=== PATIENT | female | born 1935 | race Caucasian/White ===

== ENCOUNTER 2016-11-29 11:06 | Emergency (ER) | payer OTHER ==
[2016-11-29 11:19] VITALS: BP 110/56; PULSE 91; TEMP 98.1; BMI 34.2
--- NOTE | 2016-11-29 11:42 | PDOC ---
History of Present Illness <Vlad Tse - Last Filed: 11/29/16 13:51> - History of Present Illness Initial Comments: 11/29/16 12:17 The patient is an 81 year old female with a past medical hx of HTN, hyperlipidemia, CHF, COPD, not on antiplatelets or anticoagulation, who presents to the ED s/p fall complaining of right knee, right elbow, and right facial pain. The patient states she was upstairs in the hospital when she tripped and fell onto the right side of her body. She denies any loss of consciousness. She notes her right elbow pain radiates up her right forearm and describes the pain as a mild dull ache. She states she was able to get herself up and walk without complications. She reports she was scheduled for a CT of her lungs at 11:30 today but did not make it to the appointment due to her fall. She notes her last tetanus shot was over five years ago. The patient denies dizziness, nausea, headache, vision changes, focal weakness, paresthesias. Past surgical history: Thyroid surgery Social history: Non-smoker PCP: Dr. Jaimes <Nancy Sheffield - Last Filed: 11/29/16 13:58> - General Chief Complaint: Injury Stated Complaint: FELL Time Seen by Provider: 11/29/16 11:42 Past History - Past Medical History Anemia: No Asthma: Yes Cancer: Yes (SKIN CANCERS) Cardiac Disorders: Yes (MVP,LEFT VENTRICULAR DIASTOLIC DYSFUNCTION) CVA: No COPD: Yes Dementia: No Diabetes: No GI Disorders: Yes (DIVERTICULOSIS,HIATAL HERNIA,COLON POLYPS) Disorders: No HTN: Yes Hypercholesterolemia: Yes Liver Disease: No Seizures: No Thyroid Disease: Yes (HYPOTHYROID DISEASE) - Surgical History Abdominal Surgery: No Appendectomy: No Cardiac Surgery: No Cholecystectomy: No Lung Surgery: No Neurologic Surgery: No Orthopedic Surgery: Yes (Bilateral Knee replaced, R. Hip, R. Rotator Cuff, R. Leg) - Immunization History Immunization Up to Date: No - Psycho/Social/Smoking Cessation Hx Anxiety: No Suicidal Ideation: No Smoking Status: No Smoking History: Never smoked Have you smoked in the past 12 months: No Number of Cigarettes Smoked Daily: 0 If you are a former smoker, when did you quit?: 30 years ago Information on smoking cessation initiated: No 'Breaking Loose' booklet given: 04/15/12 Hx Alcohol Use: No Drug/Substance Use Hx: No Substance Use Type: None Hx Substance Use Treatment: No <Vlad Tse - Last Filed: 11/29/16 13:51> <Nancy Sheffield - Last Filed: 11/29/16 13:58> - Past Medical History Allergies/Adverse Reactions: Allergies Allergy/AdvReac Type Severity Reaction Status Date / Time codeine [Codeine] Allergy Verified 11/29/16 11:16 Shellfish Allergy Verified 11/29/16 11:16 levofloxacin [From Levaquin] AdvReac Unknown Verified 11/29/16 11:16 ceftriaxone sodium AdvReac ERYTHEMA,IT Verified 11/29/16 11:16 [From Rocephin] BRISSA RAYO SHRIMP Allergy Uncoded 11/29/16 11:16 Home Medications: Ambulatory Orders Losartan Potassium [Cozaar] 25 mg PO DAILY 10/09/15 Montelukast Sodium [Singulair] 10 mg PO HS 10/09/15 Pravastatin Sodium [Pravachol -] 40 mg PO HS 10/09/15 Ranitidine HCl [Zantac] 150 mg PO BID PRN 10/09/15 Levothyroxine [Synthroid -] 125 mcg PO DAILY #90 tablet 11/18/15 Calcium Carbonate/Vitamin D3 [Calcium 500-Vit D3 200 Caplet] 1 each PO DAILY Magnesium Oxide [Mag-Ox -] 400 mg PO DAILY 03/22/16 Potassium Chloride [K-Dur -] 10 meq PO QID 03/22/16 Nebivolol [Bystolic -] 2.5 mg PO DAILY tab 03/25/16 Diphenhydramine HCl [Benadryl Capsule -] 25 mg PO DAILY PRN #0 capsule 03/28/16 Furosemide [Lasix -] 40 mg PO BID@0600,1400 tablet 03/28/16 Review of Systems - Review of Systems Able to Perform ROS?: Yes Comments:: 11/29/16 12:18 CONSTITUTIONAL: Absent: fever, chills, diaphoresis, generalized weakness, malaise, loss of appetite HEENT: Absent: rhinorrhea, nasal congestion, throat pain, throat swelling, difficulty swallowing, mouth swelling, ear pain, eye pain, visual Changes CARDIOVASCULAR: Absent: chest pain, syncope, palpitations, irregular heart rate, lightheadedness , peripheral edema RESPIRATORY: Absent: cough, shortness of breath, dyspnea with exertion, orthopnea, wheezing, stridor, hemoptysis GASTROINTESTINAL: Absent: abdominal pain, abdominal distension, nausea, vomiting, diarrhea, constipation, melena, hematochezia GENITOURINARY: Absent: dysuria, frequency, urgency, hesitancy, hematuria, flank pain, genital pain MUSCULOSKELETAL: +Right facial pain, right knee pain, right elbow pain. Absent: joint swelling SKIN: Absent: rash, itching, pallor HEMATOLOGIC/IMMUNOLOGIC: Absent: easy bleeding, easy bruising, lymphadenopathy, frequent infections ENDOCRINE: Absent: unexplained weight gain, unexplained weight loss, heat intolerance, cold intolerance NEUROLOGIC: Absent: headache, focal weakness or paresthesias, dizziness, unsteady gait, seizure, mental status changes, bladder or bowel incontinence PSYCHIATRIC: Absent: anxiety, depression, suicidal or homicidal ideation, hallucinations <Nancy Sheffield - Last Filed: 11/29/16 13:58> *Physical Exam - Vital Signs Last Vital Signs Temp Pulse Resp BP Pulse Ox 98.1 F 91 H 20 110/56 98 11/29/16 11:17 11/29/16 11:17 11/29/16 11:17 11/29/16 11:17 11/29/16 11:17 <Vlad Tse - Last Filed: 11/29/16 13:51> - Vital Signs Last Vital Signs Temp Pulse Resp BP Pulse Ox 98.1 F 91 H 20 110/56 98 11/29/16 11:17 11/29/16 11:17 11/29/16 11:17 11/29/16 11:17 11/29/16 11:17 - Physical Exam Comments: 11/29/16 12:18 GENERAL: Patient is awake, alert and in no acute distress. Speech is clear and appropriate. HEAD: Atraumatic and nontender. HEENT: Pupils are equal round and reactive to light, extraocular movements are intact. The tympanic membranes are clear, no hemotympanum. No facial deformity. No facial bone tenderness or step-off. No nasal septal hematoma. The oropharynx is clear. NECK: The trachea is midline, there is no stridor. There is no midline cervical spine tenderness, full range of motion of neck. CHEST: Non-tender, no ecchymosis or abrasions. Equal chest wall expansion bilaterally. No flail segments. Lungs are clear to auscultation bilaterally. CARDIOVASCULAR: S1-S2, regular rate and rhythm. No murmurs or rubs. ABDOMEN: Soft, nontender, nondistended. Bowel sounds are normoactive. There is no abdominal or flank ecchymosis. BACK/PELVIS: There is no midline thoracic or lumbosacral spine tenderness or step-off. Pelvis is stable and nontender. EXTREMITIES: +There is bony tenderness over the medial and lateral condyle of the right elbow. There is no bony tenderness in the right hand, wrist, or forearm. There is no bony tenderness over the right humerus, shoulder, scapula, or clavicle. There is no extremity deformity or joint swelling. 2+ distal pulses throughout. NEURO: Alert and oriented x3. Cranial nerves II through XII are intact. 5 out of 5 motor strength x4 extremities. No gross sensory deficits. [id number] is intact. No pronator drift. Gait is stable. SKIN: No abrasions, hematomas, lacerations. PSYCH: Affect is appropriate <Nancy Sheffield - Last Filed: 11/29/16 13:58> ED Treatment Course - RADIOLOGY Radiograph Interpretation: 11/29/16 13:38 CT FACIAL BONES. History. Rule out fracture, trauma. Direct axial images of the facial bones were obtained. The study was supplemented with computer generated, sagittal and coronal reconstruction images. Findings. No evidence of acute fracture. Intact orbital javier, zygomatic arches, pterygoid plates, orbital roofs, cribriform plate. No evidence of mandible fracture. Normal temporomandibular joints. Nonspecific mucosal changes are noted in the inferior aspect of the right frontal sinus. Few right anterior ethmoid air cells are opacified. Nonspecific mucosal changes are noted in the right maxillary sinus. Remaining paranasal sinuses are well aerated. The right jennifer bullosa is noted. The temporal bone temporal bones demonstrates normal degree of pneumatization. No evidence of opacification the mastoid air cells, middle ear. Symmetrical optic globes. Status post bilateral cataract surgeries. Intact odontoid. The predental space is not widened. Facet joint arthropathy noted at C2-C3 C3-C4. Impression: No acute facial fracture is seen. Reported By: Travis Chan MD 11/29/[address] WITHOUT CONTRAST TECHNIQUE: Multiaxial CT scan of the head without IV contrast was obtained from the base of the skull to the vertex. Comparison made to prior exam dated December 12, 2010 FINDINGS: There is no evidence of intra or extra-axial hemorrhage, mass effect or midline shift. The mcgraw- white mater differentiation is grossly preserved. There is mild patchy periventricular and subcortical white matter lucency without mass effect consistent with chronic microvascular ischemic changes. There is age-appropriate cerebral atrophy with secondary sulcal and ventricular dilatation. Evaluation of the inferior aspect of the frontal, middle and posterior fossa is limited due to streak artifacts. There are loss of septations in the right mastoid air cells likely postsurgical. The Visualized portions of the bony skull, left mastoid air cells and paranasal sinuses are unremarkable. IMPRESSION: No CT evidence of acute intracranial pathology. Reported By: Geronimo Simon MD 11/29/16 1321 11/29/16 13:56 Right knee X-Ray s/p total knee replacement Metallic hardware is seen in the distal femur Intact hardware. No evidence of dislocation. Vascular calcifications are noted. Intact visualized osseous structures Reported by: Travis Chan MD 11/29/16 1353 11/29/16 13:58 RAD/ELBOW-RIGHT Status post trauma. Right elbow 3 views. Findings. The osseous structures demonstrates normal mineralization and trabeculation. There is no evidence of fracture-dislocation, subluxation or foreign body. The articular surfaces do not demonstrate evidence of degenerative changes. The soft tissues are normal. Intact radial head Impression. No acute bony abnormalities are seen. If symptoms persist follow-up imaging may be considered in order to exclude occult fracture which may not be seen at the present time. Reported By: Travis Chan MD 11/29/16 1347 - Medications Given in the ED: ED Medications Discontinued Medications Generic Name Dose Route Start Last Admin Trade Name Freq PRN Reason Stop Dose Admin Acetaminophen 975 mg 11/29/16 11:53 11/29/16 12:00 Tylenol - PO 11/29/16 11:54 975 mg ONCE ONE Administration <Nancy Sheffield - Last Filed: 11/29/16 13:58> Medical Decision Making - Medical Decision Making 11/29/16 11:59 The patient is well-appearing and in no acute distress C-spine is nontender Will obtain plain films of the right elbow and right knee Will CT brain and facial bones 11/29/16 13:00 X-rays and CTs have been performed Results pending 11/29/16 13:51 Official readings of CTs and elbow x-ray noted Will apply sling and advised ortho follow-up Clinical impression: Right knee contusion Right elbow contusion Closed head injury, without evidence of concussion Right facial contusion I discussed the physical exam findings, ancillary test results and final diagnoses with the patient. I answered all of the patient's questions. The patient was satisfied with the care received and felt comfortable with the discharge plan and treatment plan. The patient will call their primary care physician within 24 hours to arrange follow-up and will return to the Emergency Department with any new, persistent or worsening symptoms. A portion of this note was documented by scribe services under my direction. I have reviewed the details of the note, within reason, and agree with the documentation with the following case summary and management plan written by me. <Vlad Tse - Last Filed: 11/29/16 13:51> *DC/Admit/Observation/Transfer <Vlad Tse - Last Filed: 11/29/16 13:51> - Attestations Scribe Attestion: 11/29/16 12:18 Documentation prepared by Nancy Sheffield, acting as resident medical officer for Vlad Tse MD/DO. <Nancy Sheffield - Last Filed: 11/29/16 13:58> Diagnosis at time of Disposition: Knee contusion, Contusion, elbow, Contusion of face, Closed head injury - Discharge Dispostion Disposition: HOME Condition at time of disposition: Improved - Referrals - Patient Instructions
[2016-11-29] MEDS ORDERED: ACETAMINOPHEN 325 MG TABLET (FP) PO ONE (11:53)
[2016-11-29] MEDS ORDERED: ACETAMINOPHEN 325 MG TABLET (FP) ONE (11:56)
--- NOTE | 2016-11-29 14:00 | RAPID ---
Physical Examination Vital Signs: Vital Signs Temperature 98.1 F 11/29/16 11:17 Pulse Rate 91 H 11/29/16 11:17 Respiratory Rate 20 11/29/16 11:17 Blood Pressure 110/56 11/29/16 11:17 O2 Sat by Pulse Oximetry (%) 98 11/29/16 11:17 Findings/Remarks: ECOLOGIST TECHNICIAN called after someone saw the patient fall. As per pt she was ambulating and stubbed her toe and fell onto her Right side. states she had no symptoms prior to event and was in her normal state of health. arrived to the ER for routing CT chest to follow pulmonary nodule pt states she did strike her head and c/o R knee pain Pt assessed, bleeding from R temporal and R side of bridge of nose (fell with sunglasses on her face) HR 88 saturating 98% on RA EOMI intact, able to move all 4 extremities with assistance pt was placed onto stretcher to go to ER for further evaluation and imaging studies
== END 2016-11-29 14:13 | disposition home or self-care (01) ==
LOC: JER 11:06 → UNDOADMIN 13:04 → JERBED 13:04
DX: S09.8XXA Other specified injuries of head, initial encounter (principal); S00.83XA Contusion of other part of head, initial encounter; S50.01XA Contusion of right elbow, initial encounter; S80.01XA Contusion of right knee, initial encounter; W01.0XXA Fall on same level from slipping, tripping and stumbling without subsequent striking against object, initial encounter; Y93.89 Activity, other specified; Y92.238 Other place in hospital as the place of occurrence of the external cause; I10 Essential (primary) hypertension; E78.00 Pure hypercholesterolemia, unspecified; J45.909 Unspecified asthma, uncomplicated; J44.9 Chronic obstructive pulmonary disease, unspecified; I51.9 Heart disease, unspecified; E03.9 Hypothyroidism, unspecified; Z85.828 Personal history of other malignant neoplasm of skin
CPT/HCPCS: 70450-TC; 70486-TC; 73070-TC-RT; 73562-TC-RT; 99281-25

== ENCOUNTER 2017-07-12 10:17 | Inpatient (IN) | payer OTHER ==
[2017-07-12 10:31] VITALS: BMI 31.6
--- NOTE | 2017-07-12 10:36 | PDOC ---
Attending Attestation - HPI HPI: 07/12/17 11:29 The patient is a 82 year old female with a significant PMH of HTN, CHF, COPD, and hyperlipidemia who presents to the emergency department with generalized malaise beginning approximately 2 days ago. Reports malaise began at dinner with a sudden isolated episode of nausea, vomiting, and diarrhea, after which patient reports feeling off. Patients daughters also report 2 weeks of intermittent confused language. - Physicial Exam PE: 07/12/17 11:29 Vitals: Triage Vital signs reviewed General Appearance: no acute distress, well nourished well developed, Head: Atraumatic, normocephalic Cardiac: Regular rate and rhythm, no murmurs, no rubs, no gallops, Lungs: Clear to auscultation bilateral, good air movement bilaterally, Abdomen: Soft, nondistended, normal bowel sounds, nontender to palpation Extremities: Full range of motion to all extremities, no cyanosis, clubbing, or edema Neuro: AOX3; Cranial Nerves 2-12 grossly intact, Strength intact to all extremities, Sensation intact to all extremities Psych: normal mood, normal affect - Medical Decision Making 07/12/17 11:29 Plan: Finger stick to evaluate glucose levels, Rectal temp. Labs: Urinalysis (straight catheter if necessary), CBC, CMP, TSH Radiology: Head CT <Venkata Doss - Last Filed: 07/12/17 13:03> - Resident Resident Name: Mauri Barth - ED Attending Attestation I have performed the following: I have examined & evaluated the patient, The case was reviewed & discussed with the resident, I agree w/resident's findings & plan, Exceptions are as noted - Medical Decision Making 07/12/17 15:48 CT head findings as dictated. 4 mg Decadron ordered. Findings discussed with patient's primary care provider. Neurosurgery Dr. Leonard consulted. Plan admit to medicine for further management. <Chadwick Fontenot - Last Filed: 07/12/17 15:48>
--- NOTE | 2017-07-12 10:51 | PDOC ---
History of Present Illness <Venkata Doss - Last Filed: 07/12/17 13:05> <Chadwick Fontenot - Last Filed: 07/12/17 13:10> - History of Present Illness Initial Comments: 07/12/17 10:51 Ms. Waldrop is an 82 yo female with a significant past medical history of HTN, CHF, COPD, and hyperlipidemia who presents to the emergency department complaining of generally "not feeling good" over the past 2 days. Per family this started 2 days ago at dinner time when she suddenly was "off" and had a sudden epidode of nausea/vomiting/diarrhea. Per family this was an isolated incident but she has had intermittent minor word finding difficulty over the last 2 days since. The patient denies chest pain, shortness of breath, headache and dizziness. Denies fever, chills, nausea, vomit, diarrhea and constipation. Denies dysuria, frequency, urgency and hematuria. Allergies: Rocephin, Levofloxacin, ceftriaxone, codeine <Mauri Barth - Last Filed: 07/12/17 13:40> - General Chief Complaint: Lethargy Stated Complaint: CONFUSION, SOB Time Seen by Provider: 07/12/17 10:33 Past History <Venkata Doss - Last Filed: 07/12/17 13:05> <Chadwick Fontenot - Last Filed: 07/12/17 13:10> - Past Medical History Anemia: No Asthma: Yes Cancer: Yes (SKIN CANCERS) Cardiac Disorders: Yes (MVP,LEFT VENTRICULAR DIASTOLIC DYSFUNCTION) CVA: No COPD: Yes Dementia: No Diabetes: No GI Disorders: Yes (DIVERTICULOSIS,HIATAL HERNIA,COLON POLYPS) Disorders: No HTN: Yes Hypercholesterolemia: Yes Liver Disease: No Seizures: No Thyroid Disease: Yes (HYPOTHYROID DISEASE) - Surgical History Abdominal Surgery: No Appendectomy: No Cardiac Surgery: No Cholecystectomy: No Lung Surgery: No Neurologic Surgery: No Orthopedic Surgery: Yes (Bilateral Knee replaced, R. Hip, R. Rotator Cuff, R. Leg) - Immunization History Immunization Up to Date: No - Suicide/Smoking/Psychosocial Hx Smoking Status: No Smoking History: Never smoked Have you smoked in the past 12 months: No Number of Cigarettes Smoked Daily: 0 If you are a former smoker, when did you quit?: 30 years ago 'Breaking Loose' booklet given: 04/15/12 Hx Alcohol Use: No Drug/Substance Use Hx: No Substance Use Type: None Hx Substance Use Treatment: No <Mauri Barth - Last Filed: 07/12/17 13:40> - Past Medical History Allergies/Adverse Reactions: Allergies Allergy/AdvReac Type Severity Reaction Status Date / Time Shellfish Allergy Verified 07/12/17 10:27 levofloxacin [From Levaquin] AdvReac Unknown Verified 07/12/17 10:27 ceftriaxone sodium AdvReac ERYTHEMA,IT Verified 07/12/17 10:27 [From Rocephin] GIRMA,URTIC ARIA codeine [Codeine] AdvReac Nausea Verified 07/12/17 10:27 SHRIMP Allergy Uncoded 07/12/17 10:27 Home Medications: Ambulatory Orders Losartan Potassium [Cozaar] 25 mg PO DAILY 10/09/15 Montelukast Sodium [Singulair] 10 mg PO HS 10/09/15 Pravastatin Sodium [Pravachol -] 40 mg PO HS 10/09/15 Ranitidine HCl [Zantac] 150 mg PO BID PRN 10/09/15 Levothyroxine [Synthroid -] 125 mcg PO DAILY #90 tablet 11/18/15 Calcium Carbonate/Vitamin D3 [Calcium 500-Vit D3 200 Caplet] 1 each PO DAILY Magnesium Oxide [Mag-Ox -] 400 mg PO DAILY 03/22/16 Potassium Chloride [K-Dur -] 10 meq PO QID 03/22/16 Nebivolol [Bystolic -] 2.5 mg PO DAILY tab 03/25/16 Diphenhydramine HCl [Benadryl Capsule -] 25 mg PO DAILY PRN #0 capsule 03/28/16 Furosemide [Lasix -] 40 mg PO BID@0600,1400 tablet 03/28/16 Review of Systems - Review of Systems Comments:: 07/12/17 10:52 GENERAL/CONSTITUTIONAL: No fever or chills. No weakness. HEAD, EYES, EARS, NOSE AND THROAT: +Minimal rhinorrhea reported. No change in vision. No ear pain or discharge. No sore throat. CARDIOVASCULAR: No chest pain or shortness of breath RESPIRATORY: No cough, wheezing, or hemoptysis. GASTROINTESTINAL: +N/V/D as reported in HPI. No constipation. GENITOURINARY: No dysuria, frequency, or change in urination. MUSCULOSKELETAL: No joint or muscle swelling or pain. No neck or back pain. SKIN: No rash NEUROLOGIC: No headache, vertigo, loss of consciousness, or change in strength/ sensation. ENDOCRINE: No increased thirst. No abnormal weight change HEMATOLOGIC/LYMPHATIC: No anemia, easy bleeding, or history of blood clots. ALLERGIC/IMMUNOLOGIC: No hives or skin allergy. <Mauri Barth - Last Filed: 07/12/17 13:40> *Physical Exam - Vital Signs Last Vital Signs Temp Pulse Resp BP Pulse Ox 98.3 F 75 18 105/67 96 07/12/17 10:26 07/12/17 10:26 07/12/17 10:26 07/12/17 10:26 07/12/17 10:26 <Venkata Doss - Last Filed: 07/12/17 13:05> - Vital Signs Last Vital Signs Temp Pulse Resp BP Pulse Ox 98.3 F 75 18 105/67 96 07/12/17 10:26 07/12/17 10:26 07/12/17 10:26 07/12/17 10:26 07/12/17 10:26 <Chadwick Fontenot - Last Filed: 07/12/17 13:10> - Vital Signs Last Vital Signs Temp Pulse Resp BP Pulse Ox 98.3 F 75 18 105/67 96 07/12/17 10:26 07/12/17 10:26 07/12/17 10:26 07/12/17 10:26 07/12/17 10:26 - Physical Exam Comments: 07/12/17 10:52 GENERAL: Awake, alert, and fully oriented, in no acute distress HEAD: No signs of trauma, normocephalic, atraumatic EYES: PERRLA, EOMI, sclera anicteric, conjunctiva clear ENT: Auricles normal inspection, hearing grossly normal, nares patent, oropharynx clear without exudates. Moist mucosa NECK: Normal ROM, supple, no lymphadenopathy, JVD, or masses LUNGS: No distress, speaks full sentences, clear to auscultation bilaterally HEART: Regular rate and rhythm, normal S1 and S2, no murmurs, rubs or gallops, peripheral pulses normal and equal bilaterally. ABDOMEN: Soft, nontender, normoactive bowel sounds. No guarding, no rebound. No masses EXTREMITIES: Normal inspection, Normal range of motion, no edema. No clubbing or cyanosis. NEUROLOGICAL: Cranial nerves II through XII grossly intact. Normal speech, normal gait, no focal sensorimotor deficits SKIN: Warm, Dry, normal turgor, no rashes or lesions noted. <Mauri Barth - Last Filed: 07/12/17 13:40> ED Treatment Course - LABORATORY CBC & Chemistry Diagram: 07/12/17 11:34 07/12/17 11:34 - ADDITIONAL ORDERS Additional order review: Laboratory Results 07/12/17 07/12/17 07/12/17 11:34 11:34 11:30 Sodium 137 Potassium 3.9 Chloride 100 Carbon Dioxide 28 Anion Gap 9 BUN 54 H D Creatinine 2.0 H D Creat Clearance w eGFR 23.74 Random Glucose 93 Calcium 8.7 Total Bilirubin 0.7 D AST 21 D ALT 19 D Alkaline Phosphatase 97 Total Protein 7.1 Albumin 3.1 L TSH 0.10 L D Urine Color Ltyellow Urine Appearance Clear Urine pH 6.0 Urine Protein Negative Urine Glucose (UA) Negative Urine Ketones Trace H Urine Blood Negative Urine Nitrite Negative Urine Bilirubin Negative Urine Urobilinogen Negative 07/12/17 11:34 RBC 4.29 MCV 90.8 MCHC 33.3 RDW 16.0 H MPV 9.1 D Neutrophils % 81.4 Lymphocytes % 11.5 Monocytes % 5.4 Eosinophils % 1.2 Basophils % 0.5 - Medications Given in the ED: ED Medications Discontinued Medications Generic Name Dose Route Start Last Admin Trade Name Freq PRN Reason Stop Dose Admin Dexamethasone Sodium Phosphate 4 mg 07/12/17 12:54 07/12/17 13:02 Decadron Injection - IVPUSH 07/12/17 12:55 4 mg ONCE ONE Administration Sodium Chloride 500 mls @ 1,000 mls/hr 07/12/17 11:26 07/12/17 11:35 Normal Saline - IV 07/12/17 11:55 1,000 mls/hr ASDIR STA Administration - Consult/PCP Time Called: 13:05 Case discussed with personal care physician: Nahed Jaimes - Additional Consults Time Called: 13:05 (Dr. Keith Leonard (Neurosurgery)) <Venkata Doss - Last Filed: 07/12/17 13:05> - LABORATORY CBC & Chemistry Diagram: 07/12/17 11:34 07/12/17 11:34 - ADDITIONAL ORDERS Additional order review: Laboratory Results 07/12/17 07/12/17 07/12/17 11:34 11:34 11:30 Sodium 137 Potassium 3.9 Chloride 100 Carbon Dioxide 28 Anion Gap 9 BUN 54 H D Creatinine 2.0 H D Creat Clearance w eGFR 23.74 Random Glucose 93 Calcium 8.7 Total Bilirubin 0.7 D AST 21 D ALT 19 D Alkaline Phosphatase 97 Total Protein 7.1 Albumin 3.1 L TSH 0.10 L D Urine Color Ltyellow Urine Appearance Clear Urine pH 6.0 Urine Protein Negative Urine Glucose (UA) Negative Urine Ketones Trace H Urine Blood Negative Urine Nitrite Negative Urine Bilirubin Negative Urine Urobilinogen Negative 07/12/17 11:34 RBC 4.29 MCV 90.8 MCHC 33.3 RDW 16.0 H MPV 9.1 D Neutrophils % 81.4 Lymphocytes % 11.5 Monocytes % 5.4 Eosinophils % 1.2 Basophils % 0.5 - Medications Given in the ED: ED Medications Discontinued Medications Generic Name Dose Route Start Last Admin Trade Name Freq PRN Reason Stop Dose Admin Dexamethasone Sodium Phosphate 4 mg 07/12/17 12:54 07/12/17 13:02 Decadron Injection - IVPUSH 07/12/17 12:55 4 mg ONCE ONE Administration Sodium Chloride 500 mls @ 1,000 mls/hr 07/12/17 11:26 07/12/17 11:35 Normal Saline - IV 07/12/17 11:55 1,000 mls/hr ASDIR STA Administration <Chadwick Fontenot - Last Filed: 07/12/17 13:10> - LABORATORY CBC & Chemistry Diagram: 07/12/17 11:34 07/12/17 11:34 <Mauri Barth - Last Filed: 07/12/17 13:40> Medical Decision Making - Medical Decision Making 07/12/17 11:33 Ms. Waldrop presents with 2 days of confusion with n/v/d. EKG/Head CT/UA ordered as well as adult labs to rule out acute pathology. EKG normal rate, normal rhythm, normal access, normal interval, no ST segment depressions or elevations. Normal EKG. 07/12/17 13:15 CT Head as below: In comparison to a prior noncontrast CT study of 11/29/2016 interval development of an approximately 3 cm left frontal subcortical mass lesion is noted with probable involvement of the corpus callosum. Moderate to marked perilesional edema is seen. There is mild to moderate contralateral midline displacement. This finding is probably more likely on the basis of primary neoplastic disease rather than metastatic neoplastic disease. Additional evaluation utilizing contrast enhanced MRI or CT is suggested. Discussed findings with patient and family - verbalized understanding. 07/12/17 13:19 Patient admitted to PCP (Dr. Jaimes) for futher workup, Neurosurgery consulted. 07/12/17 13:[address] Clifford Leonard (Neurosurgery) and he agreed to consult. <Mauri Barth - Last Filed: 07/12/17 13:40> *DC/Admit/Observation/Transfer <Venkata Doss - Last Filed: 07/12/17 13:05> - Discharge Dispostion Admit: Yes Decision to Admit order Date/Time: 07/12/17 13:11 <Chadwick Fontenot - Last Filed: 07/12/17 13:10> - Discharge Dispostion Admit: Yes <Mauri Barth - Last Filed: 07/12/17 13:40> Diagnosis at time of Disposition: Brain mass, Acute kidney injury - Referrals
[2017-07-12] MEDS ORDERED: SODIUM CHLORIDE 500 ML IV STA (11:26)
[2017-07-12 11:41] LABS: BASOPHIL 0.5 % (0-2.0); EOSINOPHIL 1.2 % (0-4.5); MCH 30.2 pg (25.7-33.7); MCHC 33.3 g/dl (32.0-36.0); MEAN CELL VOLUME 90.8 fl (80-96); MEAN PLT VOLUME 9.1 fl (7.5-11.1); NEUTROPHILS 81.4 % (42.8-82.8); PLATELET COUNT 272 K/MM3 (134-434); WHITE BLOOD COUNT 9.5 K/mm3 (4.0-10.0)
[2017-07-12 12:05] LABS: ALBUMIN 3.1 g/dl (3.4-5.0); ALK PHOS 97 U/L (45-117); ANION GAP 9 (8-16); BILIRUBIN,TOTAL 0.7 mg/dL (0.2-1.0); CALCIUM 8.7 mg/dL (8.5-10.1); CO2 28 mmol/L (21-32); GLUCOSE,RANDOM 93 mg/dL (74-106); SGOT/AST 21 U/L (15-37); SGPT/ALT 19 U/L (12-78); TOT PROT 7.1 g/dl (6.4-8.2)
[2017-07-12] MEDS ORDERED: DEXAMETHASONE SOD PHOSPHATE 4 MG/1 ML VIAL IVPUSH ONE (12:54)
[2017-07-12 12:55] LABS: URINE APPEARANCE CLEAR; URINE BILIRUBIN NEGATIVE (NEGATIVE); URINE BLOOD NEGATIVE (NEGATIVE); URINE COLOR LTYELLOW; URINE GLUCOSE (UA) NEGATIVE (NEGATIVE); URINE KETONE TRACE (NEGATIVE); URINE NITRITE NEGATIVE (NEGATIVE); URINE PROTEIN NEGATIVE (NEGATIVE); URINE UROBILINOGEN NEGATIVE mg/dL (0.2-1.0)
[2017-07-12] MEDS ORDERED: DEXAMETHASONE SOD PHOSPHATE 4 MG/1 ML VIAL ONE (13:04)
[2017-07-12] MEDS ORDERED: diphenhydrAMINE HCL 25 MG CAPSULE (FP) PO PRN (13:27)
[2017-07-12] MEDS ORDERED: PATIENT'S OWN MEDICATION (NON-FORMULARY) (Ranitidine Hcl [Zantac] 150 MG) PO PRN (13:27)
[2017-07-12] MEDS ORDERED: ACETAMINOPHEN 325 MG TABLET (FP) PO PRN (13:30)
--- NOTE | 2017-07-12 13:38 | HP ---
Admitting History and Physical - Primary Care Physician PCP: Nahed Jaimes - Admission Chief Complaint: confusion History of Present Illness: Ms. Waldrop is an 82 yo female with a significant past medical history of HTN, CHF, COPD, and hyperlipidemia who presents to the emergency department complaining of generally "not feeling good" over the past 2 days. Per family this started 2 days ago at dinner time when she suddenly was "off" and had a sudden epidode of nausea/vomiting/diarrheax1 but resolved after that. Per family this was an isolated incident but she has had intermittent minor word finding difficulty over the last 2 days since. Per daughter, pt was alos mildly and intermitently confused over the last 2 weeks and uses sometimes words that do not make sense. The patient denies chest pain, shortness of breath, headache and dizziness. Denies fever, chills, nausea, vomit, diarrhea and constipation. Denies dysuria, frequency, urgency and hematuria. History Source: Patient, Family Member, Medical Record Limitations to Obtaining History: No Limitations - Past Medical History Cardiovascular: Yes: HTN, Hyperlipdemia, Pulmonary Hypertension Pulmonary: Yes: COPD Gastrointestinal: Yes: Other (colon polyps) Musculoskeletal: Yes: Chronic low back pain, Osteoarthritis Endocrine: Yes: Hypothyroidism - Past Surgical History Past Surgical History: Yes: Joint Replacement - Smoking History Smoking history: Never smoked Have you smoked in the past 12 months: No Aproximately how many cigarettes per day: 0 If you are a former smoker, when did you quit?: 30 years ago - Alcohol/Substance Use Hx Alcohol Use: No History of Substance Use: reports: None - Social History Usual Living Arrangement: Yes: With Child ADL: Family Assistance ([employer] [facility] lives close by) Occupation: retired History of Recent Travel: No Home Medications - Allergies Allergies/Adverse Reactions: Allergies Allergy/AdvReac Type Severity Reaction Status Date / Time Shellfish Allergy Verified 07/12/17 10:27 levofloxacin [From Levaquin] AdvReac Unknown Verified 07/12/17 10:27 ceftriaxone sodium AdvReac ERYTHEMA,IT Verified 07/12/17 10:27 [From Rocephin] GIRMA,URTIC ARIA codeine [Codeine] AdvReac Nausea Verified 07/12/17 10:27 SHRIMP Allergy Uncoded 07/12/17 10:27 - Home Medications Home Medications: Ambulatory Orders Losartan Potassium [Cozaar] 25 mg PO DAILY 10/09/15 Montelukast Sodium [Singulair] 10 mg PO HS 10/09/15 Pravastatin Sodium [Pravachol -] 40 mg PO HS 10/09/15 Ranitidine HCl [Zantac] 150 mg PO BID PRN 10/09/15 Levothyroxine [Synthroid -] 125 mcg PO DAILY #90 tablet 11/18/15 Calcium Carbonate/Vitamin D3 [Calcium 500-Vit D3 200 Caplet] 1 each PO DAILY Magnesium Oxide [Mag-Ox -] 400 mg PO DAILY 03/22/16 Potassium Chloride [K-Dur -] 10 meq PO QID 03/22/16 Nebivolol [Bystolic -] 2.5 mg PO DAILY tab 03/25/16 Diphenhydramine HCl [Benadryl Capsule -] 25 mg PO DAILY PRN #0 capsule 03/28/16 Furosemide [Lasix -] 40 mg PO BID@0600,1400 tablet 03/28/16 Family Disease History - Family Disease History Family Disease History: CA: Father (colon cancer), Brother (colon cancer) Review of Systems - Review of Systems Constitutional: denies: Chills, Fever, Lethargy Eyes: denies: Blind Spots, Double Vision HENT: denies: Ear Pain Neck: denies: Stiffness, Tenderness Cardiovascular: denies: Chest Pain, Edema, Shortness of Breath Respiratory: denies: Cough, SOB Gastrointestinal: denies: Abdominal Pain, Diarrhea, Nausea, Vomiting Genitourinary: denies: Dysuria, Flank Pain Musculoskeletal: reports: Back Pain (chronic) Integumentary: denies: Eczema, Wound Neurological: reports: Change in Speech, Confusion, Headache (occasional). denies: Change in LOC, Dizziness, Numbness, Seizure, Syncope, Tremors, Weakness Hematology/Lymphatic: denies: Easily Bruised, Excessive Bleeding Psychiatric: denies: Anxiety, Depression Physical Examination Vital Signs: Vital Signs Temperature 98.3 F 07/12/17 10:26 Pulse Rate 75 07/12/17 10:26 Respiratory Rate 18 07/12/17 10:26 Blood Pressure 105/67 07/12/17 10:26 O2 Sat by Pulse Oximetry (%) 96 07/12/17 10:26 Constitutional: Yes: No Distress, Calm Eyes: Yes: Conjunctiva Clear HENT: Yes: Atraumatic Neck: Yes: Supple Cardiovascular: Yes: Regular Rate and Rhythm Respiratory: Yes: CTA Bilaterally Gastrointestinal: Yes: Soft. No: Distention, Tenderness Renal/: No: CVA Tenderness - Left, CVA Tenderness - Right Musculoskeletal: No: Joint Stiffness, Joint Swelling Extremities: No: Cold, Cool, Cyanosis Edema: No Integumentary: No: Rash, Venous Stasis Changes Neurological: Yes: WNL, Alert, Confusion (mild). No: Oriented (x2 only), Dysarthria, Facial Droop, Seizure, Tingling, Unsteady Gait, Weakness ...Motor Strength: WNL Psychiatric: Yes: WNL, Alert. No: Oriented (x2 only), Agitated, Suicidal Ideation Imaging - Results Chest X-ray: Report Reviewed X-ray: Report Reviewed Cat Scan: Report Reviewed Other: Report Reviewed Assessment/Plan Ms. Waldrop is an 82 yo female with a significant past medical history of HTN, dyastolic CHF, COPD, and hyperlipidemia who presents to the emergency department complaining of generally "not feeling good" over the past 2 days. Mild confusion and intermittent minor word finding difficulty over the last few days. Head CT in ER c/w L frontal mass 3 cm with surrounding edema and some midline shift; of note, head CT november 2016 was negative ARF/CRF dehydration; admit IVF for gentle hydration; will need MRI brain with and without IV heidi; creat 2.0 - risk for Nephrogenic Systemic SClerosis to be d.w renal and pt, pt's family Neurology and NS eval watch for CHF given multiple previous admissions for CHF/COPD exac, will ask cardio and pulm eval for preop optimization IV steroids. Po keppra for seizure PFX OK to use sq heparin per neuology f/u labs falls PFX d/w pt and staff do not get OOB alone d/w pt and family d/w NS dr Leonard, Neuro dr Cuevas progn guarded T time 75 min
[2017-07-12] MEDS ORDERED: POTASSIUM CHLORIDE TABS 10 MEQ TABLET.ER (FP) ONE (14:20)
[2017-07-12] MEDS: POTASSIUM CHLORIDE TABS 20 MEQ TABLET.ER (FP) PO SCH ×3 (14:20→21:12)
[2017-07-12] MEDS: FUROSEMIDE 40 MG TABLET (FP) PO SCH (14:23)
[2017-07-12] MEDS: DEXAMETHASONE SOD PHOSPHATE 4 MG/1 ML VIAL IVPUSH SCH ×2 (15:14→21:22)
[2017-07-12] MEDS ORDERED: PNEUMOC 13-VAL CONJ-DIP CRM/PF 0.5 ML DISP.SYRIN IM ONE (16:58)
[2017-07-12 17:10] LABS: URINE LEUK ESTERASE Negative (NEGATIVE)
[2017-07-12] MEDS: INSULIN SLIDING SCALE (NOVOLOG) 1 VIAL SQ SCH ×2 (18:03→21:14)
--- NOTE | 2017-07-12 18:14 | CON.NEURO ---
Consult - History of Present Illness History of Present Illness: 82 year old female with a significant PMH of HTN, CHF, COPD, and hyperlipidemia who presents to the emergency department with generalized malaise beginning approximately 2 days ago. Reports malaise began at dinner with a sudden isolated episode of nausea, vomiting, and diarrhea, after which patient reports feeling off. as per chart, Patients daughters also report 2 weeks of intermittent confused language. Pt denies TAVERAS or focal weakness. she smiles and is attentive and becomes slightly confused with conversation. denies breathing c/o. no known cancer CT HD IMPRESSION: In comparison to a prior noncontrast CT study of 11/29/2016 interval development of an approximately 3 cm left frontal subcortical mass lesion is noted with probable involvement of the corpus callosum. Moderate to marked perilesional edema is seen. There is mild to moderate contralateral midline displacement. This finding is probably more likely on the basis of primary neoplastic disease rather than metastatic neoplastic disease. Additional evaluation utilizing contrast enhanced MRI or CT is suggested. - History Source History Provided By: Patient, Medical Record - Past Medical History Cardio/Vascular: Yes: HTN, Hyperlipdemia, Pulmonary Hypertension Pulmonary: Yes: COPD Gastrointestinal: Yes: Other (colon polyps) Musculoskeletal: Yes: Chronic low back pain, Osteoarthritis Endocrine: Yes: Hypothyroidism - Past Surgical History Past Surgical History: Yes: Joint Replacement - Alcohol/Substance Use Hx Alcohol Use: No History of Substance Use: reports: None - Smoking History Smoking history: Never smoked Have you smoked in the past 12 months: No Aproximately how many cigarettes per day: 0 If you are a former smoker, when did you quit?: 30 years ago - Social History ADL: Family Assistance ([facility] lives close by) Occupation: retired History of Recent Travel: No Home Medications - Allergies Allergies/Adverse Reactions: Allergies Allergy/AdvReac Type Severity Reaction Status Date / Time Shellfish Allergy Verified 07/12/17 10:27 levofloxacin [From Levaquin] AdvReac Unknown Verified 07/12/17 10:27 ceftriaxone sodium AdvReac ERYTHEMA,IT Verified 07/12/17 10:27 [From Rocephin] GIRMA,URTIC ARIA codeine [Codeine] AdvReac Nausea Verified 07/12/17 10:27 SHRIMP Allergy Uncoded 07/12/17 10:27 - Home Medications Home Medications: Ambulatory Orders Losartan Potassium [Cozaar] 25 mg PO DAILY 10/09/15 Montelukast Sodium [Singulair] 10 mg PO HS 10/09/15 Pravastatin Sodium [Pravachol -] 40 mg PO HS 10/09/15 Ranitidine HCl [Zantac] 150 mg PO BID PRN 10/09/15 Levothyroxine [Synthroid -] 125 mcg PO DAILY #90 tablet 11/18/15 Calcium Carbonate/Vitamin D3 [Calcium 500-Vit D3 200 Caplet] 1 each PO DAILY Magnesium Oxide [Mag-Ox -] 400 mg PO DAILY 03/22/16 Potassium Chloride [K-Dur -] 10 meq PO QID 03/22/16 Nebivolol [Bystolic -] 2.5 mg PO DAILY tab 03/25/16 Diphenhydramine HCl [Benadryl Capsule -] 25 mg PO DAILY PRN #0 capsule 03/28/16 Furosemide [Lasix -] 40 mg PO BID@0600,1400 tablet 03/28/16 Family Disease History - Family Disease History Family Disease History: CA: Father (colon cancer), Brother (colon cancer) Physical Exam-Neuro Vital Signs: Vital Signs Temperature 98.6 F 07/12/17 16:23 Pulse Rate 74 07/12/17 16:23 Respiratory Rate 20 07/12/17 16:23 Blood Pressure 132/77 07/12/17 16:23 O2 Sat by Pulse Oximetry (%) 96 07/12/17 16:23 Constitutional: Yes: Well Nourished - Neuro Exam Level Of Consciousness: Yes: Alert (awake and alert though becomes confused , yr 1955, does not know age, follows basic commands, can name and repeat, no clear aphasia, VFF, lsight RUE drift, no focal weakness, plantars equivocal ) Imaging - Results Cat Scan: Report Reviewed, Image Reviewed Problem List - Problems (1) Acute kidney injury Code(s): N17.9 - ACUTE KIDNEY FAILURE, UNSPECIFIED (2) Brain mass Code(s): G93.9 - DISORDER OF BRAIN, UNSPECIFIED (3) COPD (chronic obstructive pulmonary disease) with chronic bronchitis Code(s): J44.9 - CHRONIC OBSTRUCTIVE PULMONARY DISEASE, UNSPECIFIED Assessment/Plan 82 year old female with a significant PMH of HTN, CHF, COPD, and hyperlipidemia who presents to the emergency department with generalized malaise beginning approximately 2 days ago. Reports malaise began at dinner with a sudden isolated episode of nausea, vomiting, and diarrhea, after which patient reports feeling off. as per chart, Patients daughters also report 2 weeks of intermittent confused language. Pt denies TAVERAS or focal weakness. she smiles and is attentive and becomes slightly confused with conversation. denies breathing c /o. no known cancer CT HD IMPRESSION: In comparison to a prior noncontrast CT study of 11/29/2016 interval development of an approximately 3 cm left frontal subcortical mass lesion is noted with probable involvement of the corpus callosum. Moderate to marked perilesional edema is seen. There is mild to moderate contralateral midline displacement. This finding is probably more likely on the basis of primary neoplastic disease rather than metastatic neoplastic disease. Additional evaluation utilizing contrast enhanced MRI or CT is suggested suspicious for new primary brain CA, surprisingly no major extremity deficits though she is confused. can maintaian decadron 4 Q6, review prior MCDONOUGH to ensure no primary CA site. MRI BRAIN with contrast after creatinine corrects -- hx of shellfsih allergy, though HOPE does not contain iodine. Neurosurgery to be called -Dr Leonard , biopsy/ ?debulking, Oncology after biopsy no AED for now, will Dc keppra, though if any seizure like activity will reasess. HEP Sq ok. will discuss with family when they are available Dr Torres [phone] .
[2017-07-12] MEDS: RANITIDINE HCL 150 MG TABLET (FP) PO SCH (21:13)
[2017-07-12] MEDS: MONTELUKAST NA 10 MG TABLET PO SCH (21:13)
[2017-07-12] MEDS: ATORVASTATIN CA 10 MG TABLET (FP) PO SCH (21:24)
[2017-07-12] MEDS: levETIRAcetam 500 MG TABLET (FP) PO SCH (21:24)
[2017-07-12] MEDS ORDERED: PATIENT'S OWN MEDICATION (NON-FORMULARY) (Montelukast Sodium [Singulair] 10 MG) PO SCH (22:00)
[2017-07-12] MEDS ORDERED: PATIENT'S OWN MEDICATION (NON-FORMULARY) (Pravastatin Sodium 40 MG) PO SCH (22:00)
[2017-07-13] MEDS: DEXAMETHASONE SOD PHOSPHATE 4 MG/1 ML VIAL IVPUSH SCH ×4 (04:51→22:36)
[2017-07-13] MEDS: FUROSEMIDE 40 MG TABLET (FP) PO SCH (06:08)
[2017-07-13] MEDS: INSULIN SLIDING SCALE (NOVOLOG) 1 VIAL SQ SCH ×4 (06:15→22:37)
[2017-07-13] MEDS ORDERED: LEVOTHYROXINE NA 125 MCG TABLET (FP) PO SCH (07:00)
--- NOTE | 2017-07-13 09:42 | PN ---
Progress Note (short form) - Note Progress Note: NEUROSURGERY CONSULT DICTATED H/o HTN, CHF, COPD, and hyperlipidemia. Presents with generalized malaise beginning 3-4 days ago. Reports nausea, vomiting, and diarrhea, Patients daughters reported 2 weeks of intermittent confused speech. Pt had intermittent TAVERAS in the past but no sz or focal weakness except R foot mild chronic weakness. No h/o primary systemic malignancy. 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
--- NOTE | 2017-07-13 09:48 | PN ---
Progress Note, Physician Chief Complaint: in bed NAD MS seems better today; no headcahes no focal c/o tests and consults reviewed and d/w pt and daughter Gayle - Current Medication List Current Medications: Active Medications Acetaminophen (Tylenol -) 650 mg PO Q6H PRN PRN Reason: PAIN LEVEL 6-10 Atorvastatin Calcium (Lipitor -) 10 mg PO HS [facility] Last Admin: 07/12/17 21:24 Dose: 10 mg Calcium Carbonate/Cholecalciferol (Os-Franklyn 500+D -) 1 tab PO DAILY [facility] Dexamethasone Sodium Phosphate (Decadron Injection -) 4 mg IVPUSH Q6H-IV [facility] Last Admin: 07/13/17 04:51 Dose: 4 mg Diphenhydramine HCl (Benadryl -) 25 mg PO DAILY PRN PRN Reason: FOR ITCHING Furosemide (Lasix -) 40 mg PO BID@0600,1400 [facility] Last Admin: 07/13/17 06:08 Dose: 40 mg Heparin Sodium (Porcine) (Heparin -) 5,000 unit SQ BID [facility] Insulin Aspart (Novolog Vial Sliding Scale -) 1 vial SQ ACHS [facility] PRN Reason: Protocol Last Admin: 07/13/17 06:15 Dose: Not Given Levetiracetam (Keppra -) 500 mg PO BID [facility] Last Admin: 07/12/17 21:24 Dose: 500 mg Levothyroxine Sodium (Synthroid -) 125 mcg PO ACBK [facility] Last Admin: 07/13/17 06:08 Dose: 125 mcg Losartan Potassium (Cozaar -) 25 mg PO DAILY [facility] Magnesium Oxide (Mag-Ox -) 400 mg PO DAILY [facility] Montelukast Sodium (Singulair -) 10 mg PO HS [facility] Last Admin: 07/12/17 21:13 Dose: 10 mg Nebivolol (Bystolic -) 2.5 mg PO DAILY [facility] Pantoprazole Sodium (Protonix -) 40 mg PO DAILY [facility] Potassium Chloride (K-Dur -) 10 meq PO QID [facility] Last Admin: 07/12/17 21:12 Dose: 10 meq Ranitidine HCl (Zantac -) 150 mg PO BID [facility] Last Admin: 07/12/17 21:13 Dose: 150 mg - Objective Vital Signs: Vital Signs Temperature 98.5 F 07/13/17 06:00 Pulse Rate 63 07/13/17 06:00 Respiratory Rate 16 07/13/17 06:00 Blood Pressure 113/50 07/13/17 06:00 O2 Sat by Pulse Oximetry (%) 95 07/12/17 20:33 Constitutional: Yes: No Distress, Calm Eyes: Yes: Conjunctiva Clear HENT: Yes: Atraumatic Neck: Yes: Supple Cardiovascular: Yes: Regular Rate and Rhythm Respiratory: Yes: CTA Bilaterally Gastrointestinal: Yes: Soft. No: Distention, Tenderness Genitourinary: No: CVA Tenderness - Left, CVA Tenderness - Right Musculoskeletal: No: Joint Stiffness, Joint Swelling Extremities: No: Cold, Cool, Cyanosis Edema: No Integumentary: No: Rash, Venous Stasis Changes Neurological: Yes: WNL, Alert, Oriented ...Motor Strength: WNL Psychiatric: Yes: WNL, Alert, Oriented. No: Agitated, Suicidal Ideation - ....Imaging Cat Scan: Report Reviewed Other: Report Reviewed Assessment/Plan Ms. Waldrop is an 82 yo female with a significant past medical history of HTN, dyastolic CHF, COPD, and hyperlipidemia who presents to the emergency department complaining of generally "not feeling good" over the past 2 days. Mild confusion and intermittent minor word finding difficulty over the last few days. Head CT in ER c/w L frontal mass 3 cm with surrounding edema and some midline shift; of note, head CT november 2016 was negative ARF/CRF dehydration; IVF for gentle hydration; will need MRI brain with and without IV heidi; creat 2.0 - risk for Nephrogenic Systemic SClerosis to be d.w renal and pt, pt's family Neurology and NS eval watch for CHF given multiple previous admissions for CHF/COPD exac, will ask cardio and pulm eval for preop optimization IV steroids. Po keppra for seizure PFX sq heparin DVT PFX f/u labs falls PFX d/w pt and staff do not get OOB alone d/w pt and daughter Gayle d/w NS dr Leonard, d/w renal dr Mccartney progn guarded T time 40 min
--- NOTE | 2017-07-13 10:11 | PN ---
Progress Note (short form) - Note Progress Note: Chief Complaint: Events noted, notes reviewed, denies any chest pain or dyspnea , denies any history of near syncope or syncope History of Present Illness: Events noted, notes reviewed. full consult dictated Medications: Current Medications Acetaminophen (Tylenol -) 650 mg PO Q6H PRN PRN Reason: PAIN LEVEL 6-10 Atorvastatin Calcium (Lipitor -) 10 mg PO HS [facility] Last Admin: 07/12/17 21:24 Dose: 10 mg Calcium Carbonate/Cholecalciferol (Os-Franklyn 500+D -) 1 tab PO DAILY [facility] Dexamethasone Sodium Phosphate (Decadron Injection -) 4 mg IVPUSH Q6H-IV [facility] Last Admin: 07/13/17 04:51 Dose: 4 mg Diphenhydramine HCl (Benadryl -) 25 mg PO DAILY PRN PRN Reason: FOR ITCHING Furosemide (Lasix -) 40 mg PO BID@0600,1400 [facility] Last Admin: 07/13/17 06:08 Dose: 40 mg Heparin Sodium (Porcine) (Heparin -) 5,000 unit SQ BID [facility] Insulin Aspart (Novolog Vial Sliding Scale -) 1 vial SQ ACHS [facility] PRN Reason: Protocol Last Admin: 07/13/17 06:15 Dose: Not Given Levetiracetam (Keppra -) 500 mg PO BID [facility] Last Admin: 07/12/17 21:24 Dose: 500 mg Levothyroxine Sodium (Synthroid -) 100 mcg PO ACBK [facility] Losartan Potassium (Cozaar -) 25 mg PO DAILY [facility] Magnesium Oxide (Mag-Ox -) 400 mg PO DAILY [facility] Montelukast Sodium (Singulair -) 10 mg PO HS [facility] Last Admin: 07/12/17 21:13 Dose: 10 mg Nebivolol (Bystolic -) 2.5 mg PO DAILY [facility] Pantoprazole Sodium (Protonix -) 40 mg PO DAILY [facility] Potassium Chloride (K-Dur -) 10 meq PO QID [facility] Last Admin: 07/12/17 21:12 Dose: 10 meq Ranitidine HCl (Zantac -) 150 mg PO BID [facility] Last Admin: 07/12/17 21:13 Dose: 150 mg Review of Systems Constitutional: denies: Chills, Fever Cardiovascular: As Noted Above Respiratory: denies: Cough or Sputum Production Gastrointestinal: denies: Abdominal Pain, Constipation, Diarrhea, Nausea, Vomiting Genitourinary: denies: Dysuria Musculoskeletal: No Symptoms Reported Neurological: denies: Dizziness, Headache Vital Signs: Last Vital Signs Temp Pulse Resp BP Pulse Ox 98.5 F 63 16 113/50 95 07/13/17 06:00 07/13/17 06:00 07/13/17 06:00 07/13/17 06:00 07/12/17 20:33 Intake & Output 07/10/17 07/11/17 07/12/17 07/13/17 23:59 23:59 23:59 23:59 Intake Total 600 Balance 600 Weight 173 lb Constitutional: No Distress, Calm Neck: Supple Negative JVD No Bruit Respiratory: Clear to A&P Bilaterally Cardiovascular: S1 S2 Regular Rate and Rhythm Grade 2/6 MELLY Gastrointestinal: Soft Benign Normal Bowel Sounds Ext: No Edema Labs: CBC, BMP 07/12/17 11:34 07/12/17 11:34 Hepatic Panel Total Bilirubin 0.7 mg/dL (0.2-1.0) D 07/12/17 11:34 AST 21 U/L (15-37) D 07/12/17 11:34 ALT 19 U/L (12-78) D 07/12/17 11:34 Alkaline Phosphatase 97 U/L (45-117) 07/12/17 11:34 Albumin 3.1 g/dl (3.4-5.0) L 07/12/17 11:34 Assessment/Plan ASSESSMENT: 1. Confusion, brain mass etiology to be determined 2. CAD angina pectoris, stable 3. Diastolic LV dysfunction with chronic class I NYHA classification LV failure , compensated/euvolemic 4. HTN 5. Hypercholesterolemia 6. Hypothyroidism 7. COPD 8. Acute on chronic kidney insufficiency PLAN: 1. Continue Bystolic 2. Continue Cozaar with caution and close monitoring of renal function 3. Continue Lasix with caution and close monitoring of renal function 4. Continue Lipitor 5. Further evaluation as planned by neurology and neurosurgery Thank you Yojana Sheldon M.D.
[2017-07-13] MEDS ORDERED: PT OWN MED DRAWER 7, Y5N ONE ×2 (10:17→14:06)
[2017-07-13] MEDS: POTASSIUM CHLORIDE TABS 20 MEQ TABLET.ER (FP) PO SCH ×4 (10:19→22:20)
[2017-07-13] MEDS: MAGNESIUM OXIDE 400 MG TABLET (FP) PO SCH (10:19)
[2017-07-13] MEDS: LOSARTAN POTASSIUM 25 MG TABLET PO SCH (10:19)
[2017-07-13] MEDS: PANTOPRAZOLE 40 MG TABLET (FP) PO SCH (10:19)
[2017-07-13] MEDS: RANITIDINE HCL 150 MG TABLET (FP) PO SCH ×2 (10:19→22:20)
[2017-07-13] MEDS: CALCIUM 500MG/VIT-D 200 UNITS COMBO TABLET (FP) PO SCH (10:19)
[2017-07-13] MEDS: levETIRAcetam 500 MG TABLET (FP) PO SCH ×2 (10:19→22:20)
[2017-07-13] MEDS: NEBIVOLOL 2.5 MG TABLET (FP) PO SCH (10:20)
--- NOTE | 2017-07-13 10:32 | CONS ---
DATE OF CONSULTATION: DATE OF DICTATION: 07/13/2017 REQUESTING PHYSICIAN: Nahed Jaimes MD CHIEF COMPLAINT: Left frontal lesion. HISTORY OF PRESENT ILLNESS: The patient is an 82-year-old right-handed female with a history of hypertension, COPD, congestive heart failure, cholesterolemia, who presented with generalized malaise and a couple week history of confused speech. The patient had a sub intermittent headache in the past and had undergone a CT scan this past November with no significant focal findings. Her generalized mental deterioration was most noticeable in the last couple days and her family brought her in for evaluation. Presently, the patient denies any headache, nausea, or vomiting, and has no noted seizure activity. She has no loss of consciousness. She denies any weakness other than chronic right foot weakness. The patient has no history of systemic malignancy by report. There is no fever or chills or any signs of recent infection. PAST MEDICAL HISTORY: Significant for hypertension, hyperlipidemia, COPD, congestive heart failure. CURRENT MEDICATIONS: Include dexamethasone, Tylenol, Cozaar, subcutaneous heparin, Keppra, Bystolic, Benadryl, Zantac, Lipitor, sliding scale insulin, Zantac, Lasix, Singulair, potassium chloride, Os-Franklyn. ALLERGIES: SHELLFISH, LEVOFLOXACIN, CEFTRIAXONE, CODEINE. SOCIAL HISTORY: She is an ex-smoker but quit many years ago. She only drinks alcohol socially. She lives at home. She is retired. REVIEW OF SYSTEMS: Otherwise negative for other major constitutional, head and neck, cardiovascular, pulmonary, gastrointestinal, genitourinary, endocrinological, neurological, and psychological problems except for the above. FAMILY HISTORY: Positive for breast cancer in some of her female cousins. PHYSICAL EXAMINATION: Vital Signs: Temperature is 98.5, blood pressure 113/50, with pulse rate of 63 , O2 saturation is 95% on room air. HEENT: Shows her to be normocephalic, atraumatic. Anicteric. Neck: Supple with no carotid bruit. Coronary: Demonstrated a regular rhythm. Lungs: Clear bilaterally. Abdomen: Benign. Extremities: Showed no signs of DVT. Neurologic: She is awake, alert, and oriented x3. She had some difficulty with the date but does know it is June. Her speech is generally fluent and she has no significant aphasia at this time. Cranial nerve examination is intact II-XII except for mild decrease in sensorineural hearing bilaterally. Motor examination shows 5/5 strength without drift. Sensory examination is intact to light touch and vibratory sensation. Deep tendon reflexes are hyporeflexive throughout. Her left toe is upgoing. Gait is not tested for safety reasons. Cerebellar examination demonstrated intact [id number]-[id number] examination. LABORATORY EXAMINATION: Shows the white blood cell count to be 9.5, hemoglobin is 13, and platelet count is 272,000. Serum sodium is 137, potassium is 3.9, BUN is 54, creatinine is 2.0. LFTs are normal. Urinalysis shows trace ketone. CT scan of the head demonstrated minimal cerebral atrophy. There is a left frontal subcortical 3-cm hyperdense lesion with associated edema which appears to extend through the corpus callosum. There is mild [id number] shift of [address] scan from November of this year did not demonstrate the same lesion. IMPRESSION: 1. 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 2. Hypertension. 3. Hypercholesterolemia. 4. Chronic obstructive pulmonary disease. 5. Congestive heart failure. RECOMMENDATIONS: The patient presents with some cognitive changes over the last few weeks. She did have some intermittent headaches in the past, but prior head CT imaging was unremarkable for mass, lesion, or bleed. Presently, she remains neurologically nonfocal. She is on Decadron for edema. Ideally, an MRI of the brain with and without gadolinium will be needed to better delineate a pathology. Unfortunately, the patient has elevated renal function tests and contrast may be problematic. On the other hand, one should at least start with the noncontrast study, including diffusion imaging, to rule out underlying ischemia or suggestion of neoplasm. Based on the location of the lesion as well as the potential involvement of corpus callosum, this is most likely a primary neoplasm of the brain, which in her age group will mean a glioblastoma. The above was discussed with the patient at bedside. The evaluation process was discussed with the patient at bedside. All questions were answered. The patient is already on Keppra for seizure prophylaxis. Decadron should be continued until further notice. The above was communicated with Dr Jaimes. PAVEL PRITCHETT M.D. EMILIANO/[id number] [facility]
--- NOTE | 2017-07-13 11:25 | CONS ---
DATE OF CONSULTATION: 07/13/[address] Jaimes. CHIEF COMPLAINT: Confusion, disorientation, evaluation of cardiovascular status. An 82-year-old female with known history of coronary artery disease, angina pectoris, diastolic left ventricular dysfunction, with chronic class I [place] Heart [employer] classification left ventricular function, hypertensive cardiovascular disease, hypercholesterolemia, hypothyroidism, advanced chronic obstructive pulmonary disease, degenerative joint disease, who presented to [facility] with 2 weeks of disorientation, confusion, and upon evaluation, the patient was noted to have evidence of a brain mass on a CT scan of the chest. Upon questioning the patient, she reports dyspnea with mild to moderate physical exertion. The patient denies any orthopnea or paroxysmal nocturnal dyspnea. The patient continues to report intermittent bilateral lower extremity edema that worsens in the latter part of the day. The patient denies any chest discomfort. The patient denies any palpitations, dizziness, lightheadedness, or syncope. PAST MEDICAL HISTORY: Coronary artery disease; angina pectoris; diastolic left ventricular dysfunction, with chronic class I [place] Heart Association classification left ventricular failure; hypertensive cardiovascular disease; hypercholesterolemia; hypothyroidism; advanced chronic obstructive pulmonary disease; degenerative joint disease. SOCIAL HISTORY: Prior history of tobacco abuse. FAMILY HISTORY: Positive coronary artery disease. ALLERGIES: Multiple, including SHELLFISH, SHRIMP, LEVOFLOXACIN, CEFTRIAXONE, and intolerance to CODEINE. MEDICAL THERAPY: Currently includes acetaminophen 650 mg every 6 hours as needed, Lipitor 10 mg once a day, Os-Franklyn one tablet once a day, Decadron injection 4 mg every 6 hours, Benadryl of 25 mg as needed, Lasix 40 mg twice a day, subcutaneous heparin 5000 units twice a day, insulin coverage, Keppra 500 mg twice a day, Synthroid 100 mcg once a day, Cozaar 25 mg once a day, magnesium oxide 400 mg once a day, Singulair 10 mg once a day, Bystolic 2.5 mg once a day, Protonix 40 mg once a day, potassium chloride 10 mEq 4 times a day, Zantac 150 mg twice a day. REVIEW OF SYSTEMS: Head and neck: Denies headache, photophobia, blurring of vision. Respiratory: No cough or sputum production. Cardiovascular: As noted above. Gastrointestinal: Denies nausea, vomiting, diarrhea, abdominal discomfort. Genitourinary: No symptoms reported. Musculoskeletal: History of degenerative joint disease. PHYSICAL EXAMINATION: Vital signs: Blood pressure is 113/50 mmHg, pulse rate is 63 beats per minute and regular. Head and neck: Pupils equally reactive to light and accommodation. Extraocular muscles are intact. Anicteric sclerae. Negative JVD. No bruit appreciated. Chest: Clear to auscultation and percussion. Cardiovascular: S1, S2, regular. A grade 2 over 6 systolic ejection murmur. No clicks or gallops. Abdomen: Soft. Benign. Normoactive bowel sounds. Extremities: Negative edema. Distal pulses 1+. No calf tenderness. Electrocardiogram reveals sinus rhythm, with nonspecific T-wave abnormality. CBC with a white cell count of 9.5, hemoglobin of 13.0, platelet count 272. Basic metabolic profile revealed a sodium of 137, potassium 3.9, BUN 54, creatinine 2.0, glucose 93, ALT 19, AST 21. ASSESSMENT: 1. Confusion, with newly diagnosed brain mass the etiology of which is to be determined. 2. Coronary artery disease, angina pectoris; stable. 3. Diastolic left ventricular dysfunction, with chronic class I [place] Heart Association classification left ventricular failure, compensated/euvolemic. 4. Hypertensive cardiovascular disease. 5. Hypercholesterolemia. 6. Hypothyroidism. 7. Chronic obstructive pulmonary disease. 8. Acute on chronic kidney insufficiency. RECOMMENDATIONS: 1. Continuation of Bystolic therapy. 2. Continuation of Cozaar therapy with caution and close monitoring of renal function. 3. Continuation of Lasix therapy with close monitoring of renal function. 4. Continuation of Lipitor therapy. 5. Further evaluation as planned by Neurology and Neurosurgery. Thank you for the kind referral. YON RAMOS M.D. [id number]
[2017-07-13 11:33] LABS: ANION GAP 10 (8-16); CALCIUM 8.3 mg/dL (8.5-10.1); CO2 26 mmol/L (21-32); CREATININE 1.8 mg/dL (0.55-1.02); GLUCOSE,RANDOM 196 mg/dL (74-106)
--- NOTE | 2017-07-13 11:42 | CONSULT ---
Consult Consult Specialty:: Nephrology ( Drs. Diaz/ Jason) Referred by:: Dr. Jaimes Reason for Consultation:: Elevated Serum Creatinine and the need for MRI with Girish - History of Present Illness Chief Complaint: Recent onset of confusion and abnormal speech. History of Present Illness: 82 year old female with a significant PMH of HTN, CHF, COPD, and hyperlipidemia who presents with generalized malaise with a sudden isolated episode of nausea, vomiting, and diarrhea, after which patient reports feeling off. The family also reports 2 weeks of intermittent confused language. Pt denies headache or focal weakness. The patient has some Chronic Kidney disease, and now is found to have a Serum Creatinine 2 mg/dL. CT scan of the Brain reveals a left frontal mass lesion. - History Source History Provided By: Patient, Medical Record, Caregiver - Past Medical History Cardio/Vascular: Yes: HTN, Hyperlipdemia, Pulmonary Hypertension Pulmonary: Yes: COPD Gastrointestinal: Yes: Other (colon polyps) Renal/: Yes: Renal Failure Musculoskeletal: Yes: Chronic low back pain, Osteoarthritis Endocrine: Yes: Hypothyroidism - Past Surgical History Past Surgical History: Yes: Joint Replacement - Alcohol/Substance Use Hx Alcohol Use: No History of Substance Use: reports: None - Smoking History Smoking history: Never smoked Have you smoked in the past 12 months: No Aproximately how many cigarettes per day: 0 If you are a former smoker, when did you quit?: 30 years ago - Social History ADL: Family Assistance (edwarter lives close by) Occupation: retired History of Recent Travel: No Home Medications - Allergies Allergies/Adverse Reactions: Allergies Allergy/AdvReac Type Severity Reaction Status Date / Time Shellfish Allergy Verified 07/12/17 10:27 levofloxacin [From Levaquin] AdvReac Unknown Verified 07/12/17 10:27 ceftriaxone sodium AdvReac ERYTHEMA,IT Verified 07/12/17 10:27 [From Rocephin] GIRMA,URTIC ARIA codeine [Codeine] AdvReac Nausea Verified 07/12/17 10:27 SHRIMP Allergy Uncoded 07/12/17 10:27 - Home Medications Home Medications: Ambulatory Orders Losartan Potassium [Cozaar] 25 mg PO DAILY 10/09/15 Montelukast Sodium [Singulair] 10 mg PO HS 10/09/15 Pravastatin Sodium [Pravachol -] 40 mg PO HS 10/09/15 Ranitidine HCl [Zantac] 150 mg PO BID PRN 10/09/15 Levothyroxine [Synthroid -] 125 mcg PO DAILY #90 tablet 11/18/15 Calcium Carbonate/Vitamin D3 [Calcium 500-Vit D3 200 Caplet] 1 each PO DAILY Magnesium Oxide [Mag-Ox -] 400 mg PO DAILY 03/22/16 Potassium Chloride [K-Dur -] 10 meq PO QID 03/22/16 Nebivolol [Bystolic -] 2.5 mg PO DAILY tab 03/25/16 Diphenhydramine HCl [Benadryl Capsule -] 25 mg PO DAILY PRN #0 capsule 03/28/16 Furosemide [Lasix -] 40 mg PO BID@0600,1400 tablet 03/28/16 Family Disease History - Family Disease History Family Disease History: CA: Father (colon cancer), Brother (colon cancer) Review of Systems - Review of Systems Constitutional: reports: Weakness Neck: reports: No Symptoms Genitourinary: reports: No Symptoms Musculoskeletal: reports: Back Pain, Muscle Pain Neurological: reports: Change in Speech, Confusion Psychiatric: reports: No Symptoms Physical Exam Vital Signs: Vital Signs Temperature 98.5 F 07/13/17 06:00 Pulse Rate 63 07/13/17 06:00 Respiratory Rate 16 07/13/17 06:00 Blood Pressure 113/50 07/13/17 06:00 O2 Sat by Pulse Oximetry (%) 95 07/12/17 20:33 Constitutional: Yes: Well Nourished, No Distress, Calm Eyes: Yes: Conjunctiva Clear HENT: Yes: Atraumatic Neck: Yes: Supple Cardiovascular: Yes: Regular Rate and Rhythm, S1, S2 Respiratory: Yes: CTA Bilaterally Gastrointestinal: Yes: Normal Bowel Sounds, Soft Renal/: No: CVA Tenderness - Left, CVA Tenderness - Right Edema: No Neurological: Yes: Alert, Oriented Imaging - Results Cat Scan: Report Reviewed (3 Cm Frontal brain mass), Image Reviewed, Other Problem List - Problems (1) Acute kidney injury Code(s): N17.9 - ACUTE KIDNEY FAILURE, UNSPECIFIED (2) Brain mass Code(s): G93.9 - DISORDER OF BRAIN, UNSPECIFIED (3) Dehydration Code(s): E86.0 - DEHYDRATION Assessment/Plan 82 y/o female admitted with minimal confusion and speech abnormality as observed by family. The patient has h/o Hypertension, CHF, Hyperlipidemia, Chronic Kidney disease and h/o multiple Orthopedic surgeries. No urinary complaints. The Serum Creatinine is above her usual baseline and is possibly hemodynamic in etiology, whic is possibly Acute Kidney Injury (MAO). The use of Gadolinium in patients with Kidney failure has been debated, in the light of developent of Nephrogenic Systemic Fibrosis ( NSF) in these patients. This is a systemic disease resulting in thickening of the skin of the extremities and trunk, with contractures and fibrosis of the dermis. This is a painful condition, and has been seen in patients with Kideny failure who received Gadolinium. The magnitude of the risk after exposure to gadolinium varies by level of GFR. Most of the cases have been reported in chronic dialysis patients. The reported risk has ranged between 2.5 and 5 percent in studies of approximately 400 to 500 dialysis patients . Cases have been reported in patients with MAO. The risk in individuals with eGFR of 15 to 59 mL/min/1.73 m2 remains undefined, but cases have been reported . The risk is felt to be low among patients with eGFR 15 to 29 mL/min/1.73 m2 ( ie, stage 4) and very low in individuals with eGFR 30 to 59 mL/min/1.73 m2 (ie, stage 3) In multicenter, prospective studies with two years of monitoring postexposure, no cases of NSF were seen among 318 and 159 patients with eGFR 30 to 59 mL/min/ 1.73 m2 who received gadobenate or gadoteridol, respectively, or among 45 and 12 patients with eGFR <30 mL/min/1.73 m2 who received these respective agents There is some evidence that a dose-response relationship exists. This was illustrated in a report of 301 MRI studies with gadodiamide. Assessmant/ PLAN: Given this patient's diagnosis of a brain lesion, whose immediate management requires an MRI with Gadolinium, the risk of NSF can not totally be ignored, but the risk is small and the benefit of delineating the tumor extent will make a significant impact on the management of the patient. Will keep Hydration. Hold diuretics and ACEI/ ARBs. Monitor the Renal functions closely. Thank you. Will follow with you. Yesica Diaz MD
[2017-07-13] MEDS: HEPARIN NA (PORCINE) 5,000 UNITS/ML 1ML VIAL SQ SCH ×2 (12:40→22:20)
[2017-07-13] MEDS: SODIUM CHLORIDE 1,000 ML IV SCH (13:40)
--- NOTE | 2017-07-13 14:31 | CON.PULM ---
Consult Consult Specialty:: PULMONARY Referred by:: SALOME Reason for Consultation:: COPD - History of Present Illness Chief Complaint: CONFUSION History of Present Illness: Ms. Waldrop is an 82 yo female with a significant past medical history of HTN, CHF, COPD, and hyperlipidemia who presents to the emergency department complaining of generally "not feeling good" over the past 2 days. Per family this started 2 days ago at dinner time when she suddenly was "off" and had a sudden epidode of nausea/vomiting/diarrhea. Per family this was an isolated incident but she has had intermittent minor word finding difficulty over the last 2 days since. The patient denies chest pain, shortness of breath, headache and dizziness. Denies fever, chills, nausea, vomit, diarrhea and constipation. Denies dysuria, frequency, urgency and hematuria. Work up in hospital reveals a 3cm left frontal sub-cortical mass which may need to biopsied. i have been asked to comment on her underlying copd. 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 Cardio/Vascular: Yes: HTN, Hyperlipdemia, Pulmonary Hypertension Pulmonary: Yes: COPD Gastrointestinal: Yes: Other (colon polyps) Renal/: Yes: Renal Failure Musculoskeletal: Yes: Chronic low back pain, Osteoarthritis Endocrine: Yes: Hypothyroidism - Past Surgical History Past Surgical History: Yes: Joint Replacement - Alcohol/Substance Use Hx Alcohol Use: No History of Substance Use: reports: None - Smoking History Smoking history: Never smoked Have you smoked in the past 12 months: No Aproximately how many cigarettes per day: 0 If you are a former smoker, when did you quit?: 30 years ago - Social History ADL: Family Assistance ([facility]) Occupation: retired History of Recent Travel: No Home Medications - Allergies Allergies/Adverse Reactions: Allergies Allergy/AdvReac Type Severity Reaction Status Date / Time Shellfish Allergy Verified 07/12/17 10:27 levofloxacin [From Levaquin] AdvReac Unknown Verified 07/12/17 10:27 ceftriaxone sodium AdvReac ERYTHEMA,IT Verified 07/12/17 10:27 [From Rocephin] GIRMA,URTIC ARIA codeine [Codeine] AdvReac Nausea Verified 07/12/17 10:27 SHRIMP Allergy Uncoded 07/12/17 10:27 - Home Medications Home Medications: Ambulatory Orders Losartan Potassium [Cozaar] 25 mg PO DAILY 10/09/15 Montelukast Sodium [Singulair] 10 mg PO HS 10/09/15 Pravastatin Sodium [Pravachol -] 40 mg PO HS 10/09/15 Ranitidine HCl [Zantac] 150 mg PO BID PRN 10/09/15 Levothyroxine [Synthroid -] 125 mcg PO DAILY #90 tablet 11/18/15 Calcium Carbonate/Vitamin D3 [Calcium 500-Vit D3 200 Caplet] 1 each PO DAILY Magnesium Oxide [Mag-Ox -] 400 mg PO DAILY 03/22/16 Potassium Chloride [K-Dur -] 10 meq PO QID 03/22/16 Nebivolol [Bystolic -] 2.5 mg PO DAILY tab 03/25/16 Diphenhydramine HCl [Benadryl Capsule -] 25 mg PO DAILY PRN #0 capsule 03/28/16 Furosemide [Lasix -] 40 mg PO BID@0600,1400 tablet 03/28/16 Family Disease History - Family Disease History Family Disease History: CA: Father (colon cancer), Brother (colon cancer) Review of Systems - Review of Systems Constitutional: denies: Fever Eyes: denies: Blurred Vision HENT: denies: Difficult Swallowing Neck: denies: Decreased ROM Cardiovascular: denies: Chest Pain Respiratory: reports: SOB on Exertion. denies: Cough Gastrointestinal: denies: Abdominal Pain Physical Exam Vital Sings: Vital Signs Temperature 98.7 F 07/13/17 09:00 Pulse Rate 63 07/13/17 09:00 Respiratory Rate 16 07/13/17 09:00 Blood Pressure 111/51 07/13/17 09:00 O2 Sat by Pulse Oximetry (%) 95 07/13/17 09:00 Constitutional: Yes: Calm Eyes: Yes: EOM Intact HENT: Yes: Normocephalic Neck: Yes: Trachea Midline Cardiovascular: Yes: Regular Rate and Rhythm Respiratory: Yes: Diminished Gastrointestinal: Yes: Normal Bowel Sounds, Abdomen, Obese Edema: No Neurological: Yes: Alert Labs: CBC, BMP 07/13/17 10:35 Imaging - Results Chest X-ray: Report Reviewed, Image Reviewed Cat Scan: Report Reviewed Problem List - Problems (1) Acute kidney injury Code(s): N17.9 - ACUTE KIDNEY FAILURE, UNSPECIFIED (2) Brain mass Code(s): G93.9 - DISORDER OF BRAIN, UNSPECIFIED (3) Bilateral lower extremity edema Code(s): R60.0 - LOCALIZED EDEMA (4) COPD (chronic obstructive pulmonary disease) with chronic bronchitis Code(s): J44.9 - CHRONIC OBSTRUCTIVE PULMONARY DISEASE, UNSPECIFIED Assessment/Plan COPD IS STABLE NO PULMONARY CONTRAINDICATION TO BRAIN LESION BIOPSY IF NEEDED WILL CONTINUE O2/BRONCHODILATORS/SINGULAIR/STEROIDS (FOR NIRALI-LESIONAL EDEMA) WILL FOLLOW THANK YOU Rosa PRINCE MD
[2017-07-13] MEDS ORDERED: INSULIN (NOVOLOG) ASPART 100 UNITS/ML 10ML VIAL ONE (17:48)
[2017-07-13] MEDS: ATORVASTATIN CA 10 MG TABLET (FP) PO SCH (22:20)
[2017-07-13] MEDS: MONTELUKAST NA 10 MG TABLET PO SCH (22:21)
[2017-07-14] MEDS: DEXAMETHASONE SOD PHOSPHATE 4 MG/1 ML VIAL IVPUSH SCH ×4 (03:46→21:44)
[2017-07-14 06:47] LABS: INR 1.06 (0.82-1.09)
[2017-07-14] MEDS: INSULIN SLIDING SCALE (NOVOLOG) 1 VIAL SQ SCH ×4 (06:48→21:44)
[2017-07-14] MEDS: LEVOTHYROXINE NA 100 MCG TABLET (FP) PO SCH (06:48)
[2017-07-14 06:50] LABS: ACTIVATED PTT 26.7 SECONDS (26.9-34.4); BASOPHIL 0.1 % (0-2.0); MCH 30.4 pg (25.7-33.7); MCHC 33.9 g/dl (32.0-36.0); MEAN CELL VOLUME 89.7 fl (80-96); MEAN PLT VOLUME 9.4 fl (7.5-11.1); NEUTROPHILS 87.8 % (42.8-82.8); PLATELET COUNT 209 K/MM3 (134-434); RDW 15.7 % (11.6-15.6); WHITE BLOOD COUNT 8.5 K/mm3 (4.0-10.0)
[2017-07-14 08:07] LABS: ALBUMIN 2.6 g/dl (3.4-5.0); ALK PHOS 81 U/L (45-117); ANION GAP 8 (8-16); BILIRUBIN,TOTAL 0.4 mg/dL (0.2-1.0); CALCIUM 8.1 mg/dL (8.5-10.1); CO2 23 mmol/L (21-32); CREATININE 1.3 mg/dL (0.55-1.02); GLUCOSE,RANDOM 155 mg/dL (74-106); SGOT/AST 13 U/L (15-37); SGPT/ALT 19 U/L (12-78); TOT PROT 5.9 g/dl (6.4-8.2)
--- NOTE | 2017-07-14 09:16 | PN ---
Progress Note, Physician Chief Complaint: in bed axoxe nad VSS feels better, MS better d/w pt and staff again do not get OOB alone, call for help if needs OOB - Current Medication List Current Medications: Active Medications Acetaminophen (Tylenol -) 650 mg PO Q6H PRN PRN Reason: PAIN LEVEL 6-10 Atorvastatin Calcium (Lipitor -) 10 mg PO HS [facility] Last Admin: 07/13/17 22:20 Dose: 10 mg Calcium Carbonate/Cholecalciferol (Os-Franklyn 500+D -) 1 tab PO DAILY [facility] Last Admin: 07/13/17 10:19 Dose: 1 tab Dexamethasone Sodium Phosphate (Decadron Injection -) 4 mg IVPUSH Q6H-IV [facility] Last Admin: 07/14/17 03:46 Dose: 4 mg Diphenhydramine HCl (Benadryl -) 25 mg PO DAILY PRN PRN Reason: FOR ITCHING Heparin Sodium (Porcine) (Heparin -) 5,000 unit SQ BID [facility] Last Admin: 07/13/17 22:20 Dose: 5,000 unit Sodium Chloride (Normal Saline -) 1,000 mls @ 42 mls/hr IV ASDIR [facility] Last Admin: 07/13/17 13:40 Dose: 42 mls/hr Insulin Aspart (Novolog Vial Sliding Scale -) 1 vial SQ ACHS [facility] PRN Reason: Protocol Last Admin: 07/14/17 06:48 Dose: 2 units Levetiracetam (Keppra -) 500 mg PO BID [facility] Last Admin: 07/13/17 22:20 Dose: 500 mg Levothyroxine Sodium (Synthroid -) 100 mcg PO ACBK [facility] Last Admin: 07/14/17 06:48 Dose: 100 mcg Losartan Potassium (Cozaar -) 25 mg PO DAILY [facility] Last Admin: 07/13/17 10:19 Dose: 25 mg Magnesium Oxide (Mag-Ox -) 400 mg PO DAILY [facility] Last Admin: 07/13/17 10:19 Dose: 400 mg Montelukast Sodium (Singulair -) 10 mg PO HS [facility] Last Admin: 07/13/17 22:21 Dose: 10 mg Nebivolol (Bystolic -) 2.5 mg PO DAILY [facility] Last Admin: 07/13/17 10:20 Dose: 2.5 mg Pantoprazole Sodium (Protonix -) 40 mg PO DAILY [facility] Last Admin: 07/13/17 10:19 Dose: 40 mg Potassium Chloride (K-Dur -) 10 meq PO QID [facility] Last Admin: 07/13/17 22:20 Dose: 10 meq Ranitidine HCl (Zantac -) 150 mg PO BID [facility] Last Admin: 07/13/17 22:20 Dose: 150 mg - Objective Vital Signs: Vital Signs Temperature 98 F 07/14/17 06:06 Pulse Rate 64 07/14/17 06:06 Respiratory Rate 20 07/14/17 06:06 Blood Pressure 108/50 07/14/17 06:06 O2 Sat by Pulse Oximetry (%) 95 07/13/17 21:00 Constitutional: Yes: No Distress, Calm Eyes: Yes: Conjunctiva Clear HENT: Yes: Atraumatic Neck: Yes: Supple Cardiovascular: Yes: Regular Rate and Rhythm Respiratory: Yes: CTA Bilaterally Gastrointestinal: Yes: Soft. No: Distention, Tenderness Genitourinary: No: CVA Tenderness - Left, CVA Tenderness - Right Musculoskeletal: No: Joint Stiffness, Joint Swelling Extremities: No: Cold, Cool, Cyanosis Edema: No Integumentary: No: Rash, Venous Stasis Changes Neurological: Yes: WNL, Alert, Oriented ...Motor Strength: WNL Psychiatric: Yes: WNL, Alert, Oriented. No: Agitated, Suicidal Ideation Labs: CBC, BMP 07/14/17 05:35 07/14/17 05:35 INR, PTT INR 1.06 (0.82-1.09) 07/14/17 05:35 - ....Imaging Other: Report Reviewed Assessment/Plan Ms. Waldrop is an 82 yo female with a significant past medical history of HTN, dyastolic CHF, COPD, and hyperlipidemia who presents to the emergency department complaining of generally "not feeling good" over the past 2 days. Mild confusion and intermittent minor word finding difficulty over the last few days. Head CT in ER c/w L frontal mass 3 cm with surrounding edema and some midline shift; of note, head CT november 2016 was negative ARF/CRF dehydration; IVF for gentle hydration; will need MRI brain with and without IV heidi; creat 1.3 better - risk for Nephrogenic Systemic SClerosis to be d.w renal and pt, pt' s family watch for CHF Neurology, renal and NS f/u will need brain biopsy and further intervention per NS cardio and pulm eval for preop optimization IV steroids. Check BGM/ sq insulin as needed; gastric PFX PPIs as ordered Po keppra for seizure PFX sq heparin DVT PFX f/u labs falls PFX d/w pt and staff do not get OOB alone d/w pt and daughter Gayle garcia guarded T time 40 min
--- NOTE | 2017-07-14 09:57 | PN ---
Progress Note (short form) - Note Progress Note: Chief Complaint: Events noted, notes reviewed, denies any chest pain or dyspnea , sinus rhythm is noted History of Present Illness: Events noted, notes reviewed. Events noted, notes reviewed, denies any chest pain or dyspnea, sinus rhythm is noted To proceed with brain MRI, for further evaluation of the the brain mass Medications: Current Medications Acetaminophen (Tylenol -) 650 mg PO Q6H PRN PRN Reason: PAIN LEVEL 6-10 Atorvastatin Calcium (Lipitor -) 10 mg PO HS [facility] Last Admin: 07/13/17 22:20 Dose: 10 mg Calcium Carbonate/Cholecalciferol (Os-Franklyn 500+D -) 1 tab PO DAILY [facility] Last Admin: 07/13/17 10:19 Dose: 1 tab Dexamethasone Sodium Phosphate (Decadron Injection -) 4 mg IVPUSH Q6H-IV [facility] Last Admin: 07/14/17 03:46 Dose: 4 mg Diphenhydramine HCl (Benadryl -) 25 mg PO DAILY PRN PRN Reason: FOR ITCHING Heparin Sodium (Porcine) (Heparin -) 5,000 unit SQ BID [facility] Last Admin: 07/13/17 22:20 Dose: 5,000 unit Sodium Chloride (Normal Saline -) 1,000 mls @ 42 mls/hr IV ASDIR [facility] Last Admin: 07/13/17 13:40 Dose: 42 mls/hr Insulin Aspart (Novolog Vial Sliding Scale -) 1 vial SQ ACHS [facility] PRN Reason: Protocol Last Admin: 07/14/17 06:48 Dose: 2 units Levetiracetam (Keppra -) 500 mg PO BID [facility] Last Admin: 07/13/17 22:20 Dose: 500 mg Levothyroxine Sodium (Synthroid -) 100 mcg PO ACBK [facility] Last Admin: 07/14/17 06:48 Dose: 100 mcg Losartan Potassium (Cozaar -) 25 mg PO DAILY [facility] Last Admin: 07/13/17 10:19 Dose: 25 mg Magnesium Oxide (Mag-Ox -) 400 mg PO DAILY [facility] Last Admin: 07/13/17 10:19 Dose: 400 mg Montelukast Sodium (Singulair -) 10 mg PO HS [facility] Last Admin: 07/13/17 22:21 Dose: 10 mg Nebivolol (Bystolic -) 2.5 mg PO DAILY [facility] Last Admin: 07/13/17 10:20 Dose: 2.5 mg Pantoprazole Sodium (Protonix -) 40 mg PO DAILY [facility] Last Admin: 07/13/17 10:19 Dose: 40 mg Potassium Chloride (K-Dur -) 10 meq PO QID [facility] Last Admin: 07/13/17 22:20 Dose: 10 meq Ranitidine HCl (Zantac -) 150 mg PO BID [facility] Last Admin: 07/13/17 22:20 Dose: 150 mg Review of Systems Constitutional: denies: Chills, Fever Cardiovascular: As Noted Above Respiratory: denies: Cough or Sputum Production Gastrointestinal: denies: Abdominal Pain, Constipation, Diarrhea, Nausea, Vomiting Genitourinary: denies: Dysuria Musculoskeletal: No Symptoms Reported Neurological: denies: Dizziness, Headache Vital Signs: Last Vital Signs Temp Pulse Resp BP Pulse Ox 98 F 64 20 108/50 95 07/14/17 06:06 07/14/17 06:06 07/14/17 06:06 07/14/17 06:06 07/13/17 21:00 Intake & Output 07/11/17 07/12/17 07/13/17 07/14/17 23:59 23:59 23:59 23:59 Intake Total 600 504 Balance 600 504 Weight 173 lb Constitutional: No Distress, Calm Neck: Supple Negative JVD No Bruit Respiratory: Clear to A&P Bilaterally Cardiovascular: S1 S2 Regular Rate and Rhythm Grade 2/6 MELLY Gastrointestinal: Soft Benign Normal Bowel Sounds Ext: No Edema Labs: CBC, BMP 07/14/17 05:35 07/14/17 05:35 Hepatic Panel Total Bilirubin 0.4 mg/dL (0.2-1.0) D 07/14/17 05:35 AST 13 U/L (15-37) L D 07/14/17 05:35 ALT 19 U/L (12-78) 07/14/17 05:35 Alkaline Phosphatase 81 U/L (45-117) 07/14/17 05:35 Albumin 2.6 g/dl (3.4-5.0) L 07/14/17 05:35 INR, PTT INR 1.06 (0.82-1.09) 07/14/17 05:35 Assessment/Plan ASSESSMENT: 1. Confusion, brain mass etiology to be determined, for MRI today 2. CAD angina pectoris, stable 3. Diastolic LV dysfunction with chronic class I NYHA classification LV failure , compensated/euvolemic 4. HTN 5. Hypercholesterolemia 6. Hypothyroidism 7. COPD 8. Acute on chronic kidney insufficiency PLAN: 1. Continue Bystolic 2. Continue Cozaar with caution and close monitoring of renal function 3. Resume Lasix once renal function stabilized 4. Continue Lipitor 5. Further evaluation as planned by neurology and neurosurgery, including brain MRI and eventual surgery Yojana Sheldon M.D.
[2017-07-14] MEDS ORDERED: PT OWN MED DRAWER 7, Y5N ONE (10:46)
[2017-07-14] MEDS: POTASSIUM CHLORIDE TABS 20 MEQ TABLET.ER (FP) PO SCH ×4 (10:49→21:46)
[2017-07-14] MEDS: levETIRAcetam 500 MG TABLET (FP) PO SCH ×2 (10:49→21:43)
[2017-07-14] MEDS: CALCIUM 500MG/VIT-D 200 UNITS COMBO TABLET (FP) PO SCH (10:49)
[2017-07-14] MEDS: MAGNESIUM OXIDE 400 MG TABLET (FP) PO SCH (10:49)
[2017-07-14] MEDS: RANITIDINE HCL 150 MG TABLET (FP) PO SCH ×2 (10:49→21:47)
[2017-07-14] MEDS: PANTOPRAZOLE 40 MG TABLET (FP) PO SCH (10:49)
[2017-07-14] MEDS: HEPARIN NA (PORCINE) 5,000 UNITS/ML 1ML VIAL SQ SCH ×2 (10:50→21:44)
[2017-07-14] MEDS: NEBIVOLOL 2.5 MG TABLET (FP) PO SCH (10:56)
[2017-07-14] MEDS: LOSARTAN POTASSIUM 25 MG TABLET PO SCH (10:56)
[2017-07-14] MEDS: SODIUM CHLORIDE 1,000 ML IV SCH (11:36)
--- NOTE | 2017-07-14 13:33 | PN ---
Progress Note (short form) - Note Progress Note: PULMONARY NO CHANGE IN EXAM AWAKE/ALERT/AFEBRILE ANICTERIC CLEAR S1S2 BS+ NO EDEMA MRI BRAIN RESULTS PENDING (1) Acute kidney injury Code(s): N17.9 - ACUTE KIDNEY FAILURE, UNSPECIFIED (2) Brain mass Code(s): G93.9 - DISORDER OF BRAIN, UNSPECIFIED (3) Bilateral lower extremity edema Code(s): R60.0 - LOCALIZED EDEMA (4) COPD (chronic obstructive pulmonary disease) with chronic bronchitis Code(s): J44.9 - CHRONIC OBSTRUCTIVE PULMONARY DISEASE, UNSPECIFIED Assessment/Plan COPD IS STABLE NO PULMONARY CONTRAINDICATION TO BRAIN LESION BIOPSY IF NEEDED WILL CONTINUE TO FOLLOW R SURESH CHURCHILL Problem List - Problems (1) Acute kidney injury Code(s): N17.9 - ACUTE KIDNEY FAILURE, UNSPECIFIED (2) Brain mass Code(s): G93.9 - DISORDER OF BRAIN, UNSPECIFIED (3) Bilateral lower extremity edema Code(s): R60.0 - LOCALIZED EDEMA (4) COPD (chronic obstructive pulmonary disease) with chronic bronchitis Code(s): J44.9 - CHRONIC OBSTRUCTIVE PULMONARY DISEASE, UNSPECIFIED
--- NOTE | 2017-07-14 13:43 | PN ---
Progress Note, Physician Chief Complaint: The patient seen in her bed. Comfortable. Had MRI earlier today. report pending. Maintains good urine output. No new complaints offered. History of Present Illness: 82 year old female with a significant PMH of HTN, CHF, COPD, and hyperlipidemia who presents with generalized malaise with a sudden isolated episode of nausea, vomiting, and diarrhea. H/o 2 weeks of intermittent confused language. Pt denies headache or focal weakness. The patient has some Chronic Kidney disease CT scan of the Brain reveals a left frontal mass lesion. MRI with Gadolinium done today. - Current Medication List Current Medications: Active Medications Acetaminophen (Tylenol -) 650 mg PO Q6H PRN PRN Reason: PAIN LEVEL 6-10 Atorvastatin Calcium (Lipitor -) 10 mg PO HS [facility] Last Admin: 07/13/17 22:20 Dose: 10 mg Calcium Carbonate/Cholecalciferol (Os-Franklyn 500+D -) 1 tab PO DAILY [facility] Last Admin: 07/14/17 10:49 Dose: 1 tab Dexamethasone Sodium Phosphate (Decadron Injection -) 4 mg IVPUSH Q6H-IV [facility] Last Admin: 07/14/17 10:53 Dose: 4 mg Diphenhydramine HCl (Benadryl -) 25 mg PO DAILY PRN PRN Reason: FOR ITCHING Heparin Sodium (Porcine) (Heparin -) 5,000 unit SQ BID [facility] Last Admin: 07/14/17 10:50 Dose: 5,000 unit Sodium Chloride (Normal Saline -) 1,000 mls @ 42 mls/hr IV ASDIR [facility] Last Admin: 07/14/17 11:36 Dose: 42 mls/hr Insulin Aspart (Novolog Vial Sliding Scale -) 1 vial SQ ACHS [facility] PRN Reason: Protocol Last Admin: 07/14/17 06:48 Dose: 2 units Levetiracetam (Keppra -) 500 mg PO BID [facility] Last Admin: 07/14/17 10:49 Dose: 500 mg Levothyroxine Sodium (Synthroid -) 100 mcg PO ACBK [facility] Last Admin: 07/14/17 06:48 Dose: 100 mcg Losartan Potassium (Cozaar -) 25 mg PO DAILY [facility] Last Admin: 07/14/17 10:56 Dose: Not Given Magnesium Oxide (Mag-Ox -) 400 mg PO DAILY [facility] Last Admin: 07/14/17 10:49 Dose: 400 mg Montelukast Sodium (Singulair -) 10 mg PO HS [facility] Last Admin: 07/13/17 22:21 Dose: 10 mg Nebivolol (Bystolic -) 2.5 mg PO DAILY [facility] Last Admin: 07/14/17 10:56 Dose: Not Given Pantoprazole Sodium (Protonix -) 40 mg PO DAILY [facility] Last Admin: 07/14/17 10:49 Dose: 40 mg Potassium Chloride (K-Dur -) 10 meq PO QID [facility] Last Admin: 07/14/17 10:49 Dose: 10 meq Ranitidine HCl (Zantac -) 150 mg PO BID [facility] Last Admin: 07/14/17 10:49 Dose: 150 mg - Objective Vital Signs: Vital Signs Temperature 98.6 F 07/14/17 09:00 Pulse Rate 54 L 07/14/17 09:00 Respiratory Rate 20 07/14/17 09:00 Blood Pressure 103/66 07/14/17 09:00 O2 Sat by Pulse Oximetry (%) 96 07/14/17 09:00 Constitutional: Yes: Well Nourished, Calm Eyes: Yes: Conjunctiva Clear HENT: Yes: Atraumatic Neck: Yes: Trachea Midline Cardiovascular: Yes: Regular Rate and Rhythm, S1, S2 Respiratory: Yes: CTA Bilaterally Gastrointestinal: Yes: Normal Bowel Sounds, Soft Genitourinary: No: CVA Tenderness - Left, CVA Tenderness - Right Edema: LLE: Trace, RLE: Trace Neurological: Yes: Alert, Oriented Psychiatric: Yes: Alert, Oriented Labs: CBC, BMP 07/14/17 05:35 07/14/17 05:35 INR, PTT INR 1.06 (0.82-1.09) 07/14/17 05:35 Problem List - Problems (1) Acute kidney injury Code(s): N17.9 - ACUTE KIDNEY FAILURE, UNSPECIFIED (2) Brain mass Code(s): G93.9 - DISORDER OF BRAIN, UNSPECIFIED (3) Dehydration Code(s): E86.0 - DEHYDRATION Assessment/Plan 82 y/o female admitted with minimal confusion and speech abnormality as observed by family. The patient has h/o Hypertension, CHF, Hyperlipidemia, Chronic Kidney disease and h/o multiple Orthopedic surgeries. No urinary complaints. The patient's neurology w/u mandated an MRI with Girish, that was done earlier today. Results pending. The Serum Creatinine has improved significantly since admission. Cautious Hydration was done. She maintains good urine output. Has Trace pedal edema. Will D/C IV fluids after the present bag. Will continue to monitor the Renal functions with you. Thank you. Yesica Diaz MD
[2017-07-14] MEDS ORDERED: SODIUM CHLORIDE 1,000 ML IV SCH (13:48)
--- NOTE | 2017-07-14 17:48 | PN ---
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 MRI- L frontal 3 x 5 cm irregularly enhancing lesion extending across the corpus callosum with associated edema and mass effect; some satellite lesion Probable GBM Keep reasonably hydrated; repeat BUN/Cr Options: 1) surgical debulking/biopsy through stereotactic craniotomy (would need stereotactic MRI with heidi which need to be delayed for at least 24 hours given renal function) followed by RT/chemo; Gliadel could be considered with this approach; 2) no surgery; palliative RT and chemo only if rad onc and med onc are willing to treat without debulking or tissue; Cont steroid and GI prophylaxis Cont Keppra for sz prophylaxis Pros and cons d/w pt's 2 daughters Risks of surgery- bleeding , infection, stroke, sz, aphasia, and other risks of GA All questions answered Pt and family to make decision
[2017-07-14] MEDS ORDERED: INSULIN (NOVOLOG) ASPART 100 UNITS/ML 10ML VIAL ONE (21:34)
[2017-07-14] MEDS: MONTELUKAST NA 10 MG TABLET PO SCH (21:43)
[2017-07-14] MEDS: ATORVASTATIN CA 10 MG TABLET (FP) PO SCH (21:44)
[2017-07-15] MEDS: DEXAMETHASONE SOD PHOSPHATE 4 MG/1 ML VIAL IVPUSH SCH ×4 (03:53→22:10)
[2017-07-15] MEDS: INSULIN SLIDING SCALE (NOVOLOG) 1 VIAL SQ SCH ×4 (06:10→22:31)
[2017-07-15] MEDS: LEVOTHYROXINE NA 100 MCG TABLET (FP) PO SCH (06:11)
[2017-07-15 07:24] LABS: ANION GAP 11 (8-16); CO2 20 mmol/L (21-32); CREATININE 1.3 mg/dL (0.55-1.02); GLUCOSE,RANDOM 140 mg/dL (74-106)
--- NOTE | 2017-07-15 08:12 | PN ---
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 Pros and cons d/w pt today and pt's 2 daughters yesterday Risks of surgery- bleeding , infection, stroke, sz, aphasia, and other risks of GA All questions answered Pt and family to make decision If patient wishes to proceed will place stereotactic scalp markers later today
[2017-07-15] MEDS ORDERED: PT OWN MED DRAWER 7, Y5N ONE (08:46)
[2017-07-15] MEDS: MAGNESIUM OXIDE 400 MG TABLET (FP) PO SCH (09:17)
[2017-07-15] MEDS: POTASSIUM CHLORIDE TABS 20 MEQ TABLET.ER (FP) PO SCH ×3 (09:17→17:17)
[2017-07-15] MEDS: levETIRAcetam 500 MG TABLET (FP) PO SCH ×2 (09:17→22:10)
[2017-07-15] MEDS: LOSARTAN POTASSIUM 25 MG TABLET PO SCH (09:17)
[2017-07-15] MEDS: RANITIDINE HCL 150 MG TABLET (FP) PO SCH ×2 (09:17→22:10)
[2017-07-15] MEDS: CALCIUM 500MG/VIT-D 200 UNITS COMBO TABLET (FP) PO SCH (09:17)
[2017-07-15] MEDS: PANTOPRAZOLE 40 MG TABLET (FP) PO SCH (09:17)
[2017-07-15] MEDS: HEPARIN NA (PORCINE) 5,000 UNITS/ML 1ML VIAL SQ SCH (09:24)
--- NOTE | 2017-07-15 09:26 | PN ---
Progress Note, Physician History of Present Illness: Denies numbness or weakness. - Current Medication List Current Medications: Active Medications Acetaminophen (Tylenol -) 650 mg PO Q6H PRN PRN Reason: PAIN LEVEL 6-10 Atorvastatin Calcium (Lipitor -) 10 mg PO HS COUNTS INCLUDE 234 BEDS AT THE [facility] Last Admin: 07/14/17 21:44 Dose: 10 mg Calcium Carbonate/Cholecalciferol (Os-Franklyn 500+D -) 1 tab PO DAILY COUNTS INCLUDE 234 BEDS AT THE [facility] Last Admin: 07/15/17 09:17 Dose: 1 tab Dexamethasone Sodium Phosphate (Decadron Injection -) 4 mg IVPUSH Q6H-IV COUNTS INCLUDE 234 BEDS AT THE [facility] Last Admin: 07/15/17 09:19 Dose: 4 mg Diphenhydramine HCl (Benadryl -) 25 mg PO DAILY PRN PRN Reason: FOR ITCHING Heparin Sodium (Porcine) (Heparin -) 5,000 unit SQ BID COUNTS INCLUDE 234 BEDS AT THE [facility] Last Admin: 07/15/17 09:24 Dose: 5,000 unit Insulin Aspart (Novolog Vial Sliding Scale -) 1 vial SQ ACHS COUNTS INCLUDE 234 BEDS AT THE [facility] PRN Reason: Protocol Last Admin: 07/15/17 06:10 Dose: Not Given Levetiracetam (Keppra -) 500 mg PO BID COUNTS INCLUDE 234 BEDS AT THE [facility] Last Admin: 07/15/17 09:17 Dose: 500 mg Levothyroxine Sodium (Synthroid -) 100 mcg PO ACBK COUNTS INCLUDE 234 BEDS AT THE [facility] Last Admin: 07/15/17 06:11 Dose: 100 mcg Losartan Potassium (Cozaar -) 25 mg PO DAILY COUNTS INCLUDE 234 BEDS AT THE [facility] Last Admin: 07/15/17 09:17 Dose: 25 mg Magnesium Oxide (Mag-Ox -) 400 mg PO DAILY COUNTS INCLUDE 234 BEDS AT THE [facility] Last Admin: 07/15/17 09:17 Dose: 400 mg Montelukast Sodium (Singulair -) 10 mg PO HS COUNTS INCLUDE 234 BEDS AT THE [facility] Last Admin: 07/14/17 21:43 Dose: 10 mg Nebivolol (Bystolic -) 2.5 mg PO DAILY COUNTS INCLUDE 234 BEDS AT THE [facility] Last Admin: 07/14/17 10:56 Dose: Not Given Pantoprazole Sodium (Protonix -) 40 mg PO DAILY COUNTS INCLUDE 234 BEDS AT THE [facility] Last Admin: 07/15/17 09:17 Dose: 40 mg Potassium Chloride (K-Dur -) 10 meq PO QID COUNTS INCLUDE 234 BEDS AT THE [facility] Last Admin: 07/15/17 09:17 Dose: 10 meq Ranitidine HCl (Zantac -) 150 mg PO BID COUNTS INCLUDE 234 BEDS AT THE [facility] Last Admin: 07/15/17 09:17 Dose: 150 mg - Objective Vital Signs: Vital Signs Temperature 98.1 F 07/15/17 05:23 Pulse Rate 54 L 07/15/17 05:23 Respiratory Rate 20 07/15/17 05:23 Blood Pressure 121/48 07/15/17 05:23 O2 Sat by Pulse Oximetry (%) 95 07/14/17 21:00 Constitutional: Yes: No Distress, Calm Neck: Yes: Supple Cardiovascular: Yes: Regular Rate and Rhythm Respiratory: Yes: Regular, CTA Bilaterally Gastrointestinal: Yes: Normal Bowel Sounds, Soft Edema: No Labs: CBC, BMP 07/14/17 05:35 07/15/17 06:25 INR, PTT INR 1.06 (0.82-1.09) 07/14/17 05:35 Problem List - Problems (1) Acute kidney injury Code(s): N17.9 - ACUTE KIDNEY FAILURE, UNSPECIFIED (2) Brain mass Code(s): G93.9 - DISORDER OF BRAIN, UNSPECIFIED (3) COPD (chronic obstructive pulmonary disease) with chronic bronchitis Code(s): J44.9 - CHRONIC OBSTRUCTIVE PULMONARY DISEASE, UNSPECIFIED (4) Diastolic dysfunction Code(s): I51.9 - HEART DISEASE, UNSPECIFIED (5) Hyperlipidemia Code(s): E78.5 - HYPERLIPIDEMIA, UNSPECIFIED Qualifiers: Hyperlipidemia type: pure hypercholesterolemia Qualified Code(s): E78.00 - Pure hypercholesterolemia, unspecified; E78.00 - Pure hypercholesterolemia, unspecified; E78.00 - Pure hypercholesterolemia, unspecified; E78.0 - Pure hypercholesterolemia (6) Hypertension Code(s): I10 - ESSENTIAL (PRIMARY) HYPERTENSION Qualifiers: Hypertension type: essential hypertension Qualified Code(s): I10 - Essential (primary) hypertension; I10 - Essential (primary) hypertension; I10 - Essential (primary) hypertension (7) Hypothyroidism Code(s): E03.9 - HYPOTHYROIDISM, UNSPECIFIED Qualifiers: 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 CAD angina pectoris, stable 3. Diastolic LV dysfunction with chronic class I NYHA classification LV failure , compensated/euvolemic 4. HTN 5. Hypercholesterolemia 6. Hypothyroidism 7. COPD 8. Acute on chronic kidney insufficiency resolving PLAN: 1. Continue Bystolic 2.5 qd 2. Continue Cozaar 25 qd with caution and close monitoring of renal function 3. Resume Lasix once renal function stabilized 4. Continue Lipitor 10 qhs 5. Surgical debulking vs palliative RT and chemo to be decided, continue IV steroids with GI protection and seizure prophylaxis 6. DVT prophylaxis
--- NOTE | 2017-07-15 10:29 | PN ---
Progress Note, Physician Chief Complaint: in bed awake alert NAD in good spirits no c/o tests and consults reviewed and d/w pt and daughters - Current Medication List Current Medications: Active Medications Acetaminophen (Tylenol -) 650 mg PO Q6H PRN PRN Reason: PAIN LEVEL 6-10 Atorvastatin Calcium (Lipitor -) 10 mg PO HS [facility] Last Admin: 07/14/17 21:44 Dose: 10 mg Calcium Carbonate/Cholecalciferol (Os-Franklyn 500+D -) 1 tab PO DAILY [facility] Last Admin: 07/15/17 09:17 Dose: 1 tab Dexamethasone Sodium Phosphate (Decadron Injection -) 4 mg IVPUSH Q6H-IV [facility] Last Admin: 07/15/17 09:19 Dose: 4 mg Diphenhydramine HCl (Benadryl -) 25 mg PO DAILY PRN PRN Reason: FOR ITCHING Heparin Sodium (Porcine) (Heparin -) 5,000 unit SQ BID [facility] Last Admin: 07/15/17 09:24 Dose: 5,000 unit Insulin Aspart (Novolog Vial Sliding Scale -) 1 vial SQ ACHS [facility] PRN Reason: Protocol Last Admin: 07/15/17 06:10 Dose: Not Given Levetiracetam (Keppra -) 500 mg PO BID [facility] Last Admin: 07/15/17 09:17 Dose: 500 mg Levothyroxine Sodium (Synthroid -) 100 mcg PO ACBK [facility] Last Admin: 07/15/17 06:11 Dose: 100 mcg Losartan Potassium (Cozaar -) 25 mg PO DAILY [facility] Last Admin: 07/15/17 09:17 Dose: 25 mg Magnesium Oxide (Mag-Ox -) 400 mg PO DAILY [facility] Last Admin: 07/15/17 09:17 Dose: 400 mg Montelukast Sodium (Singulair -) 10 mg PO HS [facility] Last Admin: 07/14/17 21:43 Dose: 10 mg Nebivolol (Bystolic -) 2.5 mg PO DAILY [facility] Last Admin: 07/14/17 10:56 Dose: Not Given Pantoprazole Sodium (Protonix -) 40 mg PO DAILY [facility] Last Admin: 07/15/17 09:17 Dose: 40 mg Potassium Chloride (K-Dur -) 10 meq PO QID [facility] Last Admin: 07/15/17 09:17 Dose: 10 meq Ranitidine HCl (Zantac -) 150 mg PO BID [facility] Last Admin: 07/15/17 09:17 Dose: 150 mg - Objective Vital Signs: Vital Signs Temperature 98.1 F 07/15/17 05:23 Pulse Rate 54 L 07/15/17 05:23 Respiratory Rate 20 07/15/17 05:23 Blood Pressure 121/48 07/15/17 05:23 O2 Sat by Pulse Oximetry (%) 95 07/14/17 21:00 Constitutional: Yes: No Distress, Calm Eyes: Yes: Conjunctiva Clear HENT: Yes: Atraumatic Neck: Yes: Supple Cardiovascular: Yes: Regular Rate and Rhythm Respiratory: Yes: CTA Bilaterally Gastrointestinal: Yes: Soft. No: Distention, Tenderness Genitourinary: No: CVA Tenderness - Left, CVA Tenderness - Right Musculoskeletal: No: Joint Stiffness, Joint Swelling Extremities: No: Calf Tenderness, Cold, Cool, Cyanosis Edema: No Neurological: Yes: WNL, Alert, Oriented (x2) ...Motor Strength: WNL Psychiatric: Yes: WNL, Alert, Oriented (x2). No: Agitated, Suicidal Ideation Labs: CBC, BMP 07/14/17 05:35 07/15/17 06:25 INR, PTT INR 1.06 (0.82-1.09) 07/14/17 05:35 - ....Imaging Other: Report Reviewed Assessment/Plan Ms. Waldrop is an 82 yo female with a significant past medical history of HTN, dyastolic CHF, COPD, and hyperlipidemia who was admitted with L frontal mass 7 cm on MRI with surrounding edema and some midline shift; ARF/CRF dehydration; IVF for gentle hydration; watch for CHF Neurology, renal and NS f/u cardio and pulm eval for preop optimization IV steroids. Check BGM/ sq insulin as needed; gastric PFX PPIs as ordered Po keppra for seizure PFX sq heparin DVT PFX f/u labs falls PFX d/w pt and staff do not get OOB alone d/w NS dr Leonard and ONC dr Robledo about treatment alternatives including: surgery ( tumor debulking) followed by Chemotx and RxTX, versus chemotx and Rxtx without surgery; the first has higher survival rates (1 year versus 6 months) - d/w pt and daughters Gayle & Diamante and they chose surgery followed by Rxtx and chemotx d/w pt and daughters about risks of surgery and anesthesia d/w them also about rxtx (usually done as outpt Mon-Fri for few weeks) and chemotx (usually done via port) they understood and agreed with brain surgery progn guarded T time 40 min
--- NOTE | 2017-07-15 11:00 | PN ---
Progress Note, Physician History of Present Illness: PULMONARY ALERT,NAD,-CP,-SOB - Current Medication List Current Medications: Active Medications Acetaminophen (Tylenol -) 650 mg PO Q6H PRN PRN Reason: PAIN LEVEL 6-10 Atorvastatin Calcium (Lipitor -) 10 mg PO HS [facility] Last Admin: 07/14/17 21:44 Dose: 10 mg Calcium Carbonate/Cholecalciferol (Os-Franklyn 500+D -) 1 tab PO DAILY [facility] Last Admin: 07/15/17 09:17 Dose: 1 tab Dexamethasone Sodium Phosphate (Decadron Injection -) 4 mg IVPUSH Q6H-IV [facility] Last Admin: 07/15/17 09:19 Dose: 4 mg Diphenhydramine HCl (Benadryl -) 25 mg PO DAILY PRN PRN Reason: FOR ITCHING Heparin Sodium (Porcine) (Heparin -) 5,000 unit SQ BID [facility] Last Admin: 07/15/17 09:24 Dose: 5,000 unit Insulin Aspart (Novolog Vial Sliding Scale -) 1 vial SQ ACHS [facility] PRN Reason: Protocol Last Admin: 07/15/17 06:10 Dose: Not Given Levetiracetam (Keppra -) 500 mg PO BID [facility] Last Admin: 07/15/17 09:17 Dose: 500 mg Levothyroxine Sodium (Synthroid -) 100 mcg PO ACBK [facility] Last Admin: 07/15/17 06:11 Dose: 100 mcg Losartan Potassium (Cozaar -) 25 mg PO DAILY [facility] Last Admin: 07/15/17 09:17 Dose: 25 mg Magnesium Oxide (Mag-Ox -) 400 mg PO DAILY [facility] Last Admin: 07/15/17 09:17 Dose: 400 mg Montelukast Sodium (Singulair -) 10 mg PO HS [facility] Last Admin: 07/14/17 21:43 Dose: 10 mg Nebivolol (Bystolic -) 2.5 mg PO DAILY [facility] Last Admin: 07/14/17 10:56 Dose: Not Given Pantoprazole Sodium (Protonix -) 40 mg PO DAILY [facility] Last Admin: 07/15/17 09:17 Dose: 40 mg Potassium Chloride (K-Dur -) 10 meq PO QID [facility] Last Admin: 07/15/17 09:17 Dose: 10 meq Ranitidine HCl (Zantac -) 150 mg PO BID [facility] Last Admin: 07/15/17 09:17 Dose: 150 mg - Objective Vital Signs: Vital Signs Temperature 98.1 F 07/15/17 05:23 Pulse Rate 54 L 07/15/17 05:23 Respiratory Rate 20 07/15/17 05:23 Blood Pressure 121/48 07/15/17 05:23 O2 Sat by Pulse Oximetry (%) 95 07/14/17 21:00 Constitutional: Yes: Well Nourished, Calm Eyes: Yes: WNL HENT: Yes: WNL Neck: Yes: WNL Cardiovascular: Yes: Regular Rate and Rhythm, S1, S2 Respiratory: Yes: Diminished Gastrointestinal: Yes: Normal Bowel Sounds, Soft Extremities: Yes: WNL Edema: Yes Labs: CBC, BMP 07/14/17 05:35 07/15/17 06:25 INR, PTT INR 1.06 (0.82-1.09) 07/14/17 05:35 Assessment/Plan Problem List - Problems (1) Acute kidney injury Code(s): N17.9 - ACUTE KIDNEY FAILURE, UNSPECIFIED (2) Brain mass Code(s): G93.9 - DISORDER OF BRAIN, UNSPECIFIED (3) Bilateral lower extremity edema Code(s): R60.0 - LOCALIZED EDEMA (4) COPD (chronic obstructive pulmonary disease) with chronic bronchitis Code(s): J44.9 - CHRONIC OBSTRUCTIVE PULMONARY DISEASE, UNSPECIFIED Assessment/Plan COPD IS STABLE NO PULMONARY CONTRAINDICATION TO BRAIN LESION BIOPSY IF NEEDED WILL CONTINUE O2 BRONCHODILATORS SINGULAIR STEROIDS (FOR NIRALI-LESIONAL EDEMA) DR CHAND
--- NOTE | 2017-07-15 11:17 | PN ---
Progress Note, Physician Chief Complaint: The patient seen sitting by her bed. Feels well. No discomfort. Denies any chest pain. Says she didn't sleep well last night. Slightly anxious about what might happen. Maintains good urine output. History of Present Illness: 82 year old female with a significant PMH of HTN, CHF, COPD, and hyperlipidemia who presents with generalized malaise with a sudden isolated episode of nausea, vomiting, and diarrhea. H/o 2 weeks of intermittent confused language. Pt denies headache or focal weakness. The patient has some Chronic Kidney disease CT scan of the Brain reveals a left frontal mass lesion. MRI of the brain with Girish confirms the same. The patient had meeting with Dr. Leonard about possible surgery. - Current Medication List Current Medications: Active Medications Acetaminophen (Tylenol -) 650 mg PO Q6H PRN PRN Reason: PAIN LEVEL 6-10 Atorvastatin Calcium (Lipitor -) 10 mg PO HS [facility] Last Admin: 07/14/17 21:44 Dose: 10 mg Calcium Carbonate/Cholecalciferol (Os-Franklyn 500+D -) 1 tab PO DAILY [facility] Last Admin: 07/15/17 09:17 Dose: 1 tab Dexamethasone Sodium Phosphate (Decadron Injection -) 4 mg IVPUSH Q6H-IV [facility] Last Admin: 07/15/17 09:19 Dose: 4 mg Diphenhydramine HCl (Benadryl -) 25 mg PO DAILY PRN PRN Reason: FOR ITCHING Heparin Sodium (Porcine) (Heparin -) 5,000 unit SQ BID [facility] Last Admin: 07/15/17 09:24 Dose: 5,000 unit Insulin Aspart (Novolog Vial Sliding Scale -) 1 vial SQ ACHS [facility] PRN Reason: Protocol Last Admin: 07/15/17 06:10 Dose: Not Given Levetiracetam (Keppra -) 500 mg PO BID [facility] Last Admin: 07/15/17 09:17 Dose: 500 mg Levothyroxine Sodium (Synthroid -) 100 mcg PO ACBK [facility] Last Admin: 07/15/17 06:11 Dose: 100 mcg Losartan Potassium (Cozaar -) 25 mg PO DAILY [facility] Last Admin: 07/15/17 09:17 Dose: 25 mg Magnesium Oxide (Mag-Ox -) 400 mg PO DAILY [facility] Last Admin: 07/15/17 09:17 Dose: 400 mg Montelukast Sodium (Singulair -) 10 mg PO HS [facility] Last Admin: 07/14/17 21:43 Dose: 10 mg Nebivolol (Bystolic -) 2.5 mg PO DAILY [facility] Last Admin: 07/14/17 10:56 Dose: Not Given Pantoprazole Sodium (Protonix -) 40 mg PO DAILY [facility] Last Admin: 07/15/17 09:17 Dose: 40 mg Potassium Chloride (K-Dur -) 10 meq PO QID [facility] Last Admin: 07/15/17 09:17 Dose: 10 meq Ranitidine HCl (Zantac -) 150 mg PO BID [facility] Last Admin: 07/15/17 09:17 Dose: 150 mg - Objective Vital Signs: Vital Signs Temperature 98.1 F 07/15/17 05:23 Pulse Rate 54 L 07/15/17 05:23 Respiratory Rate 20 07/15/17 05:23 Blood Pressure 121/48 07/15/17 05:23 O2 Sat by Pulse Oximetry (%) 95 07/14/17 21:00 Constitutional: Yes: No Distress Eyes: Yes: Conjunctiva Clear HENT: Yes: Atraumatic Cardiovascular: Yes: Regular Rate and Rhythm, S1, S2 Respiratory: Yes: Regular, CTA Bilaterally Gastrointestinal: Yes: Normal Bowel Sounds, Soft Genitourinary: No: CVA Tenderness - Left, CVA Tenderness - Right, Hematuria, Incontinence Musculoskeletal: No: Back Pain, Joint Stiffness Extremities: No: Calf Tenderness Edema: No Neurological: Yes: Alert Labs: CBC, BMP 07/14/17 05:35 07/15/17 06:25 INR, PTT INR 1.06 (0.82-1.09) 07/14/17 05:35 Problem List - Problems (1) Acute kidney injury Code(s): N17.9 - ACUTE KIDNEY FAILURE, UNSPECIFIED (2) Brain mass Code(s): G93.9 - DISORDER OF BRAIN, UNSPECIFIED (3) Dehydration Code(s): E86.0 - DEHYDRATION (4) Brain tumor Code(s): D49.6 - NEOPLASM OF UNSPECIFIED BEHAVIOR OF BRAIN Assessment/Plan 82 y/o female admitted with minimal confusion and speech abnormality as observed by family. The patient has h/o Hypertension, CHF, Hyperlipidemia, Chronic Kidney disease and h/o multiple Orthopedic surgeries. The finding of a frontal brain tumor confirmed by MRI with Girish. Surgical plans are in discussion with the patient and family. Family decision pending. The renal functions are at her baseline (Cr 1.3) Will continue to monitor the renal functions. Should maintain euvolemia before, during and after the surgery. Thank you. Yesica Diaz MD
[2017-07-15] MEDS: NEBIVOLOL 2.5 MG TABLET (FP) PO SCH (12:36)
--- NOTE | 2017-07-15 18:59 | PN ---
Progress Note (short form) - Note Progress Note: HPI: 82 year old female with a significant PMH of HTN, CHF, COPD, and hyperlipidemia who presents to the emergency department with generalized malaise beginning approximately 2 days ago. Reports malaise began at dinner with a sudden isolated episode of nausea, vomiting, and diarrhea, after which patient reports feeling off. as per chart, Patients daughters also report 2 weeks of intermittent confused language. Pt denies TAVERAS or focal weakness. she smiles and is attentive and becomes slightly confused with conversation. denies breathing c/o. no known cancer CT HD IMPRESSION: In comparison to a prior noncontrast CT study of 11/29/2016 interval development of an approximately 3 cm left frontal subcortical mass lesion is noted with probable involvement of the corpus callosum. Moderate to marked perilesional edema is seen. There is mild to moderate contralateral midline displacement. This finding is probably more likely on the basis of primary neoplastic disease rather than metastatic neoplastic disease. Additional evaluation utilizing contrast enhanced MRI or CT is suggested. MRI BRAIN : Impression: Large enhancing solid intra-axial lesion in the left frontal lobe 7 cm in its largest diameter extending through the anterior aspect of the corpus callosum into the right frontal lobe with extensive perifocal edema with mass effect on the left lateral ventricle. Also noted multiple enhancing nodules surrounding the lesion most probably related to the same lesion in the left frontal lobe as evident on post contrast image #19 and image #20. Findings are suspicious of a large glioblastoma multiform or large metastatic lesion. Correlation with clinical history and comparison with prior MRI recommended. When prior MRI became available an addendum will be dictated. Diffusion pulse is unremarkable no evidence acute infarction. No evidence otherwise of intracerebral hemorrhage, subdural fluid collection or hydrocephalus. No evidence of acute infarction. FU: seen by NS-- suspicious for GBM , daughters not at bedside though spoek to NS earlier today no new c/o , no TAVERAS or seizures - History Source History Provided By: Patient, Medical Record - Past Medical History Cardio/Vascular: Yes: HTN, Hyperlipdemia, Pulmonary Hypertension Pulmonary: Yes: COPD Gastrointestinal: Yes: Other (colon polyps) Musculoskeletal: Yes: Chronic low back pain, Osteoarthritis Endocrine: Yes: Hypothyroidism - Past Surgical History Past Surgical History: Yes: Joint Replacement - Alcohol/Substance Use Hx Alcohol Use: No History of Substance Use: reports: None - Smoking History Smoking history: Never smoked Have you smoked in the past 12 months: No Aproximately how many cigarettes per day: 0 If you are a former smoker, when did you quit?: 30 years ago - Social History ADL: Family Assistance (madeline lives close by) Occupation: retired History of Recent Travel: No Home Medications - Allergies Allergies/Adverse Reactions: Allergies Allergy/AdvReac Type Severity Reaction Status Date / Time Shellfish Allergy Verified 07/12/17 10:27 levofloxacin [From Levaquin] AdvReac Unknown Verified 07/12/17 10:27 ceftriaxone sodium AdvReac ERYTHEMA,IT Verified 07/12/17 10:27 [From Rocephin] GIRMA,URTIC ARIA codeine [Codeine] AdvReac Nausea Verified 07/12/17 10:27 SHRIMP Allergy Uncoded 07/12/17 10:27 - Home Medications Home Medications: Ambulatory Orders Losartan Potassium [Cozaar] 25 mg PO DAILY 10/09/15 Montelukast Sodium [Singulair] 10 mg PO HS 10/09/15 Pravastatin Sodium [Pravachol -] 40 mg PO HS 10/09/15 Ranitidine HCl [Zantac] 150 mg PO BID PRN 10/09/15 Levothyroxine [Synthroid -] 125 mcg PO DAILY #90 tablet 11/18/15 Calcium Carbonate/Vitamin D3 [Calcium 500-Vit D3 200 Caplet] 1 each PO DAILY Magnesium Oxide [Mag-Ox -] 400 mg PO DAILY 03/22/16 Potassium Chloride [K-Dur -] 10 meq PO QID 03/22/16 Nebivolol [Bystolic -] 2.5 mg PO DAILY tab 03/25/16 Diphenhydramine HCl [Benadryl Capsule -] 25 mg PO DAILY PRN #0 capsule 03/28/16 Furosemide [Lasix -] 40 mg PO BID@0600,1400 tablet 03/28/16 Family Disease History - Family Disease History Family Disease History: CA: Father (colon cancer), Brother (colon cancer) Physical Exam-Neuro Vital Signs: Vital Signs Temperature 98.6 F 07/12/17 16:23 Pulse Rate 74 07/12/17 16:23 Respiratory Rate 20 07/12/17 16:23 Blood Pressure 132/77 07/12/17 16:23 O2 Sat by Pulse Oximetry (%) 96 07/12/17 16:23 Constitutional: Yes: Well Nourished - Neuro Exam Level Of Consciousness: Yes: Alert (awake and alert though becomes confused , slight word finding difficulty yr 1955, does not know age, follows basic commands, can name and repeat, no clear aphasia, VFF, lsight RUE drift, no focal weakness, plantars equivocal ) Imaging - Results Cat Scan: Report Reviewed, Image Reviewed Problem List - Problems (1) Acute kidney injury Code(s): N17.9 - ACUTE KIDNEY FAILURE, UNSPECIFIED (2) Brain mass Code(s): G93.9 - DISORDER OF BRAIN, UNSPECIFIED (3) COPD (chronic obstructive pulmonary disease) with chronic bronchitis Code(s): J44.9 - CHRONIC OBSTRUCTIVE PULMONARY DISEASE, UNSPECIFIED Assessment/Plan 82 year old female with a significant PMH of HTN, CHF, COPD, and hyperlipidemia who presents to the emergency department with generalized malaise beginning approximately 2 days ago. Reports malaise began at dinner with a sudden isolated episode of nausea, vomiting, and diarrhea, after which patient reports feeling off. as per chart, Patients daughters also report 2 weeks of intermittent confused language. Pt denies TAVERAS or focal weakness. she smiles and is attentive and becomes slightly confused with conversation. denies breathing c /o. no known cancer suspicious for new primary brain CA, r/o GBM surprisingly no major deficits though she is confused and has word finding difficulty can [place] decadron 4 Q6, Neurosurgery seen -Dr Leonard , biopsy/ ?debulking vs RAD ONC no AED for now, HEP Sq ok. Dr Torres [phone] . Problem List - Problems (1) Acute kidney injury Code(s): N17.9 - ACUTE KIDNEY FAILURE, UNSPECIFIED (2) Brain mass Code(s): G93.9 - DISORDER OF BRAIN, UNSPECIFIED (3) COPD (chronic obstructive pulmonary disease) with chronic bronchitis Code(s): J44.9 - CHRONIC OBSTRUCTIVE PULMONARY DISEASE, UNSPECIFIED
--- NOTE | 2017-07-15 21:42 | CONSULT ---
Consult - text type - Consultation Consultation Note: Patient seen and examined 82 year old female with a significant PMH of HTN, CHF, COPD, and hyperlipidemia who presents with generalized malaise with a sudden isolated episode of nausea, vomiting, and diarrhea, after which patient reports feeling off. Also has word finding problems CT scan of the Brain reveals a left frontal mass lesion. - History Source History Provided By: Patient, Medical Record, Caregiver - Past Medical History Cardio/Vascular: Yes: HTN, Hyperlipdemia, Pulmonary Hypertension Pulmonary: Yes: COPD Gastrointestinal: Yes: Other (colon polyps) Renal/: Yes: Renal Failure Musculoskeletal: Yes: Chronic low back pain, Osteoarthritis Endocrine: Yes: Hypothyroidism - Past Surgical History Past Surgical History: Yes: Joint Replacement - Smoking History Smoking history: Never smoked - Social History ADL: Family Assistance (daugter lives close by) Occupation: retired Home Medications - Allergies Allergies/Adverse Reactions: Allergies Allergy/AdvReac Type Severity Reaction Status Date / Time Shellfish Allergy Verified 07/12/17 10:27 levofloxacin [From Levaquin] AdvReac Unknown Verified 07/12/17 10:27 ceftriaxone sodium AdvReac ERYTHEMA,IT Verified 07/12/17 10:27 [From Rocephin] GIRMA,URTIC ARIA codeine [Codeine] AdvReac Nausea Verified 07/12/17 10:27 SHRIMP Allergy Uncoded 07/12/17 10:27 - Home Medications Home Medications: Ambulatory Orders Losartan Potassium [Cozaar] 25 mg PO DAILY 10/09/15 Montelukast Sodium [Singulair] 10 mg PO HS 10/09/15 Pravastatin Sodium [Pravachol -] 40 mg PO HS 10/09/15 Ranitidine HCl [Zantac] 150 mg PO BID PRN 10/09/15 Levothyroxine [Synthroid -] 125 mcg PO DAILY #90 tablet 11/18/15 Calcium Carbonate/Vitamin D3 [Calcium 500-Vit D3 200 Caplet] 1 each PO DAILY Magnesium Oxide [Mag-Ox -] 400 mg PO DAILY 03/22/16 Potassium Chloride [K-Dur -] 10 meq PO QID 03/22/16 Nebivolol [Bystolic -] 2.5 mg PO DAILY tab 03/25/16 Diphenhydramine HCl [Benadryl Capsule -] 25 mg PO DAILY PRN #0 capsule 03/28/16 Furosemide [Lasix -] 40 mg PO BID@0600,1400 tablet 03/28/16 Family Disease History - Family Disease History Family Disease History: CA: Father (colon cancer), Brother (colon cancer) Physical Exam Vital Signs: AFVSS Constitutional: Yes: Well Nourished, No Distress, Calm Eyes: Yes: Conjunctiva Clear HENT: Yes: Atraumatic Neck: Yes: Supple Cardiovascular: Yes: Regular Rate and Rhythm, S1, S2 Respiratory: Yes: CTA Bilaterally Gastrointestinal: Yes: Normal Bowel Sounds, Soft Renal/: No: CVA Tenderness - Left, CVA Tenderness - Right Edema: No Neurological: Yes: Alert, Oriented Assessment/Plan 82 y/o female with HTN,hyperlipidemia, CHF, COPD, comes in with intermittent confusion, weakess, word finding fdifficulty. Noted to have LT. frntal mass with surrounding vasogenic edema/satellite nodules CT chest 02/06 showed emphysemia, scattered lung nodules? post inflammatory, Lt. renal cyst discussed with neurosurgery--concern for GBM based on imagin Patient to get stereotactic MR tomorrow and possible debulking/biopsy--07/17 will discuss with PMD
[2017-07-15] MEDS: ATORVASTATIN CA 10 MG TABLET (FP) PO SCH (22:10)
[2017-07-15] MEDS: POTASSIUM CHLORIDE TABS 10 MEQ TABLET.ER (FP) PO SCH (22:10)
[2017-07-15] MEDS: MONTELUKAST NA 10 MG TABLET PO SCH (22:10)
[2017-07-16] MEDS: DEXAMETHASONE SOD PHOSPHATE 4 MG/1 ML VIAL IVPUSH SCH ×4 (03:22→21:16)
[2017-07-16] MEDS: INSULIN SLIDING SCALE (NOVOLOG) 1 VIAL SQ SCH ×4 (06:20→21:31)
[2017-07-16] MEDS: LEVOTHYROXINE NA 100 MCG TABLET (FP) PO SCH (06:23)
--- NOTE | 2017-07-16 07:38 | PN ---
Progress Note (short form) - Note Progress Note: NEUROSURGERY Care discussed with Dr Jaimes, Dr. Davis, patient, and daughters PE: AF, VSS HEENT- NC/AT; Neck- supple; Cor- RR; Lungs- CTA; Abd- benign; Ext- no sign of DVT A/A/Ox1-2; speech mildly dysphasic with poor memory CN- intact (mildly decreased hearing B); Motor- 5/5 without drift; Sensation- intact LT; DTR- hyporeflexic; L toe upgoing; Head CT 11/2016- mild atrophy; no bleed; no fx; no clear mass lesion Head CT 06/2017- 3 cm hyperdense subcortical lesion with mass effect and mild shift; + associated edema Probable L frontal GBM MRI- L frontal 3 x 5 cm irregularly enhancing lesion extending across the corpus callosum with associated edema and mass effect; some satellite lesions Probable GBM Options: 1) surgical debulking/biopsy through stereotactic craniotomy followed by RT/chemo; Gliadel could be considered with this approach; 2) no surgery; palliative RT and chemo only if rad onc and med onc are willing to treat without debulking or tissue. Pros and cons d/w pt, pt's 2 daughters, and medical team Risks of surgery- bleeding , infection, stroke, sz, aphasia, and other risks of GA All questions answered Pt and family opt to undergo surgical intervention Place 8 stereotactic scalp markers for stereotactic MRI today OR arranged for Wed; informed tentative start time about 1300 Spent 35 minutes at bedside
[2017-07-16 08:59] LABS: ALBUMIN 2.5 g/dl (3.4-5.0); ANION GAP 8 (8-16); CALCIUM 8.1 mg/dL (8.5-10.1); CO2 20 mmol/L (21-32); GLUCOSE,RANDOM 125 mg/dL (74-106); MAGNESIUM 2.7 mg/dL (1.8-2.4)
[2017-07-16] MEDS ORDERED: PT OWN MED DRAWER 7, Y5N ONE (09:01)
[2017-07-16 09:07] LABS: ALK PHOS 79 U/L (45-117); BILIRUBIN,TOTAL 0.3 mg/dL (0.2-1.0); CREATININE 1.1 mg/dL (0.55-1.02); PHOSPHOROUS 2.5 mg/dL (2.5-4.9); SGOT/AST 24 U/L (15-37); SGPT/ALT 40 U/L (12-78); TOT PROT 5.7 g/dl (6.4-8.2)
--- NOTE | 2017-07-16 09:28 | PN ---
Progress Note, Physician Chief Complaint: Events noted Not in distress this am History of Present Illness: Patient was seen and examined. Awake and alert. Chart was reviewed Denies chest pain, SOB or palpitations Neurosurgery input noted - Current Medication List Current Medications: Active Medications Acetaminophen (Tylenol -) 650 mg PO Q6H PRN PRN Reason: PAIN LEVEL 6-10 Atorvastatin Calcium (Lipitor -) 10 mg PO HS [facility] Last Admin: 07/15/17 22:10 Dose: 10 mg Calcium Carbonate/Cholecalciferol (Os-Franklyn 500+D -) 1 tab PO DAILY [facility] Last Admin: 07/15/17 09:17 Dose: 1 tab Dexamethasone Sodium Phosphate (Decadron Injection -) 4 mg IVPUSH Q6H-IV [facility] Last Admin: 07/16/17 03:22 Dose: 4 mg Diphenhydramine HCl (Benadryl -) 25 mg PO DAILY PRN PRN Reason: FOR ITCHING Potassium Chloride/Dextrose/Sod Cl (D5-1/2ns+20 Meq Kcl -) 1,000 mls @ 75 mls/ hr IV ASDIR GENI Insulin Aspart (Novolog Vial Sliding Scale -) 1 vial SQ ACHS GENI PRN Reason: Protocol Last Admin: 07/16/17 06:20 Dose: Not Given Levetiracetam (Keppra -) 500 mg PO BID [facility] Last Admin: 07/15/17 22:10 Dose: 500 mg Levothyroxine Sodium (Synthroid -) 100 mcg PO ACBK [facility] Last Admin: 07/16/17 06:23 Dose: 100 mcg Losartan Potassium (Cozaar -) 25 mg PO DAILY [facility] Last Admin: 07/15/17 09:17 Dose: 25 mg Magnesium Oxide (Mag-Ox -) 400 mg PO DAILY [facility] Last Admin: 07/15/17 09:17 Dose: 400 mg Montelukast Sodium (Singulair -) 10 mg PO HS [facility] Last Admin: 07/15/17 22:10 Dose: 10 mg Nebivolol (Bystolic -) 2.5 mg PO DAILY [facility] Last Admin: 07/15/17 12:36 Dose: 2.5 mg Pantoprazole Sodium (Protonix -) 40 mg PO DAILY [facility] Last Admin: 07/15/17 09:17 Dose: 40 mg Potassium Chloride (K-Dur -) 10 meq PO BID [facility] Last Admin: 07/15/17 22:10 Dose: 10 meq Ranitidine HCl (Zantac -) 150 mg PO BID [facility] Last Admin: 07/15/17 22:10 Dose: 150 mg - Objective Vital Signs: Vital Signs Temperature 97.1 F L 07/16/17 06:00 Pulse Rate 54 L 07/16/17 06:00 Respiratory Rate 20 07/16/17 06:00 Blood Pressure 133/60 07/16/17 06:00 O2 Sat by Pulse Oximetry (%) 98 07/15/17 21:00 Neck: Yes: Supple Cardiovascular: Yes: Regular Rate and Rhythm, S1, S2 Respiratory: Yes: Diminished Gastrointestinal: Yes: Normal Bowel Sounds, Soft. No: Tenderness Edema: No Labs: CBC, BMP 07/14/17 05:35 INR, PTT INR 1.06 (0.82-1.09) 07/14/17 05:35 Assessment/Plan 1. 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 CAD angina pectoris, stable 3. Diastolic LV dysfunction with chronic class I NYHA classification LV failure , compensated/euvolemic 4. HTN 5. Hypercholesterolemia 6. Hypothyroidism 7. COPD 8. Acute on chronic kidney insufficiency resolving PLAN: 1. Continue Bystolic 2.5 qd 2. Continue Cozaar 25 qd with caution and close monitoring of renal function 3. Resume Lasix once renal function stabilized 4. Continue Lipitor 10 qhs 5. Await surgical debulking - neurosurgery input noted 6. DVT prophylaxis Further plans are to follow Damaso Escobedo MD
[2017-07-16] MEDS: MAGNESIUM OXIDE 400 MG TABLET (FP) PO SCH (09:35)
[2017-07-16] MEDS: RANITIDINE HCL 150 MG TABLET (FP) PO SCH ×2 (09:35→21:17)
[2017-07-16] MEDS: CALCIUM 500MG/VIT-D 200 UNITS COMBO TABLET (FP) PO SCH (09:35)
[2017-07-16] MEDS: levETIRAcetam 500 MG TABLET (FP) PO SCH ×2 (09:35→21:16)
[2017-07-16] MEDS: POTASSIUM CHLORIDE TABS 10 MEQ TABLET.ER (FP) PO SCH ×2 (09:35→21:16)
[2017-07-16] MEDS: PANTOPRAZOLE 40 MG TABLET (FP) PO SCH (09:35)
[2017-07-16] MEDS: LOSARTAN POTASSIUM 25 MG TABLET PO SCH (09:35)
[2017-07-16] MEDS: NEBIVOLOL 2.5 MG TABLET (FP) PO SCH (09:35)
[2017-07-16 09:49] LABS: BASOPHIL 0.5 % (0-2.0); MCH 29.9 pg (25.7-33.7); MCHC 32.8 g/dl (32.0-36.0); MEAN CELL VOLUME 91.3 fl (80-96); MEAN PLT VOLUME 9.9 fl (7.5-11.1); NEUTROPHILS 82.6 % (42.8-82.8); PLATELET COUNT 199 K/MM3 (134-434); WHITE BLOOD COUNT 8.2 K/mm3 (4.0-10.0)
--- NOTE | 2017-07-16 10:53 | PN ---
Progress Note (short form) - Note Progress Note: HPI: 82 year old female with a significant PMH of HTN, CHF, COPD, and hyperlipidemia who presents to the emergency department with generalized malaise beginning approximately 2 days ago. Reports malaise began at dinner with a sudden isolated episode of nausea, vomiting, and diarrhea, after which patient reports feeling off. as per chart, Patients daughters also report 2 weeks of intermittent confused language. Pt denies TAVERAS or focal weakness. she smiles and is attentive and becomes slightly confused with conversation. denies breathing c/o. no known cancer CT HD IMPRESSION: In comparison to a prior noncontrast CT study of 11/29/2016 interval development of an approximately 3 cm left frontal subcortical mass lesion is noted with probable involvement of the corpus callosum. Moderate to marked perilesional edema is seen. There is mild to moderate contralateral midline displacement. This finding is probably more likely on the basis of primary neoplastic disease rather than metastatic neoplastic disease. Additional evaluation utilizing contrast enhanced MRI or CT is suggested. MRI BRAIN : Impression: Large enhancing solid intra-axial lesion in the left frontal lobe 7 cm in its largest diameter extending through the anterior aspect of the corpus callosum into the right frontal lobe with extensive perifocal edema with mass effect on the left lateral ventricle. Also noted multiple enhancing nodules surrounding the lesion most probably related to the same lesion in the left frontal lobe as evident on post contrast image #19 and image #20. Findings are suspicious of a large glioblastoma multiform or large metastatic lesion. Correlation with clinical history and comparison with prior MRI recommended. When prior MRI became available an addendum will be dictated. Diffusion pulse is unremarkable no evidence acute infarction. No evidence otherwise of intracerebral hemorrhage, subdural fluid collection or hydrocephalus. No evidence of acute infarction. FU: seen by NS-- suspicious for GBM , daughters at bedside this AM, aware of the plan stereotactic marker sin place, MRI later today awake and smiling no new c/o , no TAVERAS or seizures - History Source History Provided By: Patient, Medical Record - Past Medical History Cardio/Vascular: Yes: HTN, Hyperlipdemia, Pulmonary Hypertension Pulmonary: Yes: COPD Gastrointestinal: Yes: Other (colon polyps) Musculoskeletal: Yes: Chronic low back pain, Osteoarthritis Endocrine: Yes: Hypothyroidism - Past Surgical History Past Surgical History: Yes: Joint Replacement - Alcohol/Substance Use Hx Alcohol Use: No History of Substance Use: reports: None - Smoking History Smoking history: Never smoked Have you smoked in the past 12 months: No Aproximately how many cigarettes per day: 0 If you are a former smoker, when did you quit?: 30 years ago - Social History ADL: Family Assistance (madeline lives close by) Occupation: retired History of Recent Travel: No Home Medications - Allergies Allergies/Adverse Reactions: Allergies Allergy/AdvReac Type Severity Reaction Status Date / Time Shellfish Allergy Verified 07/12/17 10:27 levofloxacin [From Levaquin] AdvReac Unknown Verified 07/12/17 10:27 ceftriaxone sodium AdvReac ERYTHEMA,IT Verified 07/12/17 10:27 [From Rocephin] GIRMA,URTIC ARIA codeine [Codeine] AdvReac Nausea Verified 07/12/17 10:27 SHRIMP Allergy Uncoded 07/12/17 10:27 - Home Medications Home Medications: Ambulatory Orders Losartan Potassium [Cozaar] 25 mg PO DAILY 10/09/15 Montelukast Sodium [Singulair] 10 mg PO HS 10/09/15 Pravastatin Sodium [Pravachol -] 40 mg PO HS 10/09/15 Ranitidine HCl [Zantac] 150 mg PO BID PRN 10/09/15 Levothyroxine [Synthroid -] 125 mcg PO DAILY #90 tablet 11/18/15 Calcium Carbonate/Vitamin D3 [Calcium 500-Vit D3 200 Caplet] 1 each PO DAILY Magnesium Oxide [Mag-Ox -] 400 mg PO DAILY 03/22/16 Potassium Chloride [K-Dur -] 10 meq PO QID 03/22/16 Nebivolol [Bystolic -] 2.5 mg PO DAILY tab 03/25/16 Diphenhydramine HCl [Benadryl Capsule -] 25 mg PO DAILY PRN #0 capsule 03/28/16 Furosemide [Lasix -] 40 mg PO BID@0600,1400 tablet 03/28/16 Family Disease History - Family Disease History Family Disease History: CA: Father (colon cancer), Brother (colon cancer) Physical Exam-Neuro Vital Signs: Vital Signs Period Temp Pulse Resp BP Sys/Chaves Pulse Ox Last 24 Hr 97.1 F-98.2 F 50-60 16-20 114-156/51-84 98 Constitutional: Yes: Well Nourished - Neuro Exam Level Of Consciousness: Yes: Alert (awake and alert though becomes confused , slight word finding difficulty yr 1955, does not know age, follows basic commands, can name and repeat, no clear aphasia, VFF, lsight RUE drift, no focal weakness, plantars equivocal ) Imaging - Results Cat Scan: Report Reviewed, Image Reviewed Problem List - Problems (1) Acute kidney injury Code(s): N17.9 - ACUTE KIDNEY FAILURE, UNSPECIFIED (2) Brain mass Code(s): G93.9 - DISORDER OF BRAIN, UNSPECIFIED (3) COPD (chronic obstructive pulmonary disease) with chronic bronchitis Code(s): J44.9 - CHRONIC OBSTRUCTIVE PULMONARY DISEASE, UNSPECIFIED Assessment/Plan 82 year old female with a significant PMH of HTN, CHF, COPD, and hyperlipidemia who presents to the emergency department with generalized malaise beginning approximately 2 days ago. Reports malaise began at dinner with a sudden isolated episode of nausea, vomiting, and diarrhea, after which patient reports feeling off. as per chart, Patients daughters also report 2 weeks of intermittent confused language. Pt denies TAVERAS or focal weakness. she smiles and is attentive and becomes slightly confused with conversation. denies breathing c /o. no known cancer suspicious for new primary brain CA, r/o GBM surprisingly no major deficits though she is confused and has word finding difficulty stereotactic MRI today can garett spear 4 Q6, Neurosurgery seen -Dr Leonard , biopsy/ ?debulking then RAD ONC agree with add on keppra jessica-operatively HEP Sq ok. Dr Torres [phone] Problem List - Problems (1) Acute kidney injury Code(s): N17.9 - ACUTE KIDNEY FAILURE, UNSPECIFIED (2) Brain mass Code(s): G93.9 - DISORDER OF BRAIN, UNSPECIFIED (3) COPD (chronic obstructive pulmonary disease) with chronic bronchitis Code(s): J44.9 - CHRONIC OBSTRUCTIVE PULMONARY DISEASE, UNSPECIFIED
--- NOTE | 2017-07-16 10:56 | PN ---
Progress Note, Physician Chief Complaint: in bed NAD feels well; no new c/o for brain surgery tomorrow - Current Medication List Current Medications: Active Medications Acetaminophen (Tylenol -) 650 mg PO Q6H PRN PRN Reason: PAIN LEVEL 6-10 Atorvastatin Calcium (Lipitor -) 10 mg PO HS [facility] Last Admin: 07/15/17 22:10 Dose: 10 mg Calcium Carbonate/Cholecalciferol (Os-Franklyn 500+D -) 1 tab PO DAILY [facility] Last Admin: 07/16/17 09:35 Dose: 1 tab Dexamethasone Sodium Phosphate (Decadron Injection -) 4 mg IVPUSH Q6H-IV [facility] Last Admin: 07/16/17 09:35 Dose: 4 mg Diphenhydramine HCl (Benadryl -) 25 mg PO DAILY PRN PRN Reason: FOR ITCHING Potassium Chloride/Dextrose/Sod Cl (D5-1/2ns+20 Meq Kcl -) 1,000 mls @ 75 mls/ hr IV ASDIR GENI Insulin Aspart (Novolog Vial Sliding Scale -) 1 vial SQ ACHS GENI PRN Reason: Protocol Last Admin: 07/16/17 06:20 Dose: Not Given Levetiracetam (Keppra -) 500 mg PO BID [facility] Last Admin: 07/16/17 09:35 Dose: 500 mg Levothyroxine Sodium (Synthroid -) 100 mcg PO ACBK [facility] Last Admin: 07/16/17 06:23 Dose: 100 mcg Losartan Potassium (Cozaar -) 25 mg PO DAILY [facility] Last Admin: 07/16/17 09:35 Dose: 25 mg Magnesium Oxide (Mag-Ox -) 400 mg PO DAILY [facility] Last Admin: 07/16/17 09:35 Dose: 400 mg Montelukast Sodium (Singulair -) 10 mg PO HS [facility] Last Admin: 07/15/17 22:10 Dose: 10 mg Nebivolol (Bystolic -) 2.5 mg PO DAILY [facility] Last Admin: 07/16/17 09:35 Dose: 2.5 mg Pantoprazole Sodium (Protonix -) 40 mg PO DAILY [facility] Last Admin: 07/16/17 09:35 Dose: 40 mg Potassium Chloride (K-Dur -) 10 meq PO BID [facility] Last Admin: 07/16/17 09:35 Dose: 10 meq Ranitidine HCl (Zantac -) 150 mg PO BID [facility] Last Admin: 07/16/17 09:35 Dose: 150 mg - Objective Vital Signs: Vital Signs Temperature 98.2 F 07/16/17 08:10 Pulse Rate 60 07/16/17 08:10 Respiratory Rate 16 07/16/17 08:10 Blood Pressure 156/84 07/16/17 08:10 O2 Sat by Pulse Oximetry (%) 98 07/15/17 21:00 Constitutional: Yes: No Distress, Calm Eyes: Yes: Conjunctiva Clear HENT: Yes: Atraumatic Neck: Yes: Supple Cardiovascular: Yes: Regular Rate and Rhythm Respiratory: Yes: CTA Bilaterally Gastrointestinal: Yes: Soft. No: Distention, Tenderness Musculoskeletal: No: Joint Stiffness, Joint Swelling Extremities: No: Cold, Cool, Cyanosis Edema: No Peripheral Pulses WNL: Yes Integumentary: No: Rash, Venous Stasis Changes Neurological: Yes: WNL, Alert, Oriented (x2) ...Motor Strength: WNL Psychiatric: Yes: WNL, Alert, Oriented (x2). No: Agitated, Suicidal Ideation Labs: CBC, BMP 07/16/17 05:35 07/16/17 05:35 INR, PTT INR 1.06 (0.82-1.09) 07/14/17 05:35 - ....Imaging Other: Report Reviewed Assessment/Plan Ms. Waldrop is an 82 yo female with a significant past medical history of HTN, dyastolic CHF, COPD, and hyperlipidemia who was admitted with L frontal mass 7 cm on MRI with surrounding edema and some midline shift; ARF/CRF dehydration; IVF for gentle hydration; watch for CHF Neurology, renal and NS f/u cardio and pulm eval for preop optimization IV steroids. Check BGM/ sq insulin as needed; gastric PFX PPIs as ordered Po keppra for seizure PFX sq heparin DVT PFX f/u labs falls PFX d/w pt and staff do not get OOB alone for brain tumor debulking tomorrow d/w cardiology and pulmonary: no absolute contraindications for the proposed procedure NPO in am start IVF after midnight heparin sq held ICU postop T time 40 min
--- NOTE | 2017-07-16 11:43 | PN ---
Progress Note, Physician History of Present Illness: PULMONARY ALERT,NAD,-SOB,PT SCHEDULED FOR SURGERY AM - Current Medication List Current Medications: Active Medications Acetaminophen (Tylenol -) 650 mg PO Q6H PRN PRN Reason: PAIN LEVEL 6-10 Atorvastatin Calcium (Lipitor -) 10 mg PO HS [facility] Last Admin: 07/15/17 22:10 Dose: 10 mg Calcium Carbonate/Cholecalciferol (Os-Franklyn 500+D -) 1 tab PO DAILY [facility] Last Admin: 07/16/17 09:35 Dose: 1 tab Dexamethasone Sodium Phosphate (Decadron Injection -) 4 mg IVPUSH Q6H-IV [facility] Last Admin: 07/16/17 09:35 Dose: 4 mg Diphenhydramine HCl (Benadryl -) 25 mg PO DAILY PRN PRN Reason: FOR ITCHING Potassium Chloride/Dextrose/Sod Cl (D5-1/2ns+20 Meq Kcl -) 1,000 mls @ 75 mls/ hr IV ASDIR GENI Insulin Aspart (Novolog Vial Sliding Scale -) 1 vial SQ ACHS GENI PRN Reason: Protocol Last Admin: 07/16/17 06:20 Dose: Not Given Levetiracetam (Keppra -) 500 mg PO BID [facility] Last Admin: 07/16/17 09:35 Dose: 500 mg Levothyroxine Sodium (Synthroid -) 100 mcg PO ACBK [facility] Last Admin: 07/16/17 06:23 Dose: 100 mcg Losartan Potassium (Cozaar -) 25 mg PO DAILY [facility] Last Admin: 07/16/17 09:35 Dose: 25 mg Magnesium Oxide (Mag-Ox -) 400 mg PO DAILY [facility] Last Admin: 07/16/17 09:35 Dose: 400 mg Montelukast Sodium (Singulair -) 10 mg PO HS [facility] Last Admin: 07/15/17 22:10 Dose: 10 mg Nebivolol (Bystolic -) 2.5 mg PO DAILY [facility] Last Admin: 07/16/17 09:35 Dose: 2.5 mg Pantoprazole Sodium (Protonix -) 40 mg PO DAILY [facility] Last Admin: 07/16/17 09:35 Dose: 40 mg Potassium Chloride (K-Dur -) 10 meq PO BID [facility] Last Admin: 07/16/17 09:35 Dose: 10 meq Ranitidine HCl (Zantac -) 150 mg PO BID [facility] Last Admin: 07/16/17 09:35 Dose: 150 mg - Objective Vital Signs: Vital Signs Temperature 98.2 F 07/16/17 08:10 Pulse Rate 60 07/16/17 08:10 Respiratory Rate 16 07/16/17 08:10 Blood Pressure 156/84 07/16/17 08:10 O2 Sat by Pulse Oximetry (%) 98 07/15/17 21:00 Constitutional: Yes: Well Nourished, Calm Eyes: Yes: WNL HENT: Yes: WNL Neck: Yes: WNL Cardiovascular: Yes: Regular Rate and Rhythm, S1, S2 Respiratory: Yes: Diminished Gastrointestinal: Yes: Normal Bowel Sounds, Soft Extremities: Yes: WNL Edema: No Labs: CBC, BMP 07/16/17 05:35 07/16/17 05:35 INR, PTT INR 1.06 (0.82-1.09) 07/14/17 05:35 Assessment/Plan Problem List - Problems (1) Acute kidney injury Code(s): N17.9 - ACUTE KIDNEY FAILURE, UNSPECIFIED (2) Brain mass Code(s): G93.9 - DISORDER OF BRAIN, UNSPECIFIED (3) Bilateral lower extremity edema Code(s): R60.0 - LOCALIZED EDEMA (4) COPD (chronic obstructive pulmonary disease) with chronic bronchitis Code(s): J44.9 - CHRONIC OBSTRUCTIVE PULMONARY DISEASE, UNSPECIFIED Assessment/Plan COPD IS STABLE NO PULMONARY CONTRAINDICATION TO CRANIOTOMY WITH DEBULKING ,AND BX WILL CONTINUE O2 BRONCHODILATORS SINGULAIR STEROIDS (FOR NIRALI-LESIONAL EDEMA) DR CHAND
--- NOTE | 2017-07-16 13:19 | PN ---
Progress Note, Physician Chief Complaint: The patient seen sitting by her bed. Reviewed the developments so far. Feels well. No discomfort. Denies any chest pain. Good urine output is maintained. Scheduled for surgery tomorrow. History of Present Illness: 82 year old female with a significant PMH of HTN, CHF, COPD, and hyperlipidemia who presented with generalized malaise with a sudden isolated episode of nausea , vomiting, and diarrhea. H/o 2 weeks of intermittent confused language. The patient has some mild Chronic Kidney disease. ( Serum Creatinine 1.1 mg/dL. ) The patient is scheduled for Neurosurgery in AM. Renal functions close to her baseline. No overt contraindication to the proposed surgery. will follow with you. Thank you. Yesica Diaz MD - Current Medication List Current Medications: Active Medications Acetaminophen (Tylenol -) 650 mg PO Q6H PRN PRN Reason: PAIN LEVEL 6-10 Atorvastatin Calcium (Lipitor -) 10 mg PO HS [facility] Last Admin: 07/15/17 22:10 Dose: 10 mg Calcium Carbonate/Cholecalciferol (Os-Frank[place] 500+D -) 1 tab PO DAILY [facility] Last Admin: 07/16/17 09:35 Dose: 1 tab Dexamethasone Sodium Phosphate (Decadron Injection -) 4 mg IVPUSH Q6H-IV [facility] Last Admin: 07/16/17 09:35 Dose: 4 mg Diphenhydramine HCl (Benadryl -) 25 mg PO DAILY PRN PRN Reason: FOR ITCHING Potassium Chloride/Dextrose/Sod Cl (D5-1/2ns+20 Meq Kcl -) 1,000 mls @ 75 mls/ hr IV ASDIR GENI Insulin Aspart (Novolog Vial Sliding Scale -) 1 vial SQ ACHS GENI PRN Reason: Protocol Last Admin: 07/16/17 06:20 Dose: Not Given Levetiracetam (Keppra -) 500 mg PO BID [facility] Last Admin: 07/16/17 09:35 Dose: 500 mg Levothyroxine Sodium (Synthroid -) 100 mcg PO ACBK [facility] Last Admin: 07/16/17 06:23 Dose: 100 mcg Losartan Potassium (Cozaar -) 25 mg PO DAILY [facility] Last Admin: 07/16/17 09:35 Dose: 25 mg Magnesium Oxide (Mag-Ox -) 400 mg PO DAILY [facility] Last Admin: 07/16/17 09:35 Dose: 400 mg Montelukast Sodium (Singulair -) 10 mg PO HS [facility] Last Admin: 07/15/17 22:10 Dose: 10 mg Nebivolol (Bystolic -) 2.5 mg PO DAILY [facility] Last Admin: 07/16/17 09:35 Dose: 2.5 mg Pantoprazole Sodium (Protonix -) 40 mg PO DAILY [facility] Last Admin: 07/16/17 09:35 Dose: 40 mg Potassium Chloride (K-Dur -) 10 meq PO BID [facility] Last Admin: 07/16/17 09:35 Dose: 10 meq Ranitidine HCl (Zantac -) 150 mg PO BID [facility] Last Admin: 07/16/17 09:35 Dose: 150 mg - Objective Vital Signs: Vital Signs Temperature 98.2 F 07/16/17 08:10 Pulse Rate 60 07/16/17 08:10 Respiratory Rate 16 07/16/17 08:10 Blood Pressure 156/84 07/16/17 08:10 O2 Sat by Pulse Oximetry (%) 98 07/15/17 21:00 Labs: CBC, BMP 07/16/17 05:35 07/16/17 05:35 INR, PTT INR 1.06 (0.82-1.09) 07/14/17 05:35 Problem List - Problems (1) Acute kidney injury Code(s): N17.9 - ACUTE KIDNEY FAILURE, UNSPECIFIED (2) Brain mass Code(s): G93.9 - DISORDER OF BRAIN, UNSPECIFIED (3) Dehydration Code(s): E86.0 - DEHYDRATION (4) Brain tumor Code(s): D49.6 - NEOPLASM OF UNSPECIFIED BEHAVIOR OF BRAIN
[2017-07-16] MEDS: D5-1/2NS+20 MEQ KCL - 1,000 ML IV SCH (13:53)
--- NOTE | 2017-07-16 18:44 | EKG ---
Test Reason : Blood Pressure : / mmHG Vent. Rate : 073 BPM Atrial Rate : 073 BPM P-R Int : 172 ms QRS Dur : 088 ms QT Int : 402 ms P-R-T Axes : 018 025 020 degrees QTc Int : 442 ms NORMAL SINUS RHYTHM BASELINE ARTIFACT WARLT TRANSITION IN V2 WHEN COMPARED WITH ECG OF 06-AUG-2016 18:52, NO SIGNIFICANT CHANGE WAS FOUND CLINICAL CORRELATION IS RECOMMENDED Confirmed by AIXA LYNN MD ([id number]) on 07/16/2017 6:44:18 PM Referred By: Confirmed By:AIXA LYNN MD
--- NOTE | 2017-07-16 21:08 | PN ---
Progress Note (short form) - Note Progress Note: Radiation Oncology (full note to follow) Pt seen this AM. Admitted with AMS, mild aphasia found to have enhancing 7cm left anterior frontal mass with edema crossing midline. Pt seen by neurosurgery and agreed to biopsy and debulking scheduled for tomorrow. Will follow up path and postop course. If GBM, will need RT+Temodar.
[2017-07-16] MEDS: ATORVASTATIN CA 10 MG TABLET (FP) PO SCH (21:16)
[2017-07-16] MEDS: MONTELUKAST NA 10 MG TABLET PO SCH (21:17)
[2017-07-16] MEDS: PANTOPRAZOLE SODIUM 40 MG VIAL IVPB SCH (22:15)
[2017-07-17] MEDS: DEXAMETHASONE SOD PHOSPHATE 4 MG/1 ML VIAL IVPUSH SCH ×4 (02:35→21:32)
[2017-07-17] MEDS: INSULIN SLIDING SCALE (NOVOLOG) 1 VIAL SQ SCH ×3 (06:20→21:37)
[2017-07-17] MEDS: LEVOTHYROXINE NA 100 MCG TABLET (FP) PO SCH ×2 (06:20→09:50)
[2017-07-17] MEDS: D5-1/2NS+20 MEQ KCL - 1,000 ML IV SCH ×2 (06:20→17:00)
--- NOTE | 2017-07-17 08:59 | PN ---
Progress Note, Physician Chief Complaint: seen before OR awake alert NAD in good spirits no new c/o; aware she is going in for brain surgery - Current Medication List Current Medications: Active Medications Acetaminophen (Tylenol -) 650 mg PO Q6H PRN PRN Reason: PAIN LEVEL 6-10 Atorvastatin Calcium (Lipitor -) 10 mg PO HS [facility] Last Admin: 07/16/17 21:16 Dose: 10 mg Dexamethasone Sodium Phosphate (Decadron Injection -) 4 mg IVPUSH Q6H-IV [facility] Last Admin: 07/17/17 02:35 Dose: 4 mg Diphenhydramine HCl (Benadryl -) 25 mg PO DAILY PRN PRN Reason: FOR ITCHING Potassium Chloride/Dextrose/Sod Cl (D5-1/2ns+20 Meq Kcl -) 1,000 mls @ 75 mls/ hr IV ASDIR [facility] Last Admin: 07/17/17 06:20 Dose: 75 mls/hr Insulin Aspart (Novolog Vial Sliding Scale -) 1 vial SQ ACHS [facility] PRN Reason: Protocol Last Admin: 07/17/17 06:20 Dose: 2 units Levetiracetam (Keppra -) 500 mg PO BID [facility] Last Admin: 07/16/17 21:16 Dose: 500 mg Levothyroxine Sodium (Synthroid -) 100 mcg PO ACBK [facility] Last Admin: 07/17/17 06:20 Dose: Not Given Losartan Potassium (Cozaar -) 25 mg PO DAILY [facility] Last Admin: 07/16/17 09:35 Dose: 25 mg Nebivolol (Bystolic -) 2.5 mg PO DAILY [facility] Last Admin: 07/16/17 09:35 Dose: 2.5 mg Pantoprazole Sodium (Protonix Iv) 40 mg IVPB BID [facility] Last Admin: 07/16/17 22:15 Dose: 40 mg - Objective Vital Signs: Vital Signs Temperature 98 F 07/17/17 05:45 Pulse Rate 55 L 07/17/17 05:45 Respiratory Rate 18 07/17/17 05:45 Blood Pressure 156/67 07/17/17 05:45 O2 Sat by Pulse Oximetry (%) 98 07/16/17 20:29 Constitutional: Yes: No Distress, Calm Eyes: Yes: Conjunctiva Clear HENT: Yes: Atraumatic Neck: Yes: Supple Cardiovascular: Yes: Regular Rate and Rhythm Respiratory: Yes: CTA Bilaterally Gastrointestinal: Yes: Soft. No: Distention, Tenderness Musculoskeletal: No: Joint Stiffness, Joint Swelling Extremities: No: Cold, Cool, Cyanosis Edema: No Integumentary: No: Rash, Venous Stasis Changes Neurological: Yes: WNL, Alert, Oriented ...Motor Strength: WNL Psychiatric: Yes: WNL, Alert, Oriented. No: Agitated, Suicidal Ideation Labs: CBC, BMP 07/16/17 05:35 07/16/17 05:35 INR, PTT INR 1.06 (0.82-1.09) 07/14/17 05:35 - ....Imaging Other: Report Reviewed Assessment/Plan Ms. Waldrop is an 82 yo female with a significant past medical history of HTN, dyastolic CHF, COPD, and hyperlipidemia who was admitted with L frontal mass 7 cm on MRI with surrounding edema and some midline shift; ARF/CRF dehydration; for brain tumor debulking today cleared by cardiology and pulmonary: no absolute contraindications for the proposed procedure pt is NPO was started IVF; watch for CHF Neurology, renal and NS f/u IV steroids. Check BGM/ sq insulin as needed; gastric PFX PPIs as ordered Po kera for seizure PFX f/u labs heparin sq held ICU postop I spoke with daughter Gayle all the above/ phone; also d/w her pt might remained intubated postop until able to be extubated. T time 40 min
[2017-07-17] MEDS ORDERED: PT OWN MED DRAWER 7, Y5N ONE ×3 (09:25→21:53)
[2017-07-17] MEDS: PANTOPRAZOLE SODIUM 40 MG VIAL IVPB SCH ×2 (09:50→21:33)
[2017-07-17] MEDS: NEBIVOLOL 2.5 MG TABLET (FP) PO SCH (09:51)
[2017-07-17] MEDS: levETIRAcetam 500 MG TABLET (FP) PO SCH ×2 (09:51→21:33)
[2017-07-17] MEDS: LOSARTAN POTASSIUM 25 MG TABLET PO SCH (09:51)
[2017-07-17] MEDS ORDERED: LIDOCAINE 1%/EPI 1:100000 (20 ML MULTI DOSE VIAL) ONE (10:04)
[2017-07-17] MEDS ORDERED: THROMBIN (BOVINE) 5,000 UNIT VIAL TP ONE (10:04)
[2017-07-17] MEDS ORDERED: BUPIVACAINE HCL/PF 0.5% (5MG/ML) 10 ML VIAL ONE (10:04)
[2017-07-17] MEDS ORDERED: ROCURONIUM BROMIDE 50 MG/5 ML VIAL ONE ×2 (11:16→13:12)
[2017-07-17] MEDS ORDERED: PROPOFOL 20 ML ONE ×2 (11:16→14:22)
[2017-07-17] MEDS ORDERED: BACITRACIN 15 GM TUBE TOPICAL OINTMENT ONE (11:33)
[2017-07-17] MEDS ORDERED: VANCOMYCIN 1,000 MG VIAL (RESTRICTED TO ID ONLY) IVPB ONE ×2 (11:38)
[2017-07-17] MEDS ORDERED: VANCOMYCIN 1,000 MG VIAL (RESTRICTED TO ID ONLY) ONE (11:58)
[2017-07-17] MEDS ORDERED: BENZOIN/ALOE VERA/STORAX/TOLU 58 ML BOTTLE ONE (12:06)
--- NOTE | 2017-07-17 12:06 | CONS ---
DATE OF CONSULTATION: 07/16/2017 REFERRING PHYSICIAN: Nahed Jaimes MD REASON FOR CONSULTATION: Left frontal mass suspicious for malignancy. HISTORY OF PRESENT ILLNESS: The patient is an 82-year-old woman with multiple medical problems who presented with malaise, intermittent nausea, word-finding difficulty, and headaches. On workup, she was noted to have an enhancing left frontal mass measuring 7 cm crossing the midline and associated with edema suspicious for primary GBM. She is scheduled for biopsy and surgical debulking. She denies history of radiation therapy, collagen vascular disease, or prior malignancy. PAST MEDICAL HISTORY: COPD, hypertension, hyperlipidemia, hypothyroidism, CHF, pulmonary hypertension, atherosclerotic heart disease, osteoarthritis, joint replacement. ALLERGIES: CODEINE, LEVAQUIN, CEFTRIAXONE, SHELLFISH. CURRENT MEDICATIONS: Decadron, Cozaar, Keppra, Bystolic, Lipitor, insulin sliding scale, Protonix, Synthroid. SOCIAL HISTORY: A former smoker, she quit 30 years ago. Social alcohol consumption. She is retired. She lives at home. FAMILY HISTORY: A cousin has had breast cancer, father and brother had colon cancer. REVIEW OF SYSTEMS: She denies headache, nausea, or dizziness. PHYSICAL EXAMINATION General: A well-appearing, elderly female in no acute distress. Vital signs: Temperature 98.2, blood pressure 156/84, pulse 60, respiratory rate 16. HEENT: Normocephalic atraumatic. Nontender. No palpable mass on the calvarium. Mucous membranes are moist. Sclerae are anicteric. Oral cavity is clear. Neck: No mass. Lungs: Clear. Cardiovascular: Regular. Abdomen: Soft, nontender, nondistended. Extremities: No significant edema. Musculoskeletal: No spine tenderness. Neurologic: Alert and oriented x3. Cranial nerves 2-12 are intact. Sensation to light touch is intact. Coordination is intact. Motor exam shows no pronator drift, 5 out 5 in 4 extremities. Gait was not tested. RADIOLOGIC DATA: MRI of the brain with contrast as noted above. LABORATORY DATA: WBC 8.2, hemoglobin 11.2, platelet count 199,000. Electrolytes within normal limits, BUN 32, creatinine 1.1, albumin 2.5. IMPRESSION: An 82-year-old woman with large left frontal mass with edema suspicious for glioblastoma. She has discussed surgical management and agrees to biopsy and surgical debulking, which is scheduled. We will follow the results of the pathology and her postoperative course. Pending those evaluations, if this is a glioblastoma, standard adjuvant therapy includes postoperative radiation therapy and Temodar. We will continue to follow the patient with you. Thank you for asking me to see this dona patient. ABELINO OBANDO M.D. KATARZYNA/[id number]
[2017-07-17] MEDS ORDERED: LIDOCAINE 1%/EPI 1:100000 (50 ML MULTI DOSE VIAL) INF ONE (12:25)
[2017-07-17] MEDS ORDERED: NEOSTIGMINE METHYLSULFATE 0.5 MG/ML - 10 ML MDV ONE (13:57)
[2017-07-17] MEDS ORDERED: GLYCOPYRROLATE 0.2 MG/1 ML VIAL ONE (13:57)
--- NOTE | 2017-07-17 14:17 | OP ---
Operative Note - Note: Operative Date: 07/17/17 Pre-Operative Diagnosis: L frontal GBM Operation: L fronto-temporal stereotactic craniotomy for tumor excision, stereotactic navigation; microdissection Findings: large tumor with centrally necrotic portion Implants: [employer] cranial plating system Post-Operative Diagnosis: Same as Pre-op Surgeon: Keith Leonard Salt Maker: Eligio Obregon Specimens Removed: L frontal tumor- frozen c/w high grade glioma Estimated Blood Loss (mls): 150
[2017-07-17] MEDS ORDERED: ONDANSETRON 4 MG/2 ML VIAL IVPUSH PRN (14:20)
[2017-07-17] MEDS ORDERED: morphine CARPU-JECT 2 MG/1 ML DISP.SYRIN IVPUSH PRN (14:21)
[2017-07-17] MEDS ORDERED: D5-NS + 20 MEQ KCL - 1,000 ML IV SCH (14:30)
[2017-07-17] MEDS ORDERED: ACETAMINOPHEN 325 MG TABLET (FP) PO PRN (14:57)
[2017-07-17] MEDS ORDERED: diphenhydrAMINE HCL 25 MG CAPSULE (FP) PO PRN (14:57)
[2017-07-17] MEDS ORDERED: LACTATED RINGERS SOLUTION 1,000 ML IV SCH (15:00)
--- NOTE | 2017-07-17 15:35 | PN ---
Progress Note (short form) - Note Progress Note: NEUROSURGERY IN PACU PE: AF, VSS; O2 sat 99% HEENT- NC/AT; Neck- supple; Cor- RR; Lungs- CTA; Abd- benign; Ext- no sign of DVT Sleepy still; motor dysphasia as expected CN- intact (mildly decreased hearing B); Motor- 5/5 without drift; Sensation- intact LT; DTR- hyporeflexic; L toe upgoing Frozen- high grade glioma c/w GBM Cont iv steroid Head CT in AM Findings and pt condition d/w daughter by phone
--- NOTE | 2017-07-17 17:02 | OP ---
DATE OF OPERATION: 07/17/2017 PREOPERATIVE DIAGNOSIS: Left frontal high-grade glioma. POSTOPERATIVE DIAGNOSIS: Left frontal high-grade glioma. PROCEDURE PERFORMED: 1. Left frontotemporal craniotomy, stereotactic craniotomy for debulking of brain tumor (95336). 2. Intraoperative stereotactic navigation with Prediculous system (36517). 3. Microsurgical dissection with the operating microscope and microsurgical technique (85431). SURGEON: Keith Leonard MD ELECTRIC ORGAN CHECKER: CHINA Medel ESTIMATED BLOOD LOSS: 150 mL. ANESTHESIA: General endotracheal. ANESTHESIOLOGIST: Radha Chavez MD FINDINGS: 1. A firm tumor with a central necrotic portion, consistent with glioblastoma. 2. Frozen section showing high-grade glioma. INDICATIONS: The patient is an 82-year-old female with history of COPD, hypertension and CHF, who complained of increasing speech difficulty, headache as well as nausea and vomiting. CT scan of the head demonstrated a left frontal lesion. This was followed by a brain MRI. The tumor size was about 3.5 x 5 to 6 cm or so, but also crosses the midline across the corpus callosum. For the reason of pathological analysis, specimen analysis, cytoreduction and decreasing mass effect, the patient is consented for left frontal stereotactic craniotomy for tumor resection. CONSENT: The risks of the procedure include but are not limited to bleeding, infection, stroke, seizure, coma, , and other risks of general anesthesia. The patient and the patient's family all understand the indications for the procedure, the procedure in detail, the risks and benefits, and alternative treatments for her condition, and wish to proceed. No guarantees were given for a favorable outcome. DESCRIPTION OF PROCEDURE: After the patient was taken to the operating room, she was placed in the supine position. After general anesthesia was induced and appropriate monitoring lines were placed, she was turned over in the right lateral decubitus position with a beanbag as well as an axillary roll. All pressure points were checked and padded. The left frontotemporal region was appropriately clipped, with a stereotactic marker in place. The images were imported by a DVD disc into the navigation system. The head was secured in a Cook 3-point skull clamp. At this point, registration was obtained with the previously placed skin fiducial markers. The area was 1.2 mm after registration. The markers were then removed. The left frontotemporal region was then cleaned with alcohol and prepped with Betadine. The scalp position was marked. The area of the incision was planned behind the left-sided hairline. The patient had previously undergone uneventful anesthesia induction, and an arterial line was placed by Anesthesia as well. At this point, after the patient was sterilely prepped and draped, the skin was infiltrated with 1% Xylocaine with epinephrine approximately 3 mL. The skin incision was done with a number 10 blade. Jabier clips were applied. An osteoplastic flap was placed. The temporalis muscle was cut, to be attached later. Three small bur holes were made, two along the superior temporal line and one near the frontal convexity. An approximately 7 to 8-cm diameter craniotomy bone flap was turned with the high-speed pneumatic drill as bur holes were made. The underlying dura was extremely thin. The dura was opened with Metzenbaum scissors. Epidural hemostasis was obtained with thrombin-soaked powdered Gelfoam. At this point, the navigation system was brought back into place, to further gauge the trajectory of the tumor mass. It was decided to go through the middle frontal gyrus instead of the inferior frontal gyrus, to decrease the potential morbidity of speech problems. A 2-cm corticectomy was made in a linear fashion with bipolar electrocautery and the bree/arachnoid was opened with a number 11 blade. The dissection proceeded with stereotactic navigation guidance, and a tumor debulking was carried out in all directions. Several pieces of tumor were sent for pathology analysis, and the frozen section was consistent with high-grade glioma. The navigation helped greatly with tumor debulking in all 4 quadrants. The debulking stopped about 8 to 10 mm short of the lateral ventricle, so as not to communicate the CSF space. Hemostasis was obtained with a combination of thrombin-soaked Gelfoam as well as bipolar electrocautery. The wound was irrigated with saline throughout. Further specimen was sent for permanent section as well. Microsurgical dissection was carried out with operating microscope and microsurgical techniques. At this point, after decompression was completed, the brain was pulsating nicely with CSF pulsation. A layer of Surgicel layered in the resection cavity. A layer of DuraGen was layered on top of the dura, as the patient has a very thin dura and it was not possible to obtain closure. The cranial plate system was used to secure the skull flap. At this point, the temporalis fascia was approximated with 3-0 Vicryl suture. The galea was similarly closed, and the skin was closed with 3-0 nylon interrupted suture. A sterile head wrap was applied. The patient tolerated the procedure well and was extubated in the operating room. She was moving bilateral upper and lower extremities in the recovery room. She was also starting to speak and does follow commands. The patient received 1 dose of 1 gram of vancomycin prior to the incision. She also received 1 dose of 10 mg of dexamethasone. All needle, lap and sponge counts were correct. The OR timeout procedure was followed. The family was updated as to her intraoperative findings as well as the patient' s initial postoperative condition in the recovery room. KEITH LEONARD M.D. EMILIANO/[id number] MTDD
[2017-07-17] MEDS ORDERED: INSULIN (NOVOLOG) ASPART 100 UNITS/ML 10ML VIAL ONE (18:10)
--- NOTE | 2017-07-17 19:22 | SURG ---
Surgery Admissions Clerk Note Admissions Clerk: Eligio Obregon PA-C Date of Service: 07/17/17 Diagnosis: Left frontal GBM Procedure: L fronto-temporal stereotactic craniotomy for tumor excision, stereotactic navigation; microdissection Findings: large tumor with centrally necrotic portion Implants: [place] cranial plating system I was present for the entirety of the operative procedure. For further detail, please refer to operative report. Visit type - Case Type Case Type: ED Admission - Emergency Emergency Visit: Yes ED Registration Date: 07/12/17 Care time: The patient presented to the Emergency Department on the above date and was hospitalized for further evaluation of their emergent condition. - New patient This patient is new to me today: Yes Date on this admission: 07/17/17
--- NOTE | 2017-07-17 21:31 | CONSULT ---
Consult Consult Specialty:: Pulm/CCM Reason for Consultation:: POD#0 Lt temporal craniotomy - History of Present Illness History of Present Illness: 82yow with PMHx of HTN, CHF, COPD, and HLD who presented to the hospital with generalized malaise and sudden onset of n/v/d and AMS. On CT head significant for large left frontal lobe lesion with mass effect with multiple surrounding enhancing lesions She is now s/p Lt fronto-temporal stereotactic craniotomy for excision of a large tumor with centrally necrotic portion that is c/w high grade glioma. She was admitted to ICU for post-op care. In ICU HD stable. A+O x3. Lt frontal incision dressing c/d/i. No c/o pain. COOMBS equally. No c/o numbness and tingling. 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: No: Alzheimer's Cardio/Vascular: Yes: HTN, Hyperlipdemia, Pulmonary Hypertension Pulmonary: Yes: COPD Gastrointestinal: Yes: Other (colon polyps) Renal/: Yes: Renal Failure Musculoskeletal: Yes: Chronic low back pain, Osteoarthritis Endocrine: Yes: Hypothyroidism - Past Surgical History Past Surgical History: Yes: Joint Replacement - Alcohol/Substance Use Hx Alcohol Use: No History of Substance Use: reports: None - Smoking History Smoking history: Never smoked Have you smoked in the past 12 months: No Aproximately how many cigarettes per day: 0 If you are a former smoker, when did you quit?: 30 years ago - Social History ADL: [facility] Assistance [facility] Occupation: retired History of Recent Travel: No Home Medications - Allergies Allergies/Adverse Reactions: Allergies Allergy/AdvReac Type Severity Reaction Status Date / Time Shellfish Allergy Verified 07/12/17 10:27 levofloxacin [From Levaquin] AdvReac Unknown Verified 07/12/17 10:27 ceftriaxone sodium AdvReac ERYTHEMA,IT Verified 07/12/17 10:27 [From Rocephin] GIRMA,URTIC ARIA codeine [Codeine] AdvReac Nausea Verified 07/12/17 10:27 SHRIMP Allergy Uncoded 07/12/17 10:27 - Home Medications Home Medications: Ambulatory Orders Losartan Potassium [Cozaar] 25 mg PO DAILY 10/09/15 Montelukast Sodium [Singulair] 10 mg PO HS 10/09/15 Pravastatin Sodium [Pravachol -] 40 mg PO HS 10/09/15 Ranitidine HCl [Zantac] 150 mg PO BID PRN 10/09/15 Levothyroxine [Synthroid -] 125 mcg PO DAILY #90 tablet 11/18/15 Calcium Carbonate/Vitamin D3 [Calcium 500-Vit D3 200 Caplet] 1 each PO DAILY Magnesium Oxide [Mag-Ox -] 400 mg PO DAILY 03/22/16 Potassium Chloride [K-Dur -] 10 meq PO QID 03/22/16 Nebivolol [Bystolic -] 2.5 mg PO DAILY tab 03/25/16 Diphenhydramine HCl [Benadryl Capsule -] 25 mg PO DAILY PRN #0 capsule 03/28/16 Furosemide [Lasix -] 40 mg PO BID@0600,1400 tablet 03/28/16 Family Disease History - Family Disease History Family Disease History: CA: Father (colon cancer), Brother (colon cancer) Review of Systems - Review of Systems Constitutional: reports: No Symptoms Eyes: reports: No Symptoms HENT: reports: No Symptoms Neck: reports: No Symptoms Cardiovascular: reports: No Symptoms Respiratory: reports: No Symptoms Gastrointestinal: reports: No Symptoms Breasts: reports: No Symptoms Reported Musculoskeletal: reports: No Symptoms Integumentary: reports: No Symptoms Neurological: reports: Headache Endocrine: reports: No Symptoms Hematology/Lymphatic: reports: No Symptoms Psychiatric: reports: No Symptoms Physical Exam Vital Signs: Vital Signs Temperature 97.3 F L 07/17/17 21:00 Pulse Rate 42 L 07/17/17 21:00 Respiratory Rate 13 07/17/17 21:00 Blood Pressure 139/55 07/17/17 21:00 O2 Sat by Pulse Oximetry (%) 100 07/17/17 21:00 Constitutional: Yes: No Distress, Calm, Obese Eyes: Yes: Conjunctiva Clear, PERRL HENT: Yes: Other (Lt frontal dressing c/d/i) Neck: Yes: Supple Cardiovascular: Yes: Bradycardia Respiratory: Yes: Regular, On Nasal O2 Gastrointestinal: Yes: Soft, Abdomen, Obese Renal/: Yes: Daly Present Musculoskeletal: Yes: WNL Extremities: Yes: WNL Edema: No Integumentary: Yes: WNL Wound/Incision: Yes: Dressing Dry and Intact Neurological: Yes: Alert, Oriented ...Motor Strength: WNL, LUE, LLE, RUE, RLE Psychiatric: Yes: Alert, Oriented Labs: CBC, BMP 07/16/17 05:35 07/16/17 05:35 CBC,CMP WBC 8.2 K/mm3 (4.0-10.0) 07/16/17 05:35 RBC 3.75 M/mm3 (3.60-5.2) 07/16/17 05:35 Hgb 11.2 GM/dL (10.7-15.3) 07/16/17 05:35 Hct 34.3 % (32.4-45.2) 07/16/17 05:35 MCV 91.3 fl (80-96) 07/16/17 05:35 MCH 29.9 pg (25.7-33.7) 07/16/17 05:35 MCHC 32.8 g/dl (32.0-36.0) 07/16/17 05:35 RDW 16.0 % (11.6-15.6) H 07/16/17 05:35 Plt Count 199 K/MM3 (134-434) 07/16/17 05:35 MPV 9.9 fl (7.5-11.1) 07/16/17 05:35 Neutrophils % 82.6 % (42.8-82.8) 07/16/17 05:35 Lymphocytes % 12.6 % (8-40) 07/16/17 05:35 Monocytes % 4.3 % (3.8-10.2) D 07/16/17 05:35 Eosinophils % 0.0 % (0-4.5) 07/16/17 05:35 Basophils % 0.5 % (0-2.0) D 07/16/17 05:35 Sodium 141 mmol/L (136-145) 07/16/17 05:35 Potassium 4.7 mmol/L (3.5-5.1) 07/16/17 05:35 Chloride 113 mmol/L (98-107) H 07/16/17 05:35 Carbon Dioxide 20 mmol/L (21-32) L 07/16/17 05:35 Anion Gap 8 (8-16) 07/16/17 05:35 BUN 32 mg/dL (7-18) H D 07/16/17 05:35 Creatinine 1.1 mg/dL (0.55-1.02) H 07/16/17 05:35 Creat Clearance w eGFR 47.32 (>60) 07/16/17 05:35 POC Glucometer 169.01719 UNITS (()) 07/17/17 17:34 Random Glucose 125 mg/dL (74-106) H 07/16/17 05:35 Calcium 8.1 mg/dL (8.5-10.1) L 07/16/17 05:35 Phosphorus 2.5 mg/dL (2.5-4.9) 07/16/17 05:35 Magnesium 2.7 mg/dL (1.8-2.4) H D 07/16/17 05:35 Total Bilirubin 0.3 mg/dL (0.2-1.0) D 07/16/17 05:35 AST 24 U/L (15-37) D 07/16/17 05:35 ALT 40 U/L (12-78) D 07/16/17 05:35 Alkaline Phosphatase 79 U/L (45-117) 07/16/17 05:35 Total Protein 5.7 g/dl (6.4-8.2) L 07/16/17 05:35 Albumin 2.5 g/dl (3.4-5.0) L 07/16/17 05:35 Creatine Cancelled 07/13/17 10:49 TSH 0.10 uIU/ml (0.358-3.74) L D 07/12/17 11:30 Current Medications Acetaminophen (Tylenol -) 650 mg PO Q6H PRN PRN Reason: PAIN LEVEL 6-10 Atorvastatin Calcium (Lipitor -) 10 mg PO HS [facility] Last Admin: 07/17/17 21:33 Dose: 10 mg Chlorhexidine Gluconate (Hibiclens For Decolonization -) 1 applic TP HS [facility] Last Admin: 07/17/17 21:33 Dose: 1 applic Dexamethasone Sodium Phosphate (Decadron Injection -) 4 mg IVPUSH Q6H-IV [facility] Last Admin: 07/17/17 21:32 Dose: 4 mg Diphenhydramine HCl (Benadryl -) 25 mg PO DAILY PRN PRN Reason: FOR ITCHING Docusate Sodium (Colace -) 100 mg PO TID [facility] Last Admin: 07/17/17 21:33 Dose: 100 mg Fentanyl (Sublimaze Injection -) 25 mcg IVPUSH [id number] PRN PRN Reason: PAIN Stop: 07/20/17 14:54 Last Admin: 07/17/17 15:15 Dose: 25 mcg Potassium Chloride/Dextrose/Sod Cl (D5-1/2ns+20 Meq Kcl -) 1,000 mls @ 75 mls/ hr IV ASDIR [facility] Last Admin: 07/17/17 17:00 Dose: 75 mls/hr Vancomycin HCl 500 mg/ (Dextrose) 100 mls @ 100 mls/hr IVPB BID [facility] PRN Reason: Protocol Stop: 07/18/17 21:59 Insulin Aspart (Novolog Vial Sliding Scale -) 1 vial SQ ACHS [facility] PRN Reason: Protocol Last Admin: 07/17/17 21:37 Dose: 2 units Levetiracetam (Keppra -) 500 mg PO BID [facility] Last Admin: 07/17/17 21:33 Dose: 500 mg Levothyroxine Sodium (Synthroid -) 100 mcg PO ACBK [facility] Losartan Potassium (Cozaar -) 25 mg PO DAILY [facility] Morphine Sulfate (Morphine Injection -) 1 mg IVPUSH Q4H PRN PRN Reason: PAIN Mupirocin (Bactroban Ointment (For Decolonization) -) 1 applic NS BID [facility] Stop: 07/22/17 21:59 Last Admin: 07/17/17 21:33 Dose: 1 applic Nebivolol (Bystolic -) 2.5 mg PO DAILY [facility] Ondansetron HCl (Zofran Injection) 4 mg IVPUSH Q6H PRN PRN Reason: NAUSEA Pantoprazole Sodium (Protonix Iv) 40 mg IVPB BID [facility] Last Admin: 07/17/17 21:33 Dose: 40 mg Vital Signs Period Temp Pulse Resp BP Sys/Chaves Pulse Ox Last 24 Hr 97.3 F-98.2 F 42-62 12-20 124-156/54-80 98-100 Imaging - Results Cat Scan: Report Reviewed (Large left frontal lobe lesion with mass effect) Problem List - Problems (1) Brain mass Code(s): G93.9 - DISORDER OF BRAIN, UNSPECIFIED (2) Brain tumor Code(s): D49.6 - NEOPLASM OF UNSPECIFIED BEHAVIOR OF BRAIN Assessment/Plan 82 darin with PMHx of HTN, CHF, COPD and HLD admitted with large Lt frontal lobe tumor now pod#0 a Lt frontal -temporal stereotactic craniotomy and transferred to ICU for post-op care. Plan: -Post-op care as per neuro surgery -Frequent neuro checks -NC O2 support -Aspiration precautions -Pain management -NPO for now -Continue antihypertensives -DVT proph
[2017-07-17] MEDS: MUPIROCIN 2% TOPICAL OINTMENT FOR DECOLONIZATION NS SCH (21:33)
[2017-07-17] MEDS: DOCUSATE SODIUM 100 MG CAPSULE (FP) PO SCH (21:33)
[2017-07-17] MEDS ORDERED: ATORVASTATIN CA 10 MG TABLET (FP) PO SCH (22:00)
[2017-07-17] MEDS ORDERED: CHLORHEXIDINE GLUCONATE 4% CLEANSER FOR DECOLONIZATION TP SCH (22:00)
[2017-07-17] MEDS ORDERED: VANCOMYCIN 500 MG in DEXTROSE 5%-WATER - 250 ML IVPB SCH (22:00)
[2017-07-17] MEDS: VANCOMYCIN 500 MG in DEXTROSE 5%-WATER - 100 ML IVPB SCH (22:17)
[2017-07-18] MEDS: DEXAMETHASONE SOD PHOSPHATE 4 MG/1 ML VIAL IVPUSH SCH ×4 (02:14→20:33)
[2017-07-18 06:10] LABS: BASOPHIL 0.2 % (0-2.0); MCH 30.2 pg (25.7-33.7); MCHC 33.1 g/dl (32.0-36.0); MEAN PLT VOLUME 9.8 fl (7.5-11.1); NEUTROPHILS 88.3 % (42.8-82.8); PLATELET COUNT 192 K/MM3 (134-434); RDW 15.9 % (11.6-15.6)
[2017-07-18] MEDS: DOCUSATE SODIUM 100 MG CAPSULE (FP) PO SCH ×3 (06:13→21:31)
[2017-07-18] MEDS: INSULIN SLIDING SCALE (NOVOLOG) 1 VIAL SQ SCH ×4 (06:13→21:42)
[2017-07-18] MEDS: D5-1/2NS+20 MEQ KCL - 1,000 ML IV SCH (06:14)
[2017-07-18] MEDS ORDERED: HEMOQUE TEST 1 EACH EACH ONE (06:22)
[2017-07-18 06:42] LABS: ALBUMIN 2.3 g/dl (3.4-5.0); ALK PHOS 73 U/L (45-117); ANION GAP 7 (8-16); BILIRUBIN,TOTAL 0.5 mg/dL (0.2-1.0); CALCIUM 7.3 mg/dL (8.5-10.1); CO2 24 mmol/L (21-32); GLUCOSE,RANDOM 182 mg/dL (74-106); MAGNESIUM 2.5 mg/dL (1.8-2.4); PHOSPHOROUS 3.2 mg/dL (2.5-4.9); SGOT/AST 15 U/L (15-37); SGPT/ALT 33 U/L (12-78); TOT PROT 5.3 g/dl (6.4-8.2)
[2017-07-18] MEDS ORDERED: LEVOTHYROXINE NA 100 MCG TABLET (FP) PO SCH (07:00)
--- NOTE | 2017-07-18 07:28 | PN ---
Progress Note (short form) - Note Progress Note: NEUROSURGERY POD #1 PE: Tmax 97.8, AF, [place] 40-50; O2 sat 100% on 2L HEENT- NC/AT; Neck- supple; Cor- RR; Lungs- CTA; Abd- benign; Ext- no sign of DVT Awake/alert/Oriented x3 Speech more fluent; no anomia CN- intact (mildly decreased hearing B); Motor- 5/5 without drift; Sensation- intact LT; DTR- hyporeflexic Frozen- high grade glioma c/w GBM WBC 12; Hgb 11.5 Cont iv steroid Head CT today routine postop If only expected postop changes only can d/c Daly, OOB, and adv diet Findings and path and potential adjuvant tx d/w pt D/w medical team
[2017-07-18] MEDS ORDERED: SODIUM CHLORIDE 1,000 ML IV SCH (08:15)
[2017-07-18] MEDS ORDERED: DEXTROSE 5%-0.45% SALINE 1,000 ML IV SCH ×2 (08:45→19:56)
--- NOTE | 2017-07-18 08:56 | PN ---
Progress Note, Physician Chief Complaint: pod1 awake alert NAD in ICU; moves U/LE bilat afebrile; mild headache at the incision site - Current Medication List Current Medications: Active Medications Acetaminophen (Tylenol -) 650 mg PO Q6H PRN PRN Reason: PAIN LEVEL 6-10 Atorvastatin Calcium (Lipitor -) 10 mg PO HS [facility] Last Admin: 07/17/17 21:33 Dose: 10 mg Chlorhexidine Gluconate (Hibiclens For Decolonization -) 1 applic TP HS [facility] Last Admin: 07/17/17 21:33 Dose: 1 applic Dexamethasone Sodium Phosphate (Decadron Injection -) 4 mg IVPUSH Q6H-IV [facility] Last Admin: 07/18/17 02:14 Dose: 4 mg Diphenhydramine HCl (Benadryl -) 25 mg PO DAILY PRN PRN Reason: FOR ITCHING Docusate Sodium (Colace -) 100 mg PO TID [facility] Last Admin: 07/18/17 06:13 Dose: 100 mg Fentanyl (Sublimaze Injection -) 25 mcg IVPUSH [id number] PRN PRN Reason: PAIN Stop: 07/20/17 14:54 Last Admin: 07/17/17 15:15 Dose: 25 mcg Vancomycin HCl 500 mg/ (Dextrose) 100 mls @ 100 mls/hr IVPB BID [facility] PRN Reason: Protocol Stop: 07/18/17 21:59 Last Admin: 07/17/17 22:17 Dose: 100 mls/hr Dextrose/Sodium Chloride (D5-1/2ns -) 1,000 mls @ 100 mls/hr IV ASDIR [facility] Insulin Aspart (Novolog Vial Sliding Scale -) 1 vial SQ ACHS [facility] PRN Reason: Protocol Last Admin: 07/18/17 06:13 Dose: 2 units Levetiracetam (Keppra -) 500 mg PO BID [facility] Last Admin: 07/17/17 21:33 Dose: 500 mg Levothyroxine Sodium (Synthroid -) 100 mcg PO ACBK [facility] Last Admin: 07/18/17 06:12 Dose: 100 mcg Losartan Potassium (Cozaar -) 25 mg PO DAILY [facility] Morphine Sulfate (Morphine Injection -) 1 mg IVPUSH Q4H PRN PRN Reason: PAIN Mupirocin (Bactroban Ointment (For Decolonization) -) 1 applic NS BID [facility] Stop: 07/22/17 21:59 Last Admin: 07/17/17 21:33 Dose: 1 applic Nebivolol (Bystolic -) 2.5 mg PO DAILY [facility] Ondansetron HCl (Zofran Injection) 4 mg IVPUSH Q6H PRN PRN Reason: NAUSEA Pantoprazole Sodium (Protonix Iv) 40 mg IVPB BID [facility] Last Admin: 07/17/17 21:33 Dose: 40 mg - Objective Vital Signs: Vital Signs Temperature 97.7 F 07/18/17 07:59 Pulse Rate 52 L 07/18/17 07:59 Respiratory Rate 12 07/18/17 07:59 Blood Pressure 144/56 07/18/17 07:59 O2 Sat by Pulse Oximetry (%) 100 07/17/17 21:00 Constitutional: Yes: No Distress, Calm Eyes: Yes: Conjunctiva Clear HENT: Yes: Atraumatic Neck: Yes: Supple Cardiovascular: Yes: Regular Rate and Rhythm Respiratory: Yes: CTA Bilaterally Gastrointestinal: Yes: Soft. No: Distention, Tenderness Genitourinary: No: CVA Tenderness - Left, CVA Tenderness - Right Musculoskeletal: No: Joint Stiffness, Joint Swelling Extremities: No: Cold, Cool Edema: No Integumentary: No: Skin Tear, Venous Stasis Changes Neurological: Yes: WNL, Alert, Oriented ...Motor Strength: WNL Psychiatric: Yes: WNL, Alert, Oriented. No: Agitated, Suicidal Ideation Labs: CBC, BMP 07/18/17 05:00 07/18/17 05:00 INR, PTT INR 1.06 (0.82-1.09) 07/14/17 05:35 - ....Imaging Other: Report Reviewed Assessment/Plan Ms. 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 Check BGM/ sq insulin as needed; gastric PFX PPIs as ordered Po kera for seizure PFX f/u labs heparin sq held ICU postop I spoke with daughter Gayle all the above/ phone prognosis guarded T time 40 min
[2017-07-18] MEDS: PANTOPRAZOLE SODIUM 40 MG VIAL IVPB SCH (09:10)
[2017-07-18] MEDS: MUPIROCIN 2% TOPICAL OINTMENT FOR DECOLONIZATION NS SCH ×2 (09:10→21:30)
[2017-07-18] MEDS: levETIRAcetam 500 MG TABLET (FP) PO SCH ×2 (09:11→21:31)
[2017-07-18] MEDS ORDERED: PT OWN MED DRAWER 7, Y5N ONE (09:14)
[2017-07-18] MEDS: VANCOMYCIN 500 MG in DEXTROSE 5%-WATER - 100 ML IVPB SCH (09:30)
[2017-07-18] MEDS ORDERED: NEBIVOLOL 2.5 MG TABLET (FP) PO SCH (10:00)
[2017-07-18] MEDS ORDERED: LOSARTAN POTASSIUM 25 MG TABLET PO SCH (10:00)
--- NOTE | 2017-07-18 11:37 | PN ---
Progress Note, Physician Chief Complaint: The patient seen in ICU. Head bandage in place. Awake, alert. Minimal pain in the head. Good output is maintained. Neuro-Surgery well tolerated. History of Present Illness: 82 year old female with a significant PMH of HTN, CHF, COPD, and hyperlipidemia. Diagnosis of frontal brain neoplasm S/p neurosurgery. The patient is scheduled for Neurosurgery in AM. Renal functions close to her baseline. No overt contraindication to the proposed surgery. - Current Medication List Current Medications: Active Medications Acetaminophen (Tylenol -) 650 mg PO Q6H PRN PRN Reason: PAIN LEVEL 6-10 Atorvastatin Calcium (Lipitor -) 10 mg PO HS [facility]S [facility] 234 BEDS AT [facility] Last Admin: 07/17/17 21:33 Dose: 10 mg Chlorhexidine Gluconate (Hibiclens For Decolonization -) 1 applic TP HS [facility]S [facility]CLUDE 234 BEDS AT [facility] Last Admin: 07/17/17 21:33 Dose: 1 applic Dexamethasone Sodium Phosphate (Decadron Injection -) 4 mg IVPUSH Q6H-IV COUNTS INCLUDE 234 BEDS AT THE [facility] Last Admin: 07/18/17 09:11 Dose: 4 mg Diphenhydramine HCl (Benadryl -) 25 mg PO DAILY PRN PRN Reason: FOR ITCHING Docusate Sodium (Colace -) 100 mg PO TID [facility]CLUDE 234 BEDS AT THE [facility] Last Admin: 07/18/17 06:13 Dose: 100 mg Fentanyl (Sublimaze Injection -) 25 mcg IVPUSH [id number] PRN PRN Reason: PAIN Stop: 07/20/17 14:54 Last Admin: 07/17/17 15:15 Dose: 25 mcg Vancomycin HCl 500 mg/ (Dextrose) 100 mls @ 100 mls/hr IVPB BID [facility] 234 BEDS AT [facility] PRN Reason: Protocol Stop: 07/18/17 21:59 Last Admin: 07/17/17 22:17 Dose: 100 mls/hr Dextrose/Sodium Chloride (D5-1/2ns -) 1,000 mls @ 100 mls/hr IV ASDIR [facility]S [facility]CLUDE 234 BEDS AT [facility] Last Admin: 07/18/17 09:27 Dose: 100 mls/hr Insulin Aspart (Novolog Vial Sliding Scale -) 1 vial SQ ACHS [facility] 234 BEDS AT [facility] PRN Reason: Protocol Last Admin: 07/18/17 06:13 Dose: 2 units Levetiracetam (Keppra -) 500 mg PO BID [facility] 234 BEDS AT [facility] Last Admin: 07/18/17 09:11 Dose: 500 mg Levothyroxine Sodium (Synthroid -) 100 mcg PO ACBK [facility]S [facility]CLUDE 234 BEDS AT [facility] Last Admin: 07/18/17 06:12 Dose: 100 mcg Losartan Potassium (Cozaar -) 25 mg PO DAILY [facility]CLUDE 234 BEDS AT [facility] Last Admin: 07/18/17 09:15 Dose: 25 mg Morphine Sulfate (Morphine Injection -) 1 mg IVPUSH Q4H PRN PRN Reason: PAIN Mupirocin (Bactroban Ointment (For Decolonization) -) 1 applic NS BID [facility] 234 BEDS AT [facility] Stop: 07/22/17 21:59 Last Admin: 07/18/17 09:10 Dose: 1 applic Nebivolol (Bystolic -) 2.5 mg PO DAILY [facility]CLUDE 234 BEDS AT [facility] Last Admin: 07/18/17 09:16 Dose: 2.5 mg Ondansetron HCl (Zofran Injection) 4 mg IVPUSH Q6H PRN PRN Reason: NAUSEA Pantoprazole Sodium (Protonix Iv) 40 mg IVPB BID [facility]S [facility]CLUDE 234 BEDS AT THE [facility] Last Admin: 07/18/17 09:10 Dose: 40 mg - Objective Vital Signs: Vital Signs Temperature 97.7 F 07/18/17 07:59 Pulse Rate 50 L 07/18/17 10:15 Respiratory Rate 12 07/18/17 09:00 Blood Pressure 141/54 07/18/17 09:00 O2 Sat by Pulse Oximetry (%) 99 07/18/17 10:15 Constitutional: Yes: No Distress, Calm Eyes: Yes: Conjunctiva Clear Neck: Yes: Trachea Midline Cardiovascular: Yes: Regular Rate and Rhythm, S1, S2 Respiratory: Yes: CTA Bilaterally, Diminished Gastrointestinal: Yes: Normal Bowel Sounds, Soft Genitourinary: No: CVA Tenderness - Left, CVA Tenderness - Right Edema: No Wound/Incision: Yes: Dressing Dry and Intact (head) Neurological: Yes: Alert, Oriented. No: Aphasia, Confusion, Cran Nerves II-XII Intact, Dysarthria, Facial Droop, Seizure, Tremors Labs: CBC, BMP 07/18/17 05:00 07/18/17 05:00 INR, PTT INR 1.06 (0.82-1.09) 07/14/17 05:35 Problem List - Problems (1) Acute kidney injury Code(s): N17.9 - ACUTE KIDNEY FAILURE, UNSPECIFIED (2) Brain mass Code(s): G93.9 - DISORDER OF BRAIN, UNSPECIFIED (3) Dehydration Code(s): E86.0 - DEHYDRATION (4) Brain tumor Code(s): D49.6 - NEOPLASM OF UNSPECIFIED BEHAVIOR OF BRAIN Assessment/Plan 82 y/o female admitted with minimal confusion and speech abnormality as observed by family. The patient has h/o Hypertension, CHF, Hyperlipidemia, Chronic Kidney disease and h/o multiple Orthopedic surgeries. S/p L fronto-temporal stereotactic craniotomy for tumor excision, stereotactic navigation; microdissection The renal functions are at her baseline (Cr 1.0) No specific therapies at this juncture. Will continue to monitor the renal functions. Will maintain euvolemia. Thank you. Yesica Diaz MD
[2017-07-18] MEDS ORDERED: INSULIN (NOVOLOG) ASPART 100 UNITS/ML 10ML VIAL ONE ×2 (12:08→16:42)
--- NOTE | 2017-07-18 12:17 | PN ---
Physical Exam: SUBJECTIVE: Patient seen and examined at bedside. 24 hr events -No acute events overnight -Afebrile Today -she is s/p L frontotemporal stereotactic craniotomy c/w high grade glioma, PO Day 1 -Pt states she has a mild headache, but is without any focal neurologic deficits -Discussed with Dr. Leonard, today's AM CT (07/18) edema is consistent with her pre- op status -Ok for transfer to med-surg (8 ). Order is in -Advancing diet, OOB, barrera has been d/c OBJECTIVE: Vital Signs Period Temp Pulse Resp BP Sys/Chaves Pulse Ox Last 24 Hr 97.2 F-98.2 F 42-62 11-18 122-155/49-80 99-100 GENERAL: The patient is awake, alert, and fully oriented, in no acute distress. HEAD: wrapped, post-surgery EYES: PERRL, extraocular movements intact, sclera anicteric, conjunctiva clear. NECK: Trachea midline, supple. LUNGS: Breath sounds equal, clear to auscultation bilaterally, no wheezes, no crackles, no accessory muscle use. HEART: Regular rate and rhythm, S1, S2 without murmur, rub or gallop. ABDOMEN: Soft, nontender, nondistended, normoactive bowel sounds, no guarding, no rebound EXTREMITIES: 2+ posterior tibial pulses, warm, well-perfused, no edema. NEUROLOGICAL: Cranial nerves II through XII grossly intact. Sensation intact, no focal neurologic deficits Laboratory Results - last 24 hr 07/17/17 07/17/17 07/17/17 15:15 17:34 20:49 WBC RBC Hgb Hct MCV MCH MCHC RDW Plt Count MPV Neutrophils % Lymphocytes % Monocytes % Eosinophils % Basophils % Sodium Potassium Chloride Carbon Dioxide Anion Gap BUN Creatinine Creat Clearance w eGFR POC Glucometer 128 169.59191 162.75142 Random Glucose Calcium Phosphorus Magnesium Total Bilirubin AST ALT Alkaline Phosphatase Total Protein Albumin Phenytoin 07/18/17 07/18/17 07/18/17 05:00 05:00 05:00 WBC 12.0 H D RBC 3.82 Hgb 11.5 Hct 34.8 MCV 91.0 MCH 30.2 MCHC 33.1 RDW 15.9 H Plt Count 192 MPV 9.8 Neutrophils % 88.3 H Lymphocytes % 5.7 L D Monocytes % 5.8 Eosinophils % 0.0 Basophils % 0.2 Sodium 141 Potassium 5.4 H Chloride 110 H Carbon Dioxide 24 Anion Gap 7 L BUN 24 H D Creatinine 1.0 Creat Clearance w eGFR 52.82 POC Glucometer Random Glucose 182 H D Calcium 7.3 L Phosphorus 3.2 D Magnesium 2.5 H Total Bilirubin 0.5 D AST 15 D ALT 33 Alkaline Phosphatase 73 Total Protein 5.3 L Albumin 2.3 L Phenytoin < 2.5 L 07/18/17 07/18/17 05:15 11:38 WBC RBC Hgb Hct MCV MCH MCHC RDW Plt Count MPV Neutrophils % Lymphocytes % Monocytes % Eosinophils % Basophils % Sodium Potassium Chloride Carbon Dioxide Anion Gap BUN Creatinine Creat Clearance w eGFR POC Glucometer 198.03806 163.84763 Random Glucose Calcium Phosphorus Magnesium Total Bilirubin AST ALT Alkaline Phosphatase Total Protein Albumin Phenytoin Active Medications Generic Name Dose Route Start Last Admin Trade Name Freq PRN Reason Stop Dose Admin Acetaminophen 650 mg 07/17/17 14:57 Tylenol - PO Q6H PRN PAIN LEVEL 6-10 Atorvastatin Calcium 10 mg 07/17/17 22:00 07/17/17 21:33 Lipitor - PO 10 mg HS GENI Administration Chlorhexidine Gluconate 1 applic 07/17/17 22:00 07/17/17 21:33 Hibiclens For Decolonization - TP 1 applic HS GENI Administration Dexamethasone Sodium Phosphate 4 mg 07/17/17 15:00 07/18/17 09:11 Decadron Injection - IVPUSH 4 mg Q6H-IV GENI Administration Diphenhydramine HCl 25 mg 07/17/17 14:57 Benadryl - PO DAILY PRN FOR ITCHING Docusate Sodium 100 mg 07/17/17 22:00 07/18/17 06:13 Colace - PO 100 mg TID GENI Administration Fentanyl 25 mcg 07/17/17 14:53 07/17/17 15:15 Sublimaze Injection - IVPUSH 07/20/17 14:54 25 mcg [id number] PRN Administration PAIN Vancomycin HCl 500 mg/ 100 mls @ 100 mls/hr 07/17/17 22:00 07/18/17 09:30 Dextrose IVPB 07/18/17 21:59 100 mls/hr BID GENI Administration Protocol Dextrose/Sodium Chloride 1,000 mls @ 100 mls/hr 07/18/17 08:45 07/18/17 09:27 D5-1/2ns - IV 100 mls/hr ASDIR GENI Administration Insulin Aspart 1 vial 07/17/17 16:30 07/18/17 06:13 Novolog Vial Sliding Scale - SQ 2 units ACHS GENI Administration Protocol Levetiracetam 500 mg 07/17/17 22:00 07/18/17 09:11 Keppra - PO 500 mg BID GENI Administration Levothyroxine Sodium 100 mcg 07/18/17 07:00 07/18/17 06:12 Synthroid - PO 100 mcg ACBK GENI Administration Losartan Potassium 25 mg 07/18/17 10:00 07/18/17 09:15 Cozaar - PO 25 mg DAILY GENI Administration Morphine Sulfate 1 mg 07/17/17 14:21 Morphine Injection - IVPUSH Q4H PRN PAIN Mupirocin 1 applic 07/17/17 22:00 07/18/17 09:10 Bactroban Ointment (For Decolonization) - NS 07/22/17 21:59 1 applic BID GENI Administration Nebivolol 2.5 mg 07/18/17 10:00 07/18/17 09:16 Bystolic - PO 2.5 mg DAILY GENI Administration Ondansetron HCl 4 mg 07/17/17 14:20 Zofran Injection IVPUSH Q6H PRN NAUSEA Pantoprazole Sodium 40 mg 07/17/17 22:00 07/18/17 09:10 Protonix Iv IVPB 40 mg BID GENI Administration ASSESSMENT/PLAN: 82 y/o F with PMHx of HTN, CHF, COPD, and HLD who presented to the hospital with generalized malaise and sudden onset of n/v/d and AMS. CT head significant for large left frontal lobe lesion with mass effect with multiple surrounding enhancing lesions. She is now s/p Lt fronto-temporal stereotactic craniotomy for excision of a large tumor with centrally necrotic portion that is c/w high grade glioma. She was admitted to ICU for post-op care. #NEURO s/p L frontotemporal stereotactic craniotomy c/w high grade glioma- PO Day 1 -AAOx3, no focal neurologic deficits, location manager 2-12 grossly intact -post-op Head CT (07/18): edema consistent with pre-op status, d/w Dr. Leonard -findings and path, potential adjuvant tx to be discussed w/pt -continue dexamethasone 4mg IVP q6h -continue pain control: morphine 1mg IVP q4h PRN, fentanyl, tylenol -frequent neurochecks -vanco abx post-op (only for 24hrs) #CARDIO HTN -Continue bystolic 2.5 mg PO daily -Losartan 25 mg PO daily -continue to monitor HLD -Continue lipitor 10 mg PO HS #Prophylaxis -DVT: early ambulation, OOB #F/E/N -on D51/2NS -Monitor electrolytes - hyperkalemia (5.4)- awaiting stat BMP, to determine if will need kayexelate D51/2 NS K fluids have been d/c -Diet has been advanced to full liquid Dispo For transfer out of ICU to floor ([facility]) for continued post-op care Visit type - Emergency Visit Emergency Visit: No - New Patient This patient is new to me today: Yes Date on this admission: 07/18/17 - Critical Care Critical Care patient: Yes Total Critical Care Time (in minutes): 40 Critical Care Statement: The care of this patient involved high complexity decision making to prevent further life threatening deterioration of the patient 's condition and/or to evaluate & treat vital organ system(s) failure or risk of failure.
--- NOTE | 2017-07-18 12:47 | PN ---
Progress Note, Physician History of Present Illness: Speech improving post craniotomy and tumor excision, denies complaints, tolerating clear liquid diet. - Current Medication List Current Medications: Active Medications Acetaminophen (Tylenol -) 650 mg PO Q6H PRN PRN Reason: PAIN LEVEL 6-10 Atorvastatin Calcium (Lipitor -) 10 mg PO HS [facility] Last Admin: 07/17/17 21:33 Dose: 10 mg Chlorhexidine Gluconate (Hibiclens For Decolonization -) 1 applic TP HS [facility] Last Admin: 07/17/17 21:33 Dose: 1 applic Dexamethasone Sodium Phosphate (Decadron Injection -) 4 mg IVPUSH Q6H-IV GENI Last Admin: 07/18/17 09:11 Dose: 4 mg Diphenhydramine HCl (Benadryl -) 25 mg PO DAILY PRN PRN Reason: FOR ITCHING Docusate Sodium (Colace -) 100 mg PO TID [facility] Last Admin: 07/18/17 06:13 Dose: 100 mg Fentanyl (Sublimaze Injection -) 25 mcg IVPUSH [id number] PRN PRN Reason: PAIN Stop: 07/20/17 14:54 Last Admin: 07/17/17 15:15 Dose: 25 mcg Vancomycin HCl 500 mg/ (Dextrose) 100 mls @ 100 mls/hr IVPB BID GENI PRN Reason: Protocol Stop: 07/18/17 21:59 Last Admin: 07/18/17 09:30 Dose: 100 mls/hr Dextrose/Sodium Chloride (D5-1/2ns -) 1,000 mls @ 100 mls/hr IV ASDIR [facility] Last Admin: 07/18/17 09:27 Dose: 100 mls/hr Insulin Aspart (Novolog Vial Sliding Scale -) 1 vial SQ ACHS GENI PRN Reason: Protocol Last Admin: 07/18/17 12:11 Dose: 2 units Levetiracetam (Keppra -) 500 mg PO BID [facility] Last Admin: 07/18/17 09:11 Dose: 500 mg Levothyroxine Sodium (Synthroid -) 100 mcg PO ACBK [facility] Last Admin: 07/18/17 06:12 Dose: 100 mcg Losartan Potassium (Cozaar -) 25 mg PO DAILY [facility] Last Admin: 07/18/17 09:15 Dose: 25 mg Morphine Sulfate (Morphine Injection -) 1 mg IVPUSH Q4H PRN PRN Reason: PAIN Mupirocin (Bactroban Ointment (For Decolonization) -) 1 applic NS BID [facility] Stop: 07/22/17 21:59 Last Admin: 07/18/17 09:10 Dose: 1 applic Nebivolol (Bystolic -) 2.5 mg PO DAILY [facility] Last Admin: 07/18/17 09:16 Dose: 2.5 mg Ondansetron HCl (Zofran Injection) 4 mg IVPUSH Q6H PRN PRN Reason: NAUSEA Pantoprazole Sodium (Protonix Iv) 40 mg IVPB BID [facility] Last Admin: 07/18/17 09:10 Dose: 40 mg - Objective Vital Signs: Vital Signs Temperature 97.5 F L 07/18/17 12:00 Pulse Rate 49 L 07/18/17 12:00 Respiratory Rate 16 07/18/17 12:00 Blood Pressure 140/54 07/18/17 12:00 O2 Sat by Pulse Oximetry (%) 99 07/18/17 10:15 Constitutional: Yes: No Distress, Calm Neck: Yes: Supple Cardiovascular: Yes: Regular Rate and Rhythm Respiratory: Yes: Regular, Diminished, On Nasal O2 Gastrointestinal: Yes: Normal Bowel Sounds, Soft Edema: No Wound/Incision: Yes: Dressing Dry and Intact Labs: CBC, BMP 07/18/17 05:00 07/18/17 05:00 INR, PTT INR 1.06 (0.82-1.09) 07/14/17 05:35 - ....Imaging EKG: Report Reviewed (Tele: NSR) Problem List - Problems (1) Acute kidney injury Code(s): N17.9 - ACUTE KIDNEY FAILURE, UNSPECIFIED (2) Brain mass Code(s): G93.9 - DISORDER OF BRAIN, UNSPECIFIED (3) COPD (chronic obstructive pulmonary disease) with chronic bronchitis Code(s): J44.9 - CHRONIC OBSTRUCTIVE PULMONARY DISEASE, UNSPECIFIED (4) Diastolic dysfunction Code(s): I51.9 - HEART DISEASE, UNSPECIFIED (5) Hyperlipidemia Code(s): E78.5 - HYPERLIPIDEMIA, UNSPECIFIED Qualifiers: Hyperlipidemia type: pure hypercholesterolemia Qualified Code(s): E78.00 - Pure hypercholesterolemia, unspecified; E78.00 - Pure hypercholesterolemia, unspecified; E78.00 - Pure hypercholesterolemia, unspecified; E78.0 - Pure hypercholesterolemia (6) Hypertension Code(s): I10 - ESSENTIAL (PRIMARY) HYPERTENSION Qualifiers: Hypertension type: essential hypertension Qualified Code(s): I10 - Essential (primary) hypertension; I10 - Essential (primary) hypertension; I10 - Essential (primary) hypertension (7) Hypothyroidism Code(s): E03.9 - HYPOTHYROIDISM, UNSPECIFIED Qualifiers: 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 Qualified Code(s): E03.8 - Other specified hypothyroidism; E03.8 - Other specified hypothyroidism; E03.8 - Other specified hypothyroidism; E06.3 - Autoimmune thyroiditis; E06.3 - Autoimmune thyroiditis; E06.3 - Autoimmune thyroiditis (8) Status post craniotomy Code(s): Z98.890 - OTHER SPECIFIED POSTPROCEDURAL STATES Assessment/Plan Head CT 11/2016- mild atrophy; no bleed; no fx; no clear mass lesion Head CT 06/2017- 3 cm hyperdense subcortical lesion with mass effect and mild shift; + associated edema MRI- L frontal 3 x 5 cm irregularly enhancing lesion extending across the corpus callosum with associated edema and mass effect; some satellite lesions 1. POD #1 post left frontal GBM tumor excision 2. CAD angina pectoris, stable 3. Diastolic LV dysfunction with chronic class I NYHA classification LV failure , compensated/euvolemic 4. HTN 5. Hypercholesterolemia 6. Hypothyroidism 7. COPD 8. Acute on chronic kidney insufficiency resolved 9. Hyperkalemia PLAN: 1. Continue Bystolic 2.5 qd 2. Continue Cozaar 25 qd with close monitoring of renal function and K 3. Resume Lasix once renal function stabilized 4. Continue Lipitor 10 qhs 5. IV steroids with GI protection and seizure prophylaxis, post-op care 6. DVT prophylaxis
--- NOTE | 2017-07-18 13:06 | PN ---
Progress Note (short form) - Note Progress Note: Anesthesia postop note 82 y/o F s/p GA for craniotomy for biopsy/excision of tumor frontal lobe POD#1, aaox3, vss, in icu, doing well No anesthesia complications.
[2017-07-18 13:25] LABS: ANION GAP 12 (8-16); CALCIUM 7.8 mg/dL (8.5-10.1); CO2 22 mmol/L (21-32); CREATININE 0.9 mg/dL (0.55-1.02); GLUCOSE,RANDOM 147 mg/dL (74-106)
--- NOTE | 2017-07-18 13:54 | PN ---
Teaching Attending Note Name of Resident: Jaye Villarreal ATTENDING PHYSICIAN STATEMENT I saw and evaluated the patient. I reviewed the resident's note and discussed the case with the resident. I agree with the resident's findings and plan as documented. SUBJECTIVE: Patient seen and examined in the ICU. POD #1 S/P craniectomy and debulking of tumor. Awake and alert and responsive. Reports no TAVERAS but minimal dizziness. No CP or SOB. CT Head: post-surgical changes Intake & Output 07/15/17 07/16/17 07/17/17 07/18/17 23:59 23:59 23:59 23:59 Intake Total 895 645 1611 910 Output Total 1650 300 Balance 240 740 330 610 Weight 191 lb 8 oz Last Vital Signs Temp Pulse Resp BP Pulse Ox 97.5 F L 49 L 16 140/54 99 07/18/17 12:00 07/18/17 12:00 07/18/17 12:00 07/18/17 12:00 07/18/17 10:15 Active Medications Acetaminophen (Tylenol -) 650 mg PO Q6H PRN PRN Reason: PAIN LEVEL 6-10 Atorvastatin Calcium (Lipitor -) 10 mg PO HS [facility] Last Admin: 07/17/17 21:33 Dose: 10 mg Chlorhexidine Gluconate (Hibiclens For Decolonization -) 1 applic TP HS [facility] Last Admin: 07/17/17 21:33 Dose: 1 applic Dexamethasone Sodium Phosphate (Decadron Injection -) 4 mg IVPUSH Q6H-IV GENI Last Admin: 07/18/17 09:11 Dose: 4 mg Diphenhydramine HCl (Benadryl -) 25 mg PO DAILY PRN PRN Reason: FOR ITCHING Docusate Sodium (Colace -) 100 mg PO TID [facility] Last Admin: 07/18/17 13:08 Dose: 100 mg Fentanyl (Sublimaze Injection -) 25 mcg IVPUSH [id number] PRN PRN Reason: PAIN Stop: 07/20/17 14:54 Last Admin: 07/17/17 15:15 Dose: 25 mcg Vancomycin HCl 500 mg/ (Dextrose) 100 mls @ 100 mls/hr IVPB BID GENI PRN Reason: Protocol Stop: 07/18/17 21:59 Last Admin: 07/18/17 09:30 Dose: 100 mls/hr Dextrose/Sodium Chloride (D5-1/2ns -) 1,000 mls @ 100 mls/hr IV ASDIR [facility] Last Admin: 07/18/17 09:27 Dose: 100 mls/hr Insulin Aspart (Novolog Vial Sliding Scale -) 1 vial SQ ACHS [facility] PRN Reason: Protocol Last Admin: 07/18/17 12:11 Dose: 2 units Levetiracetam (Keppra -) 500 mg PO BID [facility] Last Admin: 07/18/17 09:11 Dose: 500 mg Levothyroxine Sodium (Synthroid -) 100 mcg PO ACBK [facility] Last Admin: 07/18/17 06:12 Dose: 100 mcg Losartan Potassium (Cozaar -) 25 mg PO DAILY [facility] Last Admin: 07/18/17 09:15 Dose: 25 mg Morphine Sulfate (Morphine Injection -) 1 mg IVPUSH Q4H PRN PRN Reason: PAIN Mupirocin (Bactroban Ointment (For Decolonization) -) 1 applic NS BID [facility] Stop: 07/22/17 21:59 Last Admin: 07/18/17 09:10 Dose: 1 applic Nebivolol (Bystolic -) 2.5 mg PO DAILY [facility] Last Admin: 07/18/17 09:16 Dose: 2.5 mg Ondansetron HCl (Zofran Injection) 4 mg IVPUSH Q6H PRN PRN Reason: NAUSEA Pantoprazole Sodium (Protonix Iv) 40 mg IVPB BID [facility] Last Admin: 07/18/17 09:10 Dose: 40 mg Constitutional: Yes: No Distress, Awake and alert, Obese Eyes: Yes: Conjunctiva Clear, PERRL HENT: Yes: Other (Lt frontal dressing c/d/i) Neck: Yes: Supple Cardiovascular: Yes: Bradycardia Respiratory: Yes: Regular, On Nasal O2 Gastrointestinal: Yes: Soft, Abdomen, Obese Renal/: Yes: Daly Present Musculoskeletal: Yes: WNL Extremities: Yes: WNL Edema: No Integumentary: Yes: WNL Wound/Incision: Yes: Dressing Dry and Intact Neurological: Yes: Alert, Oriented ...Motor Strength: WNL, LUE, LLE, RUE, RLE Psychiatric: Yes: Alert, Oriented Labs: Laboratory Results - last 24 hr 07/17/17 07/17/17 07/17/17 15:15 17:34 20:49 WBC RBC Hgb Hct MCV MCH MCHC RDW Plt Count MPV Neutrophils % Lymphocytes % Monocytes % Eosinophils % Basophils % Sodium Potassium Chloride Carbon Dioxide Anion Gap BUN Creatinine Creat Clearance w eGFR POC Glucometer 128 169.36145 162.66620 Random Glucose Calcium Phosphorus Magnesium Total Bilirubin AST ALT Alkaline Phosphatase Total Protein Albumin Phenytoin 07/18/17 07/18/17 07/18/17 05:00 05:00 05:00 WBC 12.0 H D RBC 3.82 Hgb 11.5 Hct 34.8 MCV 91.0 MCH 30.2 MCHC 33.1 RDW 15.9 H Plt Count 192 MPV 9.8 Neutrophils % 88.3 H Lymphocytes % 5.7 L D Monocytes % 5.8 Eosinophils % 0.0 Basophils % 0.2 Sodium 141 Potassium 5.4 H Chloride 110 H Carbon Dioxide 24 Anion Gap 7 L BUN 24 H D Creatinine 1.0 Creat Clearance w eGFR 52.82 POC Glucometer Random Glucose 182 H D Calcium 7.3 L Phosphorus 3.2 D Magnesium 2.5 H Total Bilirubin 0.5 D AST 15 D ALT 33 Alkaline Phosphatase 73 Total Protein 5.3 L Albumin 2.3 L Phenytoin < 2.5 L 07/18/17 07/18/17 07/18/17 05:15 11:38 12:40 WBC RBC Hgb Hct MCV MCH MCHC RDW Plt Count MPV Neutrophils % Lymphocytes % Monocytes % Eosinophils % Basophils % Sodium 139 Potassium 4.9 Chloride 105 Carbon Dioxide 22 Anion Gap 12 BUN 25 H Creatinine 0.9 Creat Clearance w eGFR POC Glucometer 198.55507 163.78508 Random Glucose 147 H Calcium 7.8 L Phosphorus Magnesium Total Bilirubin AST ALT Alkaline Phosphatase Total Protein Albumin Phenytoin Problem List - Problems (1) Brain mass Code(s): G93.9 - DISORDER OF BRAIN, UNSPECIFIED (2) Brain tumor Code(s): D49.6 - NEOPLASM OF UNSPECIFIED BEHAVIOR OF BRAIN Assessment/Plan POD #1 Left frontal/temporal stereotactic craniotomy with debulking of a large tumor HTN CHF Obesity COPD HPL Plan: Follow Neuro exam O2 as needed Mechanical VTE prophylaxis Aspiration precautions Pain management PO as tolerated BP control Dr Almazan Critical care time spent in reviewing chart, evaluating patient and formulating plan - 35 minutes.
--- NOTE | 2017-07-18 15:04 | PN ---
Progress Note (short form) - Note Progress Note: Radiation Oncology In ICU for postop recovery following surgical debulking and biopsy. Prelim GBM. Current ICU mgt. Neurosx f/u. Follow up final path. Pending postop recovery and neurosurgery clearance, will need IMRT and Temodar chemo. Will follow pt.
--- NOTE | 2017-07-18 18:28 | PN ---
Progress Note (short form) - Note Progress Note: HPI: 82 year old female with a significant PMH of HTN, CHF, COPD, and hyperlipidemia who presents to the emergency department with generalized malaise beginning approximately 2 days ago. Reports malaise began at dinner with a sudden isolated episode of nausea, vomiting, and diarrhea, after which patient reports feeling off. as per chart, Patients daughters also report 2 weeks of intermittent confused language. Pt denies TAVERAS or focal weakness. she smiles and is attentive and becomes slightly confused with conversation. denies breathing c/o. no known cancer CT HD IMPRESSION: In comparison to a prior noncontrast CT study of 11/29/2016 interval development of an approximately 3 cm left frontal subcortical mass lesion is noted with probable involvement of the corpus callosum. Moderate to marked perilesional edema is seen. There is mild to moderate contralateral midline displacement. This finding is probably more likely on the basis of primary neoplastic disease rather than metastatic neoplastic disease. Additional evaluation utilizing contrast enhanced MRI or CT is suggested. MRI BRAIN : Impression: Large enhancing solid intra-axial lesion in the left frontal lobe 7 cm in its largest diameter extending through the anterior aspect of the corpus callosum into the right frontal lobe with extensive perifocal edema with mass effect on the left lateral ventricle. Also noted multiple enhancing nodules surrounding the lesion most probably related to the same lesion in the left frontal lobe as evident on post contrast image #19 and image #20. Findings are suspicious of a large glioblastoma multiform or large metastatic lesion. Correlation with clinical history and comparison with prior MRI recommended. When prior MRI became available an addendum will be dictated. Diffusion pulse is unremarkable no evidence acute infarction. No evidence otherwise of intracerebral hemorrhage, subdural fluid collection or hydrocephalus. No evidence of acute infarction. FU: s/p debulking surgery, POD #1 smiling and conversive, slight word finding difficulty, no focal weakness no TAVERAS or seizures HD CT 07/18/17 Interval left frontal craniotomy is noted in comparison to a previous CT study of 07/12/2017. A small amount of scattered blood is now seen within the left frontal subcortical mass lesion. Nasal site small subdural collection subjacent to the craniotomy flap containing a trace amount of blood, fluid and air. As on the prior study there is moderate to marked perilesional edema with moderate rightward midline displacement. Involvement of the corpus callosum is again noted. No obstructive hydrocephalus is seen. IMPRESSION: Interval postsurgical changes are seen as discussed above. - History Source History Provided By: Patient, Medical Record - Past Medical History Cardio/Vascular: Yes: HTN, Hyperlipdemia, Pulmonary Hypertension Pulmonary: Yes: COPD Gastrointestinal: Yes: Other (colon polyps) Musculoskeletal: Yes: Chronic low back pain, Osteoarthritis Endocrine: Yes: Hypothyroidism - Past Surgical History Past Surgical History: Yes: Joint Replacement - Alcohol/Substance Use Hx Alcohol Use: No History of Substance Use: reports: None - Smoking History Smoking history: Never smoked Have you smoked in the past 12 months: No Aproximately how many cigarettes per day: 0 If you are a former smoker, when did you quit?: 30 years ago - Social History ADL: Family Assistance (madeline lives close by) Occupation: retired History of Recent Travel: No Home Medications - Allergies Allergies/Adverse Reactions: Allergies Allergy/AdvReac Type Severity Reaction Status Date / Time Shellfish Allergy Verified 07/12/17 10:27 levofloxacin [From Levaquin] AdvReac Unknown Verified 07/12/17 10:27 ceftriaxone sodium AdvReac ERYTHEMA,IT Verified 07/12/17 10:27 [From Rocephin] GIRMA,URTIC ARIA codeine [Codeine] AdvReac Nausea Verified 07/12/17 10:27 SHRIMP Allergy Uncoded 07/12/17 10:27 - Home Medications Home Medications: Ambulatory Orders Losartan Potassium [Cozaar] 25 mg PO DAILY 10/09/15 Montelukast Sodium [Singulair] 10 mg PO HS 10/09/15 Pravastatin Sodium [Pravachol -] 40 mg PO HS 10/09/15 Ranitidine HCl [Zantac] 150 mg PO BID PRN 10/09/15 Levothyroxine [Synthroid -] 125 mcg PO DAILY #90 tablet 11/18/15 Calcium Carbonate/Vitamin D3 [Calcium 500-Vit D3 200 Caplet] 1 each PO DAILY Magnesium Oxide [Mag-Ox -] 400 mg PO DAILY 03/22/16 Potassium Chloride [K-Dur -] 10 meq PO QID 03/22/16 Nebivolol [Bystolic -] 2.5 mg PO DAILY tab 03/25/16 Diphenhydramine HCl [Benadryl Capsule -] 25 mg PO DAILY PRN #0 capsule 03/28/16 Furosemide [Lasix -] 40 mg PO BID@0600,1400 tablet 03/28/16 Family Disease History - Family Disease History Family Disease History: CA: Father (colon cancer), Brother (colon cancer) Physical Exam-Neuro Vital Signs: Vital Signs Temperature 98.4 F 07/18/17 15:00 Pulse Rate 60 07/18/17 17:00 Respiratory Rate 19 07/18/17 17:00 Blood Pressure 147/55 07/18/17 17:00 O2 Sat by Pulse Oximetry (%) 99 07/18/17 10:15 Constitutional: Yes: Well Nourished - Neuro Exam Level Of Consciousness: Yes: Alert (awake and alert though becomes confused , slight word finding difficulty yr 1955, does not know age, follows basic commands, can name and repeat, no clear aphasia, VFF, lsight RUE drift, no focal weakness, plantars equivocal ) Imaging - Results Cat Scan: Report Reviewed, Image Reviewed Problem List - Problems (1) Acute kidney injury Code(s): N17.9 - ACUTE KIDNEY FAILURE, UNSPECIFIED (2) Brain mass Code(s): G93.9 - DISORDER OF BRAIN, UNSPECIFIED (3) COPD (chronic obstructive pulmonary disease) with chronic bronchitis Code(s): J44.9 - CHRONIC OBSTRUCTIVE PULMONARY DISEASE, UNSPECIFIED Assessment/Plan 82 year old female with a significant PMH of HTN, CHF, COPD, and hyperlipidemia who presents to the emergency department with generalized malaise beginning approximately 2 days ago. Reports malaise began at dinner with a sudden isolated episode of nausea, vomiting, and diarrhea, after which patient reports feeling off. as per chart, Patients daughters also report 2 weeks of intermittent confused language. Pt denies TAVERAS or focal weakness. she smiles and is attentive and becomes slightly confused with conversation. denies breathing c /o. no known cancer suspicious for new primary brain CA, r/o GBM surprisingly no major deficits though she has mild word finding difficulty s/p debulking surgery POD day1 , doing relatively well, --> then RAD ONC await PATH can garett oviedoadron 4 Q6 and vane Torres [id number] Problem List - Problems (1) Acute kidney injury Code(s): N17.9 - ACUTE KIDNEY FAILURE, UNSPECIFIED (2) Brain mass Code(s): G93.9 - DISORDER OF BRAIN, UNSPECIFIED (3) COPD (chronic obstructive pulmonary disease) with chronic bronchitis Code(s): J44.9 - CHRONIC OBSTRUCTIVE PULMONARY DISEASE, UNSPECIFIED
[2017-07-18] MEDS ORDERED: ACETAMINOPHEN 325 MG TABLET (FP) PO PRN (19:56)
[2017-07-18] MEDS ORDERED: diphenhydrAMINE HCL 25 MG CAPSULE (FP) PO PRN (19:56)
[2017-07-18] MEDS ORDERED: ONDANSETRON 4 MG/2 ML VIAL IVPUSH PRN (19:56)
[2017-07-18] MEDS ORDERED: morphine CARPU-JECT 8 MG/1 ML DISP.SYRIN IVPUSH PRN (19:56)
[2017-07-18] MEDS: PANTOPRAZOLE SODIUM 40 MG VIAL IVPUSH SCH (21:31)
[2017-07-18] MEDS: ATORVASTATIN CA 10 MG TABLET (FP) PO SCH (21:31)
[2017-07-18] MEDS: CHLORHEXIDINE GLUCONATE 4% CLEANSER FOR DECOLONIZATION TP SCH (21:31)
[2017-07-18] MEDS ORDERED: VANCOMYCIN 500 MG in DEXTROSE 5%-WATER - 100 ML IVPB ONE (22:00)
[2017-07-19] MEDS: DEXAMETHASONE SOD PHOSPHATE 4 MG/1 ML VIAL IVPUSH SCH ×2 (02:15→09:11)
[2017-07-19] MEDS ORDERED: INSULIN (NOVOLOG) ASPART 100 UNITS/ML 10ML VIAL ONE (06:31)
[2017-07-19] MEDS: INSULIN SLIDING SCALE (NOVOLOG) 1 VIAL SQ SCH ×5 (06:34→21:10)
[2017-07-19] MEDS: DOCUSATE SODIUM 100 MG CAPSULE (FP) PO SCH ×3 (06:34→21:02)
[2017-07-19] MEDS: LEVOTHYROXINE NA 100 MCG TABLET (FP) PO SCH (06:34)
[2017-07-19 06:48] LABS: MCH 30.3 pg (25.7-33.7); MCHC 33.7 g/dl (32.0-36.0); PLATELET COUNT 212 K/MM3 (134-434); RDW 15.8 % (11.6-15.6)
[2017-07-19 07:10] LABS: ALBUMIN 2.3 g/dl (3.4-5.0); ANION GAP 6 (8-16); CALCIUM 7.5 mg/dL (8.5-10.1); CO2 26 mmol/L (21-32); CREATININE 0.9 mg/dL (0.55-1.02); GLUCOSE,RANDOM 147 mg/dL (74-106); SGOT/AST 16 U/L (15-37); SGPT/ALT 40 U/L (12-78)
[2017-07-19 07:12] LABS: ALK PHOS 82 U/L (45-117); BILIRUBIN,TOTAL 0.5 mg/dL (0.2-1.0); TOT PROT 5.5 g/dl (6.4-8.2)
--- NOTE | 2017-07-19 08:36 | PN ---
Progress Note (short form) - Note Progress Note: NEUROSURGERY POD #2 In ICU Sitting up OOB Mild H/A Tolerating diet Able to void PE: AF, VSS HEENT- NC/AT; Neck- supple; Cor- RR; Lungs- CTA; Abd- benign; Ext- no sign of DVT Awake/alert/Oriented x3 Speech fluent; no anomia CN- intact (mildly decreased hearing B); Motor- 5/5 without drift; Sensation- intact LT; DTR- hyporeflexic Frozen- high grade glioma c/w GBM, check final path WBC 13, Hgb 12.[address]- psotop changes L frontal lobe with hyperdensity and edema as expected Change iv to po steroid Floor care Cont Porfirio D/w medical team
[2017-07-19] MEDS ORDERED: PT OWN MED DRAWER 7, Y5N ONE ×2 (09:09→20:55)
[2017-07-19] MEDS: LOSARTAN POTASSIUM 25 MG TABLET PO SCH (09:11)
[2017-07-19] MEDS: levETIRAcetam 500 MG TABLET (FP) PO SCH ×2 (09:11→21:02)
[2017-07-19] MEDS: PANTOPRAZOLE SODIUM 40 MG VIAL IVPUSH SCH ×2 (09:11→21:02)
[2017-07-19] MEDS: NEBIVOLOL 2.5 MG TABLET (FP) PO SCH (09:12)
[2017-07-19] MEDS: MUPIROCIN 2% TOPICAL OINTMENT FOR DECOLONIZATION NS SCH (09:14)
--- NOTE | 2017-07-19 10:34 | PN ---
Progress Note, Physician History of Present Illness: Speech improving post craniotomy and tumor excision, denies complaints, transferred to floor. - Current Medication List Current Medications: Active Medications Acetaminophen (Tylenol -) 650 mg PO Q6H PRN PRN Reason: PAIN LEVEL 6-10 Atorvastatin Calcium (Lipitor -) 10 mg PO HS [facility] Last Admin: 07/18/17 21:31 Dose: 10 mg Chlorhexidine Gluconate (Hibiclens For Decolonization -) 1 applic TP HS [facility] Last Admin: 07/18/17 21:31 Dose: 1 applic Dexamethasone Sodium Phosphate (Decadron Injection -) 4 mg IVPUSH Q6H-IV [facility] Last Admin: 07/19/17 09:11 Dose: 4 mg Diphenhydramine HCl (Benadryl -) 25 mg PO DAILY PRN PRN Reason: FOR ITCHING Docusate Sodium (Colace -) 100 mg PO TID [facility] Last Admin: 07/19/17 06:34 Dose: 100 mg Fentanyl (Sublimaze Injection -) 25 mcg IVPUSH [id number] PRN PRN Reason: PAIN Stop: 07/20/17 14:54 Vancomycin HCl 500 mg/ (Dextrose) 100 mls @ 100 mls/hr IVPB BID [facility] PRN Reason: Protocol Stop: 07/19/17 21:59 Insulin Aspart (Novolog Vial Sliding Scale -) 1 vial SQ ACHS [facility] PRN Reason: Protocol Last Admin: 07/19/17 06:34 Dose: 2 units Levetiracetam (Keppra -) 500 mg PO BID [facility] Last Admin: 07/19/17 09:11 Dose: 500 mg Levothyroxine Sodium (Synthroid -) 100 mcg PO DAILY@0700 [facility] Last Admin: 07/19/17 06:34 Dose: 100 mcg Losartan Potassium (Cozaar -) 25 mg PO DAILY [facility] Last Admin: 07/19/17 09:11 Dose: 25 mg Morphine Sulfate (Morphine Sulfate) 1 mg IVPUSH Q4H PRN PRN Reason: PAIN Mupirocin (Bactroban Ointment (For Decolonization) -) 1 applic NS BID [facility] Stop: 07/22/17 21:59 Last Admin: 07/19/17 09:14 Dose: 1 applic Nebivolol (Bystolic -) 2.5 mg PO DAILY [facility] Last Admin: 07/19/17 09:12 Dose: 2.5 mg Ondansetron HCl (Zofran Injection) 4 mg IVPUSH Q6H PRN PRN Reason: NAUSEA Pantoprazole Sodium (Protonix Iv) 40 mg IVPUSH BID [facility] Last Admin: 07/19/17 09:11 Dose: 40 mg - Objective Vital Signs: Vital Signs Temperature 98.0 F 07/19/17 06:00 Pulse Rate 65 07/19/17 08:00 Respiratory Rate 20 07/19/17 08:03 Blood Pressure 140/65 07/19/17 08:00 O2 Sat by Pulse Oximetry (%) 99 07/18/17 21:00 Constitutional: Yes: No Distress, Calm Neck: Yes: Supple Cardiovascular: Yes: Regular Rate and Rhythm Respiratory: Yes: Regular, Diminished Gastrointestinal: Yes: Normal Bowel Sounds, Soft Edema: No Labs: CBC, BMP 07/19/17 06:20 07/19/17 06:20 INR, PTT INR 1.06 (0.82-1.09) 07/14/17 05:35 - ....Imaging EKG: Report Reviewed (Tele: NSR) Problem List - Problems (1) Acute kidney injury Code(s): N17.9 - ACUTE KIDNEY FAILURE, UNSPECIFIED (2) Brain mass Code(s): G93.9 - DISORDER OF BRAIN, UNSPECIFIED (3) COPD (chronic obstructive pulmonary disease) with chronic bronchitis Code(s): J44.9 - CHRONIC OBSTRUCTIVE PULMONARY DISEASE, UNSPECIFIED (4) Diastolic dysfunction Code(s): I51.9 - HEART DISEASE, UNSPECIFIED (5) Hyperlipidemia Code(s): E78.5 - HYPERLIPIDEMIA, UNSPECIFIED Qualifiers: Hyperlipidemia type: pure hypercholesterolemia Qualified Code(s): E78.00 - Pure hypercholesterolemia, unspecified; E78.00 - Pure hypercholesterolemia, unspecified; E78.00 - Pure hypercholesterolemia, unspecified; E78.0 - Pure hypercholesterolemia (6) Hypertension Code(s): I10 - ESSENTIAL (PRIMARY) HYPERTENSION Qualifiers: Hypertension type: essential hypertension Qualified Code(s): I10 - Essential (primary) hypertension; I10 - Essential (primary) hypertension; I10 - Essential (primary) hypertension (7) Hypothyroidism Code(s): E03.9 - HYPOTHYROIDISM, UNSPECIFIED Qualifiers: 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 Qualified Code(s): E03.8 - Other specified hypothyroidism; E03.8 - Other specified hypothyroidism; E03.8 - Other specified hypothyroidism; E06.3 - Autoimmune thyroiditis; E06.3 - Autoimmune thyroiditis; E06.3 - Autoimmune thyroiditis (8) Status post craniotomy Code(s): Z98.890 - OTHER SPECIFIED POSTPROCEDURAL STATES Assessment/Plan Head CT 11/2016- mild atrophy; no bleed; no fx; no clear mass lesion Head CT 06/2017- 3 cm hyperdense subcortical lesion with mass effect and mild shift; + associated edema MRI- L frontal 3 x 5 cm irregularly enhancing lesion extending across the corpus callosum with associated edema and mass effect; some satellite lesions Head CT- psotop changes L frontal lobe with hyperdensity and edema as expected 1. POD #2 post left frontal GBM tumor excision 2. CAD angina pectoris, stable 3. Diastolic LV dysfunction with chronic class I NYHA classification LV failure , compensated/euvolemic 4. HTN 5. Hypercholesterolemia 6. Hypothyroidism 7. COPD 8. Acute on chronic kidney insufficiency resolved 9. Hyperkalemia resolved PLAN: 1. Continue Bystolic 2.5 qd 2. Continue Cozaar 25 qd with close monitoring of renal function and K 3. Resume Lasix once renal function stabilized 4. Continue Lipitor 10 qhs 5. IV steroids with GI protection and seizure prophylaxis, post-op care 6. DVT prophylaxis 7. Plan for eventual IMRT and Temodar chemo
[2017-07-19] MEDS: D5-1/2NS+20 MEQ KCL - 1,000 ML IV SCH (10:40)
--- NOTE | 2017-07-19 10:41 | PN ---
Progress Note, Physician Chief Complaint: The patient seen in ICU.Sitting by her bed. Has minimal head ache. Maintains good urine output. No nausea or vomiting. History of Present Illness: 82 year old female with a significant PMH of HTN, CHF, COPD, and hyperlipidemia. Diagnosis of frontal brain neoplasm S/p neurosurgery. Debulking. Renal functions close to her baseline. - Current Medication List Current Medications: Active Medications Acetaminophen (Tylenol -) 650 mg PO Q6H PRN PRN Reason: PAIN LEVEL 6-10 Atorvastatin Calcium (Lipitor -) 10 mg PO HS [facility] Last Admin: 07/18/17 21:31 Dose: 10 mg Chlorhexidine Gluconate (Hibiclens For Decolonization -) 1 applic TP HS [facility] Last Admin: 07/18/17 21:31 Dose: 1 applic Dexamethasone Sodium Phosphate (Decadron Injection -) 4 mg IVPUSH Q6H-IV [facility] Last Admin: 07/19/17 09:11 Dose: 4 mg Diphenhydramine HCl (Benadryl -) 25 mg PO DAILY PRN PRN Reason: FOR ITCHING Docusate Sodium (Colace -) 100 mg PO TID [facility] Last Admin: 07/19/17 06:34 Dose: 100 mg Fentanyl (Sublimaze Injection -) 25 mcg IVPUSH [id number] PRN PRN Reason: PAIN Stop: 07/20/17 14:54 Vancomycin HCl 500 mg/ (Dextrose) 100 mls @ 100 mls/hr IVPB BID [facility] PRN Reason: Protocol Stop: 07/19/17 21:59 Insulin Aspart (Novolog Vial Sliding Scale -) 1 vial SQ ACHS [facility] PRN Reason: Protocol Last Admin: 07/19/17 06:34 Dose: 2 units Levetiracetam (Keppra -) 500 mg PO BID [facility] Last Admin: 07/19/17 09:11 Dose: 500 mg Levothyroxine Sodium (Synthroid -) 100 mcg PO DAILY@0700 [facility] Last Admin: 07/19/17 06:34 Dose: 100 mcg Losartan Potassium (Cozaar -) 25 mg PO DAILY [facility] Last Admin: 07/19/17 09:11 Dose: 25 mg Morphine Sulfate (Morphine Sulfate) 1 mg IVPUSH Q4H PRN PRN Reason: PAIN Mupirocin (Bactroban Ointment (For Decolonization) -) 1 applic NS BID [facility] Stop: 07/22/17 21:59 Last Admin: 07/19/17 09:14 Dose: 1 applic Nebivolol (Bystolic -) 2.5 mg PO DAILY [facility] Last Admin: 07/19/17 09:12 Dose: 2.5 mg Ondansetron HCl (Zofran Injection) 4 mg IVPUSH Q6H PRN PRN Reason: NAUSEA Pantoprazole Sodium (Protonix Iv) 40 mg IVPUSH BID [facility] Last Admin: 07/19/17 09:11 Dose: 40 mg - Objective Vital Signs: Vital Signs Temperature 98.0 F 07/19/17 06:00 Pulse Rate 65 07/19/17 08:00 Respiratory Rate 20 07/19/17 08:03 Blood Pressure 140/65 07/19/17 08:00 O2 Sat by Pulse Oximetry (%) 99 07/18/17 21:00 Constitutional: Yes: Calm, Pallor Eyes: Yes: Conjunctiva Clear Neck: Yes: Trachea Midline Cardiovascular: Yes: Regular Rate and Rhythm, S1, S2 Respiratory: Yes: Regular Gastrointestinal: Yes: Normal Bowel Sounds, Soft Edema: No Neurological: Yes: Alert, Oriented. No: Aphasia, Asterixis, Confusion, Dysarthria, Lethargy Labs: CBC, BMP 07/19/17 06:20 07/19/17 06:20 INR, PTT INR 1.06 (0.82-1.09) 07/14/17 05:35 Problem List - Problems (1) Acute kidney injury Code(s): N17.9 - ACUTE KIDNEY FAILURE, UNSPECIFIED (2) Brain mass Code(s): G93.9 - DISORDER OF BRAIN, UNSPECIFIED (3) Dehydration Code(s): E86.0 - DEHYDRATION (4) Brain tumor Code(s): D49.6 - NEOPLASM OF UNSPECIFIED BEHAVIOR OF BRAIN Assessment/Plan 82 y/o female admitted with minimal confusion and speech abnormality as observed by family. The patient has h/o Hypertension, CHF, Hyperlipidemia, Chronic Kidney disease and h/o multiple Orthopedic surgeries. S/p L fronto-temporal stereotactic craniotomy for tumor excision, stereotactic navigation; microdissection The renal functions are at her baseline (Cr 0.9). Electrolytes in acceptable range. The low anion gap most likely reflects Hypoalbuminemia. Off IV fluids. No specific therapies at this juncture. Will continue to monitor the renal functions. No objection to t/F out of ICU. Thank you. Yesica Diaz MD
--- NOTE | 2017-07-19 11:30 | PN ---
Teaching Attending Note Name of Resident: Jaye Villarreal ATTENDING PHYSICIAN STATEMENT I saw and evaluated the patient. I reviewed the resident's note and discussed the case with the resident. I agree with the resident's findings and plan as documented. SUBJECTIVE: Patient seen and examined in the ICU. POD #2 S/P craniectomy and debulking of tumor. Awake and alert and responsive. Reports TAVERAS that is about the same as yesterday. No dizziness. No CP or SOB. Intake & Output 07/16/17 07/17/17 07/18/17 07/19/17 23:59 23:59 23:59 23:59 Intake Total 740 1980 3340 1000 Output Total 1650 1300 Balance 514 433 4931 1000 Weight 191 lb 8 oz 190 lb 3 oz Last Vital Signs Temp Pulse Resp BP Pulse Ox 98.0 F 65 20 140/65 99 07/19/17 06:00 07/19/17 08:00 07/19/17 08:03 07/19/17 08:00 07/18/17 21:00 Active Medications Acetaminophen (Tylenol -) 650 mg PO Q6H PRN PRN Reason: PAIN LEVEL 6-10 Atorvastatin Calcium (Lipitor -) 10 mg PO HS [facility] Last Admin: 07/18/17 21:31 Dose: 10 mg Chlorhexidine Gluconate (Hibiclens For Decolonization -) 1 applic TP HS [facility] Last Admin: 07/18/17 21:31 Dose: 1 applic Dexamethasone Sodium Phosphate (Decadron Injection -) 4 mg IVPUSH Q6H-IV [facility] Last Admin: 07/19/17 09:11 Dose: 4 mg Diphenhydramine HCl (Benadryl -) 25 mg PO DAILY PRN PRN Reason: FOR ITCHING Docusate Sodium (Colace -) 100 mg PO TID [facility] Last Admin: 07/19/17 06:34 Dose: 100 mg Fentanyl (Sublimaze Injection -) 25 mcg IVPUSH [id number] PRN PRN Reason: PAIN Stop: 07/20/17 14:54 Vancomycin HCl 500 mg/ (Dextrose) 100 mls @ 100 mls/hr IVPB BID [facility] PRN Reason: Protocol Stop: 07/19/17 21:59 Insulin Aspart (Novolog Vial Sliding Scale -) 1 vial SQ ACHS [facility] PRN Reason: Protocol Last Admin: 07/19/17 11:13 Dose: 2 units Levetiracetam (Keppra -) 500 mg PO BID [facility] Last Admin: 07/19/17 09:11 Dose: 500 mg Levothyroxine Sodium (Synthroid -) 100 mcg PO DAILY@0700 [facility] Last Admin: 07/19/17 06:34 Dose: 100 mcg Losartan Potassium (Cozaar -) 25 mg PO DAILY [facility] Last Admin: 07/19/17 09:11 Dose: 25 mg Morphine Sulfate (Morphine Sulfate) 1 mg IVPUSH Q4H PRN PRN Reason: PAIN Mupirocin (Bactroban Ointment (For Decolonization) -) 1 applic NS BID [facility] Stop: 07/22/17 21:59 Last Admin: 07/19/17 09:14 Dose: 1 applic Nebivolol (Bystolic -) 2.5 mg PO DAILY [facility] Last Admin: 07/19/17 09:12 Dose: 2.5 mg Ondansetron HCl (Zofran Injection) 4 mg IVPUSH Q6H PRN PRN Reason: NAUSEA Pantoprazole Sodium (Protonix Iv) 40 mg IVPUSH BID [facility] Last Admin: 07/19/17 09:11 Dose: 40 mg Constitutional: Yes: No Distress, Awake and alert, Obese Eyes: Yes: Conjunctiva Clear, PERRL HENT: Yes: Other (Lt frontal dressing c/d/i) Neck: Yes: Supple Cardiovascular: Yes: Bradycardia Respiratory: Yes: Regular, On Nasal O2 Gastrointestinal: Yes: Soft, Abdomen, Obese Renal/: Yes: Daly Present Musculoskeletal: Yes: WNL Extremities: Yes: WNL Edema: No Integumentary: Yes: WNL Wound/Incision: Yes: Dressing Dry and Intact Neurological: Yes: Alert, Oriented ...Motor Strength: WNL, LUE, LLE, RUE, RLE Psychiatric: Yes: Alert, Oriented Labs: Laboratory Results - last 24 hr 07/18/17 07/18/17 07/18/17 11:38 12:40 16:37 WBC RBC Hgb Hct MCV MCH MCHC RDW Plt Count MPV Neutrophils % Lymphocytes % Sodium 139 Potassium 4.9 Chloride 105 Carbon Dioxide 22 Anion Gap 12 BUN 25 H Creatinine 0.9 Creat Clearance w eGFR POC Glucometer 163.84033 [phone] Random Glucose 147 H Calcium 7.8 L Total Bilirubin AST ALT Alkaline Phosphatase Total Protein Albumin 07/18/17 07/19/17 07/19/17 21:38 06:20 06:20 WBC 13.0 H RBC 4.11 Hgb 12.5 Hct 37.0 MCV 90.0 MCH 30.3 MCHC 33.7 RDW 15.8 H Plt Count 212 MPV 9.0 Neutrophils % No Result Required. Lymphocytes % No Result Required. Sodium 139 Potassium 4.8 Chloride 107 Carbon Dioxide 26 Anion Gap 6 L BUN 21 H Creatinine 0.9 Creat Clearance w eGFR 59.65 POC Glucometer [phone] Random Glucose 147 H Calcium 7.5 L Total Bilirubin 0.5 AST 16 ALT 40 D Alkaline Phosphatase 82 Total Protein 5.5 L Albumin 2.3 L 07/19/17 11:12 WBC RBC Hgb Hct MCV MCH MCHC RDW Plt Count MPV Neutrophils % Lymphocytes % Sodium Potassium Chloride Carbon Dioxide Anion Gap BUN Creatinine Creat Clearance w eGFR POC Glucometer 165 Random Glucose Calcium Total Bilirubin AST ALT Alkaline Phosphatase Total Protein Albumin Problem List - Problems (1) Brain mass Code(s): G93.9 - DISORDER OF BRAIN, UNSPECIFIED (2) Brain tumor Code(s): D49.6 - NEOPLASM OF UNSPECIFIED BEHAVIOR OF BRAIN Assessment/Plan POD #1 Left frontal/temporal stereotactic craniotomy with debulking of a large tumor HTN CHF Obesity COPD HPL Plan: Follow Neuro exam O2 as needed Mechanical VTE prophylaxis Aspiration precautions Pain management PO as tolerated BP control Floor Dr Almazan
[2017-07-19 11:38] LABS: METAMYELOCYTE 1 % (0-2); MYELOCYTE 1 % (0-2); PLATELET ESTIMATE ADEQUATE (NORMAL); TOTAL CELLS COUNTED 100
[2017-07-19] MEDS: VANCOMYCIN 500 MG in DEXTROSE 5%-WATER - 100 ML IVPB SCH (11:42)
--- NOTE | 2017-07-19 12:44 | PN ---
Progress Note, Physician Chief Complaint: on 8W axox3 NAD daughters at bedside; ate OK, looks great, no pain, in good spirits - Current Medication List Current Medications: Active Medications Acetaminophen (Tylenol -) 650 mg PO Q6H PRN PRN Reason: PAIN LEVEL 6-10 Atorvastatin Calcium (Lipitor -) 10 mg PO HS [facility] Last Admin: 07/18/17 21:31 Dose: 10 mg Chlorhexidine Gluconate (Hibiclens For Decolonization -) 1 applic TP HS [facility] Last Admin: 07/18/17 21:31 Dose: 1 applic Dexamethasone (Decadron -) 4 mg PO Q6HPO [facility] Diphenhydramine HCl (Benadryl -) 25 mg PO DAILY PRN PRN Reason: FOR ITCHING Docusate Sodium (Colace -) 100 mg PO TID [facility] Last Admin: 07/19/17 06:34 Dose: 100 mg Fentanyl (Sublimaze Injection -) 25 mcg IVPUSH [id number] PRN PRN Reason: PAIN Stop: 07/20/17 14:54 Insulin Aspart (Novolog Vial Sliding Scale -) 1 vial SQ ACHS [facility] PRN Reason: Protocol Last Admin: 07/19/17 11:13 Dose: 2 units Levetiracetam (Keppra -) 500 mg PO BID [facility] Last Admin: 07/19/17 09:11 Dose: 500 mg Levothyroxine Sodium (Synthroid -) 100 mcg PO DAILY@0700 [facility] Last Admin: 07/19/17 06:34 Dose: 100 mcg Losartan Potassium (Cozaar -) 25 mg PO DAILY [facility] Last Admin: 07/19/17 09:11 Dose: 25 mg Morphine Sulfate (Morphine Sulfate) 1 mg IVPUSH Q4H PRN PRN Reason: PAIN Nebivolol (Bystolic -) 2.5 mg PO DAILY [facility] Last Admin: 07/19/17 09:12 Dose: 2.5 mg Ondansetron HCl (Zofran Injection) 4 mg IVPUSH Q6H PRN PRN Reason: NAUSEA Pantoprazole Sodium (Protonix Iv) 40 mg IVPUSH BID [facility] Last Admin: 07/19/17 09:11 Dose: 40 mg - Objective Vital Signs: Vital Signs Temperature 98.0 F 07/19/17 06:00 Pulse Rate 65 07/19/17 08:00 Respiratory Rate 20 07/19/17 08:03 Blood Pressure 140/65 07/19/17 08:00 O2 Sat by Pulse Oximetry (%) 99 07/18/17 21:00 Constitutional: Yes: No Distress, Calm Eyes: Yes: Conjunctiva Clear HENT: Yes: Atraumatic Neck: Yes: Supple Cardiovascular: Yes: Regular Rate and Rhythm Respiratory: Yes: CTA Bilaterally Gastrointestinal: Yes: Soft. No: Tenderness Genitourinary: No: CVA Tenderness - Left, CVA Tenderness - Right Musculoskeletal: No: Joint Stiffness, Joint Swelling Extremities: No: Cold, Cool Edema: No Integumentary: No: Rash, Venous Stasis Changes Neurological: Yes: WNL, Alert, Oriented ...Motor Strength: WNL Psychiatric: Yes: WNL, Alert, Oriented. No: Agitated, Suicidal Ideation Labs: CBC, BMP 07/19/17 06:20 07/19/17 06:20 INR, PTT INR 1.06 (0.82-1.09) 07/14/17 05:35 - ....Imaging Other: Report Reviewed Assessment/Plan Ms. 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 Check BGM/ sq insulin as needed; gastric PFX PPIs as ordered Po [facility] for seizure PFX f/u labs heparin sq held PT rehab eval T time 40 min
--- NOTE | 2017-07-19 13:25 | PN ---
Physical Exam: SUBJECTIVE: Patient seen and examined in room. 24 hr events -Pt OOB to chair -has been using the bathroom on own, holly is d/c Today -PO Day 2, s/p craniotomy c/w glioma -Pt states that she has a headache still, but declines need for Tylenol -seen by Dr. Leonard, meds have been changed to PO, IV d/c -without focal neurologic deficits OBJECTIVE: Vital Signs Period Temp Pulse Resp BP Sys/Chaves Pulse Ox Last 24 Hr 97.6 F-98.4 F 50-65 16-23 116-164/48-70 99 GENERAL: The patient is awake, alert, and fully oriented, in no acute distress. In good spirits this AM HEAD: bandage on R side of head, PO day 2 EYES: PERRL, extraocular movements intact, sclera anicteric, conjunctiva clear. No ptosis. NECK: Trachea midline, supple. LUNGS: Breath sounds equal, clear to auscultation bilaterally, no wheezes, no crackles, no accessory muscle use. HEART: Regular rate and rhythm, S1, S2 without murmur, rub or gallop. ABDOMEN: Soft, nontender, nondistended, normoactive bowel sounds, no guarding, no rebound, no hepatosplenomegaly, no masses. EXTREMITIES: 2+ posterior tibial pulses, warm, well-perfused, no edema. NEUROLOGICAL: Cranial nerves II through XII grossly intact. sensation intact, without focal neurologic deficits Laboratory Results - last 24 hr 07/18/17 07/18/17 07/18/17 12:40 16:37 21:38 WBC RBC Hgb Hct MCV MCH MCHC RDW Plt Count MPV Total Counted Neutrophils % Neutrophils % (Manual) Lymphocytes % Lymphocytes % (Manual) Monocytes % (Manual) Myelocytes % (Man) Platelet Estimate Sodium 139 Potassium 4.9 Chloride 105 Carbon Dioxide 22 Anion Gap 12 BUN 25 H Creatinine 0.9 Creat Clearance w eGFR POC Glucometer 183.15268 193.14482 Random Glucose 147 H Calcium 7.8 L Total Bilirubin AST ALT Alkaline Phosphatase Total Protein Albumin 07/19/17 07/19/17 07/19/17 06:20 06:20 11:12 WBC 13.0 H RBC 4.11 Hgb 12.5 Hct 37.0 MCV 90.0 MCH 30.3 MCHC 33.7 RDW 15.8 H Plt Count 212 MPV 9.0 Total Counted 100 Neutrophils % No Result Required. Neutrophils % (Manual) 91 H* Lymphocytes % No Result Required. Lymphocytes % (Manual) 3 L Monocytes % (Manual) 4 Myelocytes % (Man) 1 Platelet Estimate Adequate Sodium 139 Potassium 4.8 Chloride 107 Carbon Dioxide 26 Anion Gap 6 L BUN 21 H Creatinine 0.9 Creat Clearance w eGFR 59.65 POC Glucometer 165 Random Glucose 147 H Calcium 7.5 L Total Bilirubin 0.5 AST 16 ALT 40 D Alkaline Phosphatase 82 Total Protein 5.5 L Albumin 2.3 L Active Medications Generic Name Dose Route Start Last Admin Trade Name Freq PRN Reason Stop Dose Admin Acetaminophen 650 mg 07/18/17 19:56 Tylenol - PO Q6H PRN PAIN LEVEL 6-10 Atorvastatin Calcium 10 mg 07/18/17 22:00 07/18/17 21:31 Lipitor - PO 10 mg HS GENI Administration Chlorhexidine Gluconate 1 applic 07/18/17 22:00 07/18/17 21:31 Hibiclens For Decolonization - TP 1 applic HS GENI Administration Dexamethasone 4 mg 07/19/17 16:00 Decadron - PO Q6HPO GENI Diphenhydramine HCl 25 mg 07/18/17 19:56 Benadryl - PO DAILY PRN FOR ITCHING Docusate Sodium 100 mg 07/18/17 22:00 07/19/17 06:34 Colace - PO 100 mg TID GENI Administration Fentanyl 25 mcg 07/18/17 19:56 Sublimaze Injection - IVPUSH 07/20/17 14:54 [id number] PRN PAIN Insulin Aspart 1 vial 07/18/17 22:00 07/19/17 11:13 Novolog Vial Sliding Scale - SQ 2 units ACHS GENI Administration Protocol Levetiracetam 500 mg 07/18/17 22:00 07/19/17 09:11 Keppra - PO 500 mg BID GENI Administration Levothyroxine Sodium 100 mcg 07/19/17 07:00 07/19/17 06:34 Synthroid - PO 100 mcg DAILY@0700 GENI Administration Losartan Potassium 25 mg 07/19/17 10:00 07/19/17 09:11 Cozaar - PO 25 mg DAILY GENI Administration Morphine Sulfate 1 mg 07/18/17 19:56 Morphine Sulfate IVPUSH Q4H PRN PAIN Nebivolol 2.5 mg 07/19/17 10:00 07/19/17 09:12 Bystolic - PO 2.5 mg DAILY GENI Administration Ondansetron HCl 4 mg 07/18/17 19:56 Zofran Injection IVPUSH Q6H PRN NAUSEA Pantoprazole Sodium 40 mg 07/18/17 22:00 07/19/17 09:11 Protonix Iv IVPUSH 40 mg BID GENI Administration ASSESSMENT/PLAN: 82 y/o F with PMHx of HTN, CHF, COPD, and HLD who presented to the hospital with generalized malaise and sudden onset of n/v/d and AMS. CT head significant for large left frontal lobe lesion with mass effect with multiple surrounding enhancing lesions. She is now s/p Lt fronto-temporal stereotactic craniotomy for excision of a large tumor with centrally necrotic portion that is c/w high grade glioma. She was admitted to ICU for post-op care. #NEURO s/p L frontotemporal stereotactic craniotomy c/w high grade glioma- PO Day 2 -AAOx3, no focal neurologic deficits, hosted services analyst 2-12 grossly intact -post-op Head CT (07/18): edema consistent with pre-op status, d/w Dr. Leonard -findings and path, potential adjuvant tx to be discussed w/pt -dexamethasone 4mg IVP q6h has been changed to PO dexamethasone 4mg q6h -continue pain control: morphine 1mg IVP q4h PRN, fentanyl, tylenol -frequent neurochecks -vanco abx post-op (only for 24hrs)- has been d/c #CARDIO HTN -Continue bystolic 2.5 mg PO daily -Losartan 25 mg PO daily -continue to monitor HLD -Continue lipitor 10 mg PO HS #Prophylaxis -DVT: early ambulation, OOB #F/E/N -IVF have been d/c -Monitor electrolytes -Diet has been advanced to regular diet Dispo Pt has been transferred out of ICU to floor ([facility]) for continued post-op care Visit type - Emergency Visit Emergency Visit: No - New Patient This patient is new to me today: No - Critical Care Critical Care patient: Yes Total Critical Care Time (in minutes): 40 Critical Care Statement: The care of this patient involved high complexity decision making to prevent further life threatening deterioration of the patient 's condition and/or to evaluate & treat vital organ system(s) failure or risk of failure.
[2017-07-19] MEDS: DEXAMETHASONE 4 MG TABLET (FP) PO SCH (15:13)
--- NOTE | 2017-07-19 15:52 | PATH ---
Surgical Pathology Report Patient Name: JENIFFER QUILES Med. Rec. #: [id number] /Age/Gender: 1935 (Age: 82) / F Account: [id number] Location: [facility] MED/SURG Taken: 07/17/2017 Received: 07/17/2017 Reported: 07/19/2017 Physicians: Keith Leonard M.D. Specimen(s) Received A: LEFT FRONTAL TUMOR B: LEFT FRONT TUMOR CENTER OF TUMOR C: LEFT FRONTAL TUMOR Clinical History Left frontal tumor Intraoperative Consult Diagnosis A. Brain, left frontal area, touch prep and frozen section: High grade glioma, discussed with Eligio (neuro PA) B. Left center of tumor, touch prep and frozen section: High grade glioma, discussed with Eligio (neuro PA) Dr. Meera Chou M.D., 07/17/17 Final Diagnosis A. 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 B. 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 C. BRAIN, LEFT FRONTAL TUMOR, BIOPSY: GLIOBLASTOMA (WHO GRADE IV). Electronically Signed Isabell Wills M.D. Gross Description A. Received fresh labeled "left frontal tumor for biopsy," is a 0.8 x 0.5 x 0.2 cm aggregate of valdez soft tissue fragments. A touch prep is performed and the specimen is entirely submitted for frozen section. The frozen section residue is entirely submitted in one cassette. B. Received fresh labeled "left frontal tumor center of tumor," is a 0.6 x 0.5 x 0.2 cm aggregate of valdez soft tissue fragments. A touch prep is performed and the specimen is entirely submitted for frozen section. The frozen section residue is entirely submitted in one cassette. C. Received in formalin labeled "left frontal tumor," is a 0.6 x 0.5 x 0.2 cm aggregate of valdez soft tissue fragments. The formalin is filtered and the specimen is entirely submitted in one cassette. /07/17/2017 saudi07/17/2017
--- NOTE | 2017-07-19 16:02 | PN ---
Progress Note (short form) - Note Progress Note: PAtient seen and examined Denies any complaints Last Vital Signs Temp Pulse Resp BP Pulse Ox 97.4 F L 64 18 139/65 99 07/19/17 15:21 07/19/17 15:21 07/19/17 15:21 07/19/17 15:21 07/18/17 21:00 Cor: RSR, No murmurs, No gallops Lungs: Clear to P&A Abd: Soft, Normal bowel sounds, No organomegaly Ext:No significant edema Skin: No rashes, Integument intact Abnormal Lab Results 07/19/17 07/19/17 06:20 06:20 WBC 13.0 H RDW 15.8 H Neutrophils % (Manual) 91 H* Lymphocytes % (Manual) 3 L Anion Gap 6 L BUN 21 H Random Glucose 147 H Calcium 7.5 L Total Protein 5.5 L Albumin 2.3 L Active Medications Generic Name Dose Route Start Last Admin Trade Name Freq PRN Reason Stop Dose Admin Acetaminophen 650 mg 07/18/17 19:56 Tylenol - PO Q6H PRN PAIN LEVEL 6-10 Atorvastatin Calcium 10 mg 07/18/17 22:00 07/18/17 21:31 Lipitor - PO 10 mg HS GENI Administration Chlorhexidine Gluconate 1 applic 07/18/17 22:00 07/18/17 21:31 Hibiclens For Decolonization - TP 1 applic HS GENI Administration Dexamethasone 4 mg 07/19/17 16:00 07/19/17 15:13 Decadron - PO 4 mg Q6HPO GENI Administration Diphenhydramine HCl 25 mg 07/18/17 19:56 Benadryl - PO DAILY PRN FOR ITCHING Docusate Sodium 100 mg 07/18/17 22:00 07/19/17 13:40 Colace - PO Not Given TID GENI Fentanyl 25 mcg 07/18/17 19:56 Sublimaze Injection - IVPUSH 07/20/17 14:54 [id number] PRN PAIN Insulin Aspart 1 vial 07/18/17 22:00 07/19/17 11:13 Novolog Vial Sliding Scale - SQ 2 units ACHS GENI Administration Protocol Levetiracetam 500 mg 07/18/17 22:00 07/19/17 09:11 Keppra - PO 500 mg BID GENI Administration Levothyroxine Sodium 100 mcg 07/19/17 07:00 07/19/17 06:34 Synthroid - PO 100 mcg DAILY@0700 GENI Administration Losartan Potassium 25 mg 07/19/17 10:00 07/19/17 09:11 Cozaar - PO 25 mg DAILY GENI Administration Morphine Sulfate 1 mg 07/18/17 19:56 Morphine Sulfate IVPUSH Q4H PRN PAIN Nebivolol 2.5 mg 07/19/17 10:00 07/19/17 09:12 Bystolic - PO 2.5 mg DAILY GENI Administration Ondansetron HCl 4 mg 07/18/17 19:56 Zofran Injection IVPUSH Q6H PRN NAUSEA Pantoprazole Sodium 40 mg 07/18/17 22:00 07/19/17 09:11 Protonix Iv IVPUSH 40 mg BID GENI Administration A/P 82 y/o patient with presumed GBM ( preliminarily on frozen section). awaiting final path. s/p debulking /biopsy CT chest/a/p --RLL nodule--continued f/u. Mammogram-- 06/09--nl Will need RT/ temodar in future
[2017-07-19] MEDS: ATORVASTATIN CA 10 MG TABLET (FP) PO SCH (21:02)
[2017-07-19] MEDS: CHLORHEXIDINE GLUCONATE 4% CLEANSER FOR DECOLONIZATION TP SCH (21:03)
[2017-07-20] MEDS: DEXAMETHASONE 4 MG TABLET (FP) PO SCH ×4 (00:53→21:59)
[2017-07-20] MEDS: LEVOTHYROXINE NA 100 MCG TABLET (FP) PO SCH (06:20)
[2017-07-20] MEDS: INSULIN SLIDING SCALE (NOVOLOG) 1 VIAL SQ SCH ×4 (06:20→21:58)
[2017-07-20] MEDS: DOCUSATE SODIUM 100 MG CAPSULE (FP) PO SCH ×3 (06:20→21:59)
[2017-07-20] MEDS ORDERED: INSULIN (NOVOLOG) ASPART 100 UNITS/ML 10ML VIAL ONE (06:45)
[2017-07-20 07:27] LABS: BASOPHIL 0.2 % (0-2.0); MCH 30.5 pg (25.7-33.7); MEAN CELL VOLUME 89.7 fl (80-96); MEAN PLT VOLUME 9.2 fl (7.5-11.1); NEUTROPHILS 84.1 % (42.8-82.8); PLATELET COUNT 189 K/MM3 (134-434); WHITE BLOOD COUNT 12.1 K/mm3 (4.0-10.0)
[2017-07-20 07:50] LABS: ANION GAP 9 (8-16); CALCIUM 7.3 mg/dL (8.5-10.1); CO2 23 mmol/L (21-32); CREATININE 0.7 mg/dL (0.55-1.02); GLUCOSE,RANDOM 125 mg/dL (74-106)
--- NOTE | 2017-07-20 09:42 | PN ---
Progress Note (short form) - Note Progress Note: NEUROSURGERY POD #3 On floor care Sitting up OOB Mild H/A Tolerating diet Family at bedside PE: AF, VSS HEENT- NC/AT; Neck- supple; Cor- RR; Lungs- CTA; Abd- benign; Ext- no sign of DVT Awake/alert/Oriented x3 Speech fluent; no anomia CN- intact (mildly decreased hearing B); Motor- 5/5 without drift; Sensation- intact LT; DTR- hyporeflexic Frozen- high grade glioma c/w GBM, check final path Head CT- postop changes L frontal lobe with hyperdensity and edema as expected po steroid down to 4 mg bid through RT Floor care Cont Keppra D/C suture in about 1 week prior to initiation of RT
[2017-07-20] MEDS ORDERED: PT OWN MED DRAWER 7, Y5N ONE (09:49)
[2017-07-20] MEDS: NEBIVOLOL 2.5 MG TABLET (FP) PO SCH (09:53)
[2017-07-20] MEDS: LOSARTAN POTASSIUM 25 MG TABLET PO SCH (09:54)
[2017-07-20] MEDS: levETIRAcetam 500 MG TABLET (FP) PO SCH ×2 (09:54→21:59)
[2017-07-20] MEDS: PANTOPRAZOLE SODIUM 40 MG VIAL IVPUSH SCH ×2 (09:54→22:00)
--- NOTE | 2017-07-20 10:13 | PN ---
Progress Note (short form) - Note Progress Note: POD #3 S/P craniectomy and debulking of tumor. Reports Mild TAVERAS that is about the same as yesterday. No dizziness. No CP or SOB. Intake & Output 07/17/17 07/18/17 07/19/17 07/20/17 23:59 23:59 23:59 23:59 Intake Total 1980 3340 1480 200 Output Total 1650 1300 Balance 330 2040 1480 200 Weight 191 lb 8 oz 190 lb 3 oz Last Vital Signs Temp Pulse Resp BP Pulse Ox 97.7 F 68 20 139/58 98 07/20/17 08:10 07/20/17 08:10 07/20/17 08:10 07/20/17 08:10 07/19/17 21:00 Active Medications Acetaminophen (Tylenol -) 650 mg PO Q6H PRN PRN Reason: PAIN LEVEL 6-10 Atorvastatin Calcium (Lipitor -) 10 mg PO HS [facility] Last Admin: 07/19/17 21:02 Dose: 10 mg Chlorhexidine Gluconate (Hibiclens For Decolonization -) 1 applic TP [facility] Last Admin: 07/19/17 21:03 Dose: Not Given Dexamethasone (Decadron -) 4 mg PO TID [facility] Diphenhydramine HCl (Benadryl -) 25 mg PO DAILY PRN PRN Reason: FOR ITCHING Docusate Sodium (Colace -) 100 mg PO TID [facility] Last Admin: 07/20/17 06:20 Dose: 100 mg Fentanyl (Sublimaze Injection -) 25 mcg IVPUSH [id number] PRN PRN Reason: PAIN Stop: 07/20/17 14:54 Insulin Aspart (Novolog Vial Sliding Scale -) 1 vial SQ ACHS [facility] PRN Reason: Protocol Last Admin: 07/20/17 06:20 Dose: Not Given Levetiracetam (Keppra -) 500 mg PO BID [facility] Last Admin: 07/20/17 09:54 Dose: 500 mg Levothyroxine Sodium (Synthroid -) 100 mcg PO DAILY@0700 [facility] Last Admin: 07/20/17 06:20 Dose: 100 mcg Losartan Potassium (Cozaar -) 25 mg PO DAILY [facility] Last Admin: 07/20/17 09:54 Dose: 25 mg Morphine Sulfate (Morphine Sulfate) 1 mg IVPUSH Q4H PRN PRN Reason: PAIN Nebivolol (Bystolic -) 2.5 mg PO DAILY [facility] Last Admin: 07/20/17 09:53 Dose: 2.5 mg Ondansetron HCl (Zofran Injection) 4 mg IVPUSH Q6H PRN PRN Reason: NAUSEA Pantoprazole Sodium (Protonix Iv) 40 mg IVPUSH BID [facility] Last Admin: 07/20/17 09:54 Dose: 40 mg Constitutional: Yes: No Distress, Awake and alert, Obese Eyes: Yes: Conjunctiva Clear, PERRL HENT: Yes: Other (Lt frontal dressing c/d/i) Neck: Yes: Supple Cardiovascular: Yes: Bradycardia Respiratory: Yes: Regular, On Nasal O2 Gastrointestinal: Yes: Soft, Abdomen, Obese Renal/: Yes: Daly Present Musculoskeletal: Yes: WNL Extremities: Yes: WNL Edema: No Integumentary: Yes: WNL Wound/Incision: Yes: Dressing Dry and Intact Neurological: Yes: Alert, Oriented ...Motor Strength: WNL, LUE, LLE, RUE, RLE Psychiatric: Yes: Alert, Oriented Labs: Laboratory Results - last 24 hr 07/19/17 07/19/17 07/19/17 06:20 06:23 11:12 WBC 13.0 H RBC 4.11 Hgb 12.5 Hct 37.0 MCV 90.0 MCH 30.3 MCHC 33.7 RDW 15.8 H Plt Count 212 MPV 9.0 Total Counted 100 Neutrophils % Neutrophils % (Manual) 91 H* Lymphocytes % Lymphocytes % (Manual) 3 L Monocytes % Monocytes % (Manual) 4 Eosinophils % Basophils % Myelocytes % (Man) 1 Platelet Estimate Adequate Sodium Potassium Chloride Carbon Dioxide Anion Gap BUN Creatinine POC Glucometer 164.88450 165 Random Glucose Calcium 07/19/17 07/19/17 07/20/17 16:18 21:04 06:00 WBC 12.1 H RBC 3.63 Hgb 11.1 D Hct 32.5 MCV 89.7 MCH 30.5 MCHC 34.0 RDW 16.0 H Plt Count 189 MPV 9.2 Total Counted Neutrophils % 84.1 H Neutrophils % (Manual) Lymphocytes % 7.2 L D Lymphocytes % (Manual) Monocytes % 8.5 Monocytes % (Manual) Eosinophils % 0.0 Basophils % 0.2 Myelocytes % (Man) Platelet Estimate Sodium Potassium Chloride Carbon Dioxide Anion Gap BUN Creatinine POC Glucometer 152 155 Random Glucose Calcium 07/20/17 07/20/17 06:00 06:19 WBC RBC Hgb Hct MCV MCH MCHC RDW Plt Count MPV Total Counted Neutrophils % Neutrophils % (Manual) Lymphocytes % Lymphocytes % (Manual) Monocytes % Monocytes % (Manual) Eosinophils % Basophils % Myelocytes % (Man) Platelet Estimate Sodium 140 Potassium 4.3 Chloride 108 H Carbon Dioxide 23 Anion Gap 9 BUN 20 H Creatinine 0.7 D POC Glucometer 118 Random Glucose 125 H Calcium 7.3 L Problem List - Problems (1) Brain mass Code(s): G93.9 - DISORDER OF BRAIN, UNSPECIFIED (2) Brain tumor Code(s): D49.6 - NEOPLASM OF UNSPECIFIED BEHAVIOR OF BRAIN Assessment/Plan POD #1 Left frontal/temporal stereotactic craniotomy with debulking of a large tumor HTN CHF Obesity COPD HPL Plan: Follow Neuro exam O2 as needed VTE prophylaxis Aspiration precautions Pain control PO as tolerated Dr Almazan
--- NOTE | 2017-07-20 12:19 | PN ---
Progress Note, Physician Chief Complaint: OOB to chair ate OK, had BM; slept OK, no pain; axox3 in good spirits - Current Medication List Current Medications: Active Medications Acetaminophen (Tylenol -) 650 mg PO Q6H PRN PRN Reason: PAIN LEVEL 6-10 Atorvastatin Calcium (Lipitor -) 10 mg PO HS [facility] Last Admin: 07/19/17 21:02 Dose: 10 mg Chlorhexidine Gluconate (Hibiclens For Decolonization -) 1 applic TP [facility] Last Admin: 07/19/17 21:03 Dose: Not Given Dexamethasone (Decadron -) 4 mg PO TID [facility] Diphenhydramine HCl (Benadryl -) 25 mg PO DAILY PRN PRN Reason: FOR ITCHING Docusate Sodium (Colace -) 100 mg PO TID [facility] Last Admin: 07/20/17 06:20 Dose: 100 mg Fentanyl (Sublimaze Injection -) 25 mcg IVPUSH [id number] PRN PRN Reason: PAIN Stop: 07/20/17 14:54 Insulin Aspart (Novolog Vial Sliding Scale -) 1 vial SQ ACHS [facility] PRN Reason: Protocol Last Admin: 07/20/17 06:20 Dose: Not Given Levetiracetam (Keppra -) 500 mg PO BID [facility] Last Admin: 07/20/17 09:54 Dose: 500 mg Levothyroxine Sodium (Synthroid -) 100 mcg PO DAILY@0700 [facility] Last Admin: 07/20/17 06:20 Dose: 100 mcg Losartan Potassium (Cozaar -) 25 mg PO DAILY [facility] Last Admin: 07/20/17 09:54 Dose: 25 mg Morphine Sulfate (Morphine Sulfate) 1 mg IVPUSH Q4H PRN PRN Reason: PAIN Nebivolol (Bystolic -) 2.5 mg PO DAILY [facility] Last Admin: 07/20/17 09:53 Dose: 2.5 mg Ondansetron HCl (Zofran Injection) 4 mg IVPUSH Q6H PRN PRN Reason: NAUSEA Pantoprazole Sodium (Protonix Iv) 40 mg IVPUSH BID [facility] Last Admin: 07/20/17 09:54 Dose: 40 mg - Objective Vital Signs: Vital Signs Temperature 98.2 F 07/20/17 09:00 Pulse Rate 71 07/20/17 09:00 Respiratory Rate 18 07/20/17 09:00 Blood Pressure 143/61 07/20/17 09:00 O2 Sat by Pulse Oximetry (%) 98 07/19/17 21:00 Constitutional: Yes: No Distress, Calm Eyes: Yes: Conjunctiva Clear HENT: Yes: Atraumatic Neck: Yes: Supple Cardiovascular: Yes: Regular Rate and Rhythm Respiratory: Yes: CTA Bilaterally Gastrointestinal: Yes: Soft. No: Tenderness Genitourinary: No: Hematuria Musculoskeletal: No: Joint Stiffness, Joint Swelling Extremities: No: Cold, Cool, Cyanosis Edema: No Integumentary: No: Rash, Venous Stasis Changes Neurological: Yes: WNL, Alert, Oriented ...Motor Strength: WNL Psychiatric: Yes: WNL, Alert, Oriented. No: Agitated, Suicidal Ideation Labs: CBC, BMP 07/20/17 06:00 07/20/17 06:00 INR, PTT INR 1.06 (0.82-1.09) 07/14/17 05:35 - ....Imaging Other: Report Reviewed Assessment/Plan Ms. 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 Check BGM/ sq insulin as needed; gastric PFX PPIs as ordered Po keppra for seizure PFX f/u labs heparin sq held PT rehab eval
[2017-07-20] MEDS: CHLORHEXIDINE GLUCONATE 4% CLEANSER FOR DECOLONIZATION TP SCH (21:59)
[2017-07-20] MEDS: ATORVASTATIN CA 10 MG TABLET (FP) PO SCH (21:59)
--- NOTE | 2017-07-20 22:23 | PN ---
Progress Note, Physician History of Present Illness: Denies complaints. - Current Medication List Current Medications: Active Medications Acetaminophen (Tylenol -) 650 mg PO Q6H PRN PRN Reason: PAIN LEVEL 6-10 Atorvastatin Calcium (Lipitor -) 10 mg PO HS [facility] Last Admin: 07/20/17 21:59 Dose: 10 mg Chlorhexidine Gluconate (Hibiclens For Decolonization -) 1 applic TP HS [facility] Last Admin: 07/20/17 21:59 Dose: Not Given Dexamethasone (Decadron -) 4 mg PO TID [facility] Last Admin: 07/20/17 21:59 Dose: 4 mg Diphenhydramine HCl (Benadryl -) 25 mg PO DAILY PRN PRN Reason: FOR ITCHING Docusate Sodium (Colace -) 100 mg PO TID [facility] Last Admin: 07/20/17 21:59 Dose: 100 mg Insulin Aspart (Novolog Vial Sliding Scale -) 1 vial SQ ACHS [facility] PRN Reason: Protocol Last Admin: 07/20/17 21:58 Dose: 2 units Levetiracetam (Keppra -) 500 mg PO BID [facility] Last Admin: 07/20/17 21:59 Dose: 500 mg Levothyroxine Sodium (Synthroid -) 100 mcg PO DAILY@0700 [facility] Last Admin: 07/20/17 06:20 Dose: 100 mcg Losartan Potassium (Cozaar -) 25 mg PO DAILY [facility] Last Admin: 07/20/17 09:54 Dose: 25 mg Morphine Sulfate (Morphine Sulfate) 1 mg IVPUSH Q4H PRN PRN Reason: PAIN Nebivolol (Bystolic -) 2.5 mg PO DAILY [facility] Last Admin: 07/20/17 09:53 Dose: 2.5 mg Ondansetron HCl (Zofran Injection) 4 mg IVPUSH Q6H PRN PRN Reason: NAUSEA Pantoprazole Sodium (Protonix Iv) 40 mg IVPUSH BID [facility] Last Admin: 07/20/17 22:00 Dose: 40 mg - Objective Vital Signs: Vital Signs Temperature 97.6 F 07/20/17 17:20 Pulse Rate 65 07/20/17 17:20 Respiratory Rate 20 07/20/17 17:20 Blood Pressure 136/59 07/20/17 17:20 O2 Sat by Pulse Oximetry (%) 98 07/19/17 21:00 Constitutional: Yes: No Distress, Calm Neck: Yes: Supple Cardiovascular: Yes: Regular Rate and Rhythm Respiratory: Yes: Regular, Diminished Gastrointestinal: Yes: Normal Bowel Sounds, Soft Edema: No Labs: CBC, BMP 07/20/17 06:00 07/20/17 06:00 INR, PTT INR 1.06 (0.82-1.09) 07/14/17 05:35 Problem List - Problems (1) Acute kidney injury Code(s): N17.9 - ACUTE KIDNEY FAILURE, UNSPECIFIED (2) Brain mass Code(s): G93.9 - DISORDER OF BRAIN, UNSPECIFIED (3) COPD (chronic obstructive pulmonary disease) with chronic bronchitis Code(s): J44.9 - CHRONIC OBSTRUCTIVE PULMONARY DISEASE, UNSPECIFIED (4) Diastolic dysfunction Code(s): I51.9 - HEART DISEASE, UNSPECIFIED (5) Hyperlipidemia Code(s): E78.5 - HYPERLIPIDEMIA, UNSPECIFIED Qualifiers: Hyperlipidemia type: pure hypercholesterolemia Qualified Code(s): E78.00 - Pure hypercholesterolemia, unspecified; E78.00 - Pure hypercholesterolemia, unspecified; E78.00 - Pure hypercholesterolemia, unspecified; E78.0 - Pure hypercholesterolemia (6) Hypertension Code(s): I10 - ESSENTIAL (PRIMARY) HYPERTENSION Qualifiers: Hypertension type: essential hypertension Qualified Code(s): I10 - Essential (primary) hypertension; I10 - Essential (primary) hypertension; I10 - Essential (primary) hypertension (7) Hypothyroidism Code(s): E03.9 - HYPOTHYROIDISM, UNSPECIFIED Qualifiers: 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 Qualified Code(s): E03.8 - Other specified hypothyroidism; E03.8 - Other specified hypothyroidism; E03.8 - Other specified hypothyroidism; E06.3 - Autoimmune thyroiditis; E06.3 - Autoimmune thyroiditis; E06.3 - Autoimmune thyroiditis (8) Status post craniotomy Code(s): Z98.890 - OTHER SPECIFIED POSTPROCEDURAL STATES Assessment/Plan Head CT 11/2016- mild atrophy; no bleed; no fx; no clear mass lesion Head CT 06/2017- 3 cm hyperdense subcortical lesion with mass effect and mild shift; + associated edema MRI- L frontal 3 x 5 cm irregularly enhancing lesion extending across the corpus callosum with associated edema and mass effect; some satellite lesions Head CT- post-op changes L frontal lobe with hyperdensity and edema as expected 1. POD #3 post left frontal GBM tumor excision 2. CAD angina pectoris, stable 3. Diastolic LV dysfunction with chronic class I NYHA classification LV failure , compensated/euvolemic 4. HTN 5. Hypercholesterolemia 6. Hypothyroidism 7. COPD 8. Acute on chronic kidney insufficiency resolved 9. Hyperkalemia resolved PLAN: 1. Continue Bystolic 2.5 qd 2. Continue Cozaar 25 qd with close monitoring of renal function and K 3. Continue Lipitor 10 qhs 4. Oral steroids with GI protection and seizure prophylaxis, post-op care 5. DVT prophylaxis 6. Plan for eventual IMRT and Temodar chemo
[2017-07-21] MEDS: DOCUSATE SODIUM 100 MG CAPSULE (FP) PO SCH ×3 (06:19→22:00)
[2017-07-21] MEDS: DEXAMETHASONE 4 MG TABLET (FP) PO SCH ×3 (06:19→22:00)
[2017-07-21] MEDS: LEVOTHYROXINE NA 100 MCG TABLET (FP) PO SCH (06:19)
[2017-07-21] MEDS: INSULIN SLIDING SCALE (NOVOLOG) 1 VIAL SQ SCH ×4 (06:20→22:05)
[2017-07-21 07:36] LABS: BASOPHIL 0.1 % (0-2.0); EOSINOPHIL 0.1 % (0-4.5); MCH 30.4 pg (25.7-33.7); MCHC 33.9 g/dl (32.0-36.0); MEAN CELL VOLUME 89.5 fl (80-96); MEAN PLT VOLUME 9.2 fl (7.5-11.1); NEUTROPHILS 80.1 % (42.8-82.8); PLATELET COUNT 182 K/MM3 (134-434); RDW 15.8 % (11.6-15.6); WHITE BLOOD COUNT 11.8 K/mm3 (4.0-10.0)
[2017-07-21 08:18] LABS: ALBUMIN 1.9 g/dl (3.4-5.0); ANION GAP 6 (8-16); CO2 25 mmol/L (21-32); GLUCOSE,RANDOM 101 mg/dL (74-106)
[2017-07-21 08:23] LABS: ALK PHOS 74 U/L (45-117); BILIRUBIN,TOTAL 0.6 mg/dL (0.2-1.0); CREATININE 0.8 mg/dL (0.55-1.02); SGOT/AST 11 U/L (15-37); SGPT/ALT 28 U/L (12-78); TOT PROT 4.4 g/dl (6.4-8.2)
--- NOTE | 2017-07-21 08:39 | PN ---
Progress Note (short form) - Note Progress Note: NEUROSURGERY POD #4 No BM yet Sitting up OOB No complaint Tolerating diet PE: AF, VSS HEENT- NC/AT; Neck- supple; Cor- RR; Lungs- CTA; Abd- benign; Ext- no sign of DVT Awake/alert/Oriented x3 Speech fluent; no anomia CN- intact (mildly decreased hearing B); Motor- 5/5 without drift; Sensation- intact LT; DTR- hyporeflexic Frozen- high grade glioma c/w GBM, check final path Head CT- postop changes L frontal lobe with hyperdensity and edema as expected po steroid down to 4 mg bid through RT Floor care Cont Keppra Bowel regimen D/C suture in about 5-6 week prior to initiation of RT
[2017-07-21] MEDS: LOSARTAN POTASSIUM 25 MG TABLET PO SCH (09:25)
[2017-07-21] MEDS: NEBIVOLOL 2.5 MG TABLET (FP) PO SCH (09:25)
[2017-07-21] MEDS: levETIRAcetam 500 MG TABLET (FP) PO SCH (09:25)
[2017-07-21] MEDS: PANTOPRAZOLE SODIUM 40 MG VIAL IVPUSH SCH ×2 (09:26→13:30)
--- NOTE | 2017-07-21 10:09 | PN ---
Progress Note, Physician Chief Complaint: OOB to chair feels great no c/o no headaches, nonfocal. Ate and slept OK d/w neuro will switch keppra to depakote d/w NS - to DC simon 1 week before staring RT d/w pt and daughters - Current Medication List Current Medications: Active Medications Acetaminophen (Tylenol -) 650 mg PO Q6H PRN PRN Reason: PAIN LEVEL 6-10 Atorvastatin Calcium (Lipitor -) 10 mg PO HS [facility] Last Admin: 07/20/17 21:59 Dose: 10 mg Chlorhexidine Gluconate (Hibiclens For Decolonization -) 1 applic TP [facility] Last Admin: 07/20/17 21:59 Dose: Not Given Dexamethasone (Decadron -) 4 mg PO TID [facility] Last Admin: 07/21/17 06:19 Dose: 4 mg Diphenhydramine HCl (Benadryl -) 25 mg PO DAILY PRN PRN Reason: FOR ITCHING Docusate Sodium (Colace -) 100 mg PO TID [facility] Last Admin: 07/21/17 06:19 Dose: 100 mg Insulin Aspart (Novolog Vial Sliding Scale -) 1 vial SQ ACHS [facility] PRN Reason: Protocol Last Admin: 07/21/17 06:20 Dose: Not Given Levetiracetam (Keppra -) 500 mg PO BID [facility] Last Admin: 07/21/17 09:25 Dose: 500 mg Levothyroxine Sodium (Synthroid -) 100 mcg PO DAILY@0700 [facility] Last Admin: 07/21/17 06:19 Dose: 100 mcg Losartan Potassium (Cozaar -) 25 mg PO DAILY [facility] Last Admin: 07/21/17 09:25 Dose: 25 mg Morphine Sulfate (Morphine Sulfate) 1 mg IVPUSH Q4H PRN PRN Reason: PAIN Nebivolol (Bystolic -) 2.5 mg PO DAILY [facility] Last Admin: 07/21/17 09:25 Dose: 2.5 mg Ondansetron HCl (Zofran Injection) 4 mg IVPUSH Q6H PRN PRN Reason: NAUSEA Pantoprazole Sodium (Protonix Iv) 40 mg IVPUSH BID [facility] Last Admin: 07/21/17 09:26 Dose: 40 mg - Objective Vital Signs: Vital Signs Temperature 97.9 F 07/21/17 06:00 Pulse Rate 67 07/21/17 06:00 Respiratory Rate 18 07/21/17 06:00 Blood Pressure 137/64 07/21/17 06:00 O2 Sat by Pulse Oximetry (%) 98 07/20/17 21:00 Constitutional: Yes: No Distress, Calm Eyes: Yes: Conjunctiva Clear HENT: Yes: Atraumatic Neck: Yes: Supple Cardiovascular: Yes: Regular Rate and Rhythm Respiratory: Yes: CTA Bilaterally Gastrointestinal: Yes: Soft. No: Distention, Tenderness Genitourinary: No: CVA Tenderness - Left, CVA Tenderness - Right, Hematuria Musculoskeletal: No: Joint Stiffness, Joint Swelling Extremities: No: Cold, Cool, Cyanosis Edema: No Integumentary: No: Rash, Venous Stasis Changes Neurological: Yes: WNL, Alert, Oriented ...Motor Strength: WNL Psychiatric: Yes: WNL, Alert, Oriented. No: Agitated, Suicidal Ideation Labs: CBC, BMP 07/21/17 06:00 07/21/17 06:00 INR, PTT INR 1.06 (0.82-1.09) 07/14/17 05:35 - ....Imaging Other: Report Reviewed Assessment/Plan Ms. Waldrop is an 82 yo female with a significant past medical history of HTN, dyastolic CHF, COPD, and hyperlipidemia who was admitted with L frontal mass 7 cm on MRI with surrounding edema and some midline shift; ARF/CRF dehydration; s/p brain tumor debulking d/w NS and neurology see above high grade GBM Neurology, renal, cardiology and pulmonary f/u po steroids. Check BGM/ sq insulin as needed; gastric PFX PPIs po as ordered Po depakote for seizure PFX f/u labs heparin sq held PT rehab eval
--- NOTE | 2017-07-21 10:21 | PN ---
Progress Note (short form) - Note Progress Note: POD #4 S/P craniectomy and debulking of tumor. No complaints. No dizziness. No CP or SOB. Intake & Output 07/18/17 07/19/17 07/20/17 07/21/17 23:59 23:59 23:59 23:59 Intake Total 3340 1480 800 200 Output Total 1300 Balance 2040 1480 800 200 Weight 191 lb 8 oz 190 lb 3 oz 191 lb 194 lb 12.8 oz Last Vital Signs Temp Pulse Resp BP Pulse Ox 97.9 F 67 18 137/64 98 07/21/17 06:00 07/21/17 06:00 07/21/17 06:00 07/21/17 06:00 07/20/17 21:00 Active Medications Acetaminophen (Tylenol -) 650 mg PO Q6H PRN PRN Reason: PAIN LEVEL 6-10 Atorvastatin Calcium (Lipitor -) 10 mg PO HS [facility] Last Admin: 07/20/17 21:59 Dose: 10 mg Chlorhexidine Gluconate (Hibiclens For Decolonization -) [address] [facility] Last Admin: 07/20/17 21:59 Dose: Not Given Dexamethasone (Decadron -) 4 mg PO TID [facility] Last Admin: 07/21/17 06:19 Dose: 4 mg Diphenhydramine HCl (Benadryl -) 25 mg PO DAILY PRN PRN Reason: FOR ITCHING Docusate Sodium (Colace -) 100 mg PO TID [facility] Last Admin: 07/21/17 06:19 Dose: 100 mg Insulin Aspart (Novolog Vial Sliding Scale -) 1 vial SQ ACHS [facility] PRN Reason: Protocol Last Admin: 07/21/17 06:20 Dose: Not Given Levetiracetam (Keppra -) 500 mg PO BID [facility] Last Admin: 07/21/17 09:25 Dose: 500 mg Levothyroxine Sodium (Synthroid -) 100 mcg PO DAILY@0700 [facility] Last Admin: 07/21/17 06:19 Dose: 100 mcg Losartan Potassium (Cozaar -) 25 mg PO DAILY [facility] Last Admin: 07/21/17 09:25 Dose: 25 mg Morphine Sulfate (Morphine Sulfate) 1 mg IVPUSH Q4H PRN PRN Reason: PAIN Nebivolol (Bystolic -) 2.5 mg PO DAILY [facility] Last Admin: 07/21/17 09:25 Dose: 2.5 mg Ondansetron HCl (Zofran Injection) 4 mg IVPUSH Q6H PRN PRN Reason: NAUSEA Pantoprazole Sodium (Protonix Iv) 40 mg IVPUSH BID [facility] Last Admin: 07/21/17 09:26 Dose: 40 mg Constitutional: Yes: No Distress, Awake and alert, Obese Eyes: Yes: Conjunctiva Clear, PERRL HENT: Yes: Other (Lt frontal dressing c/d/i) Neck: Yes: Supple Cardiovascular: Yes: Bradycardia Respiratory: Yes: Regular, On Nasal O2 Gastrointestinal: Yes: Soft, Abdomen, Obese Renal/: Yes: Daly Present Musculoskeletal: Yes: WNL Extremities: Yes: WNL Edema: No Integumentary: Yes: WNL Wound/Incision: Yes: Dressing Dry and Intact Neurological: Yes: Alert, Oriented ...Motor Strength: WNL, LUE, LLE, RUE, RLE Psychiatric: Yes: Alert, Oriented Labs: Laboratory Results - last 24 hr 07/20/17 07/20/17 07/20/17 11:20 17:01 21:58 WBC RBC Hgb Hct MCV MCH MCHC RDW Plt Count MPV Neutrophils % Lymphocytes % Monocytes % Eosinophils % Basophils % Sodium Potassium Chloride Carbon Dioxide Anion Gap BUN Creatinine Creat Clearance w eGFR POC Glucometer 188 110 166 Random Glucose Calcium Total Bilirubin AST ALT Alkaline Phosphatase Total Protein Albumin 07/21/17 07/21/17 07/21/17 06:00 06:00 06:18 WBC 11.8 H RBC 3.46 L Hgb 10.5 L Hct 31.0 L MCV 89.5 MCH 30.4 MCHC 33.9 RDW 15.8 H Plt Count 182 MPV 9.2 Neutrophils % 80.1 Lymphocytes % 9.3 D Monocytes % 10.4 H Eosinophils % 0.1 D Basophils % 0.1 Sodium 139 Potassium 4.3 Chloride 108 H Carbon Dioxide 25 Anion Gap 6 L BUN 24 H Creatinine 0.8 Creat Clearance w eGFR > 60 POC Glucometer 108 Random Glucose 101 Calcium 7.0 L Total Bilirubin 0.6 AST 11 L D ALT 28 D Alkaline Phosphatase 74 Total Protein 4.4 L Albumin 1.9 L Problem List - Problems (1) Brain mass Code(s): G93.9 - DISORDER OF BRAIN, UNSPECIFIED (2) Brain tumor Code(s): D49.6 - NEOPLASM OF UNSPECIFIED BEHAVIOR OF BRAIN Assessment/Plan POD #4 Left frontal/temporal stereotactic craniotomy with debulking of a large tumor HTN CHF Obesity COPD HPL Plan: O2 as needed VTE prophylaxis Aspiration precautions Incentive Spirometry Dr Almazan
--- NOTE | 2017-07-21 12:59 | PN ---
Progress Note (short form) - Note Progress Note: HPI: 82 year old female with a significant PMH of HTN, CHF, COPD, and hyperlipidemia who presents to the emergency department with generalized malaise beginning approximately 2 days ago. Reports malaise began at dinner with a sudden isolated episode of nausea, vomiting, and diarrhea, after which patient reports feeling off. as per chart, Patients daughters also report 2 weeks of intermittent confused language. Pt denies TAVERAS or focal weakness. she smiles and is attentive and becomes slightly confused with conversation. denies breathing c/o. no known cancer CT HD IMPRESSION: In comparison to a prior noncontrast CT study of 11/29/2016 interval development of an approximately 3 cm left frontal subcortical mass lesion is noted with probable involvement of the corpus callosum. Moderate to marked perilesional edema is seen. There is mild to moderate contralateral midline displacement. This finding is probably more likely on the basis of primary neoplastic disease rather than metastatic neoplastic disease. Additional evaluation utilizing contrast enhanced MRI or CT is suggested. MRI BRAIN : Impression: Large enhancing solid intra-axial lesion in the left frontal lobe 7 cm in its largest diameter extending through the anterior aspect of the corpus callosum into the right frontal lobe with extensive perifocal edema with mass effect on the left lateral ventricle. Also noted multiple enhancing nodules surrounding the lesion most probably related to the same lesion in the left frontal lobe as evident on post contrast image #19 and image #20. Findings are suspicious of a large glioblastoma multiform or large metastatic lesion. Correlation with clinical history and comparison with prior MRI recommended. When prior MRI became available an addendum will be dictated. Diffusion pulse is unremarkable no evidence acute infarction. No evidence otherwise of intracerebral hemorrhage, subdural fluid collection or hydrocephalus. No evidence of acute infarction. HD CT 07/18/17 Interval left frontal craniotomy is noted in comparison to a previous CT study of 07/12/2017. A small amount of scattered blood is now seen within the left frontal subcortical mass lesion. Nasal site small subdural collection subjacent to the craniotomy flap containing a trace amount of blood, fluid and air. As on the prior study there is moderate to marked perilesional edema with moderate rightward midline displacement. Involvement of the corpus callosum is again noted. No obstructive hydrocephalus is seen. IMPRESSION: Interval postsurgical changes are seen as discussed above. FU: s/p debulking surgery, smiling and conversive, slight word finding difficulty, no focal weakness no TAVERAS or seizures - History Source History Provided By: Patient, Medical Record - Past Medical History Cardio/Vascular: Yes: HTN, Hyperlipdemia, Pulmonary Hypertension Pulmonary: Yes: COPD Gastrointestinal: Yes: Other (colon polyps) Musculoskeletal: Yes: Chronic low back pain, Osteoarthritis Endocrine: Yes: Hypothyroidism - Past Surgical History Past Surgical History: Yes: Joint Replacement - Alcohol/Substance Use Hx Alcohol Use: No History of Substance Use: reports: None - Smoking History Smoking history: Never smoked Have you smoked in the past 12 months: No Aproximately how many cigarettes per day: 0 If you are a former smoker, when did you quit?: 30 years ago - Social History ADL: Family Assistance (madeline lives close by) Occupation: retired History of Recent Travel: No Home Medications - Allergies Allergies/Adverse Reactions: Allergies Allergy/AdvReac Type Severity Reaction Status Date / Time Shellfish Allergy Verified 07/12/17 10:27 levofloxacin [From Levaquin] AdvReac Unknown Verified 07/12/17 10:27 ceftriaxone sodium AdvReac ERYTHEMA,IT Verified 07/12/17 10:27 [From Rocephin] GIRMA,URTIC ARIA codeine [Codeine] AdvReac Nausea Verified 07/12/17 10:27 SHRIMP Allergy Uncoded 07/12/17 10:27 - Home Medications Home Medications: Ambulatory Orders Losartan Potassium [Cozaar] 25 mg PO DAILY 10/09/15 Montelukast Sodium [Singulair] 10 mg PO HS 10/09/15 Pravastatin Sodium [Pravachol -] 40 mg PO HS 10/09/15 Ranitidine HCl [Zantac] 150 mg PO BID PRN 10/09/15 Levothyroxine [Synthroid -] 125 mcg PO DAILY #90 tablet 11/18/15 Calcium Carbonate/Vitamin D3 [Calcium 500-Vit D3 200 Caplet] 1 each PO DAILY Magnesium Oxide [Mag-Ox -] 400 mg PO DAILY 03/22/16 Potassium Chloride [K-Dur -] 10 meq PO QID 03/22/16 Nebivolol [Bystolic -] 2.5 mg PO DAILY tab 03/25/16 Diphenhydramine HCl [Benadryl Capsule -] 25 mg PO DAILY PRN #0 capsule 03/28/16 Furosemide [Lasix -] 40 mg PO BID@0600,1400 tablet 03/28/16 Family Disease History - Family Disease History Family Disease History: CA: Father (colon cancer), Brother (colon cancer) Physical Exam-Neuro Vital Signs: Vital Signs Temperature 97.9 F 07/21/17 06:00 Pulse Rate 67 07/21/17 06:00 Respiratory Rate 18 07/21/17 06:00 Blood Pressure 137/64 07/21/17 06:00 O2 Sat by Pulse Oximetry (%) 98 07/20/17 21:00 Constitutional: Yes: Well Nourished - Neuro Exam Level Of Consciousness: Yes: Alert (awake and alert though becomes confused , slight word finding difficulty yr 1955, does not know age, follows basic commands, can name and repeat, no clear aphasia, VFF, lsight RUE drift, no focal weakness, plantars equivocal ) Imaging - Results Cat Scan: Report Reviewed, Image Reviewed Problem List - Problems (1) Acute kidney injury Code(s): N17.9 - ACUTE KIDNEY FAILURE, UNSPECIFIED (2) Brain mass Code(s): G93.9 - DISORDER OF BRAIN, UNSPECIFIED (3) COPD (chronic obstructive pulmonary disease) with chronic bronchitis Code(s): J44.9 - CHRONIC OBSTRUCTIVE PULMONARY DISEASE, UNSPECIFIED Assessment/Plan 82 year old female with a significant PMH of HTN, CHF, COPD, and hyperlipidemia who presents to the emergency department with generalized malaise beginning approximately 2 days ago. Reports malaise began at dinner with a sudden isolated episode of nausea, vomiting, and diarrhea, after which patient reports feeling off. as per chart, Patients daughters also report 2 weeks of intermittent confused language. Pt denies TAVERAS or focal weakness. she smiles and is attentive and becomes slightly confused with conversation. denies breathing c /o. no known cancer suspicious for new primary brain CA, r/o GBM surprisingly no major deficits though she has mild word finding difficulty s/p debulking surgery , doing relatively well, --> then RAD ONC await PATH [place] decadron 4 Q6 DC keppra and change to depakote 500BID ( anti seizure/anti tumour effects) Dr Torres [phone] Problem List - Problems (1) Acute kidney injury Code(s): N17.9 - ACUTE KIDNEY FAILURE, UNSPECIFIED (2) Brain mass Code(s): G93.9 - DISORDER OF BRAIN, UNSPECIFIED (3) COPD (chronic obstructive pulmonary disease) with chronic bronchitis Code(s): J44.9 - CHRONIC OBSTRUCTIVE PULMONARY DISEASE, UNSPECIFIED
[2017-07-21] MEDS: PANTOPRAZOLE 40 MG TABLET (FP) PO SCH ×2 (14:31→22:00)
[2017-07-21] MEDS ORDERED: INSULIN (NOVOLOG) ASPART 100 UNITS/ML 10ML VIAL ONE (16:52)
[2017-07-21] MEDS ORDERED: PANTOPRAZOLE 40 MG TABLET (FP) PO SCH (22:00)
[2017-07-21] MEDS: ATORVASTATIN CA 10 MG TABLET (FP) PO SCH (22:00)
[2017-07-21] MEDS: DIVALPROEX SODIUM 500 MG TABLET E.C. PO SCH (22:00)
[2017-07-21] MEDS: CHLORHEXIDINE GLUCONATE 4% CLEANSER FOR DECOLONIZATION TP SCH (22:01)
[2017-07-22] MEDS: LEVOTHYROXINE NA 100 MCG TABLET (FP) PO SCH (06:22)
[2017-07-22] MEDS: DOCUSATE SODIUM 100 MG CAPSULE (FP) PO SCH ×3 (06:22→21:14)
[2017-07-22] MEDS: INSULIN SLIDING SCALE (NOVOLOG) 1 VIAL SQ SCH ×4 (06:22→21:14)
[2017-07-22] MEDS: DEXAMETHASONE 4 MG TABLET (FP) PO SCH ×3 (06:22→21:14)
--- NOTE | 2017-07-22 08:58 | PN ---
Progress Note (short form) - Note Progress Note: NEUROSURGERY POD #5 Sitting up OOB eating breakfast No complaint Tolerating diet PE: AF, VSS HEENT- NC/AT; Neck- supple; Cor- RR; Lungs- CTA; Abd- benign; Ext- no sign of DVT Awake/alert/oriented x3 Speech fluent; no anomia CN- intact (mildly decreased hearing B); Motor- 5/5 without drift; Sensation- intact LT; DTR- hyporeflexic Frozen- high grade glioma c/w GBM, check final path po steroid down to 4 mg bid through RT Floor care Cont Keppra D/C suture this Saturday in my office
[2017-07-22] MEDS ORDERED: PT OWN MED DRAWER 7, Y5N ONE (09:20)
[2017-07-22] MEDS: DIVALPROEX SODIUM 500 MG TABLET E.C. PO SCH ×2 (09:39→22:17)
[2017-07-22] MEDS: LOSARTAN POTASSIUM 25 MG TABLET PO SCH (09:40)
[2017-07-22] MEDS: PANTOPRAZOLE 40 MG TABLET (FP) PO SCH ×2 (09:40→21:14)
[2017-07-22] MEDS: NEBIVOLOL 2.5 MG TABLET (FP) PO SCH (09:40)
--- NOTE | 2017-07-22 10:52 | PN ---
Progress Note, Physician Chief Complaint: OOB to chair feels well no c/o; ambulates OK independently - Current Medication List Current Medications: Active Medications Acetaminophen (Tylenol -) 650 mg PO Q6H PRN PRN Reason: PAIN LEVEL 6-10 Atorvastatin Calcium (Lipitor -) [address] [facility] Last Admin: 07/21/17 22:00 Dose: 10 mg Chlorhexidine Gluconate (Hibiclens For Decolonization -) [address] [facility] Last Admin: 07/21/17 22:01 Dose: Not Given Dexamethasone (Decadron -) 4 mg PO TID [facility] Last Admin: 07/22/17 06:22 Dose: 4 mg Diphenhydramine HCl (Benadryl -) 25 mg PO DAILY PRN PRN Reason: FOR ITCHING Divalproex Sodium (Depakote -) 500 mg PO BID [facility] Last Admin: 07/22/17 09:39 Dose: 500 mg Docusate Sodium (Colace -) 100 mg PO TID [facility] Last Admin: 07/22/17 06:22 Dose: 100 mg Insulin Aspart (Novolog Vial Sliding Scale -) 1 vial SQ [facility] PRN Reason: Protocol Last Admin: 07/22/17 06:22 Dose: Not Given Levothyroxine Sodium (Synthroid -) 100 mcg PO DAILY@0700 [facility] Last Admin: 07/22/17 06:22 Dose: 100 mcg Losartan Potassium (Cozaar -) 25 mg PO DAILY [facility] Last Admin: 07/22/17 09:40 Dose: 25 mg Morphine Sulfate (Morphine Sulfate) 1 mg IVPUSH Q4H PRN PRN Reason: PAIN Nebivolol (Bystolic -) 2.5 mg PO DAILY [facility] Last Admin: 07/22/17 09:40 Dose: 2.5 mg Ondansetron HCl (Zofran Injection) 4 mg IVPUSH Q6H PRN PRN Reason: NAUSEA Pantoprazole Sodium (Protonix -) 40 mg PO BID [facility] Last Admin: 07/22/17 09:40 Dose: 40 mg - Objective Vital Signs: Vital Signs Temperature 97.6 F 07/22/17 07:06 Pulse Rate 63 07/22/17 07:06 Respiratory Rate 20 07/22/17 07:06 Blood Pressure 146/61 07/22/17 07:06 O2 Sat by Pulse Oximetry (%) 96 07/21/17 21:00 Constitutional: Yes: No Distress, Calm Eyes: Yes: Conjunctiva Clear HENT: Yes: Atraumatic Neck: Yes: Supple Cardiovascular: Yes: Regular Rate and Rhythm Respiratory: Yes: CTA Bilaterally Gastrointestinal: Yes: Soft. No: Distention, Tenderness Genitourinary: No: CVA Tenderness - Left, CVA Tenderness - Right Musculoskeletal: No: Joint Stiffness, Joint Swelling Extremities: No: Cold, Cool, Cyanosis Edema: No Peripheral Pulses WNL: Yes Integumentary: No: Rash, Venous Stasis Changes Neurological: Yes: WNL, Alert, Oriented ...Motor Strength: WNL Psychiatric: Yes: WNL, Alert, Oriented. No: Agitated, Suicidal Ideation Labs: CBC, BMP 07/21/17 06:00 07/21/17 06:00 INR, PTT INR 1.06 (0.82-1.09) 07/14/17 05:35 - ....Imaging Other: Report Reviewed Assessment/Plan Ms. Waldrop is an 82 yo female with a significant past medical history of HTN, dyastolic CHF, COPD, and hyperlipidemia who was admitted with L frontal mass 7 cm on MRI with surrounding edema and some midline shift; ARF/CRF dehydration; s/p brain tumor debulking d/w NS and neurology f/u high grade GBM Neurology, renal, cardiology and pulmonary f/u po steroids. Check BGM/ sq insulin as needed; gastric PFX PPIs po as ordered Po depakote for seizure PFX f/u labs heparin sq held PT rehab & CM eval for DC planning d/w pt and 2 daughters
--- NOTE | 2017-07-22 11:55 | PN ---
Progress Note, Physician Chief Complaint: Events noted Not in distress this am. Post op History of Present Illness: Patient was seen and examined. Awake and alert. Chart was reviewed Denies chest pain, SOB or palpitations Hemodynamically stable - Current Medication List Current Medications: Active Medications Acetaminophen (Tylenol -) 650 mg PO Q6H PRN PRN Reason: PAIN LEVEL 6-10 Atorvastatin Calcium (Lipitor -) 10 mg PO [facility] Last Admin: 07/21/17 22:00 Dose: 10 mg Chlorhexidine Gluconate (Hibiclens For Decolonization -) 1 applic TP [facility] Last Admin: 07/21/17 22:01 Dose: Not Given Dexamethasone (Decadron -) 4 mg PO TID [facility] Last Admin: 07/22/17 06:22 Dose: 4 mg Diphenhydramine HCl (Benadryl -) 25 mg PO DAILY PRN PRN Reason: FOR ITCHING Divalproex Sodium (Depakote -) 500 mg PO BID [facility] Last Admin: 07/22/17 09:39 Dose: 500 mg Docusate Sodium (Colace -) 100 mg PO TID [facility] Last Admin: 07/22/17 06:22 Dose: 100 mg Insulin Aspart (Novolog Vial Sliding Scale -) 1 vial SQ ACHS [facility] PRN Reason: Protocol Last Admin: 07/22/17 11:46 Dose: 4 units Levothyroxine Sodium (Synthroid -) 100 mcg PO DAILY@0700 [facility] Last Admin: 07/22/17 06:22 Dose: 100 mcg Losartan Potassium (Cozaar -) 25 mg PO DAILY [facility] Last Admin: 07/22/17 09:40 Dose: 25 mg Morphine Sulfate (Morphine Sulfate) 1 mg IVPUSH Q4H PRN PRN Reason: PAIN Nebivolol (Bystolic -) 2.5 mg PO DAILY [facility] Last Admin: 07/22/17 09:40 Dose: 2.5 mg Ondansetron HCl (Zofran Injection) 4 mg IVPUSH Q6H PRN PRN Reason: NAUSEA Pantoprazole Sodium (Protonix -) 40 mg PO BID [facility] Last Admin: 07/22/17 09:40 Dose: 40 mg - Objective Vital Signs: Vital Signs Temperature 98.0 F 07/22/17 09:00 Pulse Rate 66 07/22/17 09:00 Respiratory Rate 18 07/22/17 09:00 Blood Pressure 143/71 07/22/17 09:00 O2 Sat by Pulse Oximetry (%) 96 07/21/17 21:00 Neck: Yes: Supple Cardiovascular: Yes: Regular Rate and Rhythm, S1, S2 Respiratory: Yes: CTA Bilaterally Gastrointestinal: Yes: Normal Bowel Sounds, Soft. No: Tenderness Edema: No Labs: CBC, BMP 07/21/17 06:00 07/21/17 06:00 Problem List - Problems (1) Brain tumor Code(s): D49.6 - NEOPLASM OF UNSPECIFIED BEHAVIOR OF BRAIN (2) Status post craniotomy Code(s): Z98.890 - OTHER SPECIFIED POSTPROCEDURAL STATES (3) COPD (chronic obstructive pulmonary disease) with chronic bronchitis Code(s): J44.9 - CHRONIC OBSTRUCTIVE PULMONARY DISEASE, UNSPECIFIED (4) Diastolic dysfunction Code(s): I51.9 - HEART DISEASE, UNSPECIFIED (5) Hyperlipidemia Code(s): E78.5 - HYPERLIPIDEMIA, UNSPECIFIED Qualifiers: Hyperlipidemia type: pure hypercholesterolemia Qualified Code(s): E78.00 - Pure hypercholesterolemia, unspecified; E78.00 - Pure hypercholesterolemia, unspecified; E78.00 - Pure hypercholesterolemia, unspecified; E78.0 - Pure hypercholesterolemia (6) Hypertension Code(s): I10 - ESSENTIAL (PRIMARY) HYPERTENSION Qualifiers: Hypertension type: essential hypertension Qualified Code(s): I10 - Essential (primary) hypertension; I10 - Essential (primary) hypertension; I10 - Essential (primary) hypertension (7) Hypothyroidism Code(s): E03.9 - HYPOTHYROIDISM, UNSPECIFIED Qualifiers: 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 Post left frontal GBM tumor excision 2. CAD angina pectoris, stable 3. Diastolic LV dysfunction with chronic class I NYHA classification LV failure , compensated/euvolemic 4. HTN 5. Hypercholesterolemia 6. Hypothyroidism 7. COPD 8. Acute on chronic kidney insufficiency resolved 9. Hyperkalemia resolved PLAN: 1. Continue Bystolic 2. Continue Cozaar with close monitoring of renal function and potassium 3. Continue Lipitor 4. PO steroids with GI protection and continue seizure prophylaxis. Post op care per neurosurgical service 5. DVT prophylaxis 6. Plan for eventual IMRT and Temodar chemo Further plans are to follow Damaso Escobedo MD
--- NOTE | 2017-07-22 13:12 | PN ---
Progress Note, Physician Chief Complaint: The patient doing well. Seen sitting by his bed. No chest pains. Maintaining good urine output. History of Present Illness: 82 year old female with a significant PMH of HTN, CHF, COPD, and hyperlipidemia. Diagnosis of frontal brain neoplasm S/p neurosurgery--Debulking. Renal functions at her baseline. - Current Medication List Current Medications: Active Medications Acetaminophen (Tylenol -) 650 mg PO Q6H PRN PRN Reason: PAIN LEVEL 6-10 Atorvastatin Calcium (Lipitor -) 10 mg PO HS [facility] Last Admin: 07/21/17 22:00 Dose: 10 mg Chlorhexidine Gluconate (Hibiclens For Decolonization -) 1 applic TP [facility] Last Admin: 07/21/17 22:01 Dose: Not Given Dexamethasone (Decadron -) 4 mg PO TID [facility] Last Admin: 07/22/17 06:22 Dose: 4 mg Diphenhydramine HCl (Benadryl -) 25 mg PO DAILY PRN PRN Reason: FOR ITCHING Divalproex Sodium (Depakote -) 500 mg PO BID [facility] Last Admin: 07/22/17 09:39 Dose: 500 mg Docusate Sodium (Colace -) 100 mg PO TID [facility] Last Admin: 07/22/17 06:22 Dose: 100 mg Insulin Aspart (Novolog Vial Sliding Scale -) 1 vial SQ ACHS [facility] PRN Reason: Protocol Last Admin: 07/22/17 11:46 Dose: 4 units Levothyroxine Sodium (Synthroid -) 100 mcg PO DAILY@0700 [facility] Last Admin: 07/22/17 06:22 Dose: 100 mcg Losartan Potassium (Cozaar -) 25 mg PO DAILY [facility] Last Admin: 07/22/17 09:40 Dose: 25 mg Morphine Sulfate (Morphine Sulfate) 1 mg IVPUSH Q4H PRN PRN Reason: PAIN Nebivolol (Bystolic -) 2.5 mg PO DAILY [facility] Last Admin: 07/22/17 09:40 Dose: 2.5 mg Ondansetron HCl (Zofran Injection) 4 mg IVPUSH Q6H PRN PRN Reason: NAUSEA Pantoprazole Sodium (Protonix -) 40 mg PO BID [facility] Last Admin: 07/22/17 09:40 Dose: 40 mg - Objective Vital Signs: Vital Signs Temperature 98.0 F 07/22/17 09:00 Pulse Rate 66 07/22/17 09:00 Respiratory Rate 18 07/22/17 09:00 Blood Pressure 143/71 07/22/17 09:00 O2 Sat by Pulse Oximetry (%) 96 07/21/17 21:00 Constitutional: Yes: No Distress, Calm Eyes: Yes: Conjunctiva Clear Neck: Yes: Supple Cardiovascular: Yes: S1 Respiratory: Yes: CTA Bilaterally, Diminished Gastrointestinal: Yes: Normal Bowel Sounds, Soft Extremities: Yes: Calf Tenderness Edema: Yes Edema: LLE: 2+, RLE: 2+ Wound/Incision: Yes: Well Approximated Neurological: Yes: Oriented. No: Dysarthria, Tremors, Weakness Labs: CBC, BMP 07/21/17 06:00 07/21/17 06:00 INR, PTT INR 1.06 (0.82-1.09) 07/14/17 05:35 Problem List - Problems (1) Acute kidney injury Code(s): N17.9 - ACUTE KIDNEY FAILURE, UNSPECIFIED (2) Brain mass Code(s): G93.9 - DISORDER OF BRAIN, UNSPECIFIED (3) Dehydration Code(s): E86.0 - DEHYDRATION (4) Brain tumor Code(s): D49.6 - NEOPLASM OF UNSPECIFIED BEHAVIOR OF BRAIN (5) Bilateral lower extremity edema Code(s): R60.0 - LOCALIZED EDEMA Assessment/Plan 82 y/o female admitted with minimal confusion and speech abnormality as observed by family. The patient has h/o Hypertension, CHF, Hyperlipidemia, Chronic Kidney disease and h/o multiple Orthopedic surgeries. S/p L fronto-temporal stereotactic craniotomy for tumor excision, stereotactic navigation; microdissection The renal functions are at her baseline Has bilateral edema, pooibly related to the Hypoalbuminemia. Plan: Lasix 40 mg daily. Monitor renal and electrolyte profile as outpatient is discharged. Thank you. Yesica Diaz MD
[2017-07-22] MEDS: FUROSEMIDE 40 MG TABLET (FP) PO SCH (13:30)
[2017-07-22] MEDS ORDERED: INSULIN (NOVOLOG) ASPART 100 UNITS/ML 10ML VIAL ONE (21:12)
[2017-07-22] MEDS: ATORVASTATIN CA 10 MG TABLET (FP) PO SCH (21:14)
[2017-07-22] MEDS: CHLORHEXIDINE GLUCONATE 4% CLEANSER FOR DECOLONIZATION TP SCH (21:15)
[2017-07-23] MEDS: DOCUSATE SODIUM 100 MG CAPSULE (FP) PO SCH ×2 (06:05→14:54)
[2017-07-23] MEDS: LEVOTHYROXINE NA 100 MCG TABLET (FP) PO SCH (06:05)
[2017-07-23] MEDS: DEXAMETHASONE 4 MG TABLET (FP) PO SCH (06:06)
[2017-07-23] MEDS: INSULIN SLIDING SCALE (NOVOLOG) 1 VIAL SQ SCH ×3 (07:17→17:08)
--- NOTE | 2017-07-23 07:52 | DS ---
Physical Examination Vital Signs: Vital Signs Temperature 97.5 F L 07/23/17 07:34 Pulse Rate 64 07/23/17 07:34 Respiratory Rate 20 07/23/17 07:34 Blood Pressure 143/76 07/23/17 07:34 O2 Sat by Pulse Oximetry (%) 99 07/22/17 21:00 Findings/Remarks: OOB to chair NAD feels great, wants to go home; daughters will pick her up later d/w them about meds, DC f/u needed; also home PT, VNS scripts done Constitutional: Yes: No Distress, Calm Eyes: Yes: Conjunctiva Clear HENT: Yes: Atraumatic Neck: Yes: Supple Cardiovascular: Yes: Regular Rate and Rhythm Respiratory: Yes: CTA Bilaterally Gastrointestinal: Yes: Soft. No: Distention, Tenderness Renal/: No: CVA Tenderness - Left, CVA Tenderness - Right Musculoskeletal: No: Joint Stiffness, Joint Swelling Extremities: No: Cold, Cool, Cyanosis Edema: No Integumentary: No: Rash, Venous Stasis Changes Neurological: Yes: WNL, Alert, Oriented ...Motor Strength: WNL Psychiatric: Yes: WNL, Alert, Oriented. No: Agitated, Suicidal Ideation Labs: CBC, BMP 07/21/17 06:00 07/21/17 06:00 Discharge Summary Reason For Visit: MASS OF BRAIN Current Active Problems Acute kidney injury (Acute) Brain mass (Acute) Brain tumor (Acute) Status post craniotomy (Acute) Procedures: Principal: admitted with L frontal brain tumor; high grade GBM s/p resection Other Procedures: NS dr Leonard for tumor debulking; ONC dr Robledo; Rad Tx dr Ricketts. Neurology dr Torres; po steroids and po anti-seizure meds Hospital Course: did well postop; DC home with f/u with NS in 2-3 days; then f/u with PCP, Rad Onc and Onc as advised. - Instructions Diet, Activity, Other Instructions: f/u PCP and labs CBC CMP in 1-2 weeks after DC home f/u neurosurgery dr Leonard in 1 week after DC home simon removal 1 week before radiation therapy starts f/u with Radiation dr Ricketts for outpt Radiation Tx f/u ONC dr Robledo for chemotherapy; f/u cardio and pulmonary in 1-2 months after DC home falls PFX RTER if new or recurrent c/o take meds as ordered Home PT rehab and VNS d/w pt and daughters, scripts done Referrals: Nahed Jaimes [Primary Care Provider] - Harshil Garcia MD [Staff Physician] - Yoav Ricketts MD [Staff Physician] - Keith Leonard MD [Staff Physician] - Omar Robledo MD [Staff Physician] - Av Lacey MD [Staff Physician] - Disposition: VNS/HOME HEALTH CARE - Home Medications Comprehensive Discharge Medication List: Ambulatory Orders Losartan Potassium [Cozaar] 25 mg PO DAILY 10/09/15 Levothyroxine [Synthroid -] 125 mcg PO DAILY #90 tablet 11/18/15 Nebivolol [Bystolic -] 2.5 mg PO DAILY tab 03/25/16 Diphenhydramine HCl [Benadryl Capsule -] 25 mg PO DAILY PRN #0 capsule 03/28/16 Acetaminophen [Tylenol .Regular Strength -] 650 mg PO Q6H PRN #30 tablet Calcium Carbonate/Vitamin D3 [Calcium 500-Vit D3 200 Caplet] 1 each PO DAILY #0 tab 07/21/17 Dexamethasone [Decadron -] 4 mg PO BID #60 tablet 07/21/17 Divalproex [Depakote -] 500 mg PO BID #60 tablet.ec 07/21/17 Docusate Sodium [Colace -] 100 mg PO TID PRN cap 07/21/17 Furosemide [Lasix -] 40 mg PO BID@0600,1400 #60 tablet 07/21/17 Magnesium Oxide [Mag-Ox -] 400 mg PO DAILY #0 tab 07/21/17 Montelukast Sodium [Singulair] 10 mg PO HS #0 tab 07/21/17 Pantoprazole Sodium [Protonix -] 20 mg PO BID #60 tablet.ec 07/21/17 Potassium Chloride [K-Dur -] 10 meq PO BID #60 tab 07/21/17 Pravastatin Sodium [Pravachol -] 40 mg PO HS #0 tab 07/21/17
--- NOTE | 2017-07-23 08:40 | PN ---
Progress Note (short form) - Note Progress Note: NEUROSURGERY POD #6 Sitting up in bed Wants to go home No complaint Tolerating diet PE: AF, VSS HEENT- NC/AT; Neck- supple; Cor- RR; Lungs- CTA; Abd- benign; Ext- no sign of DVT Awake/alert/oriented x3 Speech fluent; no anomia CN- intact (mildly decreased hearing B); Motor- 5/5 without drift; Sensation- intact LT; DTR- hyporeflexic Frozen- high grade glioma c/w GBM, check final path po steroid down to 4 mg bid through RT Floor care Cont Keppra D/C suture this Saturday in my office; appt made by daughter
[2017-07-23] MEDS ORDERED: DEXAMETHASONE 4 MG TABLET (FP) PO SCH (10:00)
[2017-07-23] MEDS ORDERED: PT OWN MED DRAWER 7, Y5N ONE (10:00)
[2017-07-23] MEDS: FUROSEMIDE 40 MG TABLET (FP) PO SCH (10:01)
[2017-07-23] MEDS: LOSARTAN POTASSIUM 25 MG TABLET PO SCH (10:01)
[2017-07-23] MEDS: PANTOPRAZOLE 40 MG TABLET (FP) PO SCH (10:01)
[2017-07-23] MEDS: NEBIVOLOL 2.5 MG TABLET (FP) PO SCH (10:02)
[2017-07-23] MEDS: DIVALPROEX SODIUM 500 MG TABLET E.C. PO SCH (10:02)
[2017-07-23] MEDS ORDERED: INSULIN (NOVOLOG) ASPART 100 UNITS/ML 10ML VIAL ONE (11:48)
--- NOTE | 2017-07-23 14:11 | PN ---
Progress Note, Physician Chief Complaint: Events noted Not in distress History of Present Illness: Patient was seen and examined. Awake and alert. Chart was reviewed Denies chest pain, SOB or palpitations Hemodynamically stable - Current Medication List Current Medications: Active Medications Acetaminophen (Tylenol -) 650 mg PO Q6H PRN PRN Reason: PAIN LEVEL 6-10 Atorvastatin Calcium (Lipitor -) 10 mg PO HS [facility] Last Admin: 07/22/17 21:14 Dose: 10 mg Chlorhexidine Gluconate (Hibiclens For Decolonization -) [address] [facility] Last Admin: 07/22/17 21:15 Dose: Not Given Dexamethasone (Decadron -) 4 mg PO BID [facility] Last Admin: 07/23/17 10:01 Dose: 4 mg Diphenhydramine HCl (Benadryl -) 25 mg PO DAILY PRN PRN Reason: FOR ITCHING Divalproex Sodium (Depakote -) 500 mg PO BID [facility] Last Admin: 07/23/17 10:02 Dose: 500 mg Docusate Sodium (Colace -) 100 mg PO TID [facility] Last Admin: 07/23/17 06:05 Dose: 100 mg Furosemide (Lasix -) 40 mg PO DAILY [facility] Last Admin: 07/23/17 10:01 Dose: 40 mg Insulin Aspart (Novolog Vial Sliding Scale -) 1 vial SQ ACHS [facility] PRN Reason: Protocol Last Admin: 07/23/17 11:56 Dose: 2 units Levothyroxine Sodium (Synthroid -) 100 mcg PO DAILY@0700 [facility] Last Admin: 07/23/17 06:05 Dose: 100 mcg Losartan Potassium (Cozaar -) 25 mg PO DAILY [facility] Last Admin: 07/23/17 10:01 Dose: 25 mg Morphine Sulfate (Morphine Sulfate) 1 mg IVPUSH Q4H PRN PRN Reason: PAIN Nebivolol (Bystolic -) 2.5 mg PO DAILY [facility] Last Admin: 07/23/17 10:02 Dose: 2.5 mg Ondansetron HCl (Zofran Injection) 4 mg IVPUSH Q6H PRN PRN Reason: NAUSEA Pantoprazole Sodium (Protonix -) 40 mg PO BID [facility] Last Admin: 07/23/17 10:01 Dose: 40 mg - Objective Vital Signs: Vital Signs Temperature 97.9 F 07/23/17 08:00 Pulse Rate 73 07/23/17 13:23 Respiratory Rate 18 07/23/17 08:00 Blood Pressure 157/68 07/23/17 08:00 O2 Sat by Pulse Oximetry (%) 95 07/23/17 13:23 Neck: Yes: Supple Cardiovascular: Yes: Regular Rate and Rhythm, S1, S2 Respiratory: Yes: CTA Bilaterally Gastrointestinal: Yes: Normal Bowel Sounds, Soft. No: Tenderness Edema: No Problem List - Problems (1) Brain tumor Code(s): D49.6 - NEOPLASM OF UNSPECIFIED BEHAVIOR OF BRAIN (2) Status post craniotomy Code(s): Z98.890 - OTHER SPECIFIED POSTPROCEDURAL STATES (3) COPD (chronic obstructive pulmonary disease) with chronic bronchitis Code(s): J44.9 - CHRONIC OBSTRUCTIVE PULMONARY DISEASE, UNSPECIFIED (4) Diastolic dysfunction Code(s): I51.9 - HEART DISEASE, UNSPECIFIED (5) Hyperlipidemia Code(s): E78.5 - HYPERLIPIDEMIA, UNSPECIFIED Qualifiers: Hyperlipidemia type: pure hypercholesterolemia Qualified Code(s): E78.00 - Pure hypercholesterolemia, unspecified; E78.00 - Pure hypercholesterolemia, unspecified; E78.00 - Pure hypercholesterolemia, unspecified; E78.0 - Pure hypercholesterolemia (6) Hypertension Code(s): I10 - ESSENTIAL (PRIMARY) HYPERTENSION Qualifiers: Hypertension type: essential hypertension Qualified Code(s): I10 - Essential (primary) hypertension; I10 - Essential (primary) hypertension; I10 - Essential (primary) hypertension (7) Hypothyroidism Code(s): E03.9 - HYPOTHYROIDISM, UNSPECIFIED Qualifiers: 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 Post left frontal GBM tumor excision 2. CAD angina pectoris, stable 3. Diastolic LV dysfunction with chronic class I NYHA classification LV failure , compensated/euvolemic 4. HTN 5. Hypercholesterolemia 6. Hypothyroidism 7. COPD 8. Acute on chronic kidney insufficiency resolved 9. Hyperkalemia resolved PLAN: 1. Continue Bystolic and Cozaar with close monitoring of renal function and potassium 2. Continue Lipitor 3. PO steroids with GI protection and continue seizure prophylaxis. Post op care per neurosurgical service 4. DVT prophylaxis 5. Plan for eventual IMRT and Temodar chemo Further plans are to follow. Discharge planning Damaso Escobedo MD
[2017-07-23 15:12] VITALS: BP 128/69; PULSE 68; TEMP 98.8
== END 2017-07-23 18:14 | disposition home health service (06) | DRG 25 ==
LOC: SUPCPDRO 10:17 → JER 10:17 → JERBED 13:11 → J4W 15:10 → JERBED 07-14 19:13 → J4W 07-14 19:14 → JSAMEDAYSX 07-17 10:46 → JICU 07-17 16:52 → J8W 07-19 10:50
PROVIDERS: ADMIT Internal Medicine; ATTEND Internal Medicine
PROC: 00B70ZZ Excision of Cerebral Hemisphere, Open Approach (ICD-10-PCS; principal; 2017-07-17 10:30)
DX: C71.9 Malignant neoplasm of brain, unspecified (principal); G93.6 Cerebral edema; N17.9 Acute kidney failure, unspecified; I25.110 Atherosclerotic heart disease of native coronary artery with unstable angina pectoris; I13.0 Hypertensive heart and chronic kidney disease with heart failure and stage 1 through stage 4 chronic kidney disease, or unspecified chronic kidney disease; I50.32 Chronic diastolic (congestive) heart failure; E06.3 Autoimmune thyroiditis; J44.9 Chronic obstructive pulmonary disease, unspecified; E78.5 Hyperlipidemia, unspecified; I34.1 Nonrheumatic mitral (valve) prolapse; K57.90 Diverticulosis of intestine, part unspecified, without perforation or abscess without bleeding; K44.9 Diaphragmatic hernia without obstruction or gangrene; K63.5 Polyp of colon; I27.20 Pulmonary hypertension, unspecified; M54.5 Low back pain; M19.90 Unspecified osteoarthritis, unspecified site; E86.0 Dehydration; E87.5 Hyperkalemia; E66.8 Other obesity; Z68.34 Body mass index [BMI] 34.0-34.9, adult; Z85.828 Personal history of other malignant neoplasm of skin; Z96.653 Presence of artificial knee joint, bilateral; Z96.641 Presence of right artificial hip joint
CPT/HCPCS: 36415; 70450-TC; 70552-TC; 70553-TC; 71010-TC; 71250-TC; 74176-TC; 80048; 80053; 80185; 81003; 83735; 84100; 84443; 85025; 85610; 85730; 86850; 86900; 86901; 88307-TC; 88331-TC; 90670; 93005; 93010; 94760; 97116-GP; 97161-GP; 99283-25; J1644; Q9967

== ENCOUNTER 2017-09-08 09:59 | Inpatient (IN) | payer OTHER ==
--- NOTE | 2017-09-08 10:12 | PDOC ---
History of Present Illness - General Chief Complaint: Syncope/Near Syncope Stated Complaint: FALL Time Seen by Provider: 09/08/17 10:07 - History of Present Illness Initial Comments: 09/08/17 10:10 82 yo F with h/o HTN, HLD, CHF, COPD, and brain mass s/p craniotomy who presents with Past History - Past Medical History Allergies/Adverse Reactions: Allergies Allergy/AdvReac Type Severity Reaction Status Date / Time Shellfish Allergy Verified 09/08/17 10:06 levofloxacin [From Levaquin] AdvReac Unknown Verified 09/08/17 10:06 ceftriaxone sodium AdvReac ERYTHEMA,IT Verified 09/08/17 10:06 [From Rocephin] GIRMA,URTIC ARIA codeine [Codeine] AdvReac Nausea Verified 09/08/17 10:06 SHRIMP Allergy Uncoded 09/08/17 10:06 Home Medications: Ambulatory Orders Losartan Potassium [Cozaar] 25 mg PO DAILY 10/09/15 Levothyroxine [Synthroid -] 125 mcg PO DAILY #90 tablet 11/18/15 Nebivolol [Bystolic -] 2.5 mg PO DAILY tab 03/25/16 Diphenhydramine HCl [Benadryl Capsule -] 25 mg PO DAILY PRN #0 capsule 03/28/16 Acetaminophen [Tylenol .Regular Strength -] 650 mg PO Q6H PRN #30 tablet Calcium Carbonate/Vitamin D3 [Calcium 500-Vit D3 200 Caplet] 1 each PO DAILY #0 tab 07/21/17 Dexamethasone [Decadron -] 4 mg PO BID #60 tablet 07/21/17 Divalproex [Depakote -] 500 mg PO BID #60 tablet.ec 07/21/17 Docusate Sodium [Colace -] 100 mg PO TID PRN cap 07/21/17 Magnesium Oxide [Mag-Ox -] 400 mg PO DAILY #0 tab 07/21/17 Montelukast Sodium [Singulair] 10 mg PO HS #0 tab 07/21/17 Pantoprazole Sodium [Protonix -] 20 mg PO BID #60 tablet.ec 07/21/17 Potassium Chloride [K-Dur -] 10 meq PO BID #60 tab 07/21/17 Pravastatin Sodium [Pravachol -] 40 mg PO HS #0 tab 07/21/17 Dexamethasone [Decadron -] 4 mg PO BID tablet 07/23/17 Divalproex [Depakote -] 500 mg PO BID tab 07/23/17 Furosemide [Lasix -] 40 mg PO DAILY tablet 07/23/17 Anemia: No Asthma: Yes Cancer: Yes (SKIN CANCERS) Cardiac Disorders: Yes (MVP,LEFT VENTRICULAR DIASTOLIC DYSFUNCTION) CVA: No COPD: Yes Dementia: No Diabetes: No GI Disorders: Yes (DIVERTICULOSIS,HIATAL HERNIA,COLON POLYPS) Disorders: No HTN: Yes Hypercholesterolemia: Yes Liver Disease: No Seizures: No Thyroid Disease: Yes (HYPOTHYROID DISEASE) - Surgical History Abdominal Surgery: No Appendectomy: No Cardiac Surgery: No Cholecystectomy: No Lung Surgery: No Neurologic Surgery: No Orthopedic Surgery: Yes (Bilateral Knee replaced, R. Hip, R. Rotator Cuff, R. Leg) - Immunization History Immunization Up to Date: No - Suicide/Smoking/Psychosocial Hx Smoking Status: No Smoking History: Never smoked Have you smoked in the past 12 months: No Number of Cigarettes Smoked Daily: 0 If you are a former smoker, when did you quit?: 30 years ago 'Breaking Loose' booklet given: 04/15/12 Hx Alcohol Use: No Drug/Substance Use Hx: No Substance Use Type: None Hx Substance Use Treatment: No Review of Systems - Review of Systems Comments:: 09/08/17 10:11 GENERAL/CONSTITUTIONAL: No fever or chills. No weakness. HEAD, EYES, EARS, NOSE AND THROAT: No change in vision. No ear pain or discharge. No sore throat.- CARDIOVASCULAR: No chest pain or shortness of breath RESPIRATORY: No cough, wheezing, or hemoptysis. GASTROINTESTINAL: No nausea, vomiting, diarrhea or constipation. GENITOURINARY: No dysuria, frequency, or change in urination. MUSCULOSKELETAL: No joint or muscle swelling or pain. No neck or back pain. SKIN: No rash NEUROLOGIC: No headache, vertigo, loss of consciousness, or change in strength/ sensation. ENDOCRINE: No increased thirst. No abnormal weight change HEMATOLOGIC/LYMPHATIC: No anemia, easy bleeding, or history of blood clots. ALLERGIC/IMMUNOLOGIC: No hives or skin allergy. *Physical Exam - Physical Exam Comments: 09/08/17 10:11 GENERAL: Awake, alert, and fully oriented, in no acute distress HEAD: No signs of trauma, normocephalic, atraumatic EYES: PERRLA, EOMI, sclera anicteric, conjunctiva clear ENT: Auricles normal inspection, hearing grossly normal, nares patent, oropharynx clear without exudates. Moist mucosa NECK: Normal ROM, supple, no lymphadenopathy, JVD, or masses LUNGS: No distress, speaks full sentences, clear to auscultation bilaterally HEART: Regular rate and rhythm, normal S1 and S2, no murmurs, rubs or gallops, peripheral pulses normal and equal bilaterally. ABDOMEN: Soft, nontender, normoactive bowel sounds. No guarding, no rebound. No masses EXTREMITIES : Normal inspection, Normal range of motion, no edema. No clubbing or cyanosis. NEUROLOGICAL: Cranial nerves II through XII grossly intact. Normal speech, normal gait, no focal sensorimotor deficits SKIN: Warm, Dry, normal turgor, no rashes or lesions noted. *DC/Admit/Observation/Transfer - Referrals Referrals: Yoav Ricketts MD [Primary Care Provider] - - Patient Instructions - Post Discharge Activity
--- NOTE | 2017-09-08 10:22 | PDOC ---
History of Present Illness - General Chief Complaint: Syncope/Near Syncope Stated Complaint: FALL Time Seen by Provider: 09/08/17 10:07 History Source: Patient - History of Present Illness Presenting Symptoms: Near-Syncope Timing/Duration: reports: resolved prior to arrival Past History - Past Medical History Allergies/Adverse Reactions: Allergies Allergy/AdvReac Type Severity Reaction Status Date / Time Shellfish Allergy Verified 09/08/17 10:06 levofloxacin [From Levaquin] AdvReac Unknown Verified 09/08/17 10:06 ceftriaxone sodium AdvReac ERYTHEMA,IT Verified 09/08/17 10:06 [From Rocephin] GIRMA,URTIC ARIA codeine [Codeine] AdvReac Nausea Verified 09/08/17 10:06 SHRIMP Allergy Uncoded 09/08/17 10:06 Home Medications: Ambulatory Orders Calcium Carbonate/Vitamin D3 [Calcium 600 + D3 Softgel] 1 each PO DAILY Dexamethasone [Decadron -] 4 mg PO DAILY 09/08/17 Diphenhydramine HCl [Benadryl -] 25 mg PO PRN PRN 09/08/17 Divalproex Sodium [Depakote] 500 mg PO BID 09/08/17 Furosemide [Lasix] 40 mg PO DAILY 09/08/17 Levothyroxine [Synthroid -] 125 mcg PO DAILY 09/08/17 Losartan Potassium 25 mg PO DAILY 09/08/17 Magnesium Oxide 400 mg PO DAILY 09/08/17 Montelukast Na [Singulair -] 10 mg PO HS 09/08/17 Nebivolol [Bystolic -] 2.5 mg PO DAILY 09/08/17 Pantoprazole Sodium [Protonix] 20 mg PO BID 09/08/17 Potassium Chloride 10 meq PO BID 09/08/17 Pravastatin Sodium [Pravachol (Nf)] 40 mg PO HS 09/08/17 Vit C/E/Zn/Coppr/Lutein/Zeaxan [Preservision Areds 2 Softgel] 1 each PO BID Anemia: No Asthma: Yes Cancer: Yes (SKIN CANCERS) Cardiac Disorders: Yes (MVP,LEFT VENTRICULAR DIASTOLIC DYSFUNCTION) CVA: No COPD: Yes Dementia: No Diabetes: No GI Disorders: Yes (DIVERTICULOSIS,HIATAL HERNIA,COLON POLYPS) Disorders: No HTN: Yes Hypercholesterolemia: Yes Liver Disease: No Seizures: No Thyroid Disease: Yes (HYPOTHYROID DISEASE) - Surgical History Abdominal Surgery: No Appendectomy: No Cardiac Surgery: No Cholecystectomy: No Lung Surgery: No Neurologic Surgery: No Orthopedic Surgery: Yes (Bilateral Knee replaced, R. Hip, R. Rotator Cuff, R. Leg) - Immunization History Immunization Up to Date: No - Suicide/Smoking/Psychosocial Hx Smoking Status: No Smoking History: Never smoked Have you smoked in the past 12 months: No Number of Cigarettes Smoked Daily: 0 If you are a former smoker, when did you quit?: 30 years ago 'Breaking Loose' booklet given: 04/15/12 Hx Alcohol Use: No Drug/Substance Use Hx: No Substance Use Type: None Hx Substance Use Treatment: No Cardiac Specific PMH - Complaint Specific PMHX Pacemaker: No Review of Systems - Review of Systems Constitutional: No: Chills, Fever HEENTM: No: Blurred Vision Respiratory: No: Cough, Shortness of Breath Cardiac (ROS): No: Chest Pain, Palpitations ABD/GI: No: Nausea, Vomiting Neurological: Yes: Dizziness. No: Headache, Numbness, Tingling, Weakness *Physical Exam - Vital Signs Last Vital Signs Temp Pulse Resp BP Pulse Ox 97.6 F 71 20 103/46 97 09/08/17 10:06 09/08/17 10:06 09/08/17 10:06 09/08/17 10:06 09/08/17 10:06 - Physical Exam General Appearance: Yes: Appropriately Dressed. No: Apparent Distress HEENT: positive: Normal Voice Neck: positive: Supple. negative: Tender Respiratory/Chest: positive: Lungs Clear, Normal Breath Sounds. negative: Respiratory Distress Gastrointestinal/Abdominal: positive: Soft. negative: Tender Musculoskeletal: negative: Vertebral Tenderness Extremity: positive: Normal Inspection Integumentary: positive: Dry, Warm Neurologic: positive: Alert, Normal Mood/Affect (Oriented to place and person only), Motor Strength 5/5, Finger to Nose (no nystagmus, Devin intact) Heart Score/ECG Review - ECG Intrepretation Comment:: 09/08/17 12:07 Twelve-lead EKG was performed and reviewed by me. There is normal sinus rhythm with a normal rate. The axis is normal. The intervals are normal. There are no ST or T wave abnormalities. Impression: Normal twelve-lead EKG ED Treatment Course - LABORATORY CBC & Chemistry Diagram: 09/08/17 11:00 09/08/17 11:00 - ADDITIONAL ORDERS Additional order review: Laboratory Results 09/08/17 11:00 Sodium 133 L Potassium 5.4 H D Chloride 95 L D Carbon Dioxide 28 Anion Gap 10 BUN 30 H D Creatinine 1.0 D Creat Clearance w eGFR 52.82 Random Glucose 65 L D Calcium 8.0 L Total Bilirubin 0.7 AST 37 D ALT 23 Alkaline Phosphatase 77 Creatine Kinase 69 Troponin I 0.03 B-Natriuretic Peptide 1615.93 H Total Protein 6.1 L D Albumin 2.7 L D 09/08/17 11:00 RBC 4.20 D MCV 95.6 D MCHC 33.1 RDW 19.6 H D MPV 7.1 L D Neutrophils % No Result Required. Lymphocytes % No Result Required. - RADIOLOGY Radiology Studies Ordered: Category Date Time Status HEAD CT WITHOUT CONTRAST [CT] Stat CT Scan 09/08/17 10:16 Completed CHEST X-RAY PORTABLE* [RAD] Stat Radiology 09/08/17 10:08 Completed HIP & PELVIS-LEFT [RAD] Stat Radiology 09/08/17 10:16 Completed HIP & PELVIS-RIGHT [RAD] Stat Radiology 09/08/17 10:16 Completed SPINE-LUMBAR SACRAL [RAD] Stat Radiology 09/08/17 10:16 Completed - Medications Given in the ED: ED Medications Discontinued Medications Generic Name Dose Route Start Last Admin Trade Name Freq PRN Reason Stop Dose Admin Dextrose 25 gm 09/08/17 12:06 09/08/17 13:05 D50w (Vial) - IVPUSH 09/08/17 12:07 25 gm NOW ONE Administration Sodium Chloride 500 mls @ 1,000 mls/hr 09/08/17 12:08 09/08/17 13:05 Normal Saline - IV 09/08/17 12:37 1,000 mls/hr ASDIR STA Administration Ketorolac Tromethamine 30 mg 09/08/17 12:54 09/08/17 13:05 Toradol Injection - IVPUSH 09/08/17 12:55 30 mg ONCE ONE Administration Medical Decision Making - Medical Decision Making 09/08/17 10:17 82-year-old female, history of hypertension, hyperlipidemia, CHF, COPD, hypothyroid, 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 Patient states she woke up feeling well today and that when she got out of the shower, she became vertiginous and fell, landing on her buttocks but denies LOC. Adamant that she did not hit her head and denies headache, visual changes, nausea, vomiting, or focal weakness. No chest pain or shortness of breath. Does report some lower back pain since fall that has been able to bear weight since incident. Denies prior episode of dizziness See exam Vertigo w/ near syncope Denies hitting head, not on blood thinners No CP/SOB No focal deficits but oriented x 2 in ED (per chart review, pt fully oriented s/ p surgery 07/09) -CT head given recent surgery for glioblastoma -ekg -labs -XR given low back pain since fall, able to bear weight -anticipate admission 09/08/17 10:31 09/08/17 12:[address] Dr[address] Gutierrez in ED and is patient admitted . Blood sugar 65, was given amp of D50. CT head with post surgical changes, no acute findings 09/08/17 13:42 *DC/Admit/Observation/Transfer Diagnosis at time of Disposition: Near syncope - Discharge Dispostion Condition at time of disposition: Fair Admit: Yes Decision to Admit order Date/Time: Decision to Admit Order Category Date Time Status Decision to Admit to Hospital Routine Admission 09/08/17 13:36 Active - Referrals Referrals: Yoav Ricketts MD [Staff Physician] - - Patient Instructions - Post Discharge Activity
[2017-09-08 11:23] LABS: MCH 31.7 pg (25.7-33.7); MCHC 33.1 g/dl (32.0-36.0); MEAN CELL VOLUME 95.6 fl (80-96); MEAN PLT VOLUME 7.1 fl (7.5-11.1); PLATELET COUNT 151 K/MM3 (134-434); RDW 19.6 % (11.6-15.6); WHITE BLOOD COUNT 7.9 K/mm3 (4.0-10.0)
[2017-09-08 11:36] LABS: ALBUMIN 2.7 g/dl (3.4-5.0); ANION GAP 10 (8-16); BILIRUBIN,TOTAL 0.7 mg/dL (0.2-1.0); CO2 28 mmol/L (21-32); GLUCOSE,RANDOM 65 mg/dL (74-106); SGPT/ALT 23 U/L (12-78)
[2017-09-08 11:39] LABS: ALK PHOS 77 U/L (45-117); TOT PROT 6.1 g/dl (6.4-8.2); TROPONIN I 0.03 ng/ml (0.00-0.05)
[2017-09-08 12:02] LABS: CPK 69 IU/L (26-192); SGOT/AST 37 U/L (15-37)
[2017-09-08] MEDS ORDERED: DEXTROSE 50%-WATER - 25 GM/50 ML VIAL IVPUSH ONE (12:06)
[2017-09-08] MEDS ORDERED: SODIUM CHLORIDE 500 ML IV STA (12:08)
[2017-09-08] MEDS ORDERED: KETOROLAC TROMETHAMINE 30 MG/1 ML VIAL IVPUSH ONE (12:54)
[2017-09-08] MEDS ORDERED: DEXTROSE 50%-WATER 25 GM/50 ML DISP.SYRIN ONE (13:01)
[2017-09-08] MEDS ORDERED: KETOROLAC TROMETHAMINE 30 MG/1 ML VIAL ONE (13:01)
[2017-09-08 13:07] LABS: TOTAL CELLS COUNTED 100
[2017-09-08 13:08] LABS: METAMYELOCYTE 1 % (0-2); MYELOCYTE 3 % (0-2); PLATELET ESTIMATE ADEQUATE
[2017-09-08] MEDS ORDERED: diphenhydrAMINE HCL 25 MG CAPSULE (FP) PO PRN (14:38)
--- NOTE | 2017-09-08 14:46 | HP ---
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 Patient states she woke up feeling well today and that when she got out of the shower, she became vertiginous and fell, landing on her buttocks but denies LOC. Adamant that she did not hit her head and denies headache, visual changes, nausea, vomiting, or focal weakness. No chest pain or shortness of breath. Does report some lower back pain since fall that has been able to bear weight since incident. Denies prior episode of dizziness daughters Diamante & Gayle at bedside; they said pt does not admit to having difficulty functioning at home but she does; she is forgetful and sometimes confused; difficulty to clean herself or to wash, dress and eat alone; needs constant supervision at home. 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) Cardiovascular: Yes: HTN, Hyperlipdemia, Pulmonary Hypertension Pulmonary: Yes: COPD Gastrointestinal: Yes: Other (colon polyps) Renal/: Yes: Renal Failure Musculoskeletal: Yes: Chronic low back pain, Osteoarthritis Endocrine: Yes: Hypothyroidism - Past Surgical History Past Surgical History: Yes: Joint Replacement - Smoking History Smoking history: Never smoked Have you smoked in the past 12 months: No Aproximately how many cigarettes per day: 0 If you are a former smoker, when did you quit?: 30 years ago - Alcohol/Substance Use Hx Alcohol Use: No History of Substance Use: reports: None - Social History Usual Living Arrangement: Yes: With Child ADL: Family Assistance (daugter lives close by) Occupation: retired History of Recent Travel: No Home Medications - Allergies Allergies/Adverse Reactions: Allergies Allergy/AdvReac Type Severity Reaction Status Date / Time Shellfish Allergy Verified 09/08/17 10:06 levofloxacin [From Levaquin] AdvReac Unknown Verified 09/08/17 10:06 ceftriaxone sodium AdvReac ERYTHEMA,IT Verified 09/08/17 10:06 [From Rocephin] GIRMA,URTIC ARIA codeine [Codeine] AdvReac Nausea Verified 09/08/17 10:06 SHRIMP Allergy Uncoded 09/08/17 10:06 - Home Medications Home Medications: Ambulatory Orders Calcium Carbonate/Vitamin D3 [Calcium 600 + D3 Softgel] 1 each PO DAILY Dexamethasone [Decadron -] 4 mg PO DAILY 09/08/17 Diphenhydramine HCl [Benadryl -] 25 mg PO PRN PRN 09/08/17 Divalproex Sodium [Depakote] 500 mg PO BID 09/08/17 Furosemide [Lasix] 40 mg PO DAILY 09/08/17 Levothyroxine [Synthroid -] 125 mcg PO DAILY 09/08/17 Losartan Potassium 25 mg PO DAILY 09/08/17 Magnesium Oxide 400 mg PO DAILY 09/08/17 Montelukast Na [Singulair -] 10 mg PO HS 09/08/17 Nebivolol [Bystolic -] 2.5 mg PO DAILY 09/08/17 Pantoprazole Sodium [Protonix] 20 mg PO BID 09/08/17 Potassium Chloride 10 meq PO BID 09/08/17 Pravastatin Sodium [Pravachol (Nf)] 40 mg PO HS 09/08/17 Vit C/E/Zn/Coppr/Lutein/Zeaxan [Preservision Areds 2 Softgel] 1 each PO BID Family Disease History - Family Disease History Family Disease History: CA: Father (colon cancer), Brother (colon cancer) Review of Systems - Review of Systems Constitutional: reports: Weakness (general). denies: Chills, Fever Eyes: denies: Blind Spots, Blurred Vision HENT: denies: Difficult Swallowing, Ear Pain, Epistaxis Neck: denies: Pain on Movement, Stiffness, Tenderness Cardiovascular: denies: Chest Pain, Shortness of Breath Respiratory: denies: Cough, SOB Gastrointestinal: denies: Abdominal Pain, Rectal Bleeding, Vomiting Blood Genitourinary: denies: Dysuria, Flank Pain Musculoskeletal: reports: Back Pain (chronic but worse after the fall) Neurological: reports: Confusion, Dizziness, Tremors, Unsteady Gait, Weakness ( general). denies: Change in LOC, Change in Speech, Syncope Hematology/Lymphatic: denies: Easily Bruised, Excessive Bleeding Psychiatric: reports: Altered Sleep Pattern, Anxiety. denies: Depression, Hallucinations, Suicidal Physical Examination Vital Signs: Vital Signs Temperature 97.6 F 09/08/17 10:06 Pulse Rate 89 09/08/17 14:40 Respiratory Rate 18 09/08/17 14:40 Blood Pressure 88/46 09/08/17 14:40 O2 Sat by Pulse Oximetry (%) 97 09/08/17 14:40 Constitutional: Yes: No Distress, Anxious Eyes: Yes: Conjunctiva Clear HENT: Yes: Atraumatic Neck: Yes: Supple Cardiovascular: Yes: Regular Rate and Rhythm Respiratory: Yes: Diminished Gastrointestinal: Yes: Soft. No: Distention, Tenderness Renal/: No: Hematuria Musculoskeletal: No: Joint Stiffness, Joint Swelling Extremities: No: Cold, Cool, Cyanosis Edema: Yes (both legs) Integumentary: Yes: Venous Stasis Changes. No: Rash Neurological: Yes: WNL, Alert, Confusion, Tremors. No: Oriented ...Motor Strength: WNL Psychiatric: Yes: WNL, Alert. 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 [place] dizzi, fell not sure if LOC or head trauma also confusion, borderline low BP legs edema hypoNa and HyperK admit to telemetry cardiology, NS eval hold BP meds gentle IVF f/u labs UA UCx PT and CM eval - daughters have difficult time to care for her and supervise her at home prognosis guarded falls decubs DVT PFX d/w pt and 2 daughters in detail t time 75 minutes will d/w NS in am if OK to usw sq heparin h/o glioblastoma and surgery
[2017-09-08] MEDS ORDERED: SODIUM CHLORIDE 1,000 ML IV ONE (16:37)
[2017-09-08 20:25] VITALS: BMI 33.9
[2017-09-08] MEDS ORDERED: PT OWN MED DRAWER 7, Y5N ONE (21:21)
[2017-09-08] MEDS: MONTELUKAST NA 10 MG TABLET PO SCH (21:23)
[2017-09-08] MEDS: ATORVASTATIN CA 10 MG TABLET (FP) PO SCH (21:23)
[2017-09-08] MEDS: PANTOPRAZOLE 20 MG TABLET (FP) PO SCH (21:23)
[2017-09-08] MEDS: DIVALPROEX SODIUM 500 MG TABLET E.C. PO SCH (22:15)
[2017-09-09] MEDS: LEVOTHYROXINE NA 125 MCG TABLET (FP) PO SCH (06:03)
[2017-09-09 07:16] LABS: URINE APPEARANCE CLEAR; URINE BILIRUBIN NEGATIVE (NEGATIVE); URINE BLOOD NEGATIVE (NEGATIVE); URINE COLOR LT. YELLOW; URINE GLUCOSE (UA) NEGATIVE (NEGATIVE); URINE KETONE TRACE (NEGATIVE); URINE PROTEIN NEGATIVE (NEGATIVE); URINE UROBILINOGEN 0.2 mg/dL (0.2-1.0)
[2017-09-09 07:19] LABS: URINE LEUK ESTERASE 1+ (NEGATIVE); URINE NITRITE POSITIVE (NEGATIVE)
[2017-09-09 07:25] LABS: URINE BACTERIA MANY /hpf (NONE SEEN); URINE HYALINE CAST 19 /lpf; URINE MUCUS MODERATE; URINE RBC 4 /hpf (0-3); URINE WBC 232 /hpf (3-5)
[2017-09-09 08:09] LABS: MCH 31.8 pg (25.7-33.7); MCHC 33.4 g/dl (32.0-36.0); MEAN CELL VOLUME 95.2 fl (80-96); MEAN PLT VOLUME 7.2 fl (7.5-11.1); PLATELET COUNT 114 K/MM3 (134-434); RDW 19.8 % (11.6-15.6); WHITE BLOOD COUNT 5.9 K/mm3 (4.0-10.0)
[2017-09-09 08:35] LABS: ANION GAP 9 (8-16); CALCIUM 7.8 mg/dL (8.5-10.1); CO2 29 mmol/L (21-32); GLUCOSE,RANDOM 77 mg/dL (74-106)
[2017-09-09 08:42] LABS: CPK 32 IU/L (26-192); CREATININE 1.2 mg/dL (0.55-1.02); TROPONIN I 0.03 ng/ml (0.00-0.05)
--- NOTE | 2017-09-09 08:48 | PN ---
Progress Note (short form) - Note Progress Note: NEUROSUREGRY Pt known to me h/o stereotactic craniotomy for left frontal GBM 07/09 at [facility], just completed radiotherapy 3 days ago, was brought in by EMS status post near syncopal event yesterday. Patient woke up feeling well but after getting out of the shower, felt vertiginous and fell, landing on her back/buttocks but denies LOC. Did not hit her head and denies headache, visual changes, nausea, vomiting, weakness, B/B incontinence. No shaking movements of extremity. + lower back pain,but B calf pain bothers her even more. PE: AF, VSS HEENT- NC/AT; L frontal incision healed; Neck- supple; Cor- RR; Lungs- CTA; Abd - benign; Ext- chronic venous changes/edema; mild tenderness CN- intact; Motor- 4+-5/5 B UE/LE without drift; Sensation- intact LT; DTR- hyporeflexic Head CT- L frontal post-op changes; GBM extending across corpus callosum LS spine x-rays- extensive spondylosis and facet arthrosis; difficult to visualize if any minor acute fx GBM s/p debulking and RT If persistently symptomatic with LBP, consider MRI Lumbar support for pain Lower extremity doppler, r/o DVT
[2017-09-09] MEDS: DEXAMETHASONE 4 MG TABLET (FP) PO SCH (09:08)
[2017-09-09] MEDS: MAGNESIUM OXIDE 400 MG TABLET (FP) PO SCH (09:09)
[2017-09-09] MEDS: DIVALPROEX SODIUM 500 MG TABLET E.C. PO SCH ×2 (09:09→22:13)
[2017-09-09] MEDS: PANTOPRAZOLE 20 MG TABLET (FP) PO SCH ×2 (09:09→22:13)
--- NOTE | 2017-09-09 09:43 | CON.CARD ---
Consult Consult Specialty:: Cardiology Referred by:: Dr. Jaimes Reason for Consultation:: Cardiac evaluation - History of Present Illness Chief Complaint: Fall History of Present Illness: Patient is an 82 year old female well known to me with underlying history of hypertension, hypercholesterolemia, congestive heart failure, COPD, hypothyroidism and surgery for frontal glioblastoma followed by radiation therapy currently presents after a possible syncopal episode, but not clear this morning. She is awake at this time. She denies chest pain, shortness of breath or palpitation. She denies paroxysmal nocturnal dyspnea or orthopnea. She denies fever or chills. She denies nausea, vomiting, diarrhea or abdominal pain. She complained of vertigo and fell onto her buttock. She denies losing consciousness. She states that she did not hit her head. She is in general forgetful and complains of intermittent confusion. 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) Cardio/Vascular: Yes: HTN, Hyperlipdemia, Pulmonary Hypertension Pulmonary: Yes: COPD Gastrointestinal: Yes: Other (colon polyps) Renal/: Yes: Renal Failure Musculoskeletal: Yes: Chronic low back pain, Osteoarthritis Endocrine: Yes: Hypothyroidism - Past Surgical History Past Surgical History: Yes: Joint Replacement - Alcohol/Substance Use Hx Alcohol Use: No History of Substance Use: reports: None - Smoking History Smoking history: Never smoked Have you smoked in the past 12 months: No Aproximately how many cigarettes per day: 0 If you are a former smoker, when did you quit?: 30 years ago - Social History ADL: [facility] [place] [facility] [facility] [place] [facility]) Occupation: retired History of Recent Travel: No Home Medications - Allergies Allergies/Adverse Reactions: Allergies Allergy/AdvReac Type Severity Reaction Status Date / Time Shellfish Allergy Verified 09/08/17 10:06 levofloxacin [From Levaquin] AdvReac Unknown Verified 09/08/17 10:06 ceftriaxone sodium AdvReac ERYTHEMA,IT Verified 09/08/17 10:06 [From Rocephin] GIRMA,URTIC ARIA codeine [Codeine] AdvReac Nausea Verified 09/08/17 10:06 SHRIMP Allergy Uncoded 09/08/17 10:06 - Home Medications Home Medications: Ambulatory Orders Calcium Carbonate/Vitamin D3 [Calcium 600 + D3 Softgel] 1 each PO DAILY Dexamethasone [Decadron -] 4 mg PO DAILY 09/08/17 Diphenhydramine HCl [Benadryl -] 25 mg PO PRN PRN 09/08/17 Divalproex Sodium [Depakote] 500 mg PO BID 09/08/17 Furosemide [Lasix] 40 mg PO DAILY 09/08/17 Levothyroxine [Synthroid -] 125 mcg PO DAILY 09/08/17 Losartan Potassium 25 mg PO DAILY 09/08/17 Magnesium Oxide 400 mg PO DAILY 09/08/17 Montelukast Na [Singulair -] 10 mg PO HS 09/08/17 Nebivolol [Bystolic -] 2.5 mg PO DAILY 09/08/17 Pantoprazole Sodium [Protonix] 20 mg PO BID 09/08/17 Potassium Chloride 10 meq PO BID 09/08/17 Pravastatin Sodium [Pravachol (Nf)] 40 mg PO HS 09/08/17 Vit C/E/Zn/Coppr/Lutein/Zeaxan [Preservision Areds 2 Softgel] 1 each PO BID Family Disease History - Family Disease History Family Disease History: CA: Father (colon cancer), Brother (colon cancer) Review of Systems - Review of Systems Constitutional: denies: Chills, Fever Cardiovascular: reports: Shortness of Breath. denies: Chest Pain, Palpitations Respiratory: denies: Cough, Hemoptysis, PND, Snoring, SOB Gastrointestinal: denies: Abdominal Pain, Constipation, Melena, Nausea, Rectal Bleeding, Vomiting Genitourinary: denies: Dysuria, Hematuria Neurological: reports: No Symptoms, Dizziness, Numbness, Syncope, Tremors Vital Signs: Vital Signs Temperature 98.4 F 09/09/17 04:41 Pulse Rate 84 09/09/17 04:41 Respiratory Rate 20 09/09/17 04:41 Blood Pressure 100/48 09/09/17 04:41 O2 Sat by Pulse Oximetry (%) 96 09/08/17 21:00 Eyes: Yes: PERRL HENT: Yes: Atraumatic Neck: Yes: Supple Respiratory: Yes: Diminished Gastrointestinal: Yes: Normal Bowel Sounds, Soft. No: Tenderness Cardiovascular: Yes: Regular Rate and Rhythm JVD: No Carotid Bruit: No PMI: Non-Displaced Heart Sounds: Yes: S1, S2 Murmur: Yes: Systolic Murmur, Grade 1 Edema: No - Other Data Labs, Other Data: CBC, BMP 09/09/17 06:58 09/09/17 06:58 Troponin, BNP 09/08/17 09/09/17 11:00 06:58 Troponin I 0.03 0.03 B-Natriuretic Peptide 1615.93 H Troponin, BNP 09/08/17 09/09/17 11:00 06:58 Troponin I 0.03 0.03 B-Natriuretic Peptide 1615.93 H Imaging - Results Chest X-ray: Report Reviewed (Unremarkable) Cat Scan: Report Reviewed (Head CT - Noted) EKG: Report Reviewed Problem List - Problems (1) COPD (chronic obstructive pulmonary disease) with chronic bronchitis Code(s): J44.9 - CHRONIC OBSTRUCTIVE PULMONARY DISEASE, UNSPECIFIED (2) COPD with exacerbation Code(s): J44.1 - CHRONIC OBSTRUCTIVE PULMONARY DISEASE W (ACUTE) EXACERBATION (3) Congestive heart failure (CHF) Code(s): I50.9 - HEART FAILURE, UNSPECIFIED Qualifiers: Congestive heart failure type: diastolic Congestive heart failure chronicity: acute on chronic Qualified Code(s): I50.33 - Acute on chronic diastolic (congestive) heart failure Assessment/Plan 1. Status post mechanical fall, denies LOC ? syncope in the presence of glioblastoma post radiation therapy 2. HTN 3. Hypercholesterolemia 4. History of CHF 5. COPD PLAN: 1. Continue monitoring 2. Continue Bystolic 3. Continue Atorvastatin 4. Neurosurgical follow up 5. Nebulizer and steroids 6. Diuretics Further plans are to follow Damaso Escobedo MD
[2017-09-09 09:57] LABS: ANISOCYTOSIS 1+; BAND % 7.1 %; HYPOCHROMIA 1+; METAMYELOCYTE 0 % (0-2); MYELOCYTE 4 % (0-2); PLATELET ESTIMATE DECREASED; REACTIVE LYMPHOCYTES 0 % (0-80)
--- NOTE | 2017-09-09 09:58 | PN ---
Progress Note, Physician Chief Complaint: in bed awake alert NAD no new co, has back pain when moving no headcahes no LOC; no CP/SOB tests meds and consults noted d/w NS OK to start sq heparin for DVT pfx - Current Medication List Current Medications: Active Medications Atorvastatin Calcium (Lipitor -) 10 mg PO HS [facility] Last Admin: 09/08/17 21:23 Dose: 10 mg Dexamethasone (Decadron -) 4 mg PO DAILY [facility] Last Admin: 09/09/17 09:08 Dose: 4 mg Diphenhydramine HCl (Benadryl -) 25 mg PO PRN PRN PRN Reason: itching Divalproex Sodium (Depakote -) 500 mg PO BID [facility] Last Admin: 09/09/17 09:09 Dose: 500 mg Furosemide (Lasix -) 40 mg PO DAILY [facility] Last Admin: 09/09/17 09:09 Dose: 40 mg Sodium Chloride (Normal Saline -) 1,000 mls @ 50 mls/hr IV ASDIR ONE Stop: 09/09/17 12:36 Last Admin: 09/08/17 16:39 Dose: 50 mls/hr Levothyroxine Sodium (Synthroid -) 125 mcg PO DAILY@0700 [facility] Last Admin: 09/09/17 06:03 Dose: 125 mcg Losartan Potassium (Cozaar -) 25 mg PO DAILY [facility] Last Admin: 09/09/17 09:08 Dose: 25 mg Magnesium Oxide (Mag-Ox -) 400 mg PO DAILY [facility] Last Admin: 09/09/17 09:09 Dose: 400 mg Montelukast Sodium (Singulair -) 10 mg PO HS [facility] Last Admin: 09/08/17 21:23 Dose: 10 mg Nebivolol (Bystolic -) 2.5 mg PO DAILY [facility] Pantoprazole Sodium (Protonix -) 20 mg PO BID [facility] Last Admin: 09/09/17 09:09 Dose: 20 mg - Objective Vital Signs: Vital Signs Temperature 98.4 F 09/09/17 04:41 Pulse Rate 84 09/09/17 04:41 Respiratory Rate 20 09/09/17 04:41 Blood Pressure 100/48 09/09/17 04:41 O2 Sat by Pulse Oximetry (%) 96 09/08/17 21:00 Constitutional: Yes: No Distress, Calm Eyes: Yes: Conjunctiva Clear HENT: Yes: Atraumatic Neck: Yes: Supple Cardiovascular: Yes: Regular Rate and Rhythm Respiratory: Yes: CTA Bilaterally Gastrointestinal: Yes: Soft. No: Distention Genitourinary: No: CVA Tenderness - Left, CVA Tenderness - Right Musculoskeletal: No: Joint Stiffness, Joint Swelling Extremities: No: Cold, Cool, Cyanosis Edema: No Integumentary: No: Rash, Venous Stasis Changes Neurological: Yes: WNL, Alert. No: Oriented ...Motor Strength: WNL Psychiatric: Yes: WNL, Alert. No: Oriented, Agitated, Suicidal Ideation Labs: CBC, BMP 09/09/17 06:58 09/09/17 06:58 - ....Imaging Other: Report Reviewed Assessment/Plan 82-year-old female, history of hypertension, hyperlipidemia, CHF, COPD, hypothyroid, status post surgery for left frontal glioblastoma 07/09, s/p radiotherapy, brought in by EMS status post near syncopal event. [place] dizzy, fell not sure if LOC or head trauma also confusion, borderline low BP legs edema, check venous US r/o DVT as ordered hypoNa and HyperK f/u labs admit to telemetry cardiology, NS eval hold BP meds for low BP gentle IVF f/u labs UA +WBC, UCX pending; started on IV ATB, allergies noted PT and CM eval prognosis guarded falls decubs DVT PFX d/w pt and 2 daughters/ phone in detail t time 45 minutes
[2017-09-09] MEDS ORDERED: FUROSEMIDE 40 MG TABLET (FP) PO SCH (10:00)
[2017-09-09] MEDS ORDERED: LOSARTAN POTASSIUM 25 MG TABLET PO SCH (10:00)
[2017-09-09 10:48] LABS: NUCLEATED RED BLOOD CELL 1 % (0-0)
[2017-09-09] MEDS: NEBIVOLOL 2.5 MG TABLET (FP) PO SCH (11:36)
[2017-09-09] MEDS: AMPICILLIN NA/SULBACTAM NA 1.5 GM in SODIUM CHLORIDE 100 ML IVPB SCH ×2 (11:36→18:16)
[2017-09-09] MEDS: FUROSEMIDE 40 MG/4 ML INJECTABLE VIAL IVPUSH SCH (11:36)
[2017-09-09] MEDS: HEPARIN NA (PORCINE) 5,000 UNITS/ML 1ML VIAL SQ SCH ×2 (11:38→22:13)
[2017-09-09 14:38] LABS: URINE LEUK ESTERASE 1+ (NEGATIVE)
[2017-09-09] MEDS ORDERED: PT OWN MED DRAWER 7, Y5N ONE (22:12)
[2017-09-09] MEDS: MONTELUKAST NA 10 MG TABLET PO SCH (22:13)
[2017-09-09] MEDS: ATORVASTATIN CA 10 MG TABLET (FP) PO SCH (22:13)
--- NOTE | 2017-09-09 23:13 | CONSULT ---
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 Patient states she woke up feeling well and that when she got out of the shower, she became vertiginous and fell, landing on her buttocks but denies LOC. Adamant that she did not hit her head and denies headache, visual changes, nausea, vomiting, or focal weakness. No chest pain or shortness of breath. Does report some lower back pain since fall that has been able to bear weight since incident. 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) Cardiovascular: Yes: HTN, Hyperlipdemia, Pulmonary Hypertension Pulmonary: Yes: COPD Gastrointestinal: Yes: Other (colon polyps) Renal/: Yes: Renal Failure Musculoskeletal: Yes: Chronic low back pain, Osteoarthritis Endocrine: Yes: Hypothyroidism - Past Surgical History Past Surgical History: Yes: Joint Replacement - Smoking History Smoking history: Never smoked - Social History Usual Living Arrangement: Yes: With Child ADL: [facility] [place] [facility] [place] Occupation: retired Home Medications - Allergies Allergies/Adverse Reactions: Allergies Allergy/AdvReac Type Severity Reaction Status Date / Time Shellfish Allergy Verified 09/08/17 10:06 levofloxacin [From Levaquin] AdvReac Unknown Verified 09/08/17 10:06 ceftriaxone sodium AdvReac ERYTHEMA,IT Verified 09/08/17 10:06 [From Rocephin] BRISSA RAYO ARIA codeine [Codeine] AdvReac Nausea Verified 09/08/17 10:06 SHRIMP Allergy Uncoded 09/08/17 10:06 - Home Medications Home Medications: Ambulatory Orders Calcium Carbonate/Vitamin D3 [Calcium 600 + D3 Softgel] 1 each PO DAILY Dexamethasone [Decadron -] 4 mg PO DAILY 09/08/17 Diphenhydramine HCl [Benadryl -] 25 mg PO PRN PRN 09/08/17 Divalproex Sodium [Depakote] 500 mg PO BID 09/08/17 Furosemide [Lasix] 40 mg PO DAILY 09/08/17 Levothyroxine [Synthroid -] 125 mcg PO DAILY 09/08/17 Losartan Potassium 25 mg PO DAILY 09/08/17 Magnesium Oxide 400 mg PO DAILY 09/08/17 Montelukast Na [Singulair -] 10 mg PO HS 09/08/17 Nebivolol [Bystolic -] 2.5 mg PO DAILY 09/08/17 Pantoprazole Sodium [Protonix] 20 mg PO BID 09/08/17 Potassium Chloride 10 meq PO BID 09/08/17 Pravastatin Sodium [Pravachol (Nf)] 40 mg PO HS 09/08/17 Vit C/E/Zn/Coppr/Lutein/Zeaxan [Preservision Areds 2 Softgel] 1 each PO BID Physical Examination Vital Signs: afvss Cor: RSR, No murmurs, No gallops Lungs: Clear to P&A Abd: Soft, Normal bowel sounds, No organomegaly Ext:No significant edema Assessment/Plan 82-year-old female, history of hypertension, hyperlipidemia, CHF, COPD, hypothyroid, 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
--- NOTE | 2017-09-10 01:35 | EKG ---
Test Reason : Blood Pressure : / mmHG Vent. Rate : 067 BPM Atrial Rate : 067 BPM P-R Int : 164 ms QRS Dur : 082 ms QT Int : 380 ms P-R-T Axes : 030 005 032 degrees QTc Int : 401 ms NORMAL SINUS RHYTHM NORMAL ECG WHEN COMPARED WITH ECG OF 12-JUL-2017 10:29, T WAVE VARIATION Confirmed by PAT TOLBERT MD ([id number]) on 09/10/2017 1:35:26 AM Referred By: Confirmed By:PAT TOLBERT MD
[2017-09-10] MEDS ORDERED: PT OWN MED DRAWER 7, Y5N ONE (03:50)
[2017-09-10] MEDS: AMPICILLIN NA/SULBACTAM NA 1.5 GM in SODIUM CHLORIDE 100 ML IVPB SCH ×3 (04:22→19:12)
[2017-09-10] MEDS: LEVOTHYROXINE NA 125 MCG TABLET (FP) PO SCH (06:34)
--- NOTE | 2017-09-10 06:40 | PN ---
Progress Note, Physician Chief Complaint: in bed awake alert NAD VSS, daughters Diamante and Gayle at bedside; seen by heme onc, they discussed about chemotherapy; however given pt's general decline and functional status (falls, confused, weak) they are more inclined towards palliative and hospice care; referred to Palliative care services and [facility] - Current Medication List Current Medications: Active Medications Atorvastatin Calcium (Lipitor -) 10 mg PO HS [facility] Last Admin: 09/09/17 22:13 Dose: 10 mg Dexamethasone (Decadron -) 4 mg PO DAILY [facility] Last Admin: 09/09/17 09:08 Dose: 4 mg Diphenhydramine HCl (Benadryl -) 25 mg PO PRN PRN PRN Reason: itching Divalproex Sodium (Depakote -) 500 mg PO BID [facility] Last Admin: 09/09/17 22:13 Dose: 500 mg Furosemide (Lasix Injection -) 40 mg IVPUSH DAILY [facility] Last Admin: 09/09/17 11:36 Dose: 40 mg Heparin Sodium (Porcine) (Heparin -) 5,000 unit SQ BID [facility] Last Admin: 09/09/17 22:13 Dose: 5,000 unit Ampicillin Sodium/Sulbactam (Sodium 1.5 gm/ Sodium Chloride) 100 mls @ 200 mls/ hr IVPB Q8H-IV [facility] Last Admin: 09/10/17 04:22 Dose: 200 mls/hr Levothyroxine Sodium (Synthroid -) 125 mcg PO DAILY@0700 [facility] Last Admin: 09/10/17 06:34 Dose: 125 mcg Magnesium Oxide (Mag-Ox -) 400 mg PO DAILY [facility] Last Admin: 09/09/17 09:09 Dose: 400 mg Montelukast Sodium (Singulair -) 10 mg PO HS [facility] Last Admin: 09/09/17 22:13 Dose: 10 mg Nebivolol (Bystolic -) 2.5 mg PO DAILY [facility] Last Admin: 09/09/17 11:36 Dose: 2.5 mg Pantoprazole Sodium (Protonix -) 20 mg PO BID [facility] Last Admin: 09/09/17 22:13 Dose: 20 mg - Objective Vital Signs: Vital Signs Temperature 98.4 F 09/10/17 06:00 Pulse Rate 68 09/10/17 06:00 Respiratory Rate 20 09/10/17 06:00 Blood Pressure 115/50 09/10/17 06:00 O2 Sat by Pulse Oximetry (%) 97 09/09/17 21:00 Constitutional: Yes: No Distress, Calm Eyes: Yes: Conjunctiva Clear HENT: Yes: Atraumatic Neck: Yes: Supple Cardiovascular: Yes: Regular Rate and Rhythm Respiratory: Yes: Diminished Gastrointestinal: Yes: Soft. No: Distention, Tenderness Genitourinary: No: CVA Tenderness - Left, CVA Tenderness - Right Musculoskeletal: No: Joint Stiffness, Joint Swelling Extremities: No: Cold, Cool Edema: Yes Integumentary: Yes: Rash (legs below knees), Venous Stasis Changes Neurological: Yes: WNL, Alert, Oriented (x2 not in time) ...Motor Strength: WNL Psychiatric: Yes: WNL, Alert, Oriented. 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 [place] dizzy, fell not sure if LOC or head trauma also confusion, borderline low BP hypoNa and HyperK f/u labs admitted to telemetry cardiology, NS eval hold BP meds for low BP gentle IVF f/u labs UA +WBC, UCX pending; started on IV ATB, allergies noted PT and CM eval prognosis guarded falls decubs DVT PFX d/w pt and 2 daughters/at bedside in detail; d.w heme dr Alcantara, [facility] [place] [facility] [place] bilingual patient support caseworker t time 45 minutes
--- NOTE | 2017-09-10 06:55 | PN ---
Progress Note (short form) - Note Progress Note: Chief Complaint: Events noted, notes reviewed, denies any further dizziness, denies any chest pain or dyspnea History of Present Illness: Seen and examined on telemetry. Events noted, notes reviewed, denies any further dizziness, denies any chest pain or dyspnea Medications: Current Medications Atorvastatin Calcium (Lipitor -) 10 mg PO HS [facility] Last Admin: 09/09/17 22:13 Dose: 10 mg Dexamethasone (Decadron -) 4 mg PO DAILY [facility] Last Admin: 09/10/17 09:30 Dose: 4 mg Diphenhydramine HCl (Benadryl -) 25 mg PO PRN PRN PRN Reason: itching Divalproex Sodium (Depakote -) 500 mg PO BID [facility] Last Admin: 09/10/17 09:31 Dose: 500 mg Furosemide (Lasix Injection -) 40 mg IVPUSH DAILY [facility] Last Admin: 09/10/17 09:30 Dose: 40 mg Heparin Sodium (Porcine) (Heparin -) 5,000 unit SQ BID [facility] Last Admin: 09/10/17 09:30 Dose: 5,000 unit Ampicillin Sodium/Sulbactam (Sodium 1.5 gm/ Sodium Chloride) 100 mls @ 200 mls/ hr IVPB Q8H-IV [facility] Last Admin: 09/10/17 09:31 Dose: 200 mls/hr Levothyroxine Sodium (Synthroid -) 125 mcg PO DAILY@0700 [facility] Last Admin: 09/10/17 06:34 Dose: 125 mcg Magnesium Oxide (Mag-Ox -) 400 mg PO DAILY [facility] Last Admin: 09/10/17 09:30 Dose: 400 mg Montelukast Sodium (Singulair -) 10 mg PO [facility] Last Admin: 09/09/17 22:13 Dose: 10 mg Nebivolol (Bystolic -) 2.5 mg PO DAILY [facility] Last Admin: 09/10/17 09:31 Dose: 2.5 mg Pantoprazole Sodium (Protonix -) 20 mg PO BID [facility] Last Admin: 09/10/17 09:30 Dose: 20 mg Review of Systems Constitutional: denies: Chills, Fever Cardiovascular: As Noted Above Respiratory: denies: Cough or Sputum Production Gastrointestinal: denies: Abdominal Pain, Constipation, Diarrhea, Nausea, Vomiting Genitourinary: denies: Dysuria Musculoskeletal: No Symptoms Reported Neurological: denies: Headache Vital Signs: Last Vital Signs Temp Pulse Resp BP Pulse Ox 98.8 F 85 20 106/43 100 09/10/17 09:00 09/10/17 09:00 09/10/17 09:00 09/10/17 09:00 09/10/17 09:00 Intake & Output 09/07/17 09/08/17 09/09/17 09/10/17 23:59 23:59 23:59 23:59 Intake Total 340 1300 Balance 340 1300 Weight 185 lb 8 oz 187 lb 6 oz 185 lb 2 oz Constitutional: No Distress, Calm Neck: Supple Negative JVD No Bruit Respiratory: Clear to A&P Bilaterally Cardiovascular: S1 S2 Regular Rate and Rhythm Grade 2/6 MELLY Gastrointestinal: Soft Benign Normal Bowel Sounds Ext: No Edema Labs: CBC, BMP 09/10/17 05:05 09/10/17 05:05 Hepatic Panel Total Bilirubin 0.3 mg/dL (0.2-1.0) D 09/10/17 05:05 AST 11 U/L (15-37) L D 09/10/17 05:05 ALT 18 U/L (12-78) D 09/10/17 05:05 Alkaline Phosphatase 54 U/L (45-117) D 09/10/17 05:05 Albumin 1.7 g/dl (3.4-5.0) L D 09/10/17 05:05 Assessment/Plan ASSESSMENT: 1. Transient dizziness and confusion, with no loss of consciousness, in a patient with known history of left frontal glioblastoma post stereotactic craniotomy post radiation therapy 2. CAD angina pectoris, stable 3. Diastolic LV dysfunction with chronic class I NYHA classification LV failure , compensated/euvolemic 4. HTN 5. Hypercholesterolemia 6. Hypothyroidism 7. COPD 8. Chronic kidney insufficiency PLAN: 1. Continue Bystolic 2. Continue Lipitor 3. Continue Lasix with caution and close monitoring of renal function, switch to PO therapy 4. No additional cardiovascular evaluation is indicated at this point for the above noted presentation Yojana Sheldon M.D.
[2017-09-10 07:30] LABS: MCH 31.8 pg (25.7-33.7); MCHC 33.5 g/dl (32.0-36.0); MEAN PLT VOLUME 7.2 fl (7.5-11.1); PLATELET COUNT 106 K/MM3 (134-434); RDW 19.6 % (11.6-15.6)
[2017-09-10 07:31] LABS: ALBUMIN 1.7 g/dl (3.4-5.0); ANION GAP 8 (8-16); BILIRUBIN,TOTAL 0.3 mg/dL (0.2-1.0); CALCIUM 7.2 mg/dL (8.5-10.1); CO2 30 mmol/L (21-32); CREATININE 1.1 mg/dL (0.55-1.02); GLUCOSE,RANDOM 82 mg/dL (74-106); SGOT/AST 11 U/L (15-37); SGPT/ALT 18 U/L (12-78)
[2017-09-10 07:34] LABS: ALK PHOS 54 U/L (45-117); TOT PROT 4.2 g/dl (6.4-8.2)
--- NOTE | 2017-09-10 07:35 | PN ---
Progress Note (short form) - Note Progress Note: NEUROSURGERY No H/A or N/V Minimal LBP this AM PE: AF, VSS A/A/Ox2 HEENT- NC/AT; L frontal incision healed; Neck- supple; Cor- RR; Lungs- CTA; Abd - benign; Ext- chronic venous changes/edema; mild tenderness CN- intact; Motor- 4+-5/5 B UE/LE without drift; Sensation- intact LT; DTR- hyporeflexic Head CT- L frontal post-op changes; GBM extending across corpus callosum LS spine x-rays- extensive spondylosis and facet arthrosis; no obvious fx Doppler LE- negative for DVT UA- 232 WBC; 1+ leukocyte esterase; urine culture pending GBM s/p debulking and RT SQ heparin OK for DVT proplylaxis On Unasyn for UTI
[2017-09-10] MEDS: FUROSEMIDE 40 MG/4 ML INJECTABLE VIAL IVPUSH SCH (09:30)
[2017-09-10] MEDS: HEPARIN NA (PORCINE) 5,000 UNITS/ML 1ML VIAL SQ SCH ×2 (09:30→21:29)
[2017-09-10] MEDS: MAGNESIUM OXIDE 400 MG TABLET (FP) PO SCH (09:30)
[2017-09-10] MEDS: DEXAMETHASONE 4 MG TABLET (FP) PO SCH (09:30)
[2017-09-10] MEDS: PANTOPRAZOLE 20 MG TABLET (FP) PO SCH ×2 (09:30→21:29)
[2017-09-10] MEDS: DIVALPROEX SODIUM 500 MG TABLET E.C. PO SCH ×2 (09:31→21:29)
[2017-09-10] MEDS: NEBIVOLOL 2.5 MG TABLET (FP) PO SCH (09:31)
[2017-09-10 12:17] LABS: ANISOCYTOSIS 1+; HYPOCHROMIA 0; MACROCYTOSIS 0; METAMYELOCYTE 2 % (0-2); MICROCYTOSIS 1+; MYELOCYTE 0 % (0-2); PLATELET ESTIMATE DECREASED; POLYCHROMASIA 0; REACTIVE LYMPHOCYTES 0 % (0-80)
[2017-09-10] MEDS: MONTELUKAST NA 10 MG TABLET PO SCH (21:29)
[2017-09-10] MEDS: ATORVASTATIN CA 10 MG TABLET (FP) PO SCH (21:29)
[2017-09-11] MEDS ORDERED: PT OWN MED DRAWER 7, Y5N ONE ×2 (03:56→10:19)
[2017-09-11] MEDS: AMPICILLIN NA/SULBACTAM NA 1.5 GM in SODIUM CHLORIDE 100 ML IVPB SCH (04:06)
[2017-09-11] MEDS: LEVOTHYROXINE NA 125 MCG TABLET (FP) PO SCH (06:11)
[2017-09-11 07:43] LABS: BASO % 0.3 % (0-2.0); EOS % 0.4 % (0-4.5); MCH 31.9 pg (25.7-33.7); MCHC 33.3 g/dl (32.0-36.0); MEAN CELL VOLUME 95.8 fl (80-96); MEAN PLT VOLUME 7.5 fl (7.5-11.1); NEUT % 83.2 % (42.8-82.8); PLATELET COUNT 114 K/MM3 (134-434); RDW 19.8 % (11.6-15.6); WHITE BLOOD COUNT 6.1 K/mm3 (4.0-10.0)
--- NOTE | 2017-09-11 08:17 | PN ---
Progress Note (short form) - Note Progress Note: NEUROSURGERY No H/A or N/V or Sz Minimal LBP this AM PE: AF, VSS A/A/Ox1-2 HEENT- NC/AT; L frontal incision healed; Neck- supple; Cor- RR; Lungs- CTA; Abd - benign; Ext- chronic venous changes/edema; mild tenderness CN- intact; Motor- 4+-5/5 B UE/LE without drift; Sensation- intact LT; DTR- hyporeflexic Head CT- L frontal post-op changes; GBM extending across corpus callosum LS spine x-rays- extensive spondylosis and facet arthrosis; no obvious fx Doppler LE- negative for DVT UA- 232 WBC; 1+ leukocyte esterase; urine culture with GNR Blood culture + 1/2 (contaminated?) GBM s/p debulking and RT Palliative care chosen per family
[2017-09-11 08:30] LABS: ANION GAP 7 (8-16); CALCIUM 7.9 mg/dL (8.5-10.1); CO2 32 mmol/L (21-32); GLUCOSE,RANDOM 76 mg/dL (74-106)
[2017-09-11 08:31] LABS: CREATININE 0.9 mg/dL (0.55-1.02)
[2017-09-11] MEDS: FUROSEMIDE 40 MG/4 ML INJECTABLE VIAL IVPUSH SCH (10:14)
[2017-09-11] MEDS: MAGNESIUM OXIDE 400 MG TABLET (FP) PO SCH (10:15)
[2017-09-11] MEDS: PANTOPRAZOLE 20 MG TABLET (FP) PO SCH (10:15)
[2017-09-11] MEDS: DEXAMETHASONE 4 MG TABLET (FP) PO SCH (10:15)
[2017-09-11] MEDS: HEPARIN NA (PORCINE) 5,000 UNITS/ML 1ML VIAL SQ SCH (10:15)
[2017-09-11] MEDS: DIVALPROEX SODIUM 500 MG TABLET E.C. PO SCH (10:20)
[2017-09-11] MEDS: NEBIVOLOL 2.5 MG TABLET (FP) PO SCH (10:21)
--- NOTE | 2017-09-11 10:30 | PN ---
Progress Note, Physician History of Present Illness: Afebrile, bacteremia noted. - Current Medication List Current Medications: Active Medications Atorvastatin Calcium (Lipitor -) 10 mg PO HS [facility] Last Admin: 09/10/17 21:29 Dose: 10 mg Dexamethasone (Decadron -) 4 mg PO DAILY [facility] Last Admin: 09/11/17 10:15 Dose: 4 mg Diphenhydramine HCl (Benadryl -) 25 mg PO PRN PRN PRN Reason: itching Divalproex Sodium (Depakote -) 500 mg PO BID [facility] Last Admin: 09/11/17 10:20 Dose: 500 mg Furosemide (Lasix Injection -) 40 mg IVPUSH DAILY [facility] Last Admin: 09/11/17 10:14 Dose: 40 mg Heparin Sodium (Porcine) (Heparin -) 5,000 unit SQ BID [facility] Last Admin: 09/11/17 10:15 Dose: 5,000 unit Ampicillin Sodium/Sulbactam (Sodium 1.5 gm/ Sodium Chloride) 100 mls @ 200 mls/ hr IVPB Q8H-IV [facility] Last Admin: 09/11/17 04:06 Dose: 200 mls/hr Levothyroxine Sodium (Synthroid -) 125 mcg PO DAILY@0700 [facility] Last Admin: 09/11/17 06:11 Dose: 125 mcg Magnesium Oxide (Mag-Ox -) 400 mg PO DAILY [facility] Last Admin: 09/11/17 10:15 Dose: 400 mg Montelukast Sodium (Singulair -) 10 mg PO HS [facility] Last Admin: 09/10/17 21:29 Dose: 10 mg Nebivolol (Bystolic -) 2.5 mg PO DAILY [facility] Last Admin: 09/11/17 10:21 Dose: 2.5 mg Pantoprazole Sodium (Protonix -) 20 mg PO BID [facility] Last Admin: 09/11/17 10:15 Dose: 20 mg - Objective Vital Signs: Vital Signs Temperature 97.8 F 09/11/17 02:51 Pulse Rate 68 09/11/17 06:00 Respiratory Rate 20 09/11/17 06:00 Blood Pressure 120/53 09/11/17 06:00 O2 Sat by Pulse Oximetry (%) 96 09/10/17 21:00 Constitutional: Yes: No Distress, Calm Neck: Yes: Supple Cardiovascular: Yes: Regular Rate and Rhythm Respiratory: Yes: Regular, Diminished Gastrointestinal: Yes: Normal Bowel Sounds, Soft, Abdomen, Obese Edema: Yes Edema: LLE: Trace, RLE: Trace Labs: CBC, BMP 09/11/17 05:25 09/11/17 05:25 - ....Imaging EKG: Report Reviewed (Tele: No events) Problem List - Problems (1) Bacteremia Code(s): R78.81 - BACTEREMIA (2) Brain tumor Code(s): D49.6 - NEOPLASM OF UNSPECIFIED BEHAVIOR OF BRAIN (3) Diastolic dysfunction Code(s): I51.9 - HEART DISEASE, UNSPECIFIED (4) Hyperlipidemia Code(s): E78.5 - HYPERLIPIDEMIA, UNSPECIFIED Qualifiers: Hyperlipidemia type: pure hypercholesterolemia Qualified Code(s): E78.00 - Pure hypercholesterolemia, unspecified (5) Hypertension Code(s): I10 - ESSENTIAL (PRIMARY) HYPERTENSION Qualifiers: Hypertension type: essential hypertension Qualified Code(s): I10 - Essential (primary) hypertension (6) Hypothyroidism Code(s): E03.9 - HYPOTHYROIDISM, UNSPECIFIED Qualifiers: 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 Transient dizziness and confusion, with no loss of consciousness, in a patient with known history of left frontal glioblastoma post stereotactic craniotomy post radiation therapy 2. CAD angina pectoris, stable 3. Diastolic LV dysfunction with chronic class I NYHA classification LV failure , compensated/euvolemic 4. HTN 5. Hypercholesterolemia 6. Hypothyroidism 7. COPD 8. Chronic kidney insufficiency 9. Bacteremia PLAN: 1. Continue Bystolic 2.5 qd 2. Continue Lipitor 10 qhs 3. Continue Lasix 40 qd, switch to PO therapy 4. No additional cardiovascular evaluation is indicated at this point for the above noted presentation 5. Abx course per ID 6. [place] referral
--- NOTE | 2017-09-11 10:36 | PN ---
Progress Note, Physician - Current Medication List Current Medications: Active Medications Atorvastatin Calcium (Lipitor -) 10 mg PO HS [facility] Last Admin: 09/10/17 21:29 Dose: 10 mg Dexamethasone (Decadron -) 4 mg PO DAILY [facility] Last Admin: 09/11/17 10:15 Dose: 4 mg Diphenhydramine HCl (Benadryl -) 25 mg PO PRN PRN PRN Reason: itching Divalproex Sodium (Depakote -) 500 mg PO BID [facility] Last Admin: 09/11/17 10:20 Dose: 500 mg Furosemide (Lasix -) 40 mg PO DAILY [facility] Heparin Sodium (Porcine) (Heparin -) 5,000 unit SQ BID [facility] Last Admin: 09/11/17 10:15 Dose: 5,000 unit Ampicillin Sodium/Sulbactam (Sodium 1.5 gm/ Sodium Chloride) 100 mls @ 200 mls/ hr IVPB Q8H-IV [facility] Last Admin: 09/11/17 04:06 Dose: 200 mls/hr Levothyroxine Sodium (Synthroid -) 125 mcg PO DAILY@0700 [facility] Last Admin: 09/11/17 06:11 Dose: 125 mcg Magnesium Oxide (Mag-Ox -) 400 mg PO DAILY [facility] Last Admin: 09/11/17 10:15 Dose: 400 mg Montelukast Sodium (Singulair -) 10 mg PO [facility] Last Admin: 09/10/17 21:29 Dose: 10 mg Nebivolol (Bystolic -) 2.5 mg PO DAILY [facility] Last Admin: 09/11/17 10:21 Dose: 2.5 mg Pantoprazole Sodium (Protonix -) 20 mg PO BID [facility] Last Admin: 09/11/17 10:15 Dose: 20 mg - Objective Vital Signs: Vital Signs Temperature 97.8 F 09/11/17 02:51 Pulse Rate 68 09/11/17 06:00 Respiratory Rate 20 09/11/17 06:00 Blood Pressure 120/53 09/11/17 06:00 O2 Sat by Pulse Oximetry (%) 96 09/10/17 21:00 Labs: CBC, BMP 09/11/17 05:25 09/11/17 05:25
--- NOTE | 2017-09-11 10:59 | PN ---
Progress Note (short form) - Note Progress Note: ID consult dictated imp/reccd 82 year old female with Glioblastoma s/p debulking in June, admitted for near syncope. she has no fevers or chills no leukocytosis noted to have pyuria and started on unasyn now with ecoli in urine and positive blood culture for gpc in clusters/gram positive bacilli d/w Dr Jaimes Bacteremia- ?contaminant suggest repeat blood cultures and then start vancomycin if blood cultures come back SCN can d/c antibiotics for uti would treat with macrobid po multiple antibiotic allergies glioblastome multiforme- for palliative care at [facility] Problem List - Problems (1) Bacteremia Code(s): R78.81 - BACTEREMIA (2) UTI (urinary tract infection) Code(s): N39.0 - URINARY TRACT INFECTION, SITE NOT SPECIFIED (3) Glioblastoma Code(s): C71.9 - MALIGNANT NEOPLASM OF BRAIN, UNSPECIFIED (4) Allergy to multiple antibiotics Code(s): Z88.1 - ALLERGY STATUS TO OTHER ANTIBIOTIC AGENTS STATUS
--- NOTE | 2017-09-11 11:09 | DS ---
Physical Examination Vital Signs: Vital Signs Temperature 97.8 F 09/11/17 02:51 Pulse Rate 68 09/11/17 06:00 Respiratory Rate 20 09/11/17 06:00 Blood Pressure 120/53 09/11/17 06:00 O2 Sat by Pulse Oximetry (%) 96 09/10/17 21:00 Findings/Remarks: in bed awake alert NAD, afebrile, on/off confused, has chronic back pain we had extensive talks with patient and her daughters, also with palliative care and human services case manager; Pat does not want to go to SNF/NH Rehab and seems she is not safe at home ( lives with 1 daughter but she works during the day); I also d/w with heme onc and neurosurgery also about further plan the patient and daughters do not want anymore aggressive treatment, chemotherapy , surgery; they want her to have "some quality time for whatever if left" and they feel [facility] would be the best option at this time; pt and daughters agreed and signed DNR DNI and they are fully aware of meaning and implications. Will be transferred when bed available in [facility]] t time 60 min Constitutional: Yes: No Distress, Calm Eyes: Yes: Conjunctiva Clear HENT: Yes: Atraumatic Neck: Yes: Supple Cardiovascular: Yes: Regular Rate and Rhythm Respiratory: Yes: CTA Bilaterally Gastrointestinal: Yes: Soft. No: Distention Renal/: No: CVA Tenderness - Left, CVA Tenderness - Right, Hematuria Musculoskeletal: No: Joint Stiffness, Joint Swelling Extremities: No: Cold, Cool Edema: Yes (less) Integumentary: Yes: Rash (legs, less), Venous Stasis Changes. No: Pressure Ulcer Neurological: Yes: WNL, Alert. No: Oriented ...Motor Strength: WNL Psychiatric: Yes: WNL, Alert. No: Oriented, Agitated Labs: CBC, BMP 09/11/17 05:25 09/11/17 05:25 Discharge Summary Reason For Visit: PRE-SYNCOPE Current Active Problems Bacteremia (Acute) Near syncope (Acute) Procedures: Principal: 82 YOF s/p glioblastoma debulking surgery 2 months ago, s /p radiation admitted after falls at home; declining functional status; weak and confused; daughters do not want chemotherapy or further aggressive treatment and would like to transfer to [facility]; see PMH Other Procedures: IVF, IV antibiotics; seen by heme onc, neurosurgery, ID and cardiology;. pt and daughters signed DNR DNI see above Hospital Course: found to be dehydrated and UTI+ with G- rods EColi; 1 blood cx + for G+ cocci and G+ bacilli most likely contaminant; seen by ID rec: po macrobid 50 mg po QID x 1 week for uti; IV vancomycin 1 gram daily via peripheral line for now; repeat blood cx today, if negative can DC IV vanco, if repeat blood cx + again, pt will need IV ATB via PICC line (to f/u blood cx drawn today, results will be available on 09/13/17). d/w pt and daughters, d/w human services case manager - to inform [facility] staff Condition: Fair - Instructions Referrals: Yoav Ricketts MD [Staff Physician] - Disposition: TRANSFER ACUTE CARE/OTHER HOSP - Home Medications Comprehensive Discharge Medication List: Ambulatory Orders Calcium Carbonate/Vitamin D3 [Calcium 600 + D3 Softgel] 1 each PO DAILY Dexamethasone [Decadron -] 4 mg PO DAILY 09/08/17 Diphenhydramine HCl [Benadryl -] 25 mg PO PRN PRN 09/08/17 Divalproex Sodium [Depakote] 500 mg PO BID 09/08/17 Furosemide [Lasix] 40 mg PO DAILY 09/08/17 Levothyroxine [Synthroid -] 125 mcg PO DAILY 09/08/17 Losartan Potassium 25 mg PO DAILY 09/08/17 Magnesium Oxide 400 mg PO DAILY 09/08/17 Montelukast Na [Singulair -] 10 mg PO HS 09/08/17 Nebivolol [Bystolic -] 2.5 mg PO DAILY 09/08/17 Pantoprazole Sodium [Protonix] 20 mg PO BID 09/08/17 Potassium Chloride 10 meq PO BID 09/08/17 Pravastatin Sodium [Pravachol (Nf)] 40 mg PO HS 09/08/17 Vit C/E/Zn/Coppr/Lutein/Zeaxan [Preservision Areds 2 Softgel] 1 each PO BID
[2017-09-11] MEDS ORDERED: NITROFURANTOIN MACROCRYSTAL 50 MG CAPSULE (FP) PO SCH (12:00)
[2017-09-11] MEDS ORDERED: VANCOMYCIN 1,000 MG in DEXTROSE 5%-WATER - 250 ML IVPB ONE (12:00)
[2017-09-11] MEDS ORDERED: NYSTATIN 500,000 UNITS/5 ML SUSPENSION PO SCH (14:00)
--- NOTE | 2017-09-11 14:13 | CONS ---
DATE OF CONSULTATION: DATE OF DICTATION: 09/11/2017 REQUESTING PHYSICIAN: Nahed Jaimes MD HISTORY OF PRESENT ILLNESS: This is an 82-year-old woman recently diagnosed glioblastoma multiforme in June. She underwent debulking at that time. She has done poorly since. She lives at home with her daughter and has required a lot of care at home. She is unable to function independently. She was brought in by EMS on the with a near syncopal event. There are no fever or chills. She has had no nausea or vomiting. She was admitted with these complaints. She was noted to have pyuria and started on Unasyn. I am asked to see her because now admission blood cultures from the . She was found to have two sets of blood cultures, one set growing gram positive cocci and clusters as well as gram positive bacilli. The other set is negative. Patient is awake and alert, and she has no complaints. Plans are for her to go to [facility] today for palliative care. The family has declined any further oncologic interventions. Patient is awake and alert. She has no complaints whatsoever. She is eating well. She has no difficulty swallowing. She denies any fevers or chills. PAST MEDICAL HISTORY: Notable for glioblastoma multiforme, hypertension, hyperlipidemia, COPD, pulmonary hypertension. She has a history of prior renal failure in the past; currently this is resolved. Also, chronic low back pain, osteoarthritis, hypothyroidism. She is status post big toe surgery on her right foot as well as bilateral knee surgery and bilateral knee replacements. SOCIAL HISTORY: There is no history of any cigarette use or any substance use. She stopped smoking 30 years ago. She lives with her daughter. ALLERGIES: She is allergic to SHELLFISH, LEVAQUIN, CEFTRIAXONE, CODEINE, and SHRIMP. MEDICATIONS: At home include calcium with vitamin D, Decadron, Benadryl, Depakote, Lasix, Synthroid, losartan, magnesium oxide, Singulair, Bystolic, Protonix, potassium, Pravachol. FAMILY HISTORY: Notable for colon cancer in father and brother. REVIEW OF SYSTEMS: She has no complaints. PHYSICAL EXAMINATION General: She is a pleasant woman. Vital signs: She is afebrile, temperature is 97.8; pulse is 68, blood pressure is 120/53, respiratory rate 20. HEENT: She is normocephalic. Her eyes are anicteric. She has a small amount of thrush on her upper palate. Neck: Supple. Lungs: Clear to auscultation. Heart: Regular rate and rhythm. Abdomen: Soft, nontender. Extremities: She has well-healed bilateral total knee replacement scars on her legs. She has some venous stasis changes. She has no open skin lesions. DIAGNOSTIC DATA: White count 6, hemoglobin 10, platelets 114. BUN 31, creatinine 0.9. Urinalysis showed 1+ leukocyte esterase with 232 white cells. Blood cultures, as stated before, one set is negative, one is growing multiple organisms including gram-positive bacilli and gram-positive cocci. Urine has E. coli resistant to Unasyn, but tentative to nitrofurantoin and Bactrim. SUMMARY: This is a 82-year-old woman with bacteremia, suspecting contaminant given the multiple organisms. I suggest we repeat blood cultures and then start vancomycin. If blood cultures come back coagulase negative staphylococcus, can stop her antibiotics. For urinary tract infection, would treat with oral Macrobid given her multiple antibiotic allergies. She has glioblastoma multiforme and plan is for palliative care at [facility]. Would add some nystatin swish and swallow for thrush as well. Case was discussed at length with Dr. Jaimes. KULWINDER BAUM M.D. [id number]
[2017-09-11 14:41] VITALS: BP 107/44; PULSE 79; TEMP 99.4
[2017-09-12] MEDS ORDERED: FUROSEMIDE 40 MG TABLET (FP) PO SCH (10:00)
[2017-09-12] MEDS ORDERED: VANCOMYCIN 1,000 MG in DEXTROSE 5%-WATER - 250 ML IVPB SCH (12:00)
--- NOTE | 2017-09-13 10:56 | PN ---
Progress Note (short form) - Note Progress Note: I d/w ID dr Manning 1 set blood cx + MRSA; rec IV vancomycin x 4-6 weeks 1 gram iv daily; if indicated to check echo. I d/w pt's daughter Gayle pt has MRSA in blood, I advised to send her back to hospital for further w/u and treatment, needs IV vanco, echo, PICC line; d/w Gayle that blood MRSA is a life threatening infection without treatment; she is currently on IV vancomycin in [place]; Gayle said she will d/w pt's doctor in [place] to see if possible to insert PICC there and continue IV vanco in [place] ; pt should continue po macrobid x 1 week as ordered for UTI; I asked Gayle to ask pt's dr from [place] to call me; I also spoke with Marybeth AVALOS and also i called [place] at [phone] and d/w pt's nurse from the floor about all the above.
--- NOTE | 2017-09-13 17:26 | PN ---
Progress Note (short form) - Note Progress Note: d/w pt's daughter Diamante who spoke with the patient herself and with her sister Gayle and also they spoke with [facility] about blood cx + MRSA (I faxed report and they confirmed received it) the decision is to keep pt in [place] and treat her there with IV vanco 1 gram daily x 4-6 weeks and if she needs PICC line or to go to hospital she will be sent to [facility] not to [facility].
== END 2017-09-11 17:24 | disposition hospice, inpatient (51) | DRG 55 ==
LOC: JER 09:59 → JERBED 14:09 → J4W 18:37
PROVIDERS: ADMIT Internal Medicine; ATTEND Internal Medicine
DX: C71.9 Malignant neoplasm of brain, unspecified (principal); I50.1 Left ventricular failure, unspecified; I13.0 Hypertensive heart and chronic kidney disease with heart failure and stage 1 through stage 4 chronic kidney disease, or unspecified chronic kidney disease; N39.0 Urinary tract infection, site not specified; E78.5 Hyperlipidemia, unspecified; J44.9 Chronic obstructive pulmonary disease, unspecified; E03.9 Hypothyroidism, unspecified; Z92.21 Personal history of antineoplastic chemotherapy; I27.20 Pulmonary hypertension, unspecified; M54.5 Low back pain; Z91.013 Allergy to seafood; E87.5 Hyperkalemia; I12.9 Hypertensive chronic kidney disease with stage 1 through stage 4 chronic kidney disease, or unspecified chronic kidney disease; N18.9 Chronic kidney disease, unspecified; E86.0 Dehydration; B96.20 Unspecified Escherichia coli [E. coli] as the cause of diseases classified elsewhere
CPT/HCPCS: 36415; 70450-TC; 71010-TC; 72100-TC; 73523-TC; 80048; 80053; 81003; 81015; 82550; 83880; 84484; 85025; 87040; 87077; 87086; 87186; 93005; 93010; 93970-TC; 99283-25; J1644